=== PATIENT | female | born 1945 | race Caucasian/White ===

== ENCOUNTER 2017-02-08 13:39 | Inpatient (IN) | payer OTHER, MEDICARE ==
[~2017-02-08] VITALS: Ht 154.9 cm; Wt 110.5 kg
[~2017-02-08 13:39] MED LIST: ACC10 PO; ALL60 PO; DICL-201 PO; HYDC25 PO; LRT5 PO; ZNTT/150 PO
[2017-02-08 14:40] VITALS: BP 105/82; PULSE 82; TEMP 36.9; O2SAT 92; Ht 154.9 cm; Wt 110.5 kg
[2017-02-08] MEDS ORDERED: ASPI81TA28 PO (16:26)
[2017-02-08] MEDS ORDERED: PRLSR20 PO (16:32)
[2017-02-08] MEDS ORDERED: COLE1TAB PO (16:42)
[2017-02-08] MEDS ORDERED: CLR10 PO (16:43)
[2017-02-08] MEDS ORDERED: POLYETHYLENE (MIRALAX) 17 GM PACK PO PRN (16:45)
[2017-02-08] MEDS ORDERED: HydrALAZINE HCL 20 MG/ML VIAL IV. PRN (16:45)
[2017-02-08] MEDS ORDERED: MAGNESIUM HYDROXIDE SUSP 30 ML UDC PO PRN (16:45)
[2017-02-08] MEDS ORDERED: ONDANSETRON INJ 2 MG/ML 2 ML VIAL IV PRN (16:45)
[2017-02-08] MEDS ORDERED: ALUMINUM/MAGNESIUM/SIMETH (MAALOX MAX) 30 ML UDC PO PRN (16:45)
[2017-02-08] MEDS ORDERED: TRAM-10 PO ×2 (16:46→17:48)
[2017-02-08] MEDS ORDERED: LISI40TA PO (16:47)
[2017-02-08] MEDS ORDERED: MAGN400T6 PO (16:48)
[2017-02-08] MEDS ORDERED: GABA-113 PO ×2 (16:50→17:48)
[2017-02-08] MEDS ORDERED: ALLO300T2 PO (16:51)
[2017-02-08] MEDS ORDERED: GEMF600T3 PO (16:53)
[2017-02-08] MEDS ORDERED: LEVO75TA5 PO (16:56)
[2017-02-08] MEDS ORDERED: CHOL1CHW4 PO (17:01)
[2017-02-08] MEDS ORDERED: ALEN5SOL PO (17:01)
[2017-02-08] MEDS ORDERED: RIBO100T9 PO (17:03)
[2017-02-08] MEDS ORDERED: SUMA100T16 PO (17:04)
[2017-02-08] MEDS ORDERED: CYAN100048 PO (17:06)
[2017-02-08] MEDS ORDERED: SUMATRIPTAN SUCC TAB 100 MG TAB PO PRN (18:00)
[2017-02-08] MEDS ORDERED: TRAMADOL HCL 50 MG TAB PO PRN (18:00)
[2017-02-08 18:43] LABS: BASO % 0.2 %; BASO ABS # 0.02 K/uL (0-0.2); COMPLETE YES; EOS % 1.8 %; HEMATOCRIT 43.7 % (37-47); IG% 0.5 %; LYMPH % 18.9 %; LYMPH ABS # 2.03 K/uL (1.2-3.4); MEAN CELL VOLUME 89.5 fL (80-100); MEAN CORPUSCULAR HEMOGLOBIN 28.3 pg (25-34); MEAN CORPUSCULAR HGB CONC 31.6 g/dl (32-36); MEAN PLATELET VOLUME 10.6 fL (7.4-10.4); MONO % 6.4 %; NEUT % 72.2 %; PLATELET COUNT 563 K/uL (130-400); RED BLOOD COUNT 4.88 M/uL (4.2-5.4); WHITE BLOOD COUNT 10.72 K/uL (4.8-10.8)
[2017-02-08 19:01] LABS: BUN/CREATININE RATIO 14.9 (10-20); CALCIUM 10.6 mg/dl (8.5-10.1); CREATININE 2.1 mg/dl (0.60-1.20); POTASSIUM 4.9 mmol/L (3.5-5.1)
[2017-02-08 19:04] LABS: ALB/GLOB RATIO 0.6 (0.9-2); PHOSPHORUS 4.1 mg/dl (2.5-4.9)
[2017-02-08 19:10] LABS: INR 1.1 (0.9-1.1); PROTHROMBIN TIME (PATIENT) 11.5 SECONDS (9.0-12.0)
[2017-02-08] MEDS: SODIUM CHLORIDE 0.9% 1000ML 1,000 ML IV SCH (19:48)
[2017-02-08] MEDS: PANTOprazole SOD 40 MG TAB PO SCH (19:48)
--- NOTE | 2017-02-08 19:59 | HISTORY & PHYSICAL EXAMINATION ---
DATE OF ADMISSION: 02/08/2017 CHIEF COMPLAINT: Feeling weak and tired. HISTORY OF PRESENT ILLNESS: This is a 71-year-old female with past medical history significant for hypertension, iron deficiency anemia, generalized osteoarthritis, history of gout, history of GERD, history of migraines, history of hypothyroidism, hyperlipidemia, ALLERGIC RHINITIS, history of hiatal hernia, morbid obesity, questionable chronic kidney disease stage III, was sent in by nephrology because of her worsening renal function. The patient says she was on Mobic for several months and she stopped about 6 weeks ago, because it was thought to be affecting her kidney function. Her renal function as per nephrology notes, was gradually worsening up. Creatinine was 1 in August of this year and in October it went to 1.3 and November it went to 1.5 and yesterday's labs showed a creatinine of 2. Though her Mobic was stopped 6 weeks ago, still her kidney function was worsening Her labs showed mild hypercalcemia,hyperkalemia. CK was normal. Magnesium was normal.Her PRISCILLA and ANCA screen done in 2009 was also normal.We are admitting for further workup. The patient states lately she was feeling very tired, but otherwise she was doing okay. Has chronic headaches from migraines. Denies any dizziness, no blurred vision, and no sore throat. She has been somewhat nauseous lately, but no vomiting, no abdominal pain. Normal bowel and bladder movements. No blood in the stools. No blood in the urine. Appetite is okay. No chest pain, no shortness of breath, no cough, no fever, no chills, no lower extremity edema. Ambulation, walks with the help of cane and is limited because of chronic back pain.Lately, since 1 or 2 years, she developed some rash in her arms region, happens once in a while. Otherwise, she is currently doing fine and resting comfortably. ALLERGIES: TO PENICILLINS. PAST MEDICAL HISTORY: As mentioned above. PAST SURGICAL HISTORY: Appendectomy, bilateral total knee arthroplasties, lumbar spine injections, laparoscopic colectomy with anastomosis, ligation of oviduct, cholecystectomy, tonsillectomy, adenoidectomy. MEDICATIONS AT HOME: Currently, the patient is on Imitrex 1 tablet p.o. p.r.n. with the onset of headaches, Excedrin Migraine 1 tablet every 6 hours p.r.n., tramadol 50 mg p.o. q. 6 hours p.r.n., allopurinol 300 mg p.o. daily, lisinopril 40 mg p.o. daily, Fosamax once a week, Lopid 600 mg p.o. b.i.d., levothyroxine 75 mcg p.o. daily, magnesium oxide 400 mg p.o. daily, gabapentin 300 mg one tablet in the afternoon and 2 tablets at bedtime, colestipol 1 tablet p.o. b.i.d., aspirin enteric coated 81 mg p.o. 3 times a week, Riboflavin 100 mg twice daily, cholecalciferol 200 mg p.o. daily, loratadine 10 mg p.o. daily, omeprazole 20 mg p.o. b.i.d. FAMILY HISTORY: Significant for mother had arthritis and ovarian cancer,. Father had prostate cancer. SOCIAL HISTORY: , no smoking history. Alcohol occasional. No drug abuse. REVIEW OF SYMPTOMS: As per HPI. Rest of the review of systems negative. PHYSICAL EXAMINATION: GENERAL: The patient is morbidly obese, not in distress. VITAL SIGNS: Temperature 36.9, pulse 82, respiratory rate 16, blood pressure 105/82, oxygen 92% room air. HEENT: No pallor, no icterus. NECK: No JVD, no neck masses, no carotid bruits. CARDIOVASCULAR: S1, S2 heard, regular rate and rhythm, no murmur, no gallop. RESPIRATORY: Clear to auscultation bilaterally. No wheezing, no crackles. ABDOMEN: Soft, bowel sounds present. Nontender. No distention. CENTRAL NERVOUS: Cranial nerves II-XII are grossly intact. Nonfocal. EXTREMITIES: No edema, no erythema. Skin Papular rash on the arms LABORATORY DATA: Pending from today. ASSESSMENT AND PLAN: This is a 71-year-old female who was directly admitted for worsening kidney function. 1. Acute renal failure and possibly chronic kidney disease stage III. The patient's creatinine was 1 in August, which has progressively worsened and in October, it was 1.3, in November it was 1.7. yesterday labs showed 2. Though Mobic was stopped approximately 6 weeks ago, her kidney function was worsening and also mild hyperkalemia and hypercalcemia. So she was directly admitted for further lab work. We will place her on gentle fluids. We will repeat the labs here and get an EKG and chest x-ray. We will also get PRISCILLA and ANCA screen, urinalysis and urine for eosinophils. The patient had a renal ultrasound done on August 2016 and was unremarkable except for mild bilateral cortical renal thinning. Repeat ultrasound as per nephrology. Consult nephrology and further recommendation as per nephrology. 2. Hypertension. We will hold the lisinopril. We will place on IV hydralazine p.r.n. 3. Hx of gout, continue allopurinol. 4. Hypothyroidism. Continue Synthroid. Follow TSH levels. 5. Gastroesophageal reflux disease. Continue PPI. 6. History of migraines, on tramadol and magnesium, which we will continue for now and Imitrex p.r.n. 7. Osteoarthritis. Continue tramadol p.r.n. 8. ALLERGIC RHINITIS. Continue Claritin. 9. DVT prophylaxis, SCDs, heparin subQ. 10. Hyperlipidemia. Continue Lopid. DISPOSITION: Admit to medical floor. I expect to discharge her home and follow up with family doctor and nephrology. Level 1, full code. MTDD
[2017-02-08] MEDS: MAGNESIUM OXIDE 400 MG TAB PO SCH (20:56)
[2017-02-08] MEDS: ALLOPURINOL 300 MG TAB PO SCH (20:57)
[2017-02-08] MEDS: GABAPENTIN 300 MG CAP PO SCH (20:57)
[2017-02-08] MEDS ORDERED: NON-FORMULARY MEDICATION (Riboflavin (Vitamin B-2) 100 MG) PO SCH (21:00)
[2017-02-08] MEDS: HEPARIN SOD 5000 UNIT/0.5 ML CARP SQ SCH (21:47)
--- NOTE | 2017-02-08 22:15 | DIAGNOSTIC IMAGING REPORT ---
CHEST ONE VIEW PORTABLE CLINICAL HISTORY: congestion dyspnea COMPARISON STUDY: 09/04/2005 FINDINGS: Mild cardiomegaly. Diaphragms are smooth. Lungs are clear. IMPRESSION: Mild cardiomegaly. Otherwise negative study The above report was generated using voice recognition software. It may contain grammatical, syntax or spelling errors. Electronically signed by: Pawan Avalos M.D. 02/08/2017 10:13 PM Dictated Date/Time: 02/08/2017 10:13 PM
[2017-02-08 23:24] VITALS: BP_SYST 74; BP_SYST 91; BP_DIAS 49; BP_DIAS 60; PULSE 82; TEMP 37; O2SAT 91
[2017-02-09] VITALS: BP 91/60
[2017-02-09] MEDS ORDERED: SODIUM CHLORIDE 0.9% 500ML 500 ML IV ONE
[2017-02-09 00:09] LABS: BASO % 0.2 %; BASO ABS # 0.02 K/uL (0-0.2); COMPLETE YES; EOS % 2.4 %; HEMATOCRIT 38.1 % (37-47); IG% 0.3 %; LYMPH % 19.9 %; LYMPH ABS # 1.74 K/uL (1.2-3.4); MEAN CORPUSCULAR HGB CONC 31.5 g/dl (32-36); MEAN PLATELET VOLUME 10.1 fL (7.4-10.4); MONO % 6.4 %; NEUT % 70.8 %; PLATELET COUNT 452 K/uL (130-400); RED BLOOD COUNT 4.28 M/uL (4.2-5.4); WHITE BLOOD COUNT 8.74 K/uL (4.8-10.8)
[2017-02-09 00:28] LABS: BUN/CREATININE RATIO 16.3 (10-20); CALCIUM 9.5 mg/dl (8.5-10.1); POTASSIUM 5.2 mmol/L (3.5-5.1)
[2017-02-09 01:26] VITALS: BP 98/63
[2017-02-09 02:06] LABS: URINE APPEARANCE CLEAR (CLEAR); URINE BILIRUBIN NEG (NEG); URINE COLOR YELLOW; URINE EPITHELIAL CELL AUTO >30 /lpf (0-5); URINE NITRITE NEG (NEG); URINE SPECIFIC GRAVITY 1.015 (1.000-1.030); UROBILINOGEN NEG (NEG)
[2017-02-09 02:08] LABS: MANUAL MICROSCOPIC REQUIRED? NO; REVIEW REQ? NO
[2017-02-09] MEDS: SODIUM CHLORIDE 0.9% 1000ML 1,000 ML IV SCH ×2 (05:34→14:15)
[2017-02-09] MEDS: LEVOTHYROXINE 75 MCG TAB PO SCH (05:35)
[2017-02-09 06:50] VITALS: BP 91/57; PULSE 69; TEMP 36.5; O2SAT 92
[2017-02-09] MEDS: GEMFIBROZIL 600 MG TAB PO SCH ×2 (07:18→17:39)
[2017-02-09] MEDS: COLESTIPOL HCL 1 GM TAB PO SCH ×2 (07:18→17:38)
[2017-02-09] MEDS: PANTOprazole SOD 40 MG TAB PO SCH ×2 (07:18→17:39)
[2017-02-09] MEDS: ACETAMINOPHEN 325 MG TAB PO PRN ×2 (07:20→11:19)
[2017-02-09] MEDS: HEPARIN SOD 5000 UNIT/0.5 ML CARP SQ SCH ×2 (07:26→20:50)
[2017-02-09 08:19] LABS: BASO % 0.6 %; BASO ABS # 0.04 K/uL (0-0.2); COMPLETE YES; EOS % 4.2 %; HEMATOCRIT 36.7 % (37-47); IG% 0.3 %; LYMPH % 28.3 %; LYMPH ABS # 1.87 K/uL (1.2-3.4); MEAN CELL VOLUME 89.7 fL (80-100); MEAN CORPUSCULAR HEMOGLOBIN 28.6 pg (25-34); MEAN CORPUSCULAR HGB CONC 31.9 g/dl (32-36); MEAN PLATELET VOLUME 10.2 fL (7.4-10.4); MONO % 7.1 %; NEUT % 59.5 %; PLATELET COUNT 426 K/uL (130-400); RED BLOOD COUNT 4.09 M/uL (4.2-5.4); WHITE BLOOD COUNT 6.61 K/uL (4.8-10.8)
[2017-02-09 08:53] LABS: BUN/CREATININE RATIO 15.2 (10-20); CALCIUM 9.5 mg/dl (8.5-10.1); CREATININE 1.9 mg/dl (0.60-1.20); POTASSIUM 4.8 mmol/L (3.5-5.1)
[2017-02-09] MEDS ORDERED: ASPIRIN 81 MG ECTAB PO SCH (09:00)
[2017-02-09] MEDS ORDERED: PERFLUTREN LIPID MICROSPHERE (DEFINITY) IV ONE (09:50)
[2017-02-09] MEDS: LORATADINE 10 MG TAB PO SCH (11:06)
[2017-02-09] MEDS: GABAPENTIN 300 MG CAP PO SCH ×2 (11:06→20:46)
[2017-02-09] MEDS: CHOLECALCIFEROL 1000 INTER.UNIT TAB PO SCH (11:07)
--- NOTE | 2017-02-09 12:30 | ECHOCARDIOGRAM REPORT ---
*NOTICE TO RECEIVING REPUBLICAN AGENCY This information is strictly Confidential and protected under [place] law. [place] law prohibits you from making any further disclosure of this information unless further disclosure is expressly permitted by the written consent of the person to whom it pertains or is authorized by law. A general authorization for the release of medical or other information is not sufficient for this purpose. Hospital accepts no responsibility if the information is made available to any other person, INCLUDING THE PATIENT. 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 * Performed By: Maria Victoria Rivera RCS * * Reason For Study: ABNORMAL EKG * BSA: 2.1 m2 * -- Conclusions -- * The left ventricle is normal in size. * Left ventricular systolic function is normal. * Ejection Fraction = 55-60%. * The right ventricular systolic function is normal. * The left atrial size is normal. * Right atrial size is normal. * No significant valvular pathology. Procedure Details * A complete two-dimensional transthoracic echocardiogram was performed (2D, M-mode, Doppler and color flow Doppler). * The study was technically difficult. * A contrast injection of Definity was performed to improve assessment of LV function. * Contrast was injected into an intravenous site in the left arm. * One vial of Definity ultrasound contrast was diluted in normal saline to a total volume of 10 ml. A total of '2' ml of solution was administered during imaging. * Lot # [id number] of Definity utilized for procedure. * Expiration date MAR 15. * The attending nurse who injected the contrast agent was ABBY PINA CPL, RN. Left Ventricle * The left ventricle is normal in size. * There is normal left ventricular wall thickness. * Left ventricular systolic function is normal. * Ejection Fraction = 55-60%. * The left ventricular wall motion is normal. Right Ventricle * The right ventricle is normal size. * The right ventricular systolic function is normal. Atria * The left atrial size is normal. * Right atrial size is normal. * The interatrial septum is intact with no evidence for an atrial septal defect. Mitral Valve * The mitral valve anatomy is normal. * Significant mitral regurgitation is absent. Tricuspid Valve * The tricuspid valve anatomy is normal. * There is trace tricuspid regurgitation. Aortic Valve * The aortic valve is tricuspid. The leaflet thickness if normal. There is no aortic stenosis, and no significant insufficiency. * No hemodynamically significant valvular aortic stenosis. * There is no significant aortic regurgitation. Pulmonic Valve * The pulmonic valve is not well visualized. Great Vessels * The aortic root and proximal ascending aorta are normal sized. Pericardium/Pleural * There is no pericardial effusion. MMode 2D Measurements and Calculations IVSd 1.4 cm IVSs 1.5 cm LVIDd 4.4 cm LVIDs 3.5 cm LVPWd 1.2 cm LVPWs 1.3 cm IVS/LVPW 1.2 FS 20.1 % EDV(Teich) 89.0 ml ESV(Teich) 52.3 ml EF(Teich) 41.3 % EDV(cubed) 86.8 ml ESV(cubed) 44.3 ml EF(cubed) 48.9 % % IVS thick 10.7 % % LVPW thick 12.9 % LV mass(C)d 209.8 grams LV mass(C)dI 102.2 grams/m\S\2 LV mass(C)s 179.5 grams LV mass(C)sI 87.5 grams/m\S\2 SV(Teich) 36.7 ml SI(Teich) 17.9 ml/m\S\2 SV(cubed) 42.4 ml SI(cubed) 20.7 ml/m\S\2 Ao root diam 2.9 cm Ao root area 6.5 cm\S\2 ACS 2.1 cm LA dimension 3.2 cm LA/Ao 1.1 LVOT diam 2.0 cm LVOT area 3.2 cm\S\2 LVAd ap4 31.9 cm\S\2 LVLd ap4 8.0 cm EDV(MOD-sp4) 108.3 ml EDV(sp4-el) 108.2 ml LVAs ap4 18.2 cm\S\2 LVLs ap4 5.6 cm ESV(MOD-sp4) 51.5 ml ESV(sp4-el) 50.1 ml EF(MOD-sp4) 52.5 % EF(sp4-el) 53.7 % LVAd ap2 28.2 cm\S\2 LVLd ap2 8.3 cm EDV(MOD-sp2) 81.0 ml EDV(sp2-el) 81.5 ml LVAs ap2 20.2 cm\S\2 LVLs ap2 7.3 cm ESV(MOD-sp2) 45.8 ml ESV(sp2-el) 47.4 ml EF(MOD-sp2) 43.5 % EF(sp2-el) 41.9 % LVLd %diff 4.1 % EDV(MOD-bp) 95.6 ml LVLs %diff 23.0 % ESV(MOD-bp) 54.9 ml EF(MOD-bp) 42.5 % SV(MOD-sp4) 56.8 ml SI(MOD-sp4) 27.7 ml/m\S\2 SV(MOD-sp2) 35.3 ml SI(MOD-sp2) 17.2 ml/m\S\2 SV(MOD-bp) 40.7 ml SI(MOD-bp) 19.8 ml/m\S\2 SV(sp4-el) 58.2 ml SI(sp4-el) 28.3 ml/m\S\2 SV(sp2-el) 34.2 ml SI(sp2-el) 16.6 ml/m\S\2 Doppler Measurements and Calculations MV E max orion 103.5 cm/sec MV A max orion 82.5 cm/sec MV E/A 1.3 MV P1/2t max orion 96.6 cm/sec MV P1/2t 63.7 msec MVA(P1/2t) 3.5 cm\S\2 MV dec slope 444.1 cm/sec\S\2 MV dec time 0.24 sec Ao V2 max 152.8 cm/sec Ao max PG 9.3 mmHg Ao max PG (full) 5.2 mmHg SUNSHINE(V,A) 2.1 cm\S\2 SUNSHINE(V,D) 2.1 cm\S\2 LV V1 max PG 4.1 mmHg LV V1 max 101.2 cm/sec PA V2 max 88.9 cm/sec PA max PG 3.2 mmHg TR max orion 174.3 cm/sec
[2017-02-09 15:00] VITALS: BP 110/73; PULSE 69; TEMP 36.6; O2SAT 94
--- NOTE | 2017-02-09 15:59 | Progress Note ---
Internal Med Progress Note Date of Service: Feb 09, 2017. Provider Documentation: SUBJECTIVE: resting comfortably eating fine 'no sob no chest pain afebrile asking when she can go home OBJECTIVE: Vital Signs-as noted below Exam: General-alert and oriented. Not in distress. Obese ENT-normal hearing Neck-no neck masses Lungs-cta b/l no wheezing no crackles present Heart-s1 and s2 heard regular rhythm, no murmurs Abdomen-soft bowel sounds present non tender no distension Extremities no edema present no erythema Neuro-alert and oriented moves extremities Lab data as noted below. ASSESSMENT & PLAN: This is a 71-year-old female who was directly admitted for worsening kidney function. 1. Acute renal failure and possibly chronic kidney disease stage III. The patient's creatinine was 1 in August, which has progressively worsened and in October, it was 1.3, in November it was 1.7. yesterday labs showed 2. Though Mobic was stopped approximately 6 weeks ago, her kidney function was worsening and also mild hyperkalemia and hypercalcemia. So she was directly admitted for further lab work. cr 1.9 today awit nephro recommendations continue gentle fluids for now. 2. Hypertension. We will hold the lisinopril. We will place on IV hydralazine p.r.n. 3. Hx of gout, continue allopurinol. 4. Hypothyroidism. Continue Synthroid. 5. Gastroesophageal reflux disease. Continue PPI. 6. History of migraines, on tramadol and magnesium, which we will continue for now and Imitrex p.r.n. 7. Osteoarthritis. Continue tramadol p.r.n. 8. ALLERGIC RHINITIS. Continue Claritin. 9. DVT prophylaxis, SCDs, heparin subQ. 10. Hyperlipidemia. Continue Lopid. DISPOSITION to be determined expect to d/c home and f/u with pcp and nephrology Vital Signs: Date Time Temp Pulse Resp B/P (MAP) Pulse Ox O2 Delivery O2 Flow Rate FiO2 02/09/17 15:00 36.6 69 18 110/73 (85) 94 Room Air 02/09/17 07:10 Room Air 02/09/17 06:50 36.5 69 16 91/57 (68) 92 Room Air 02/09/17 01:26 98/63 (75) 02/09/17 00:00 91/60 (70) 02/08/17 23:24 37.0 82 16 91/60 (70) 91 Room Air 74/49 (57) 02/08/17 23:15 Room Air Lab Results: Results Past 24 Hours Test 02/08/17 18:29 02/08/17 23:56 02/09/17 00:00 02/09/17 01:45 Range/Units White Blood Count 10.72 8.74 4.8-10.8 K/uL Red Blood Count 4.88 4.28 4.2-5.4 M/uL Hemoglobin 13.8 12.0 12.0-16.0 g/dL Hematocrit 43.7 38.1 37-47 % Mean Corpuscular Volume 89.5 89.0 80-100 fL Mean Corpuscular Hemoglobin 28.3 28.0 25-34 pg Mean Corpuscular Hemoglobin Concent 31.6 31.5 32-36 g/dl Platelet Count 563 452 130-400 K/uL Mean Platelet Volume 10.6 10.1 7.4-10.4 fL Neutrophils (%) (Auto) 72.2 70.8 % Lymphocytes (%) (Auto) 18.9 19.9 % Monocytes (%) (Auto) 6.4 6.4 % Eosinophils (%) (Auto) 1.8 2.4 % Basophils (%) (Auto) 0.2 0.2 % Neutrophils # (Auto) 7.74 6.18 1.4-6.5 K/uL Lymphocytes # (Auto) 2.03 1.74 1.2-3.4 K/uL Monocytes # (Auto) 0.69 0.56 0.11-0.59 K/uL Eosinophils # (Auto) 0.19 0.21 0-0.5 K/uL Basophils # (Auto) 0.02 0.02 0-0.2 K/uL RDW Standard Deviation 49.5 49.1 36.4-46.3 fL RDW Coefficient of Variation 15.2 15.2 11.5-14.5 % Immature Granulocyte % (Auto) 0.5 0.3 % Immature Granulocyte # (Auto) 0.05 0.03 0.00-0.02 K/uL Prothrombin Time 11.5 9.0-12.0 SECONDS Prothromb Time International Ratio 1.1 0.9-1.1 Sodium Level 133 136 136-145 mmol/L Potassium Level 4.9 5.2 3.5-5.1 mmol/L Chloride Level 103 106 98-107 mmol/L Carbon Dioxide Level 21 24 21-32 mmol/L Anion Gap 9.0 6.0 3-11 mmol/L Blood Urea Nitrogen 31 33 7-18 mg/dl Creatinine 2.10 2.00 0.60-1.20 mg/dl Est Creatinine Clear Calc Drug Dose 29.1 30.5 ml/min Estimated GFR () 27.1 28.8 Estimated GFR (Non- 23.4 24.8 BUN/Creatinine Ratio 14.9 16.3 10-20 Random Glucose 88 99 70-99 mg/dl Calcium Level 10.6 9.5 8.5-10.1 mg/dl Phosphorus Level 4.1 2.5-4.9 mg/dl Magnesium Level 2.0 2.0 1.8-2.4 mg/dl Total Bilirubin 0.3 0.2-1 mg/dl Aspartate Amino Transf (AST/SGOT) 15 15-37 U/L Alanine Aminotransferase (ALT/SGPT) 8 12-78 U/L Alkaline Phosphatase 292 45-117 U/L Total Protein 8.8 6.4-8.2 gm/dl Albumin 3.3 3.4-5.0 gm/dl Globulin 5.5 2.5-4.0 gm/dl Albumin/Globulin Ratio 0.6 0.9-2 Lactic Acid Level 1.2 0.4-2.0 mmol/L Urine Color YELLOW Urine Appearance CLEAR CLEAR Urine pH 5.0 4.5-7.5 Urine Specific [place] 1.015 1.000-1.030 Urine Protein NEG NEG Urine Glucose (UA) NEG NEG Urine Ketones NEG NEG Urine Occult Blood NEG NEG Urine Nitrite NEG NEG Urine Bilirubin NEG NEG Urine Urobilinogen NEG NEG Urine Leukocyte Esterase MODERATE NEG Urine WBC (Auto) 10-30 0-5 /hpf Urine RBC (Auto) 0-4 0-4 /hpf Urine Hyaline Casts (Auto) 1-5 0-5 /lpf Urine Epithelial Cells (Auto) >30 0-5 /lpf Urine Bacteria (Auto) NEG NEG Test 02/09/17 08:00 Range/Units White Blood Count 6.61 4.8-10.8 K/uL Red Blood Count 4.09 4.2-5.4 M/uL Hemoglobin 11.7 12.0-16.0 g/dL Hematocrit 36.7 37-47 % Mean Corpuscular Volume 89.7 80-100 fL Mean Corpuscular Hemoglobin 28.6 25-34 pg Mean Corpuscular Hemoglobin Concent 31.9 32-36 g/dl Platelet Count 426 130-400 K/uL Mean Platelet Volume 10.2 7.4-10.4 fL Neutrophils (%) (Auto) 59.5 % Lymphocytes (%) (Auto) 28.3 % Monocytes (%) (Auto) 7.1 % Eosinophils (%) (Auto) 4.2 % Basophils (%) (Auto) 0.6 % Neutrophils # (Auto) 3.93 1.4-6.5 K/uL Lymphocytes # (Auto) 1.87 1.2-3.4 K/uL Monocytes # (Auto) 0.47 0.11-0.59 K/uL Eosinophils # (Auto) 0.28 0-0.5 K/uL Basophils # (Auto) 0.04 0-0.2 K/uL RDW Standard Deviation 50.1 36.4-46.3 fL RDW Coefficient of Variation 15.2 11.5-14.5 % Immature Granulocyte % (Auto) 0.3 % Immature Granulocyte # (Auto) 0.02 0.00-0.02 K/uL Sodium Level 136 136-145 mmol/L Potassium Level 4.8 3.5-5.1 mmol/L Chloride Level 108 98-107 mmol/L Carbon Dioxide Level 22 21-32 mmol/L Anion Gap 6.0 3-11 mmol/L Blood Urea Nitrogen 29 7-18 mg/dl Creatinine 1.90 0.60-1.20 mg/dl Est Creatinine Clear Calc Drug Dose 32.1 ml/min Estimated GFR () 30.6 Estimated GFR (Non- 26.4 BUN/Creatinine Ratio 15.2 10-20 Random Glucose 86 70-99 mg/dl Calcium Level 9.5 8.5-10.1 mg/dl Troponin I < 0.015 0-0.045 ng/ml
--- NOTE | 2017-02-09 17:29 | Nephrology Consultation ---
Nephrology Consultation Date of Consultation: Feb 09, 2017. Attending Physician: Dr Briceno Requesting Physician: Dr Briceno Reason for Consultation: LUZ MARIA on CKD History of Present Illness 71 year old female who established care w/ Dr Rivas in CKD clinic this week admitted directly yesterday at his recommendation for evaluation of worsening renal function. PMH includes CKD 3 which has emerged and worsened over the past 3 mos. The pt has a hx of mobic/occasional ibuprofen use for OA under supervision of rheumatology>> these were stopped though in late November. She also takes excedrine migraine which containes 250 mg ASA per pill a few times weekly and often HS one pill each time, including recently. Also on lisinopril and ASA 81 mg daily. She started lisinopril in August. She started meloxicam in August and stopped it at the end of November. Her creatinine went from 1.0 in August 2016 to 1.3 in mid October to 1.5 late November and now on recheck 02/07 was 2.0 with K 5.2, Ca 10.7. Her weight has been stable in this timeframe. Her blood pressures in clinic run 110-120 systolic. Since presentation through this am, her systolics were in 90s. UA obtained same day showed no eonsinophils but ongoing large esterase, bacteria, WBC and trace protein. prot/creat ratio in this sediment was 205 mg. Renal u/s spring 2016 shows symmetric 10 cm kidneys w /o hydronephrosis, stone, or mass. Past Medical/Surgical History -osteoarthritis -HTN -CKD 3 -frequent headaches including migraines -GERD -hiatal hernia -HL -hypothyroid -obesity BMI >45 -s/p appendectomy, tonsil/adenoid, lap colectomy -s/p BL TKA Family History no ckd/esrd; M w/ ovarian CA; F w/ prostate CA Social History Smoking Status: Never Smoker Alcohol Use: none Drug Use: none Marital Status: Housing Status: lives with family Allergies Coded Allergies: Penicillins (Verified Adverse Reaction, Mild, YEAST INFECTION, 07/03/09) No Known Allergies (Verified , 01/03/07) Medications Current Inpatient Medications Medications (Trade) Dose Ordered Sig/Moises Route Start Time Stop Time Status Last Admin Dose Admin Acetaminophen (Tylenol Tab) 650 mg Q4H PRN PO 02/08/17 16:45 03/10/17 16:44 02/09/17 07:20 650 MG Al Hydrox/Mg Hydrox/Simethicone (Maalox Max Susp) 15 ml Q4H PRN PO 02/08/17 16:45 03/10/17 16:44 Magnesium Hydroxide (Milk Of Magnesia Susp) 30 ml Q6H PRN PO 02/08/17 16:45 03/10/17 16:44 Polyethylene (Miralax Powder Packet) 17 gm DAILY PRN PO 02/08/17 16:45 03/10/17 16:44 Ondansetron HCl (Zofran Inj) 4 mg Q6H PRN IV 02/08/17 16:45 03/10/17 16:44 02/08/17 19:48 4 MG Heparin Sodium (Porcine) (Heparin Sq 5000 Unit/0.5ml) 5,000 unit Q12H SQ 02/08/17 21:00 03/10/17 20:59 02/09/17 07:26 5,000 UNIT Sodium Chloride 1,000 ml @ 75 mls/hr [id number] IV 02/08/17 16:45 03/10/17 16:44 02/09/17 05:34 75 MLS/HR Allopurinol (Zyloprim Tab) 300 mg QPM PO 02/08/17 21:00 03/10/17 20:59 02/08/17 20:57 300 MG Aspirin (Ecotrin Tab) 81 mg Q2D PO 02/09/17 09:00 03/11/17 08:59 Colestipol HCl (Colestid Tab) 1 gm BIDM PO 02/09/17 08:30 03/11/17 08:29 02/09/17 07:18 1 GM Gabapentin (Neurontin Cap) 300 mg QAM PO 02/09/17 09:00 03/11/17 08:59 Gemfibrozil (Lopid Tab) 600 mg BIDM PO 02/09/17 08:30 03/11/17 08:29 02/09/17 07:18 600 MG Levothyroxine Sodium (Synthroid Tab) 75 mcg DAILYBB PO 02/09/17 06:00 03/11/17 05:59 02/09/17 05:35 75 MCG Loratadine (Claritin Tab) 10 mg DAILY PO 02/09/17 09:00 03/11/17 08:59 Magnesium Oxide (Mag-Ox Tab) 400 mg QPM PO 02/08/17 21:00 03/10/17 20:59 02/08/17 20:56 400 MG Sumatriptan Succinate (Imitrex Tab) 100 mg UD PRN PO 02/08/17 18:00 03/10/17 17:59 Tramadol HCl (Ultram Tab) 50 mg Q6 PRN PO 02/08/17 18:00 03/10/17 17:59 02/08/17 21:00 50 MG Cholecalciferol (Vitamin D Tab) 2,000 inter.unit QAM PO 02/09/17 09:00 03/11/17 08:59 Pantoprazole Sodium (Protonix Tab) 40 mg BIDM PO 02/08/17 19:00 03/10/17 18:59 02/09/17 07:18 40 MG Gabapentin (Neurontin Cap) 600 mg HS PO 02/08/17 21:00 03/10/17 20:59 02/08/17 20:57 600 MG Home Meds and Scripts Medications Dose Route/Sig Max Daily Dose Days Date Category Dose Instructions Neurontin (Gabapentin) 300 Mg Cap 300 Mg PO UD 02/08/17 Rx GABAPENTIN 300MG IN AM AND GABAPENTIN 600MG PO IN PM Ultram (Tramadol HCl) 50 Mg Tab 1 Tab PO Q6 PRN 30 02/08/17 Rx Imitrex (Sumatriptan Succinate) 100 Mg Tab 100 Mg PO PRN 02/08/17 Reported Vitamin B-2 (Riboflavin) 100 Mg Tab 100 Mg PO BID 02/08/17 Reported Vitamin D3 (Cholecalciferol) 2,000 Unit Chw 2,000 Units PO QAM 02/08/17 Reported Levothyroxine Sodium 75 Mcg Tab 1 Tab PO DAILYBB 30 02/08/17 Reported Lopid (Gemfibrozil) 600 Mg Tab 600 Mg PO BIDM 02/08/17 Reported Zyloprim (Allopurinol) 300 Mg Tab 300 Mg PO QPM 02/08/17 Reported Mag-Ox (Magnesium Oxide) 400 Mg Tab 400 Mg PO QPM 02/08/17 Reported Zestril (Lisinopril) 40 Mg Tab 40 Mg PO QPM 02/08/17 Reported Claritin (Loratadine) 10 Mg Tab 10 Mg PO DAILY 02/08/17 Reported Colestid (Colestipol Hcl) 1 Gm Tab 1 Gm PO BIDM 02/08/17 Reported Prilosec (Omeprazole) 20 Mg Capcr 20 Mg PO BIDM 02/08/17 Reported Aspirin Ec (Aspirin) 81 Mg Tab 81 Mg PO Q2D 02/08/17 Reported Review of Systems Constitutional: + weakness Eyes: No worsening of vision ENT: No hearing loss Respiratory: No cough, No shortness of breath Cardiac: No edema, No palpitations Abdomen: No pain, No nausea, No vomiting, No diarrhea, No constipation Musculoskeletal: + see HPI, + joint pain, + muscle pain Female : No dysuria, No urinary frequency, No hematuria Neuro: + problem reported (MURRAY near daily), No memory loss Psych: + insomnia, No depression symptoms, No anxiety Heme: No abnormal bleeding/bruising Endo: No fatigue Skin: No rash Physical Exam Date Time Temp Pulse Resp B/P (MAP) Pulse Ox O2 Delivery O2 Flow Rate FiO2 02/09/17 06:50 36.5 69 16 91/57 (68) 92 Room Air 02/09/17 01:26 98/63 (75) 02/09/17 00:00 91/60 (70) 02/08/17 23:24 37.0 82 16 91/60 (70) 91 Room Air 74/49 (57) 02/08/17 23:15 Room Air 02/08/17 14:40 36.9 82 16 105/82 92 Room Air 02/08/17 14:40 Room Air 02/08/17 14:40 36.9 82 16 105/82 (90) 92 Room Air General Appearance: WD/WN, no apparent distress, + obese, + pertinent finding ( on RA) Eyes: EOMI ENT: hearing grossly normal Neck: supple Respiratory/Chest: lungs clear, + decreased breath sounds Cardiovascular: regular rate, rhythm, no edema Abdomen: normal bowel sounds, non tender, soft Extremities: normal range of motion, non-tender, no pedal edema Neurologic/Psych: no motor/sensory deficits, alert, normal mood/affect, oriented x 3 Skin: no jaundice, warm/dry, + pallor Diagnostics Last 24 Hours Test 02/08/17 18:29 02/08/17 23:56 02/09/17 00:00 9/14/17 01:45 White Blood Count 10.72 K/uL 8.74 K/uL Red Blood Count 4.88 M/uL 4.28 M/uL Hemoglobin 13.8 g/dL 12.0 g/dL Hematocrit 43.7 % 38.1 % Mean Corpuscular Volume 89.5 fL 89.0 fL Mean Corpuscular Hemoglobin 28.3 pg 28.0 pg Mean Corpuscular Hemoglobin Concent 31.6 g/dl 31.5 g/dl Platelet Count 563 K/uL 452 K/uL Mean Platelet Volume 10.6 fL 10.1 fL Neutrophils (%) (Auto) 72.2 % 70.8 % Lymphocytes (%) (Auto) 18.9 % 19.9 % Monocytes (%) (Auto) 6.4 % 6.4 % Eosinophils (%) (Auto) 1.8 % 2.4 % Basophils (%) (Auto) 0.2 % 0.2 % Neutrophils # (Auto) 7.74 K/uL 6.18 K/uL Lymphocytes # (Auto) 2.03 K/uL 1.74 K/uL Monocytes # (Auto) 0.69 K/uL 0.56 K/uL Eosinophils # (Auto) 0.19 K/uL 0.21 K/uL Basophils # (Auto) 0.02 K/uL 0.02 K/uL RDW Standard Deviation 49.5 fL 49.1 fL RDW Coefficient of Variation 15.2 % 15.2 % Immature Granulocyte % (Auto) 0.5 % 0.3 % Immature Granulocyte # (Auto) 0.05 K/uL 0.03 K/uL Prothrombin Time 11.5 SECONDS Prothromb Time International Ratio 1.1 Sodium Level 133 mmol/L 136 mmol/L Potassium Level 4.9 mmol/L 5.2 mmol/L Chloride Level 103 mmol/L 106 mmol/L Carbon Dioxide Level 21 mmol/L 24 mmol/L Anion Gap 9.0 mmol/L 6.0 mmol/L Blood Urea Nitrogen 31 mg/dl 33 mg/dl Creatinine 2.10 mg/dl 2.00 mg/dl Est Creatinine Clear Calc Drug Dose 29.1 ml/min 30.5 ml/min Estimated GFR () 27.1 28.8 Estimated GFR (Non- 23.4 24.8 BUN/Creatinine Ratio 14.9 16.3 Random Glucose 88 mg/dl 99 mg/dl Calcium Level 10.6 mg/dl 9.5 mg/dl Phosphorus Level 4.1 mg/dl Magnesium Level 2.0 mg/dl 2.0 mg/dl Total Bilirubin 0.3 mg/dl Aspartate Amino Transf (AST/SGOT) 15 U/L Alanine Aminotransferase (ALT/SGPT) 8 U/L Alkaline Phosphatase 292 U/L Total Protein 8.8 gm/dl Albumin 3.3 gm/dl Globulin 5.5 gm/dl Albumin/Globulin Ratio 0.6 Lactic Acid Level 1.2 mmol/L Urine Color YELLOW Urine Appearance CLEAR Urine pH 5.0 Urine Specific [place] 1.015 Urine Protein NEG Urine Glucose (UA) NEG Urine Ketones NEG Urine Occult Blood NEG Urine Nitrite NEG Urine Bilirubin NEG Urine Urobilinogen NEG Urine Leukocyte Esterase MODERATE Urine WBC (Auto) 10-30 /hpf Urine RBC (Auto) 0-4 /hpf Urine Hyaline Casts (Auto) 1-5 /lpf Urine Epithelial Cells (Auto) >30 /lpf Urine Bacteria (Auto) NEG Test 02/09/17 08:00 White Blood Count 6.61 K/uL Red Blood Count 4.09 M/uL Hemoglobin 11.7 g/dL Hematocrit 36.7 % Mean Corpuscular Volume 89.7 fL Mean Corpuscular Hemoglobin 28.6 pg Mean Corpuscular Hemoglobin Concent 31.9 g/dl Platelet Count 426 K/uL Mean Platelet Volume 10.2 fL Neutrophils (%) (Auto) 59.5 % Lymphocytes (%) (Auto) 28.3 % Monocytes (%) (Auto) 7.1 % Eosinophils (%) (Auto) 4.2 % Basophils (%) (Auto) 0.6 % Neutrophils # (Auto) 3.93 K/uL Lymphocytes # (Auto) 1.87 K/uL Monocytes # (Auto) 0.47 K/uL Eosinophils # (Auto) 0.28 K/uL Basophils # (Auto) 0.04 K/uL RDW Standard Deviation 50.1 fL RDW Coefficient of Variation 15.2 % Immature Granulocyte % (Auto) 0.3 % Immature Granulocyte # (Auto) 0.02 K/uL Sodium Level 136 mmol/L Potassium Level 4.8 mmol/L Chloride Level 108 mmol/L Carbon Dioxide Level 22 mmol/L Anion Gap 6.0 mmol/L Blood Urea Nitrogen 29 mg/dl Creatinine 1.90 mg/dl Est Creatinine Clear Calc Drug Dose 32.1 ml/min Estimated GFR () 30.6 Estimated GFR (Non- 26.4 BUN/Creatinine Ratio 15.2 Random Glucose 86 mg/dl Calcium Level 9.5 mg/dl Troponin I < 0.015 ng/ml Diagnostic Radiology: CXR cardiomegaly else no acute CP process TTE today > EF 55%; no valvular path or WMA Assessment & Plan 71 y/o F w/ rapidly progressive renal insufficiency admitted for mgt of same. Creatinine had been 0.9-1.0 x years; then in August 2016, the pt started both meloxicam and lisinopril concomitantly. Also occasional ibuprofen; also excedrin MURRAY med of unclear use frequency. Pt stopped NSAIDS late November. First abnormal serum creatinine is in October when her creatinine progressed to 1.3 in mid/late October to 2.0 on labs this week outpatient. Pt w/ concern for UTI at CKD clinic yesterday based on urine sediment; however here her urine has no bacteria, contaminated specimen; doubt infection. Her creatinine is slightly improved this am with ongoing lower blood pressures, sbp in 90s. Pt has chronic headache, insomnia, chronic pain >> has been taking 250 + 81 mg ASA near daily between excedrin migraine and baby aspirin and a few times weekly takes another excedrine migraine dose (250 mg asa) as well Progressive renal insufficiency in setting of chronic ACEI use and chronic nsaid exposure which was reduced but still continued this summer -admission ua contaminated and not consistent with infection -lisinopril appropriately held -cont NS at 75 mL hourly as tolerated -BP here are notably lower than as outpt >> TTE reassuring; ? if bp are lower on markedly lower dose ASA, ie w/ lower nsaid exposure -no more than 81 mg daily nsaids -work w/ pt on alternate strategies to manage MURRAY, insomnia; for MURRAY for example, could take tylenol + caffeine <<>> though this is not a great routine/frequent med -daily bmp -f/u pending serologies -recommend requantifying proteinuria> will repeat prot/creat ratio Appreciate consult; will follow with you.
[2017-02-09] MEDS: MAGNESIUM OXIDE 400 MG TAB PO SCH (20:45)
[2017-02-09] MEDS: ALLOPURINOL 300 MG TAB PO SCH (20:46)
[2017-02-09 23:05] VITALS: BP 103/69; PULSE 75; TEMP 37.2; O2SAT 94
[2017-02-10] MEDS: LEVOTHYROXINE 75 MCG TAB PO SCH (05:28)
[2017-02-10 07:40] VITALS: BP 111/73; PULSE 62; TEMP 36.9; O2SAT 94
[2017-02-10 08:06] LABS: BASO % 0.3 %; BASO ABS # 0.02 K/uL (0-0.2); COMPLETE YES; EOS % 5.1 %; HEMATOCRIT 37.6 % (37-47); IG% 0.5 %; LYMPH % 25.9 %; LYMPH ABS # 1.68 K/uL (1.2-3.4); MEAN CELL VOLUME 90.6 fL (80-100); MEAN CORPUSCULAR HEMOGLOBIN 27.7 pg (25-34); MEAN CORPUSCULAR HGB CONC 30.6 g/dl (32-36); MEAN PLATELET VOLUME 10.5 fL (7.4-10.4); MONO % 6.6 %; NEUT % 61.6 %; PLATELET COUNT 495 K/uL (130-400); RED BLOOD COUNT 4.15 M/uL (4.2-5.4); WHITE BLOOD COUNT 6.48 K/uL (4.8-10.8)
[2017-02-10] MEDS: GEMFIBROZIL 600 MG TAB PO SCH (08:12)
[2017-02-10] MEDS: COLESTIPOL HCL 1 GM TAB PO SCH (08:12)
[2017-02-10] MEDS: PANTOprazole SOD 40 MG TAB PO SCH (08:12)
[2017-02-10] MEDS: LORATADINE 10 MG TAB PO SCH (08:12)
[2017-02-10] MEDS: CHOLECALCIFEROL 1000 INTER.UNIT TAB PO SCH (08:13)
[2017-02-10] MEDS: GABAPENTIN 300 MG CAP PO SCH (08:13)
[2017-02-10] MEDS: HEPARIN SOD 5000 UNIT/0.5 ML CARP SQ SCH (08:18)
[2017-02-10] MEDS: SODIUM CHLORIDE 0.9% 1000ML 1,000 ML IV SCH (08:21)
[2017-02-10 08:38] LABS: BUN/CREATININE RATIO 13.8 (10-20); CREATININE 1.7 mg/dl (0.60-1.20); MAGNESIUM 2.1 mg/dl (1.8-2.4); POTASSIUM 4.9 mmol/L (3.5-5.1)
[2017-02-10 08:51] LABS: PHOSPHORUS 2.9 mg/dl (2.5-4.9); THYROID STIMULATING HORMONE 0.44 uIu/ml (0.300-4.500)
[2017-02-10 09:13] VITALS: BP 111/73; PULSE 62; TEMP 36.9; O2SAT 94
--- NOTE | 2017-02-10 10:41 | Nephrology Progress Note ---
Nephrology Progress Note Date of Service: Feb 10, 2017. Subjective very anxious for d/c; voiding well, 2 murray since admission treated appropriately w /o nsaid; ambulating Objective Date Time Temp Pulse Resp B/P (MAP) Pulse Ox O2 Delivery O2 Flow Rate FiO2 02/10/17 09:13 36.9 62 18 94 Room Air 02/10/17 07:40 36.9 62 18 111/73 (86) 94 Room Air 02/10/17 07:00 Room Air 02/09/17 23:57 Room Air 02/09/17 23:05 37.2 75 18 103/69 (80) 94 Room Air 02/09/17 21:00 Room Air 02/09/17 15:00 36.6 69 18 110/73 (85) 94 Room Air Physical Exam: General Appearance: WD/WN, no apparent distress, + obese, + pertinent finding ( on RA) up in chair Eyes: EOMI ENT: hearing grossly normal Neck: supple Respiratory/Chest: lungs clear, + decreased breath sounds Cardiovascular: regular rate, rhythm, no edema Abdomen: normal bowel sounds, non tender, soft Extremities: normal range of motion, non-tender, no pedal edema Neurologic/Psych: no motor/sensory deficits, alert, normal mood/affect, oriented x 3 Skin: no jaundice, warm/dry, + pallor Current Inpatient Medications Medications (Trade) Dose Ordered Sig/Moises Route Start Time Stop Time Status Last Admin Dose Admin Acetaminophen (Tylenol Tab) 650 mg Q4H PRN PO 02/08/17 16:45 03/10/17 16:44 02/09/17 11:19 650 MG Al Hydrox/Mg Hydrox/Simethicone (Maalox Max Susp) 15 ml Q4H PRN PO 02/08/17 16:45 03/10/17 16:44 Magnesium Hydroxide (Milk Of Magnesia Susp) 30 ml Q6H PRN PO 02/08/17 16:45 03/10/17 16:44 Polyethylene (Miralax Powder Packet) 17 gm DAILY PRN PO 02/08/17 16:45 03/10/17 16:44 Ondansetron HCl (Zofran Inj) 4 mg Q6H PRN IV 02/08/17 16:45 03/10/17 16:44 02/08/17 19:48 4 MG Heparin Sodium (Porcine) (Heparin Sq 5000 Unit/0.5ml) 5,000 unit Q12H SQ 02/08/17 21:00 03/10/17 20:59 02/10/17 08:18 5,000 UNIT Sodium Chloride 1,000 ml @ 75 mls/hr [id number] IV 02/08/17 16:45 03/10/17 16:44 02/10/17 08:21 75 MLS/HR Allopurinol (Zyloprim Tab) 300 mg QPM PO 02/08/17 21:00 03/10/17 20:59 02/09/17 20:46 300 MG Aspirin (Ecotrin Tab) 81 mg Q2D PO 02/09/17 09:00 03/11/17 08:59 02/09/17 11:06 81 MG Colestipol HCl (Colestid Tab) 1 gm BIDM PO 02/09/17 08:30 03/11/17 08:29 02/10/17 08:12 1 GM Gabapentin (Neurontin Cap) 300 mg QAM PO 02/09/17 09:00 03/11/17 08:59 02/10/17 08:13 300 MG Gemfibrozil (Lopid Tab) 600 mg BIDM PO 02/09/17 08:30 03/11/17 08:29 02/10/17 08:12 600 MG Levothyroxine Sodium (Synthroid Tab) 75 mcg DAILYBB PO 02/09/17 06:00 03/11/17 05:59 02/10/17 05:28 75 MCG Loratadine (Claritin Tab) 10 mg DAILY PO 02/09/17 09:00 03/11/17 08:59 02/10/17 08:12 10 MG Magnesium Oxide (Mag-Ox Tab) 400 mg QPM PO 02/08/17 21:00 03/10/17 20:59 02/09/17 20:45 400 MG Sumatriptan Succinate (Imitrex Tab) 100 mg UD PRN PO 02/08/17 18:00 03/10/17 17:59 Tramadol HCl (Ultram Tab) 50 mg Q6 PRN PO 02/08/17 18:00 03/10/17 17:59 02/08/17 21:00 50 MG Cholecalciferol (Vitamin D Tab) 2,000 inter.unit QAM PO 02/09/17 09:00 03/11/17 08:59 02/10/17 08:13 2,000 INTER.UNIT Pantoprazole Sodium (Protonix Tab) 40 mg BIDM PO 02/08/17 19:00 03/10/17 18:59 02/10/17 08:12 40 MG Gabapentin (Neurontin Cap) 600 mg HS PO 02/08/17 21:00 03/10/17 20:59 02/09/17 20:46 600 MG Last 24 Hours Test 02/10/17 07:39 White Blood Count 6.48 K/uL Red Blood Count 4.15 M/uL Hemoglobin 11.5 g/dL Hematocrit 37.6 % Mean Corpuscular Volume 90.6 fL Mean Corpuscular Hemoglobin 27.7 pg Mean Corpuscular Hemoglobin Concent 30.6 g/dl Platelet Count 495 K/uL Mean Platelet Volume 10.5 fL Neutrophils (%) (Auto) 61.6 % Lymphocytes (%) (Auto) 25.9 % Monocytes (%) (Auto) 6.6 % Eosinophils (%) (Auto) 5.1 % Basophils (%) (Auto) 0.3 % Neutrophils # (Auto) 3.99 K/uL Lymphocytes # (Auto) 1.68 K/uL Monocytes # (Auto) 0.43 K/uL Eosinophils # (Auto) 0.33 K/uL Basophils # (Auto) 0.02 K/uL RDW Standard Deviation 50.4 fL RDW Coefficient of Variation 15.2 % Immature Granulocyte % (Auto) 0.5 % Immature Granulocyte # (Auto) 0.03 K/uL Sodium Level 143 mmol/L Potassium Level 4.9 mmol/L Chloride Level 111 mmol/L Carbon Dioxide Level 23 mmol/L Anion Gap 9.0 mmol/L Blood Urea Nitrogen 24 mg/dl Creatinine 1.70 mg/dl Est Creatinine Clear Calc Drug Dose 35.9 ml/min Estimated GFR () 35.0 Estimated GFR (Non- 30.2 BUN/Creatinine Ratio 13.8 Random Glucose 92 mg/dl Calcium Level 10.0 mg/dl Phosphorus Level 2.9 mg/dl Magnesium Level 2.1 mg/dl Thyroid Stimulating Hormone (TSH) 0.440 uIu/ml Date/Time Source Procedure Growth Status 02/09/17 19:58 Urine , Clean Catch Urine Culture Pending Received Assessment & Plan 71 y/o F w/ rapidly progressive renal insufficiency admitted for mgt of same. Creatinine had been 0.9-1.0 x years; then in August 2016, the pt started both meloxicam and lisinopril concomitantly. Also occasional ibuprofen; also excedrin MURRAY med of unclear use frequency. Pt stopped meloxicam late November but cont other nsaids periodically and remained on lisinopril. First abnormal serum creatinine is in October when her creatinine progressed to 1.3 in mid/late October to 2.0 on labs this week outpatient. Pt w/ concern for UTI at CKD clinic yesterday based on urine sediment; however here her urine has no bacteria, contaminated specimen; doubt infection. Her creatinine is again slightly with ongoing lower blood pressures, sbp in 100s. Pt has chronic headache, insomnia, chronic pain >> has been taking 250 + 81 mg ASA near daily between excedrin migraine and baby aspirin and a few times weekly takes another excedrine migraine dose (250 mg asa) and occasional ibuprofen as well Progressive renal insufficiency in setting of chronic ACEI use and chronic nsaid exposure which was reduced but still continued this summer>improving kidney function with holding ACEI and nsaids -stopped IVF -reinforced w/ her no nsaids except baby aspirin >> will need plan for non nsaid pain , headache, insomnia mgt at d/c; I suggested tylenol < 2gm/day; may need other strategies as well; for MURRAY could use tylenol w/ caffeine; for insomnia recommend sleep hygeine -BP here are notably lower than as outpt >> improved off of nsaids >> d/c with NO bp meds and reassess need for these if any after d/c off of nsaids -bmp and bp check at pcp f/u; recommend bmp weekly thereafter x 3 checks adn f/ u w/ [facility] in 4-6 wks Appreciate consult; will follow with you. Care coordinated w/ Dr. Briceno
[2017-02-10] MEDS ORDERED: ASPI-390 PO (14:50)
--- NOTE | 2017-02-10 14:53 | Discharge Instructions ---
Discharge Instructions Date of Service Feb 10, 2017. Admission Reason for Admission: LUZ MARIA Discharge Discharge Diagnosis / Problem: LUZ MARIA Discharge Goals Goal(s): Decrease discomfort, Improve function Activity Recommendations Activity Limitations: resume your previous activity . Instructions / Follow-Up Instructions / Follow-Up FOLLOWUP WITH FAMILY DOCTOR ON Jan AT 10:45AM FOLLOWUP WITH NEPHROLOGY IN 4-6 WEEKS LAB: BMP WEEKLY X 3 WEEKS AND FOLLOW RESULTS WITH FAMILY DOCTOR AND NEPHROLOGY. NOT TO TAKE EXCEDRIN, IBUPROFEN, MOTRIN, ALEVE, NAPROSYN, MELOXICAM OR ANY OTHER NSAIDS. CAN TAKE TYLENOL WITH PRESCRIBED DOSES ( NOT MORE THAN 2GMS A DAY) FURTHER PAIN MANAGEMENT PER FAMILY DOCTOR AND OR RHEUMATOLOGY. Current Hospital Diet Patient's current hospital diet: Renal Diet, AHA Diet (Heart Healthy) Discharge Diet Recommended Diet: AHA Diet (Heart Healthy) Pending Studies Studies pending at discharge: no Medical Emergencies . Who to Call and When: Medical Emergencies: If at any time you feel your situation is an emergency, please call 911 immediately. . Non-Emergent Contact Non-Emergency issues call your: Primary Care Provider . . "Provider Documentation" section prepared by Sadiq Briceno. . VTE Core Measure Inpt VTE Proph given/why not?: Unfractionated heparin SQ, SCD's
--- NOTE | 2017-02-10 17:55 | Progress Note ---
Internal Med Progress Note Date of Service: Feb 10, 2017. Provider Documentation: SUBJECTIVE: resting comfortably no sob no fevers ambulated ok want to go home OBJECTIVE: Vital Signs-as noted below Exam: General-alert and oriented. Not in distress. Obese ENT-normal hearing Neck-no neck masses Lungs-cta b/l no wheezing no crackles present Heart-s1 and s2 heard regular rhythm, no murmurs Abdomen-soft bowel sounds present non tender no distension Extremities no edema present no erythema Neuro-alert and oriented moves extremities Lab data as noted below. ASSESSMENT & PLAN: This is a 71-year-old female who was directly admitted for worsening kidney function. 1. Acute renal failure and possibly chronic kidney disease stage III. The patient's creatinine was 1 in August, which has progressively worsened and in October, it was 1.3, in November it was 1.7. yesterday labs showed 2. Though Mobic was stopped approximately 6 weeks ago, her kidney function was worsening and also mild hyperkalemia and hypercalcemia. So she was directly admitted for further lab work. awit nephro recommendations on gentle fluids and cr 1.7 today advised to stop excedrin. and not to take any nsaids except baby aspirin. f/u bmp weekly with pcp and nephrology 2. Hypertension. We will hold the lisinopril. was hypotensive in the hospital and improved later. stopped lisinopril on discharge f/u BP with pcp. 3. Hx of gout, continue allopurinol. 4. Hypothyroidism. Continue Synthroid. 5. Gastroesophageal reflux disease. Continue PPI. 6. History of migraines, on tramadol and magnesium, which we will continue for now and Imitrex p.r.n. 7. Osteoarthritis. Continue tramadol p.r.n. 8. ALLERGIC RHINITIS. Continue Claritin. Discharged home Vital Signs: Date Time Temp Pulse Resp B/P (MAP) Pulse Ox O2 Delivery O2 Flow Rate FiO2 02/10/17 09:13 36.9 62 18 94 Room Air 02/10/17 07:40 36.9 62 18 111/73 (86) 94 Room Air 02/10/17 07:00 Room Air 02/09/17 23:57 Room Air 02/09/17 23:05 37.2 75 18 103/69 (80) 94 Room Air 02/09/17 21:00 Room Air Lab Results: Results Past 24 Hours Test 02/10/17 07:39 Range/Units White Blood Count 6.48 4.8-10.8 K/uL Red Blood Count 4.15 4.2-5.4 M/uL Hemoglobin 11.5 12.0-16.0 g/dL Hematocrit 37.6 37-47 % Mean Corpuscular Volume 90.6 80-100 fL Mean Corpuscular Hemoglobin 27.7 25-34 pg Mean Corpuscular Hemoglobin Concent 30.6 32-36 g/dl Platelet Count 495 130-400 K/uL Mean Platelet Volume 10.5 7.4-10.4 fL Neutrophils (%) (Auto) 61.6 % Lymphocytes (%) (Auto) 25.9 % Monocytes (%) (Auto) 6.6 % Eosinophils (%) (Auto) 5.1 % Basophils (%) (Auto) 0.3 % Neutrophils # (Auto) 3.99 1.4-6.5 K/uL Lymphocytes # (Auto) 1.68 1.2-3.4 K/uL Monocytes # (Auto) 0.43 0.11-0.59 K/uL Eosinophils # (Auto) 0.33 0-0.5 K/uL Basophils # (Auto) 0.02 0-0.2 K/uL RDW Standard Deviation 50.4 36.4-46.3 fL RDW Coefficient of Variation 15.2 11.5-14.5 % Immature Granulocyte % (Auto) 0.5 % Immature Granulocyte # (Auto) 0.03 0.00-0.02 K/uL Sodium Level 143 136-145 mmol/L Potassium Level 4.9 3.5-5.1 mmol/L Chloride Level 111 98-107 mmol/L Carbon Dioxide Level 23 21-32 mmol/L Anion Gap 9.0 3-11 mmol/L Blood Urea Nitrogen 24 7-18 mg/dl Creatinine 1.70 0.60-1.20 mg/dl Est Creatinine Clear Calc Drug Dose 35.9 ml/min Estimated GFR () 35.0 Estimated GFR (Non- 30.2 BUN/Creatinine Ratio 13.8 10-20 Random Glucose 92 70-99 mg/dl Calcium Level 10.0 8.5-10.1 mg/dl Phosphorus Level 2.9 2.5-4.9 mg/dl Magnesium Level 2.1 1.8-2.4 mg/dl Thyroid Stimulating Hormone (TSH) 0.440 0.300-4.500 uIu/ml Microbiology Results 02/09/17 Urine Culture - Preliminary, Resulted NO GROWTH - LESS THAN 1,000 COLONIES/...
--- NOTE | 2017-02-10 18:38 | Discharge Summary ---
Discharge Summary Date of Service Feb 10, 2017. Discharge Summary Admission Date: Feb 08, 2017 at 16:45 Discharge Date: Feb 10, 2017 Discharge Disposition: Home Principal Diagnosis: LUZ MARIA Secondary Diagnoses/Problems: hypertension, iron deficiency anemia, generalized osteoarthritis, history of gout, history of GERD, history of migraines, history of hypothyroidism, hyperlipidemia, ALLERGIC RHINITIS, history of hiatal hernia, morbid obesity, Procedures: CXR: Mild cardiomegaly. Otherwise negative study ECHO: The left ventricle is normal in size. * Left ventricular systolic function is normal. * Ejection Fraction = 55-60%. * The right ventricular systolic function is normal. * The left atrial size is normal. * Right atrial size is normal. * No significant valvular pathology. Consultations: NEPHROLOGY Medication Reconciliation Continued Medications: Allopurinol (Zyloprim) 300 Mg Tab 300 MG PO QPM, #1 TAB Aspirin (Aspirin Ec) 81 Mg Tab 81 MG PO Q2D, #1 TAB Cholecalciferol (Vitamin D3) 2,000 Unit Chw 2000 UNITS PO QAM for Patient Admitted, #1 UNITS Colestipol Hcl (Colestid) 1 Gm Tab 1 GM PO BIDM, #1 TAB Gabapentin (Neurontin) 300 Mg Cap 300 MG PO UD for Patient Admitted, #1 CAP GABAPENTIN 300MG IN AM AND GABAPENTIN 600MG PO IN PM Gemfibrozil (Lopid) 600 Mg Tab 600 MG PO BIDM, #1 TAB Levothyroxine Sodium (Levothyroxine Sodium) 75 Mcg Tab 1 TAB PO DAILYBB for 30 Days, TAB 5 Refills Loratadine (Claritin) 10 Mg Tab 10 MG PO DAILY, #1 TAB Magnesium Oxide (Mag-Ox) 400 Mg Tab 400 MG PO QPM for Patient Admitted, #1 TAB Omeprazole (Prilosec) 20 Mg Capcr 20 MG PO BIDM, #1 TAB Riboflavin (Vitamin B-2) 100 Mg Tab 100 MG PO BID for Patient Admitted, #1 Sumatriptan Succinate (Imitrex) 100 Mg Tab 100 MG PO PRN for Migraine, TAB Tramadol (Ultram) 50 Mg Tab 1 TAB PO Q6 PRN for Pain for 30 Days, TAB Discontinued Medications: Whkwlvt-Npfzjlrggvezb-Rlemaixm (Excedrin Migraine) 1 Tab Tab 1 TAB PO Q6 PRN for Headache, #10 Lisinopril (Zestril) 40 Mg Tab 40 MG PO QPM for Patient Admitted, #1 TAB Admission Information HPI (per Admitting provider): This is a 71-year-old female with past medical history significant for hypertension, iron deficiency anemia, generalized osteoarthritis, history of gout, history of GERD, history of migraines, history of hypothyroidism, hyperlipidemia, ALLERGIC RHINITIS, history of hiatal hernia, morbid obesity, questionable chronic kidney disease stage III, was sent in by nephrology because of her worsening renal function. The patient says she was on Mobic for several months and she stopped about 6 weeks ago, because it was thought to be affecting her kidney function. Her renal function as per nephrology notes, was gradually worsening up. Creatinine was 1 in August of this year and in October it went to 1.3 and November it went to 1.5 and yesterday's labs showed a creatinine of 2. Though her Mobic was stopped 6 weeks ago, still her kidney function was worsening Her labs showed mild hypercalcemia,hyperkalemia. CK was normal. Magnesium was normal.Her PRISCILLA and ANCA screen done in 2009 was also normal.We are admitting for further workup. The patient states lately she was feeling very tired, but otherwise she was doing okay. Has chronic headaches from migraines. Denies any dizziness, no blurred vision, and no sore throat. She has been somewhat nauseous lately, but no vomiting, no abdominal pain. Normal bowel and bladder movements. No blood in the stools. No blood in the urine. Appetite is okay. No chest pain, no shortness of breath, no cough, no fever, no chills, no lower extremity edema. Ambulation, walks with the help of cane and is limited because of chronic back pain.Lately, since 1 or 2 years, she developed some rash in her arms region, happens once in a while. Otherwise, she is currently doing fine and resting comfortably. Physical Exam (per Admitting): GENERAL: The patient is morbidly obese, not in distress. VITAL SIGNS: Temperature 36.9, pulse 82, respiratory rate 16, blood pressure 105/82, oxygen 92% room air. HEENT: No pallor, no icterus. NECK: No JVD, no neck masses, no carotid bruits. CARDIOVASCULAR: S1, S2 heard, regular rate and rhythm, no murmur, no gallop. RESPIRATORY: Clear to auscultation bilaterally. No wheezing, no crackles. ABDOMEN: Soft, bowel sounds present. Nontender. No distention. CENTRAL NERVOUS: Cranial nerves II-XII are grossly intact. Nonfocal. EXTREMITIES: No edema, no erythema. Skin Papular rash on the arms Hospital Course This is a 71-year-old female who was directly admitted for worsening kidney function. 1. Acute renal failure and possibly chronic kidney disease stage III. The patient's creatinine was 1 in August, which has progressively worsened and in October, it was 1.3, in November it was 1.7. yesterday labs showed 2. Though Mobic was stopped approximately 6 weeks ago, her kidney function was worsening and also mild hyperkalemia and hypercalcemia. So she was directly admitted for further lab work. [facility] nephro recommendations on gentle fluids and cr 1.7 today advised to stop excedrin. and not to take any nsaids except baby aspirin. f/u bmp weekly with pcp and nephrology 2. Hypertension. We will hold the lisinopril. was hypotensive in the hospital and improved later. stopped lisinopril on discharge f/u BP with pcp. 3. Hx of gout, continue allopurinol. 4. Hypothyroidism. Continue Synthroid. 5. Gastroesophageal reflux disease. Continue PPI. 6. History of migraines, on tramadol and magnesium, which we will continue for now and Imitrex p.r.n. 7. Osteoarthritis. Continue tramadol p.r.n. 8. ALLERGIC RHINITIS. Continue Claritin. Discharged home Total time spent on discharge = 35MINUTES This includes examination of the patient, discharge planning, medication reconciliation, and communication with other providers. Discharge Instructions Discharge Instructions Date of Service Feb 10, 2017. Admission Reason for Admission: LUZ MARIA Discharge Discharge Diagnosis / Problem: LUZ MARIA Discharge Goals Goal(s): Decrease discomfort, Improve function Activity Recommendations Activity Limitations: resume your previous activity . Instructions / Follow-Up Instructions / Follow-Up FOLLOWUP WITH FAMILY DOCTOR ON Jan AT 10:45AM FOLLOWUP WITH NEPHROLOGY IN 4-6 WEEKS LAB: BMP WEEKLY X 3 WEEKS AND FOLLOW RESULTS WITH FAMILY DOCTOR AND NEPHROLOGY. NOT TO TAKE EXCEDRIN, IBUPROFEN, MOTRIN, ALEVE, NAPROSYN, MELOXICAM OR ANY OTHER NSAIDS. CAN TAKE TYLENOL WITH PRESCRIBED DOSES ( NOT MORE THAN 2GMS A DAY) FURTHER PAIN MANAGEMENT PER FAMILY DOCTOR AND OR RHEUMATOLOGY. Current Hospital Diet Patient's current hospital diet: Renal Diet, AHA Diet (Heart Healthy) Discharge Diet Recommended Diet: AHA Diet (Heart Healthy) Pending Studies Studies pending at discharge: no Medical Emergencies . Who to Call and When: Medical Emergencies: If at any time you feel your situation is an emergency, please call 911 immediately. . Non-Emergent Contact Non-Emergency issues call your: Primary Care Provider . . "Provider Documentation" section prepared by Sadiq Briceno. . VTE Core Measure Inpt VTE Proph given/why not?: Unfractionated heparin SQ, SCD's
== END 2017-02-10 16:02 | disposition home or self-care (01) | DRG 683 ==
LOC: C.MSW 14:23 → OBSVTOIN 16:45
PROVIDERS: ADMIT Internal Medicine; ATTEND Internal Medicine
DX: N17.9 Acute kidney failure, unspecified (principal); Z68.42 Body mass index [BMI] 45.0-49.9, adult; T46.4X5A Adverse effect of angiotensin-converting-enzyme inhibitors, initial encounter; T39.395A Adverse effect of other nonsteroidal anti-inflammatory drugs [NSAID], initial encounter; I12.9 Hypertensive chronic kidney disease with stage 1 through stage 4 chronic kidney disease, or unspecified chronic kidney disease; N18.3 Chronic kidney disease, stage 3 (moderate); M10.9 Gout, unspecified; E03.9 Hypothyroidism, unspecified; K21.9 Gastro-esophageal reflux disease without esophagitis; G43.909 Migraine, unspecified, not intractable, without status migrainosus; G89.29 Other chronic pain; M19.90 Unspecified osteoarthritis, unspecified site; J30.9 Allergic rhinitis, unspecified; E78.5 Hyperlipidemia, unspecified; R26.2 Difficulty in walking, not elsewhere classified; E66.01 Morbid (severe) obesity due to excess calories; Z87.19 Personal history of other diseases of the digestive system; Z90.49 Acquired absence of other specified parts of digestive tract; Z98.0 Intestinal bypass and anastomosis status; Z96.653 Presence of artificial knee joint, bilateral; Z79.1 Long term (current) use of non-steroidal anti-inflammatories (NSAID); Z79.82 Long term (current) use of aspirin; Z79.83 Long term (current) use of bisphosphonates; Z79.899 Other long term (current) drug therapy; Z88.0 Allergy status to penicillin; Z82.61 Family history of arthritis; Z80.41 Family history of malignant neoplasm of ovary; Z80.42 Family history of malignant neoplasm of prostate

== ENCOUNTER 2019-08-11 20:41 | Inpatient (IN) ==
--- OUTSIDE RECORDS SUMMARY | 2019-08-11 20:44 | External Medical Summary | Continuity of Care Document ---
:1945 Author Name Kavon Jimenez Address Unavailable Unavailable , Care Team Providers Name Role Phone Kavon Jimenez Unavailable [email or web address] PCP, UNKNOWN Unavailable Unavailable Problems Active medical history not documented Allergies and Adverse Reactions Allergy history not documented Medications Medications not documented Procedures Procedures not documented Immunizations Immunizations not documented Plan of Treatment Planned Observations Planned Goals not documented Results No Known Results Results not documented
[2019-08-11 21:28] LABS: Basophils # (auto) 0.02 K/uL (0-0.2); Basophils % (auto) 0.2 %; Hemoglobin 15.1 g/dL (12.0-16.0); Immature Granulocytes # (auto) 0.13 K/uL (0.00-0.02); Immature Granulocytes % (auto) 1.3 %; Lymphocytes # (auto) 0.92 K/uL (1.2-3.4); Lymphocytes % (auto) 9.2 %; Mean Corpuscular Hemoglobin 31.2 pg (25-34); Mean Corpuscular Hgb Conc 33.6 g/dL (32-36); Mean Platelet Volume 11.3 fL (7.4-10.4); Monocytes # (auto) 0.42 K/uL (0.11-0.59); Monocytes % (auto) 4.2 %; Neutrophils # (auto) 8.47 K/uL (1.4-6.5); Neutrophils % (auto) 85.1 %; Platelet Count 316 K/uL (130-400); RDW Coefficient of Variation 14.9 % (11.5-14.5); RDW Standard Deviation 50.4 fL (36.4-46.3); Red Blood Count 4.84 M/uL (4.2-5.4); White Blood Count 9.96 K/uL (4.8-10.8)
[2019-08-11] MEDS ORDERED: SODIUM CHLORIDE 0.9% 1000ML 2,000 ML IV ONE (21:28)
[2019-08-11] MEDS ORDERED: DEXAMETHASONE SOD PHOSPHATE 10 MG in SYRINGE 0 ML IV STA (21:28)
[2019-08-11] MEDS ORDERED: ALBUT/IPRATROP 3MG/0.5MG NEB 3 ML VIAL NEB STA (21:28)
[2019-08-11] MEDS ORDERED: FAMOTIDINE 20MG IV PUSH 20 MG/5 ML SYR IV STA (21:28)
[2019-08-11] MEDS ORDERED: ACETAMINOPHEN 1,000 MG/100 ML VIAL IV STA (21:28)
[2019-08-11] MEDS ORDERED: PROCHLORPERAZINE 2 ML IV ONE (21:29)
[2019-08-11] MEDS ORDERED: PIPERACILLIN/TAZOBACTAM 4.5 GM/120 ML BAG IV ONE (21:29)
[2019-08-11] MEDS ORDERED: PIPERACILL/TAZOBAC CONSULT ACTIVE PRN (21:29)
[2019-08-11 21:39] LABS: INR 1.4 (0.9-1.1); Partial Thromboplastin Ratio 1.3; Partial Thromboplastin Time 36.2 Seconds (21.0-31.0); Prothrombin Time 14.7 Seconds (9.0-12.0)
[2019-08-11 21:44] LABS: Alanine Aminotransferase 23 U/L (12-78); Albumin Level 2.5 gm/dl (3.4-5.0); Aspartate Aminotransferase 30 U/L (15-37); BUN Creatinine Ratio 20.9 (10-20); Blood Urea Nitrogen 21 mg/dl (7-18); Calcium 8.6 mg/dl (8.5-10.1); Carbon Dioxide 28 mmol/L (21-32); Chloride 97 mmol/L (98-107); Creatinine Clr Calc Pharmacy 59.9 ml/min; Est GFR (African American) 65.2; Est GFR (Non-African American) 56.2; Glucose 108 mg/dl (70-99); Magnesium 1.5 mg/dl (1.8-2.4); Potassium 3.7 mmol/L (3.5-5.1); Sodium 133 mmol/L (136-145)
[2019-08-11 21:48] LABS: Albumin Globulin Ratio 0.5 (0.9-2); Alkaline Phosphatase 81 U/L (45-117); Bilirubin,Total 0.4 mg/dl (0.2-1); Globulin 4.9 gm/dl (2.5-4.0); Phosphorus 1.6 mg/dl (2.5-4.9); Total Protein 7.4 gm/dl (6.4-8.2); Troponin I < 0.015 ng/ml (0-0.045)
[2019-08-11 21:56] LABS: Influenza B virus by PCR Neg for Influ B (Neg)
[2019-08-11 22:09] LABS: iSTAT Creatinine 0.9 mg/dl (0.6-1.3); iSTAT Ionized Calcium 1.06 mmol/l (1.12-1.32); iSTAT Potassium 3.7 mmol/L (3.3-5.0)
[2019-08-11] MEDS ORDERED: OSELTAMIVIR PHOSPHATE 75 MG CAP PO STA (22:14)
[2019-08-11] MEDS ORDERED: POTASSIUM PHOS 3 MMOL/1 ML INFUSION IV STA (22:14)
[2019-08-11] MEDS ORDERED: DEXAMETHASONE **PF** INJ 10 MG/ML VIAL ONE (22:20)
[2019-08-11 22:24] LABS: Base Excess VBG 3.9 mEq/L; Oxygen Saturation VBG 69.4 %; pH VBG 7.47 (7.36-7.41)
[2019-08-11] MEDS: MAGNESIUM SULFATE / D5W 1 GM/100 ML BAG IV SCH (22:47)
[2019-08-11] MEDS ORDERED: POTASSIUM PHOSPHATE 9 MMOL in SODIUM CHLORIDE 0.9% 250 ML IV ONE (23:00)
--- NOTE | 2019-08-11 23:26 | Emergency Department Note ---
ED Provider Note NAME: RIGOBERTO PEÑA AGE: 74 SEX: F ARRIVES VIA: Ambulance INFORMANT: [Patient] ED PROVIDER(S): [Boogie Keller MD] CHIEF COMPLAINT: Cough, fevers, nausea/vomiting. IMPRESSION: Acute respiratory failure with hypoxia, Influenza A, Pneumonia, Gastroenteritis, Hypomagnesemia, Hypophosphatemia MEDICAL DECISION MAKING: The patient is a pleasant 74-year-old woman with a past medical history of hypertension, hyperlipidemia, anemia, osteoarthritis, GERD, migraines, hypothyroidism, CKD, morbid obesity who presents emergency department with persistent cough congestion shortness of breath with development of generalized abdominal pain with nausea vomiting diarrhea in setting of being treated outpatient with azithromycin and prednisone. On arrival patient is ill- appearing but no acute distress, afebrile with heart rate in 100s and hypoxic to 83% on room air. Exam the patient has intermittent wheeze this and is otherwise clear. Chest x-ray per my preliminary review with patchy opacities of the right lung field with a less prominent opacities of the left lung field suspicious for pneumonia. WBC, H/H and platelets within normal limits. VBG without acidosis or hypercapnia. Chemistry without metabolic acidosis albeit with lactate of 2.1. BUN/creatinine> 20 consistent with the patient's clinically dry appearance. Magnesium 1.5 and phosphorus 1.6 with repletion provided. Electrolytes and LFTs otherwise unremarkable. Troponin negative/undetectable. Patient was influenza A positive. Given the patient's ill appearance on arrival she was treated empirically with Zosyn for possible sepsis. Will add Tamiflu. CT abdomen pelvis ordered and pending. Case was discussed with Dr. Cassidy, [facility] hospitalist, who evaluate the patient for admission. CT subsequently with question of appendicitis however patient does not have point tenderness in this area. Moreover she reports she though she had her appendix removed many years ago when her gallbladder was removed. Upon re-evaluation patient was improved appearing however then did began to have increased SOB and WOB and so she was placed on bipap with repeat Duonebs ordered. Admitting team updated. Triage Nursing notes reviewed and agree them. [Prior medical records reviewed] [] Differential diagnosis: Viral syndrome, otitis, pharyngitis, pneumonia, influenza, meningitis, urinary tract infection, sepsis, bacteremia, as well as other pathologies. ER treatment provided: See Below. Diagnostics interpreted by me: ECG: NSR, 100 bpm, ST and TW abnormality laterally. No ST elevation. Cardiac Monitoring: NSR 100bpm, no ectopy. Laboratory studies: [See below] [] Imaging studies: [See below] [] Consultation(s): Dr. Root, [facility] hospitalist. HPI: The patient is a pleasant 74-year-old woman with a past medical history of hypertension, hyperlipidemia, anemia, osteoarthritis, GERD, migraines, hypothyroidism, CKD, morbid obesity who presents emergency department with pers istent cough congestion shortness of breath with development of generalized abdominal pain with nausea vomiting diarrhea in setting of being treated outpatient with azithromycin and prednisone. The patient reports onset as gradual. Reports no provoking factors. Describes symptoms as aches/fatigue. Reports no radiation. Reports severity as moderate. Timing of symptoms are constant. Has tried Azithromycin and prednisone. ROS: See above HPI for pertinent positives & negatives. A total of [10] systems reviewed and were otherwise negative. PAST MEDICAL HISTORY:[See Below] PAST SURGICAL HISTORY:[See Below] FAMILY HISTORY:[See Below] SOCIAL HISTORY:[See Below] HOME MEDICATIONS:[See Below] ALLERGIES:[See Below] VITALS:[See Below] PHYSICAL EXAMINATION: GENERAL: Awake, alert, Ill-appearing, in no distress. BMI 49.2. HENT: Normocephalic, atraumatic. Oropharynx with dry mucous membranes and otherwise unremarkable. . EYES: Normal conjunctiva. Sclera non-icteric. NECK: Supple. No nuchal rigidity. FROM. No JVD. RESPIRATORY: Scattered wheezes. CARDIAC: Tachycardic. rate, normal rhythm. Extremities warm and well perfused. Pulses equal. ABDOMEN: Soft, non-distended. No tenderness to palpation. No rebound or guarding. No masses. RECTAL: Deferred. MUSCULOSKELETAL: Chest examination reveals no tenderness. The back is symmetrical on inspection without obvious abnormality. There is no CVA tenderness to palpation. No joint edema. LOWER EXTREMITIES: Calves are equal size bilaterally and non-tender. 1+ BLE edema. No discoloration. NEURO: Normal sensorium. No sensory or motor deficits noted. SKIN: No rash or jaundice noted. 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 Beliefs That Will Affect Care: None Current Living Situation: Spouse Feels Safe at Home: Yes Safety Concerns: Feels Safe At This Time Smoking Status: Never smoker Hx Alcohol Use: No Hx Substance Use: No Results & Data Vital Signs Vital Signs - 24 hr 08/11/19 20:57 08/11/19 20:59 08/11/19 21:00 Temperature Temperature Source Pulse Rate 98 H 97 H 98 H Pulse Rate [Right Radial] Pulse Rate from SpO2 Sensor 98 H 97 H 98 H Pulse Rhythm Pulse Rhythm [Right Radial] Pulse Strength Pulse Strength [Right Radial] Respiratory Rate 23 23 29 H Respiratory Effort / Characteristics Respiratory Depth Respiratory Pattern Blood Pressure 126/64 123/60 Blood Pressure [Right Arm] Blood Pressure Mean 83 76 Blood Pressure Mean [Right Arm] Blood Pressure Position Pulse Oximetry 92 93 92 Oxygen Delivery Method Oxygen Flow Rate Fraction of Inspired Oxygen Sepsis Recent Fever Within 48 Hours Sepsis Action Taken by Nursing 08/11/19 21:09 08/11/19 21:15 08/11/19 21:20 Temperature 37 C Temperature Source Oral Pulse Rate 101 H 107 H Pulse Rate [Right Radial] Pulse Rate from SpO2 Sensor 107 H Pulse Rhythm Regular Regular Pulse Rhythm [Right Radial] Pulse Strength Normal Pulse Strength [Right Radial] Respiratory Rate 25 H 21 25 H Respiratory Effort / Characteristics Non-Labored Spontaneous Labored Short of Breath SOB on Exertion Respiratory Depth Normal Respiratory Pattern Regular Tachypnea Blood Pressure 123/60 113/67 Blood Pressure [Right Arm] Blood Pressure Mean 81 71 Blood Pressure Mean [Right Arm] Blood Pressure Position Lying Pulse Oximetry 83 L 90 83 L Oxygen Delivery Method Room Air Room Air Oxygen Flow Rate Fraction of Inspired Oxygen Sepsis Recent Fever Within 48 Hours Yes Sepsis Action Taken by Nursing Physician Notified 08/11/19 21:30 08/11/19 22:12 08/11/19 23:13 Temperature Temperature Source Pulse Rate 103 H Pulse Rate [Right Radial] 101 H 96 H Pulse Rate from SpO2 Sensor 102 H Pulse Rhythm Pulse Rhythm [Right Radial] Regular Pulse Strength Pulse Strength [Right Radial] Normal Respiratory Rate 27 H 24 22 Respiratory Effort / Characteristics Non-Labored Spontaneous Non-Labored Spontaneous Respiratory Depth Normal Respiratory Pattern Blood Pressure Blood Pressure [Right Arm] 123/68 Blood Pressure Mean Blood Pressure Mean [Right Arm] 86 Blood Pressure Position Pulse Oximetry 91 91 95 Oxygen Delivery Method Oxymask Room Air Oxygen Flow Rate 6 Fraction of Inspired Oxygen Sepsis Recent Fever Within 48 Hours Sepsis Action Taken by Nursing 08/11/19 23:53 08/12/19 00:28 08/12/19 00:44 Temperature 36.8 C Temperature Source Oral Pulse Rate 86 Pulse Rate [Right Radial] 88 Pulse Rate from SpO2 Sensor Pulse Rhythm Pulse Rhythm [Right Radial] Regular Pulse Strength Pulse Strength [Right Radial] Normal Respiratory Rate 28 H 36 H Respiratory Effort / Characteristics Spontaneous Labored Short of Breath Respiratory Depth Deep Normal Respiratory Pattern Rapid/Deep Tachypnea Blood Pressure Blood Pressure [Right Arm] 111/61 Blood Pressure Mean Blood Pressure Mean [Right Arm] 77 Blood Pressure Position Pulse Oximetry 86 L 94 Oxygen Delivery Method Oxymask Oxygen Flow Rate 6 Fraction of Inspired Oxygen 60 Sepsis Recent Fever Within 48 Hours Sepsis Action Taken by [facility] Medications Current Medication List: was personally reviewed by me Laboratory Data Attestation: I reviewed the patient's lab results. Result diagrams: 08/11/19 21:00 08/11/19 21:00 Lab Results 08/11/19 08/11/19 08/11/19 Range/Units 21:00 21:00 21:00 WBC 9.96 (4.8-10.8) K/uL RBC 4.84 (4.2-5.4) M/uL Hgb 15.1 (12.0-16.0) g/dL POC Hgb (12.0-16.0) g/dl Hct 45.0 (37-47) % POC Hct (37-47) % MCV 93.0 (80-100) fL MCH 31.2 (25-34) pg MCHC 33.6 (32-36) g/dL RDW Std Deviation 50.4 H (36.4-46.3) fL RDW Coeff of David 14.9 H (11.5-14.5) % Plt Count 316 (130-400) K/uL MPV 11.3 H (7.4-10.4) fL Immature Gran % (Auto) 1.3 % Neut % (Auto) 85.1 % Lymph % (Auto) 9.2 % Frio % (Auto) 4.2 % Eos % (Auto) 0.0 % Baso % (Auto) 0.2 % Immature Gran # (Auto) 0.13 H (0.00-0.02) K/uL Neut # (Auto) 8.47 H (1.4-6.5) K/uL Lymph # (Auto) 0.92 L (1.2-3.4) K/uL Frio # (Auto) 0.42 (0.11-0.59) K/uL Eos # (Auto) 0.00 (0-0.5) K/uL Baso # (Auto) 0.02 (0-0.2) K/uL PT 14.7 H (9.0-12.0) Seconds INR 1.4 H (0.9-1.1) APTT 36.2 H (21.0-31.0) Seconds PTT Ratio 1.3 VBG pH (7.36-7.41) VBG pCO2 (38-50) mmHg VBG pO2 mmHg VBG HCO3 mmol/L VBG O2 Saturation % VBG Base Excess mEq/L Barometric Pressure mm/Hg POC Sodium (135-144) mmol/L Sodium 133 L (136-145) mmol/L POC Potassium (3.3-5.0) mmol/L Potassium 3.7 (3.5-5.1) mmol/L POC Chloride (101-112) mmol/L Chloride 97 L (98-107) mmol/L Carbon Dioxide 28 (21-32) mmol/L POC Total CO2 (24-31) mEq/l Anion Gap 8.0 (3-11) POC Anion Gap (16-25) mmol/L POC BUN (7-18) mg/dl BUN 21 H (7-18) mg/dl Creatinine 1.00 (0.6-1.2) mg/dl POC Creatinine (0.6-1.3) mg/dl Est Cr Clr Drug Dosing 59.9 ml/min Est GFR ( Amer) 65.2 Est GFR (Non-Af Amer) 56.2 BUN/Creatinine Ratio 20.9 H (10-20) Glucose 108 H (70-99) mg/dl POC Glucose (other) (70-99) mg/dl Lactate (0.4-2.0) mmol/L Calcium 8.6 (8.5-10.1) mg/dl POC Ioniz Calcium Trae (1.12-1.32) mmol/l Phosphorus 1.6 L (2.5-4.9) mg/dl Magnesium 1.5 L (1.8-2.4) mg/dl Total Bilirubin 0.4 (0.2-1) mg/dl AST 30 (15-37) U/L ALT 23 (12-78) U/L Alkaline Phosphatase 81 (45-117) U/L Troponin I < 0.015 (0-0.045) ng/ml NT-Pro-B Natriuret Pep 213 (0-900) pg/ml Total Protein 7.4 (6.4-8.2) gm/dl Albumin 2.5 L (3.4-5.0) gm/dl Globulin 4.9 H (2.5-4.0) gm/dl Albumin/Globulin Ratio 0.5 L (0.9-2) Lipase 83 (73-393) U/L TSH 0.288 L (0.300-4.500) uIu/ml Free T4 1.40 (0.8-1.6) ng/dl Urine Color Urine Appearance (Clear) Urine pH (4.5-7.5) Ur Specific Elizabeth (1.000-1.030) Urine Protein (Negative) Urine Glucose (UA) (Negative) Urine Ketones (Negative) Urine Blood (Negative) Urine Nitrite (Negative) Urine Bilirubin (Negative) Urine Urobilinogen (Negative) Ur Leukocyte Esterase (Negative) Urine RBC (0-4) /hpf Urine WBC (0-5) /hpf Ur Epithelial Cells (0-5) /lpf Urine Bacteria (Negative) Granular Casts (0) /lpf Influenza Type A (PCR) (Neg) Influenza Type B (PCR) (Neg) 08/11/19 08/11/19 08/11/19 Range/Units 21:00 21:42 21:56 WBC (4.8-10.8) K/uL RBC (4.2-5.4) M/uL Hgb (12.0-16.0) g/dL POC Hgb 16.0 (12.0-16.0) g/dl Hct (37-47) % POC Hct 47 (37-47) % MCV (80-100) fL MCH (25-34) pg MCHC (32-36) g/dL RDW Std Deviation (36.4-46.3) fL RDW Coeff of David (11.5-14.5) % Plt Count (130-400) K/uL MPV (7.4-10.4) fL Immature Gran % (Auto) % Neut % (Auto) % Lymph % (Auto) % Frio % (Auto) % Eos % (Auto) % Baso % (Auto) % Immature Gran # (Auto) (0.00-0.02) K/uL Neut # (Auto) (1.4-6.5) K/uL Lymph # (Auto) (1.2-3.4) K/uL Frio # (Auto) (0.11-0.59) K/uL Eos # (Auto) (0-0.5) K/uL Baso # (Auto) (0-0.2) K/uL PT (9.0-12.0) Seconds INR (0.9-1.1) APTT (21.0-31.0) Seconds PTT Ratio VBG pH (7.36-7.41) VBG pCO2 (38-50) mmHg VBG pO2 mmHg VBG HCO3 mmol/L VBG O2 Saturation % VBG Base Excess mEq/L Barometric Pressure mm/Hg POC Sodium 133 L (135-144) mmol/L Sodium (136-145) mmol/L POC Potassium 3.7 (3.3-5.0) mmol/L Potassium (3.5-5.1) mmol/L POC Chloride 94 L (101-112) mmol/L Chloride (98-107) mmol/L Carbon Dioxide (21-32) mmol/L POC Total CO2 26 (24-31) mEq/l Anion Gap (3-11) POC Anion Gap 18.0 (16-25) mmol/L POC BUN 20 H (7-18) mg/dl BUN (7-18) mg/dl Creatinine (0.6-1.2) mg/dl POC Creatinine 0.9 (0.6-1.3) mg/dl Est Cr Clr Drug Dosing ml/min Est GFR ( Amer) Est GFR (Non-Af Amer) BUN/Creatinine Ratio (10-20) Glucose (70-99) mg/dl POC Glucose (other) 105 H (70-99) mg/dl Lactate 2.1 H* (0.4-2.0) mmol/L Calcium (8.5-10.1) mg/dl POC Ioniz Calcium Trae 1.06 L (1.12-1.32) mmol/l Phosphorus (2.5-4.9) mg/dl Magnesium (1.8-2.4) mg/dl Total Bilirubin (0.2-1) mg/dl AST (15-37) U/L ALT (12-78) U/L Alkaline Phosphatase (45-117) U/L Troponin I (0-0.045) ng/ml NT-Pro-B Natriuret Pep (0-900) pg/ml Total Protein (6.4-8.2) gm/dl Albumin (3.4-5.0) gm/dl Globulin (2.5-4.0) gm/dl Albumin/Globulin Ratio (0.9-2) Lipase (73-393) U/L TSH (0.300-4.500) uIu/ml Free T4 (0.8-1.6) ng/dl Urine Color Urine Appearance (Clear) Urine pH (4.5-7.5) Ur Specific Elizabeth (1.000-1.030) Urine Protein (Negative) Urine Glucose (UA) (Negative) Urine Ketones (Negative) Urine Blood (Negative) Urine Nitrite (Negative) Urine Bilirubin (Negative) Urine Urobilinogen (Negative) Ur Leukocyte Esterase (Negative) Urine RBC (0-4) /hpf Urine WBC (0-5) /hpf Ur Epithelial Cells (0-5) /lpf Urine Bacteria (Negative) Granular Casts (0) /lpf Influenza Type A (PCR) Pos for Influ A A* (Neg) Influenza Type B (PCR) Neg for Influ B (Neg) 08/11/19 08/11/19 08/12/19 Range/Units 22:14 23:04 00:11 WBC (4.8-10.8) K/uL RBC (4.2-5.4) M/uL Hgb (12.0-16.0) g/dL POC Hgb (12.0-16.0) g/dl Hct (37-47) % POC Hct (37-47) % MCV (80-100) fL MCH (25-34) pg MCHC (32-36) g/dL RDW Std Deviation (36.4-46.3) fL RDW Coeff of David (11.5-14.5) % Plt Count (130-400) K/uL MPV (7.4-10.4) fL Immature Gran % (Auto) % Neut % (Auto) % Lymph % (Auto) % Frio % (Auto) % Eos % (Auto) % Baso % (Auto) % Immature Gran # (Auto) (0.00-0.02) K/uL Neut # (Auto) (1.4-6.5) K/uL Lymph # (Auto) (1.2-3.4) K/uL Frio # (Auto) (0.11-0.59) K/uL Eos # (Auto) (0-0.5) K/uL Baso # (Auto) (0-0.2) K/uL PT (9.0-12.0) Seconds INR (0.9-1.1) APTT (21.0-31.0) Seconds PTT Ratio VBG pH 7.47 H (7.36-7.41) VBG pCO2 39 (38-50) mmHg VBG pO2 36 mmHg VBG HCO3 28 mmol/L VBG O2 Saturation 69.4 % VBG Base Excess 3.9 mEq/L Barometric Pressure 744.3 mm/Hg POC Sodium (135-144) mmol/L Sodium (136-145) mmol/L POC Potassium (3.3-5.0) mmol/L Potassium (3.5-5.1) mmol/L POC Chloride (101-112) mmol/L Chloride (98-107) mmol/L Carbon Dioxide (21-32) mmol/L POC Total CO2 (24-31) mEq/l Anion Gap (3-11) POC Anion Gap (16-25) mmol/L POC BUN (7-18) mg/dl BUN (7-18) mg/dl Creatinine (0.6-1.2) mg/dl POC Creatinine (0.6-1.3) mg/dl Est Cr Clr Drug Dosing ml/min Est GFR ( Amer) Est GFR (Non-Af Amer) BUN/Creatinine Ratio (10-20) Glucose (70-99) mg/dl POC Glucose (other) (70-99) mg/dl Lactate 1.2 (0.4-2.0) mmol/L Calcium (8.5-10.1) mg/dl POC Ioniz Calcium Trae (1.12-1.32) mmol/l Phosphorus (2.5-4.9) mg/dl Magnesium (1.8-2.4) mg/dl Total Bilirubin (0.2-1) mg/dl AST (15-37) U/L ALT (12-78) U/L Alkaline Phosphatase (45-117) U/L Troponin I (0-0.045) ng/ml NT-Pro-B Natriuret Pep (0-900) pg/ml Total Protein (6.4-8.2) gm/dl Albumin (3.4-5.0) gm/dl Globulin (2.5-4.0) gm/dl Albumin/Globulin Ratio (0.9-2) Lipase (73-393) U/L TSH (0.300-4.500) uIu/ml Free T4 (0.8-1.6) ng/dl Urine Color Yellow Urine Appearance Clear (Clear) Urine pH 5.5 (4.5-7.5) Ur Specific Elizabeth >= 1.030 (1.000-1.030) Urine Protein 2+ H (Negative) Urine Glucose (UA) Negative (Negative) Urine Ketones Trace H (Negative) Urine Blood Trace H (Negative) Urine Nitrite Negative (Negative) Urine Bilirubin Negative (Negative) Urine Urobilinogen Negative (Negative) Ur Leukocyte Esterase Negative (Negative) Urine RBC 0-4 (0-4) /hpf Urine WBC 0-5 (0-5) /hpf Ur Epithelial Cells 0-5 (0-5) /lpf Urine Bacteria Negative (Negative) Granular Casts 10-20 H (0) /lpf Influenza Type A (PCR) (Neg) Influenza Type B (PCR) (Neg) Administered Medications Parenteral Electrolytes (Normosol-R) 1,000 mls @ 60 mls/hr IV .[id number] MAGGY Stop: 09/11/19 03:59 Last Admin: 08/12/19 03:54 Dose: 60 mls/hr Documented by: [id number] Potassium Phosphate 30 mmol/ (Sodium Chloride) 510 mls @ 88 mls/hr IV ONE ONE Stop: 08/12/19 09:02 Last Admin: 08/12/19 03:41 Dose: 88 mls/hr Documented by: [id number] Insulin Aspart (Novolog Flexpen) 0 units SC Q6 MAGGY Stop: 09/11/19 02:59 Last Admin: 08/12/19 03:44 Dose: 3 units Documented by: [id number] Cosigned by: [id number] Discontinued Medications Albuterol (Duoneb) 3 ml NEB NOW STA Stop: 08/11/19 21:29 Last Admin: 08/11/19 22:12 Dose: 3 ml Documented by: [id number] Albuterol (Duoneb) 12 ml NEB ONE ONE Stop: 08/12/19 00:27 Last Admin: 08/12/19 01:46 Dose: 12 ml Documented by: [id number] Dexamethasone Sodium Phosphate (Decadron Pf) Confirm Administered Dose 10 mg .ROUTE .STK-MED ONE Stop: 08/11/19 22:21 Last Admin: 08/11/19 22:27 Dose: 10 mg Documented by: [id number] Gabapentin (Neurontin) 200 mg PO NOW STA Stop: 08/12/19 00:48 Last Admin: 08/12/19 01:03 Dose: 200 mg Documented by: [id number] Sodium Chloride (Nss 1000ml) 2,000 mls @ 999 mls/hr IV .Q2H1M ONE Stop: 08/11/19 23:28 Last Infusion: 08/12/19 00:08 Dose: 0 mls/hr Documented by: [id number] Admin: 08/11/19 22:07 Dose: 999 mls/hr Documented by: [id number] Acetaminophen (Ofirmev) 1,000 mg in 100 mls @ 400 mls/hr IV NOW STA Stop: 08/11/19 21:42 Last Infusion: 08/11/19 22:49 Dose: 0 mls/hr Documented by: [id number] Admin: 08/11/19 22:09 Dose: 400 mls/hr Documented by: [id number] Famotidine (Pepcid 20mg Iv Push) 20 mg in 5 mls @ 2.5 mls/min IV NOW STA Stop: 08/11/19 21:29 Last Admin: 08/11/19 22:10 Dose: 2.5 mls/min Documented by: [id number] Dexamethasone Sodium Phosphate (10 mg/ Syringe) 2.5 mls @ 1 mls/min IV NOW STA Stop: 08/11/19 21:30 Last Admin: 08/11/19 22:27 Dose: Not Given Documented by: [id number] Prochlorperazine (Compazine) 2 mls @ 1 mls/min IV ONE ONE Stop: 08/11/19 21:30 Last Admin: 08/11/19 22:10 Dose: 1 mls/min Documented by: [id number] Piperacillin Sod/Tazobactam Sod (Zosyn) 4.5 gm in 120 mls @ 240 mls/hr IV NOW ONE Stop: 08/11/19 21:58 Last Infusion: 08/11/19 23:47 Dose: 0 mls/hr Documented by: [id number] Admin: 08/11/19 22:46 Dose: 240 mls/hr Documented by: [id number] Magnesium Sulfate/Dextrose (Magnesium Sulfate / D5w) 1 gm in 100 mls @ 100 mls/hr IV Q1H MAGGY Stop: 08/12/19 00:14 Last Infusion: 08/12/19 02:05 Dose: 0 mls/hr Documented by: [id number] Admin: 08/12/19 01:03 Dose: 100 mls/hr Documented by: [id number] Infusion: 08/11/19 23:49 Dose: 0 mls/hr Documented by: [id number] Admin: 08/11/19 22:47 Dose: 100 mls/hr Documented by: [id number] Potassium Phosphate 9 mmol/ (Sodium Chloride) 253 mls @ 88 mls/hr IV ONE ONE Stop: 08/12/19 01:52 Last Infusion: 08/12/19 03:58 Dose: 0 mls/hr Documented by: [id number] Admin: 08/11/19 22:48 Dose: 88 mls/hr Documented by: [id number] Doxycycline Hyclate 100 mg/ (Dextrose) 110 mls @ 50 mls/hr IV NOW STA Stop: 08/12/19 02:58 Last Infusion: 08/12/19 03:57 Dose: 0 mls/hr Documented by: [id number] Admin: 08/12/19 01:04 Dose: 50 mls/hr Documented by: [id number] Insulin Glargine (Lantus Solostar Pen) 5 units SC NOW STA Stop: 08/12/19 02:54 Last Admin: 08/12/19 03:43 Dose: 5 units Documented by: [id number] Cosigned by: [id number] Ioversol (Optiray 320 125ml) 125 ml IV ONCE PRN PRN Reason: Interaction Checking Stop: 08/15/19 23:38 Last Admin: 08/11/19 23:39 Dose: 118 ml Documented by: [id number] Oseltamivir Phosphate (Tamiflu) 75 mg PO NOW STA; Protocol Stop: 08/11/19 22:15 Last Admin: 08/11/19 23:11 Dose: 75 mg Documented by: [id number] Potassium Phosphate (Potassium Phosphate Replace) 9 mmol IV NOW STA Stop: 08/11/19 22:15 Last Admin: 08/11/19 22:48 Dose: Not Given Documented by: [id number] Imaging Data Attestation: I personally reviewed and interpreted this imaging study as follows: My Impression: Patchy opacities of the right lung field with a less prominent opacities of the left lung field suspicious for pneumonia. Radiologist's Impression: STATRAD PreliminaryFindingsOnly See Final Report For Complete Findings CT ABDOMEN & PELVIS With Contrast: Consolidations at the lung baseswith more patchyperipheral groundglass opacities in the nondependent right lung, concerning for pneumonia, possiblyviral. Cholecystectomy. Hepatomegaly. Spleen, pancreas, adrenal glands, and kidneys are unremarkable. Postoperative changes in the right lower quadrant with apparent ileocecal anastomosis; correlate with operative history. There are multiple calcific densities located within a tubular structure projecting fromthe proximal colon (axial image 63). These mayrepresent appendicolithswithin the appendix. However, there are no regional inflammatorychanges to suggest acute appendicitis. No bowel obstruction or inflammation. Normal uterus. Urinarybladder decompressed fromFoleycatheter. Osteopenia. There is small subchondral lucencywith surrounding sclerosis in the right femoral head concerning for a subchondral insufficiencyfracture. Blood Pressure Blood Pressure Findings: Normal blood pressure Discharge Plan Visit Data *Final* Discharge Date/Time: 08/12/19 02:19 Chief Complaint: Flu Like Symptoms Stated Complaint: ILLNESS ED Provider: Boogie Keller Discharge Problem: Acute respiratory failure with hypoxia, Influenza A, Pneumonia, Gastroenteritis, Hypomagnesemia, Hypophosphatemia Patient Disposition: Admitted As Inpatient Discharge Instructions Interventions: ED Discharge Assessment Last Done: 08/12/19 02:19 Meds Home Medications and Allergies Home Medications Medication Instructions Recorded Confirmed Type allopurinol [Zyloprim] 300 mg PO DAILY 08/11/19 08/11/19 History azithromycin [Zithromax Z-Miki] 250 mg PO DAILY 08/11/19 08/11/19 History calcium carbonate-vitamin D3 1 tab PO BID 08/11/19 08/11/19 History [Calcium 600 with Vitamin D3] colestipol 1 g PO BID 08/11/19 08/11/19 History fluconazole 150 mg PO .Q3DAYS 08/11/19 08/11/19 History fluticasone propionate 2 spray INTRANASAL DAILY 08/11/19 08/11/19 History gabapentin [Neurontin] 600 mg PO TID 08/11/19 08/11/19 History gemfibrozil 600 mg PO BID 08/11/19 08/11/19 History levothyroxine [Synthroid] 75 mcg PO DAILY 08/11/19 08/11/19 History loratadine [Claritin] 10 mg PO DAILY 08/11/19 08/11/19 History losartan 50 mg PO DAILY 08/11/19 08/11/19 History magnesium oxide 400 mg PO DAILY 08/11/19 08/11/19 History meloxicam [Mobic] 15 mg PO DAILY 08/11/19 08/11/19 History omeprazole 20 mg PO BID 08/11/19 08/11/19 History prednisone 5 mg PO DAILY 08/11/19 08/11/19 History prednisone 10 mg PO .TAPER UD 08/11/19 08/11/19 History riboflavin (vitamin B2) 200 mg PO BID 08/11/19 08/11/19 History sumatriptan succinate 100 mg PO UD PRN 08/11/19 08/11/19 History tramadol 50 mg PO Q8 PRN 08/11/19 08/11/19 History Allergies Allergy/AdvReac Type Severity Reaction Status Date / Time Penicillins AdvReac Mild YEAST Verified 08/11/19 21:43 INFECTION tetanus and diphtheria AdvReac Gastrointestinal Verified 08/11/19 22:15 toxoids Upset
[2019-08-11 23:31] LABS: Appearance Urine Clear (Clear); Bilirubin Urine Negative (Negative); Blood Urine Trace (Negative); Color Urine Yellow; Glucose Urine UA Negative (Negative); Ketones Urine Trace (Negative); Leukocyte Esterase Urine Negative (Negative); Nitrite Urine Negative (Negative); Protein Urine 2+ (Negative); Specific Gravity Urine >= 1.030 (1.000-1.030); Urobilinogen Urine Negative (Negative); pH Urine 5.5 (4.5-7.5)
[2019-08-11] MEDS ORDERED: OPTIRAY 320 125ml IV PRN (23:39)
[2019-08-11 23:54] LABS: NT Pro B Type Natriuretic Pept 213 pg/ml (0-900); Thyroid Stimulating Hormone 0.288 uIu/ml (0.300-4.500)
[2019-08-12 00:05] LABS: Bacteria Urine Negative (Negative); Epithelial Cell Urine 0-5 /lpf (0-5); RBC Urine 0-4 /hpf (0-4); WBC Urine 0-5 /hpf (0-5)
[2019-08-12] MEDS ORDERED: ALBUT/IPRATROP 3MG/0.5MG NEB 3 ML VIAL NEB ONE (00:26)
[2019-08-12 00:40] LABS: Lipase 83 U/L (73-393)
--- NOTE | 2019-08-12 00:41 | History & Physical Report ---
Date of Service August 12, 2019 Assessment & Plan (1) Acute hypoxemic respiratory failure: Secondary to community-acquired bronchopneumonia/possible aspiration Influenza positive Failed outpatient treatment hypertension, stable mood disorder, at baseline prediabetes, hemoglobin A1c of 5.03 January 2019 chronic migraine, at baseline Medical telemetry Supplemental O2 BiPAP for now Baseline ABG Doxycycline, Zosyn for bronchopneumonia Swallow eval, aspiration precautions for now Steroids, nebs RTC for now given significant hypoxemia from bronchopneumonia Complete Tamiflu course Pulmonary consult if without improvement in a.m. for respiratory failure Basal insulin, ISS BG goal [id number] anticipated hyperglycemia following steroid Rx, update hemoglobin A1c DVT prophylaxis. Lovenox subcu Full code Text document was generated using Spreaker voice recognition software. It may contain grammatical or spelling errors. Kindly contact undersigned for clarification of any documentation item in question. History of Present Illness Chief Complaint: Worsening cough, S OB Primary Care Provider: Paulina Perez, History obtained from patient and records. Medical history significant for hypertension, hyperlipidemia, mood disorder, prediabetes, chronic migraine as per records. Recent confinement January 2017 for acute renal failure. 9 days history of sinusitis symptoms followed by sore throat, junky productive cough symptoms. Coughing noted with water/food intake from time to time. Patient denies fluid retention. Patient seen at PCPs office 5 days ago. Z-Miki and prednisone course initiated for bronchitis/sinusitis, gout symptoms. IM ceftriaxone 1 dose given at the clinic. Patient brought to the ER for evaluation because of worsening symptoms. At the ER, patient received Decadron, neb treatment, Zosyn, and Tamiflu for pneumonia and influenza. BiPAP initiated at the ER for worsening respiratory distress. 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 Allergies Allergy/AdvReac Type Severity Reaction Status Date / Time Penicillins AdvReac Mild YEAST Verified 08/11/19 21:43 INFECTION tetanus and diphtheria AdvReac Gastrointestinal Verified 08/11/19 22:15 toxoids Upset Home Medications Home Medications Medication Instructions Recorded Confirmed Type allopurinol [Zyloprim] 300 mg PO DAILY 08/11/19 08/11/19 History azithromycin [Zithromax Z-Miki] 250 mg PO DAILY 08/11/19 08/11/19 History calcium carbonate-vitamin D3 1 tab PO BID 08/11/19 08/11/19 History [Calcium 600 with Vitamin D3] colestipol 1 g PO BID 08/11/19 08/11/19 History fluconazole 150 mg PO .Q3DAYS 08/11/19 08/11/19 History fluticasone propionate 2 spray INTRANASAL DAILY 08/11/19 08/11/19 History gabapentin [Neurontin] 600 mg PO TID 08/11/19 08/11/19 History gemfibrozil 600 mg PO BID 08/11/19 08/11/19 History levothyroxine [Synthroid] 75 mcg PO DAILY 08/11/19 08/11/19 History loratadine [Claritin] 10 mg PO DAILY 08/11/19 08/11/19 History losartan 50 mg PO DAILY 08/11/19 08/11/19 History magnesium oxide 400 mg PO DAILY 08/11/19 08/11/19 History meloxicam [Mobic] 15 mg PO DAILY 08/11/19 08/11/19 History omeprazole 20 mg PO BID 08/11/19 08/11/19 History prednisone 5 mg PO DAILY 08/11/19 08/11/19 History prednisone 10 mg PO .TAPER UD 08/11/19 08/11/19 History riboflavin (vitamin B2) 200 mg PO BID 08/11/19 08/11/19 History sumatriptan succinate 100 mg PO UD PRN 08/11/19 08/11/19 History tramadol 50 mg PO Q8 PRN 08/11/19 08/11/19 History Past Med/Surg History Medical History CKD (chronic kidney disease), stage III (Chronic) GERD (gastroesophageal reflux disease) (Chronic) HTN (hypertension) (Chronic) Hyperlipidemia (Chronic) Hypothyroidism (Chronic) Morbid obesity with BMI of 40.0-44.9, adult (Chronic) Social History Preferred Language: Serbian Communication Ability: Effective [place] Required: No Beliefs That Will Affect Care: None Current Living Situation: Spouse Feels Safe at Home: Yes Safety Concerns: Feels Safe At This Time Smoking Status: Never smoker Hx Alcohol Use: No Hx Substance Use: No Review of Systems Review of Systems: As per HPI, all 10 systems reviewed, all other ROS negative Physical Exam Physical Exam: GENERAL: uncomfortable, anxious, minimal respiratory distress, morbidly obese SKIN: Normal color, warm HEENT: [place] palpebral conjunctivae, no ptosis, dry buccal mucosa, BiPAP in place NECK : Supple, short neck, no tenderness CHEST : Decreased breath sounds, occasional expiratory wheezes, no tenderness HEART : RRR, no obvious murmurs ABDOMEN: Some distention, nontender EXTREMITIES : Bilateral LE swelling, no LE tenderness, no other conspicuous deformities noted NEUROLOGIC : Coherent, no facial asymmetry, no other gross focality Results & Data Vital Signs (Past 12 Hours) Vital Signs Temp Pulse Pulse Resp BP BP Pulse Ox 08/12/19 00:28 88 28 H 111/61 86 L 08/11/19 23:53 36.8 C 08/11/19 23:13 96 H 22 123/68 95 08/11/19 22:12 101 H 24 91 08/11/19 21:30 103 H 27 H 91 08/11/19 21:20 25 H 83 L 08/11/19 21:15 107 H 21 113/67 90 08/11/19 21:09 37 C 101 H 25 H 123/60 83 L 08/11/19 21:00 98 H 29 H 123/60 92 08/11/19 20:59 97 H 23 93 08/11/19 20:57 98 H 23 126/64 92 Laboratory Results Laboratory Results WBC 9.96 K/uL (4.8-10.8) 08/11/19 21:00 RBC 4.84 M/uL (4.2-5.4) 08/11/19 21:00 Hgb 15.1 g/dL (12.0-16.0) 08/11/19 21:00 POC Hgb 16.0 g/dl (12.0-16.0) 08/11/19 21:56 Hct 45.0 % (37-47) 08/11/19 21:00 POC Hct 47 % (37-47) 08/11/19 21:56 MCV 93.0 fL (80-100) 08/11/19 21:00 MCH 31.2 pg (25-34) 08/11/19 21:00 MCHC 33.6 g/dL (32-36) 08/11/19 21:00 RDW Std Deviation 50.4 fL (36.4-46.3) H 08/11/19 21:00 RDW Coeff of David 14.9 % (11.5-14.5) H 08/11/19 21:00 Plt Count 316 K/uL (130-400) 08/11/19 21:00 MPV 11.3 fL (7.4-10.4) H 08/11/19 21:00 Immature Gran % (Auto) 1.3 % 08/11/19 21:00 Neut % (Auto) 85.1 % 08/11/19 21:00 Lymph % (Auto) 9.2 % 08/11/19 21:00 Wharton % (Auto) 4.2 % 08/11/19 21:00 Eos % (Auto) 0.0 % 08/11/19 21:00 Baso % (Auto) 0.2 % 08/11/19 21:00 Immature Gran # (Auto) 0.13 K/uL (0.00-0.02) H 08/11/19 21:00 Neut # (Auto) 8.47 K/uL (1.4-6.5) H 08/11/19 21:00 Lymph # (Auto) 0.92 K/uL (1.2-3.4) L 08/11/19 21:00 Wharton # (Auto) 0.42 K/uL (0.11-0.59) 08/11/19 21:00 Eos # (Auto) 0.00 K/uL (0-0.5) 08/11/19 21:00 Baso # (Auto) 0.02 K/uL (0-0.2) 08/11/19 21:00 PT 14.7 Seconds (9.0-12.0) H 08/11/19 21:00 INR 1.4 (0.9-1.1) H 08/11/19 21:00 APTT 36.2 Seconds (21.0-31.0) H 08/11/19 21:00 PTT Ratio 1.3 08/11/19 21:00 VBG pH 7.47 (7.36-7.41) H 08/11/19 22:14 VBG pCO2 39 mmHg (38-50) 08/11/19 22:14 VBG pO2 36 mmHg 08/11/19 22:14 VBG HCO3 28 mmol/L 08/11/19 22:14 VBG O2 Saturation 69.4 % 08/11/19 22:14 VBG Base Excess 3.9 mEq/L 08/11/19 22:14 Barometric Pressure 744.3 mm/Hg 08/11/19 22:14 POC Sodium 133 mmol/L (135-144) L 08/11/19 21:56 Sodium 133 mmol/L (136-145) L 08/11/19 21:00 POC Potassium 3.7 mmol/L (3.3-5.0) 08/11/19 21:56 Potassium 3.7 mmol/L (3.5-5.1) 08/11/19 21:00 POC Chloride 94 mmol/L (101-112) L 08/11/19 21:56 Chloride 97 mmol/L (98-107) L 08/11/19 21:00 Carbon Dioxide 28 mmol/L (21-32) 08/11/19 21:00 POC Total CO2 26 mEq/l (24-31) 08/11/19 21:56 Anion Gap 8.0 (3-11) 08/11/19 21:00 POC Anion Gap 18.0 mmol/L (16-25) 08/11/19 21:56 POC BUN 20 mg/dl (7-18) H 08/11/19 21:56 BUN 21 mg/dl (7-18) H 08/11/19 21:00 Creatinine 1.00 mg/dl (0.6-1.2) 08/11/19 21:00 POC Creatinine 0.9 mg/dl (0.6-1.3) 08/11/19 21:56 Est Cr Clr Drug Dosing 59.9 ml/min 08/11/19 21:00 Est GFR ( Amer) 65.2 08/11/19 21:00 Est GFR (Non-Af Amer) 56.2 08/11/19 21:00 BUN/Creatinine Ratio 20.9 (10-20) H 08/11/19 21:00 Glucose 108 mg/dl (70-99) H 08/11/19 21:00 POC Glucose (other) 105 mg/dl (70-99) H 08/11/19 21:56 Lactate 1.2 mmol/L (0.4-2.0) 08/12/19 00:11 Calcium 8.6 mg/dl (8.5-10.1) 08/11/19 21:00 POC Ioniz Calcium Trae 1.06 mmol/l (1.12-1.32) L 08/11/19 21:56 Phosphorus 1.6 mg/dl (2.5-4.9) L 08/11/19 21:00 Magnesium 1.5 mg/dl (1.8-2.4) L 08/11/19 21:00 Total Bilirubin 0.4 mg/dl (0.2-1) 08/11/19 21:00 AST 30 U/L (15-37) 08/11/19 21:00 ALT 23 U/L (12-78) 08/11/19 21:00 Alkaline Phosphatase 81 U/L (45-117) 08/11/19 21:00 Troponin I < 0.015 ng/ml (0-0.045) 08/11/19 21:00 NT-Pro-B Natriuret Pep 213 pg/ml (0-900) 08/11/19 21:00 Total Protein 7.4 gm/dl (6.4-8.2) 08/11/19 21:00 Albumin 2.5 gm/dl (3.4-5.0) L 08/11/19 21:00 Globulin 4.9 gm/dl (2.5-4.0) H 08/11/19 21:00 Albumin/Globulin Ratio 0.5 (0.9-2) L 08/11/19 21:00 Lipase 83 U/L (73-393) 08/11/19 21:00 TSH 0.288 uIu/ml (0.300-4.500) L 08/11/19 21:00 Free T4 1.40 ng/dl (0.8-1.6) 08/11/19 21:00 Urine Color Yellow 08/11/19 23:04 Urine Appearance Clear (Clear) 08/11/19 23:04 Urine pH 5.5 (4.5-7.5) 08/11/19 23:04 Ur Specific Kohler >= 1.030 (1.000-1.030) 08/11/19 23:04 Urine Protein 2+ (Negative) H 08/11/19 23:04 Urine Glucose (UA) Negative (Negative) 08/11/19 23:04 Urine Ketones Trace (Negative) H 08/11/19 23:04 Urine Blood Trace (Negative) H 08/11/19 23:04 Urine Nitrite Negative (Negative) 08/11/19 23:04 Urine Bilirubin Negative (Negative) 08/11/19 23:04 Urine Urobilinogen Negative (Negative) 08/11/19 23:04 Ur Leukocyte Esterase Negative (Negative) 08/11/19 23:04 Urine RBC 0-4 /hpf (0-4) 08/11/19 23:04 Urine WBC 0-5 /hpf (0-5) 08/11/19 23:04 Ur Epithelial Cells 0-5 /lpf (0-5) 08/11/19 23:04 Urine Bacteria Negative (Negative) 08/11/19 23:04 Granular Casts 10-20 /lpf (0) H 08/11/19 23:04 Influenza Type A (PCR) Pos for Influ A (Neg) A* 08/11/19 21:00 Influenza Type B (PCR) Neg for Influ B (Neg) 08/11/19 21:00 Diagnostic Findings Chest x-ray as per my interpretation bilateral infiltrates versus congestion CT abdomen pelvis initial read: Patchy consolidation nondependent right lung concerning for pneumonia possibly viral. Postop changes right lower quadrant with ileocecal anastomosis. Multiple calcific densities located within tubular structure projecting from proximal colon. EKG as per my interpretation : Rate 100, NSR, LAD, LAFB, T wave flattening inferior leads, diffuse T wave inversion anterolateral leads
[2019-08-12] MEDS ORDERED: GABAPENTIN 100 MG CAP PO STA (00:47)
[2019-08-12] MEDS ORDERED: DOXYCYCLINE HYCLATE 100 MG in DEXTROSE 5% 100 ML IV STA (00:47)
[2019-08-12] MEDS: MAGNESIUM SULFATE / D5W 1 GM/100 ML BAG IV SCH (01:03)
[2019-08-12 01:14] LABS: Allen Test POS (Pos); Base Excess ABG -3.7 mEq/L (-9-1.8); HCO3 ABG 20 mmol/L (19-24); Oxygen Saturation ABG 96.5 % (90-95); PCO2 ABG 33 mmHg (35-46); PO2 ABG 82 mmHg (80-95); pH ABG 7.41 (7.35-7.45)
[2019-08-12] MEDS ORDERED: GLUCAGON FOR INJ 1 MG VIAL SQ PRN (02:53)
[2019-08-12] MEDS ORDERED: CARBOHYDRATES FOR HYPOGLYCEMIA PO PRN (02:53)
[2019-08-12] MEDS ORDERED: XOPENEX/ATROVENT 1.25mg/0.5MG NEB COMBO NEB SCH (02:53)
[2019-08-12] MEDS ORDERED: INSULIN GLARGINE SOLOSTAR 100 UNITS/ML 3 ML PEN SC STA (02:53)
[2019-08-12] MEDS ORDERED: GLUCOSE 40% GEL 15 GM TUBE PO PRN (02:53)
[2019-08-12] MEDS ORDERED: PROMETHAZINE HCL 12.5 MG in SODIUM CHLORIDE 0.9% 50 ML IV PRN (02:53)
[2019-08-12] MEDS ORDERED: GLUCOSE 10 TABS/TUBE PO PRN (02:53)
[2019-08-12] MEDS ORDERED: POTASSIUM PHOS 3 MMOL/1 ML INFUSION IV STA (02:53)
[2019-08-12] MEDS ORDERED: ACETAMINOPHEN 325 MG TAB PO PRN (02:53)
[2019-08-12] MEDS ORDERED: TRAMADOL HCL 50 MG TABLET PO PRN (02:53)
[2019-08-12] MEDS ORDERED: DEXTROSE 50% 50 ML SYRINGE IV PRN (02:53)
[2019-08-12] MEDS ORDERED: POTASSIUM PHOSPHATE 30 MMOL in SODIUM CHLORIDE 0.9% 500 ML IV ONE (03:15)
[2019-08-12] MEDS: INSULIN ASPART 100 UNITS/ML 3 ML PEN SC SCH ×5 (03:44→23:57)
[2019-08-12] MEDS ORDERED: NORMOSOL-R 1,000 ML IV SCH (04:00)
[2019-08-12] MEDS: LEVOTHYROXINE SODIUM 75 MCG TABLET PO SCH (05:37)
[2019-08-12] MEDS ORDERED: methylPREDNISolone 40 MG in SYRINGE 0 ML IV STA (06:00)
[2019-08-12] MEDS ORDERED: XOPENEX/ATROVENT 1.25mg/0.5MG NEB COMBO NEB STA (06:00)
[2019-08-12] MEDS ORDERED: LEVALBUTEROL 1.25MG/0.5ML NEB INH STA (06:06)
[2019-08-12] MEDS ORDERED: IPRATROPIUM BROMIDE NEB SOLN 0.02% 2.5 ML VIAL INH STA (06:06)
[2019-08-12 06:23] LABS: Estimated Average Glucose 128 mg/dl; Hemoglobin A1C 6.1 % (4.5-5.6)
[2019-08-12 06:40] LABS: Basophils # (auto) 0.01 K/uL (0-0.2); Basophils % (auto) 0.1 %; Hematocrit (blood only) 41.1 % (37-47); Hemoglobin 13.2 g/dL (12.0-16.0); Immature Granulocytes # (auto) 0.09 K/uL (0.00-0.02); Immature Granulocytes % (auto) 1.1 %; Lymphocytes # (auto) 0.46 K/uL (1.2-3.4); Lymphocytes % (auto) 5.6 %; Mean Corpuscular Hemoglobin 29.8 pg (25-34); Mean Corpuscular Hgb Conc 32.1 g/dL (32-36); Mean Corpuscular Volume 92.8 fL (80-100); Mean Platelet Volume 11.1 fL (7.4-10.4); Monocytes # (auto) 0.24 K/uL (0.11-0.59); Monocytes % (auto) 2.9 %; Neutrophils # (auto) 7.46 K/uL (1.4-6.5); Neutrophils % (auto) 90.3 %; Platelet Count 302 K/uL (130-400); RDW Standard Deviation 50.8 fL (36.4-46.3); Red Blood Count 4.43 M/uL (4.2-5.4); White Blood Count 8.26 K/uL (4.8-10.8)
[2019-08-12 07:06] LABS: BUN Creatinine Ratio 17.2 (10-20); Calcium 7.7 mg/dl (8.5-10.1); Creatinine Clr Calc Pharmacy 59.2 ml/min; Est GFR (African American) 62.9; Est GFR (Non-African American) 54.3; Magnesium 2.2 mg/dl (1.8-2.4); Potassium 3.7 mmol/L (3.5-5.1)
[2019-08-12] MEDS: LEVALBUTEROL 1.25MG/0.5ML NEB INH SCH ×3 (07:10→20:20)
[2019-08-12] MEDS: IPRATROPIUM BROMIDE NEB SOLN 0.02% 2.5 ML VIAL INH SCH ×3 (07:11→20:19)
[2019-08-12 07:12] LABS: Phosphorus 3.9 mg/dl (2.5-4.9)
[2019-08-12] MEDS ORDERED: ALBUMIN 25% 50 ML with FUROSEMIDE 20 MG IV ONE (07:15)
--- NOTE | 2019-08-12 07:31 | XRay Report ---
XR chest 1V portable CLINICAL HISTORY: sob dyspnea COMPARISON STUDY: 08/11/2019 FINDINGS: Mild stable cardiomegaly. Slight improvement of the bilateral parenchymal infiltrative duarte ges. Diaphragms remain smooth. IMPRESSION: Stable diffuse bilateral parenchymal infiltrative change. ACT 112: Negative or not required by law. The above report was generated using voice recognition software. It may contain grammatical, syntax or spelling errors. Electronically signed by: Pawan Avalos M.D. 08/12/2019 7:30 AM
[2019-08-12] MEDS: INSULIN GLARGINE SOLOSTAR 100 UNITS/ML 3 ML PEN SC SCH ×2 (07:36→20:08)
--- NOTE | 2019-08-12 07:40 | XRay Report ---
XR chest 1V portable CLINICAL HISTORY: SEPSIS dyspnea COMPARISON STUDY: 02/08/2017 FINDINGS: Interval development of diffuse parenchymal infiltrates right upper lobe and left base. No regions of 2 consolidative change. Mild stable cardiomegaly. IMPRESSION: Interval development of diffuse parenchymal infiltrative changes right upper lobe and le ft base. ACT 112: Negative or not required by law. The above report was generated using voice recognition software. It may contain grammatical, syntax or spelling errors. Electronically signed by: Pawan Avalos M.D. 08/12/2019 7:39 AM
--- NOTE | 2019-08-12 08:10 | CT Scan Report ---
ABDOMEN AND PELVIS CT WITH IV CONTRAST CT DOSE: 1892.03 mGy.cm HISTORY: Generalized abdominal pain. Nausea. Vomiting. TECHNIQUE: Multiaxial CT images of the abdomen and pelvis were performed following the use of intrave nous contrast. A dose lowering technique was utilized adhering to the principles of ALARA. COMPARISON STUDY: None. FINDINGS: Bilateral lower lobe consolidation with additional patchy groundglass opacities seen within the right lung base. This likely represents a pneumonia, possibly viral. No pneumoperitoneum. No pne umatosis. No suspicious lytic are blastic osseous lesions. The gallbladder surgically absent. The jayson er, spleen, pancreas, and adrenal glands are unremarkable. Subcentimeter hypodense lesion within the upper pole the left kidney. This too small to characterize. No hydronephrosis. The right kidney enhan dorian normally. No retroperitoneal lymphadenopathy. The bladder is decompressed by a Ni catheter. Th e uterus and bilateral adnexa are unremarkable. No bowel wall thickening or obstruction. Postoperativ e changes within the right lower quadrant with apparent ileocecal anastomosis. Multiple calcific dens ities located within a tubular structure projecting from the proximal colon best in image 308. This f avors enteroliths at the blind-ending loop of the anastomosis. This could also represent multiple triston endicoliths within the appendix. However, this is considered less likely. There are no inflammatory c hange at this location to suggest an acute process. 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 IMPRESSION: 1. Bilateral lower lobe consolidation with additional patchy groundglass opacities within the right l keegan base. 2. No bowel wall thickening or obstruction. 3. Postoperative changes within the right lower quadrant with apparent ileocecal anastomosis. Multipl e calcific densities located within a tubular structure projecting from the proximal colon best in im age 308. This favors enteroliths at the blind-ending loop of the anastomosis. This could also represe nt multiple appendicoliths within the appendix. However, this is considered less likely. There are no inflammatory change at this location to suggest an acute process. 4. Additional findings as described above. ACT 112: Negative or not required by law. Electronically signed by: Bola Aguillon M.D. 08/12/2019 8:08 AM
[2019-08-12] MEDS: ENOXAPARIN INJ 30 MG/0.3 ML SYR SQ SCH (08:30)
[2019-08-12] MEDS: LORATADINE 10 MG TAB PO SCH (08:45)
[2019-08-12] MEDS: DOXYCYCLINE HYCLATE 100 MG CAP PO SCH ×2 (08:46→20:06)
[2019-08-12] MEDS: PANTOprazole 40 MG TAB PO SCH ×2 (08:46→20:07)
[2019-08-12] MEDS: GABAPENTIN 600 MG TAB PO SCH ×3 (08:46→20:06)
[2019-08-12] MEDS: OSELTAMIVIR PHOSPHATE 75 MG CAP PO SCH ×2 (08:46→20:06)
[2019-08-12] MEDS: gemfibroziL 600 MG TAB PO SCH ×2 (08:46→20:07)
[2019-08-12] MEDS: allopurinoL 300 MG TAB PO SCH (08:47)
[2019-08-12] MEDS ORDERED: methylPREDNISolone 40 MG in SYRINGE 0 ML IV SCH (09:00)
[2019-08-12] MEDS ORDERED: LOSARTAN POTASSIUM 50 MG TAB PO SCH (09:00)
[2019-08-12] MEDS ORDERED: RIBOFLAVIN 200 MG PO SCH (09:00)
[2019-08-12] MEDS ORDERED: PIPERACILLIN/TAZOBACTAM 4.5 GM in DEXTROSE 5% 100 ML IV ONE (09:00)
[2019-08-12] MEDS: COLESTIPOL HCL 1 GM TAB PO SCH ×2 (10:43→22:08)
[2019-08-12] MEDS: PIPERACILLIN/TAZOBACTAM 4.5 GM in DEXTROSE 5% 100 ML IV SCH ×2 (13:46→22:08)
[2019-08-13] MEDS: LEVALBUTEROL 1.25MG/0.5ML NEB INH SCH ×4 (00:47→19:16)
[2019-08-13] MEDS: IPRATROPIUM BROMIDE NEB SOLN 0.02% 2.5 ML VIAL INH SCH ×4 (00:47→19:16)
[2019-08-13] MEDS ORDERED: methylPREDNISolone 40 MG in SYRINGE 0 ML IV STA (01:50)
[2019-08-13] MEDS ORDERED: FAMOTIDINE 20MG IV PUSH 20 MG/5 ML SYR IV STA (01:50)
[2019-08-13 02:44] LABS: Basophils # (auto) 0.01 K/uL (0-0.2); Basophils % (auto) 0.1 %; Hematocrit (blood only) 38.1 % (37-47); Hemoglobin 12.3 g/dL (12.0-16.0); Immature Granulocytes % (auto) 0.8 %; Lymphocytes % (auto) 7.1 %; Mean Corpuscular Hemoglobin 30.2 pg (25-34); Mean Corpuscular Hgb Conc 32.3 g/dL (32-36); Mean Corpuscular Volume 93.6 fL (80-100); Mean Platelet Volume 10.8 fL (7.4-10.4); Monocytes % (auto) 5.5 %; Neutrophils # (auto) 10.99 K/uL (1.4-6.5); Neutrophils % (auto) 86.5 %; Platelet Count 401 K/uL (130-400); RDW Coefficient of Variation 15.4 % (11.5-14.5); RDW Standard Deviation 52.7 fL (36.4-46.3); Red Blood Count 4.07 M/uL (4.2-5.4)
[2019-08-13 02:45] LABS: Allen Test Pos (Pos); Base Excess ABG -2.1 mEq/L (-9-1.8); HCO3 ABG 22 mmol/L (19-24); Oxygen Saturation ABG 94.1 % (90-95); PCO2 ABG 37 mmHg (35-46); PO2 ABG 69 mmHg (80-95)
[2019-08-13 03:01] LABS: Calcium 7.4 mg/dl (8.5-10.1); Creatinine Clr Calc Pharmacy 45.2 ml/min; Est GFR (African American) 45.3; Est GFR (Non-African American) 39.1; Magnesium 2.1 mg/dl (1.8-2.4); Potassium 4.1 mmol/L (3.5-5.1)
[2019-08-13 03:02] LABS: Partial Thromboplastin Ratio 1.6; Partial Thromboplastin Time 44.8 Seconds (21.0-31.0)
[2019-08-13 03:03] LABS: Phosphorus 3.3 mg/dl (2.5-4.9)
[2019-08-13] MEDS ORDERED: ALBUMIN 25% 50 ML IV ONE (03:07)
--- NOTE | 2019-08-13 03:09 | Communication Note ---
Date of Service: August 13, 2019 Made aware by RN of worsening respiratory status upon removal of BiPAP. CXR worsening infiltrate right AP Worsening hypoxemic respiratory failure Progressive infiltrate on CXR Continue BiPAP Continue Zosyn Change Doxycycline to Vancomycin for enhance MRSA coverage Check MRSA swab to guide treatment Pulmonary consult RE worsening respiratory failure We relay to AM provider.
--- NOTE | 2019-08-13 05:42 | Electrocardiogram Report ---
Test Reason : Blood Pressure : / mmHG Vent. Rate : 100 BPM Atrial Rate : 100 BPM P-R Int : 132 ms QRS Dur : 078 ms QT Int : 346 ms P-R-T Axes : 035 -07 026 degrees QTc Int : 446 ms Poor data quality, interpretation may be adversely affected Normal sinus rhythm Anterior infarct , age undetermined Abnormal ECG When compared with ECG of 09-FEB-2017 09:37, Anterior infarct is now Present ST now depressed in Anterolateral leads T wave inversion now evident in Anterolateral leads Confirmed by Ramesh Cano ([id number]) on 08/13/2019 5:41:41 AM Referred By: REFERRED SELF Confirmed By:Ramesh Cano
[2019-08-13] MEDS: PIPERACILLIN/TAZOBACTAM 4.5 GM in DEXTROSE 5% 100 ML IV SCH (05:44)
[2019-08-13] MEDS: guaiFENesin 600 MG TABCR PO SCH ×2 (05:44→20:52)
[2019-08-13] MEDS: LEVOTHYROXINE SODIUM 75 MCG TABLET PO SCH (05:45)
[2019-08-13] MEDS: INSULIN ASPART 100 UNITS/ML 3 ML PEN SC SCH ×4 (05:58→20:46)
--- NOTE | 2019-08-13 07:08 | XRay Report ---
XR chest 1V portable CLINICAL HISTORY: sob dyspnea COMPARISON STUDY: 08/12/2019 FINDINGS: Progressive right upper infiltrative change. Slight improvement in aeration left base. Lung s otherwise are grossly clear. Moderate stable cardiomegaly. IMPRESSION: 1. Progressive right upper lobe infiltrate. 2. Slight improvement in parenchymal infiltrative changes left base. ACT 112: Negative or not required by law. The above report was generated using voice recognition software. It may contain grammatical, syntax or spelling errors. Electronically signed by: Pawan Avalos M.D. 08/13/2019 7:06 AM
[2019-08-13] MEDS ORDERED: VANCOMYCIN CONSULT ACTIVE PRN (07:18)
[2019-08-13] MEDS ORDERED: CEFTAROLINE FOSAMIL ACETATE 600 MG in SODIUM CHLORIDE 0.9% 250 ML IV SCH (08:00)
[2019-08-13] MEDS: allopurinoL 300 MG TAB PO SCH (08:37)
--- NOTE | 2019-08-13 08:37 | Pulmonary Consultation ---
Date of Consultation August 13, 2019 Assessment & Plan (1) Acute hypoxemic respiratory failure: Impression: 74-year-old female admitted with influenza A, pneumonia, and progressive hypoxemic respiratory failure. Recommendation: 1. Influenza A: Continue Tamiflu. Will need to complete 5 days. 2. Hypoxemic respiratory failure: Secondary to influenza and and viral pneumonia. There is no indication for steroids and methylprednisolone will be discontinued. She is on extremely broad-spectrum antibiotics which will be tapered. Discontinue Zosyn and ceftaroline. We will transition to Rocephin and azithromycin. Will follow cultures and white blood cell count but broad- spectrum antibiotics may be able to be discontinued within 72 hours based on clinical response. She is never demonstrated hypercarbia and I think trial on high flow oxygen as opposed to positive airway pressure may be appropriate. This was communicated to the respiratory therapist. We will see how she does. She may require CPAP at night for potential sleep disordered breathing. 3. Morbid obesity: High probability for sleep disordered breathing. The patient may require CPAP at night. Outpatient sleep study may be considered if is not been performed previously. Patient does not appear to require transfer to the ICU at this time although her condition certainly could deteriorate. She will be followed closely. (2) Influenza A: (3) Pneumonia: History of Present Illness Attending Physician: Joshua Martel MD History of Present Illness Asked by hospitalist service to evaluate this patient with hypoxemic respiratory failure and influenza A. History is obtained from review of the chart and discussion with the patient. The patient is a morbidly obese 74-year-old female with about a 10-day history of some sinus symptoms, sore throat, and intermittently productive cough. She was seen by her primary care provider last week and provided azithromycin and prednisone. She had progressive shortness of breath and was seen in the emergency room where she received Decadron nebulizers Zosyn Tamiflu. She had increased work of breathing and was eventually placed on noninvasive positive pressure ventilation. Pulmonary was consulted for additional management. Patient states that her breathing is somewhat better this morning. She continues to cough and tries to expectorate phlegm but this is somewhat hampered by the noninvasive positive pressure ventilation. She is never had hemoptysis. She denies chest pain palpitations or lower extremity edema. She is not aware of any ill contacts. Allergies Allergy/AdvReac Type Severity Reaction Status Date / Time Penicillins AdvReac Mild YEAST Verified 08/11/19 21:43 INFECTION tetanus and diphtheria AdvReac Gastrointestinal Verified 08/11/19 22:15 toxoids Upset Home Medications Home Medications Medication Instructions Recorded Confirmed Type allopurinol [Zyloprim] 300 mg PO DAILY 08/11/19 08/11/19 History azithromycin [Zithromax Z-Miki] 250 mg PO DAILY 08/11/19 08/11/19 History calcium carbonate-vitamin D3 1 tab PO BID 08/11/19 08/11/19 History [Calcium 600 with Vitamin D3] colestipol 1 g PO BID 08/11/19 08/11/19 History fluconazole 150 mg PO .Q3DAYS 08/11/19 08/11/19 History fluticasone propionate 2 spray INTRANASAL DAILY 08/11/19 08/11/19 History gabapentin [Neurontin] 600 mg PO TID 08/11/19 08/11/19 History gemfibrozil 600 mg PO BID 08/11/19 08/11/19 History levothyroxine [Synthroid] 75 mcg PO DAILY 08/11/19 08/11/19 History loratadine [Claritin] 10 mg PO DAILY 08/11/19 08/11/19 History losartan 50 mg PO DAILY 08/11/19 08/11/19 History magnesium oxide 400 mg PO DAILY 08/11/19 08/11/19 History meloxicam [Mobic] 15 mg PO DAILY 08/11/19 08/11/19 History omeprazole 20 mg PO BID 08/11/19 08/11/19 History prednisone 5 mg PO DAILY 08/11/19 08/11/19 History prednisone 10 mg PO .TAPER UD 08/11/19 08/11/19 History riboflavin (vitamin B2) 200 mg PO BID 08/11/19 08/11/19 History sumatriptan succinate 100 mg PO UD PRN 08/11/19 08/11/19 History tramadol 50 mg PO Q8 PRN 08/11/19 08/11/19 History Patient History Medical History CKD (chronic kidney disease), stage III (Chronic) GERD (gastroesophageal reflux disease) (Chronic) HTN (hypertension) (Chronic) Hyperlipidemia (Chronic) Hypothyroidism (Chronic) Morbid obesity with BMI of 40.0-44.9, adult (Chronic) Social History Preferred Language: Persian Communication Ability: Effective 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 I have no additions or deletions. Results & Data ([facility]) Vital Signs (Past 12 Hours) Vital Signs Temp Pulse Pulse Resp BP Pulse Ox 08/13/19 07:28 77 08/13/19 07:09 66 28 H 93 08/13/19 07:04 37.2 C 81 20 106/66 90 08/13/19 05:00 74 31 H 92 08/13/19 03:59 37.0 C 76 22 106/72 91 08/13/19 03:50 74 31 H 91 08/13/19 00:48 73 73 23 93 08/12/19 23:14 78 08/12/19 23:12 37.0 C 75 20 98/64 L 90 08/12/19 22:14 78 30 H 90 Laboratory Results 08/13/19 02:31 08/13/19 02:31 Flu swab is positive for influenza A BNP normal at 213 Initial lactate elevated now normal. Diagnostic Findings Chest x-ray from today was reviewed. Lung volumes are slightly low. There is a progressive infiltrate in the right upper lobe. No significant pleural effusion. Echocardiogram from 08/12/2019 showed concentric LVH with an EF of 60 to 65%. Right ventricular size and systolic function were normal. No significant valvular disease. Grade 1 diastolic dysfunction. PG Care Time/CCT Total # of Minutes Spent Total Time Spent with Patient: Total time spent is greater than 50% in coordination of care (as documented) at patient's floor/unit and/or counseling patient: Coding Level of Care Code 58410 Initial Inpt Care Lvl 3 Diagnoses Acute hypoxemic respiratory failure J96.01 Influenza A J10.1 Pneumonia J18.9
[2019-08-13] MEDS: OSELTAMIVIR PHOSPHATE 75 MG CAP PO SCH (08:38)
[2019-08-13] MEDS: gemfibroziL 600 MG TAB PO SCH ×2 (08:39→20:51)
[2019-08-13] MEDS: GABAPENTIN 600 MG TAB PO SCH ×3 (08:39→20:51)
[2019-08-13] MEDS: PANTOprazole 40 MG TAB PO SCH ×2 (08:39→20:52)
[2019-08-13] MEDS: INSULIN GLARGINE SOLOSTAR 100 UNITS/ML 3 ML PEN SC SCH (08:40)
[2019-08-13] MEDS: LORATADINE 10 MG TAB PO SCH (08:40)
[2019-08-13] MEDS: ENOXAPARIN INJ 30 MG/0.3 ML SYR SQ SCH (08:41)
[2019-08-13] MEDS ORDERED: AZITHROMYCIN 250 MG TAB PO SCH (09:00)
[2019-08-13] MEDS ORDERED: methylPREDNISolone 40 MG in SYRINGE 0 ML IV SCH (09:00)
[2019-08-13] MEDS ORDERED: PANTOprazole 40 MG TAB PO SCH (10:30)
[2019-08-13] MEDS: ALUMINUM/MAGNESIUM SUSP 30 ML UDC PO PRN ×2 (10:40→17:22)
[2019-08-13] MEDS: COLESTIPOL HCL 1 GM TAB PO SCH ×2 (11:57→22:47)
[2019-08-13] MEDS ORDERED: cefTRIAXone SODIUM 2,000 MG in DEXTROSE 5% 50 ML IV SCH (13:00)
--- NOTE | 2019-08-13 13:27 | Hospitalist Progress Note ---
Date of Service August 13, 2019 Assessment & Plan (1) Acute hypoxemic respiratory failure: Admitted with acute hypoxic respiratory failure secondary to influenza A and pneumonia likely viral Has been getting intravenous antibiotics with them ceftriaxone and azithromycin for now Received Zosyn and ceftaroline before Appreciate pulmonary input and recommendation Steroids have been discontinued Clinically better Present on Admission?: Yes (2) Influenza A: Has been on Tamiflu (3) Pneumonia: Likely viral pneumonia Has been on antibiotic to cover the possibilities of bacterial pneumonia Blood cultures have been negative Sputum culture is pending Present on Admission?: Yes (4) GERD (gastroesophageal reflux disease): Has been on PPI twice daily We will add Maalox as needed for dyspepsia (5) CKD (chronic kidney disease), stage III: History of chronic kidney disease presented with LUZ MARIA Kidney function has been improving (6) Hypothyroidism: Continue replacement DVT prophylaxis Subcu Lovenox CODE STATUS Full Admission and Anticipated Discharge Date Admission Date: August 12, 2019 Anticipated date of discharge: 08/15/19 Subjective The patient was seen and examined in medical telemetry unit She was admitted with influenza and and pneumonia with acute respiratory failure Required BiPAP and likely to require BiPAP at times Feels a lot better today and has been communicating normally without any shortness of breath Saturating well with nasal cannula oxygen Review of Systems Review of Systems: All systems reviewed and are unremarkable except as noted below Respiratory: + cough and + dyspnea Cardiovascular: no chest pain Physical Exam Physical Exam: Lying in bed comfortably Constitutional: well developed, well nourished, + acute distress (Moderate shortness of breath at rest) and + obese; not ill appearing Eyes: PERRL, conjunctivae normal, anicteric sclerae ENMT: external ear and nose normal, oropharynx normal Neck: trachea midline, no thyromegaly Respiratory: + respiratory distress (Moderate) Auscultation: + diminished lung sounds, + crackles (At the bases) and + wheezes (Minimal wheezing bilater ally) Cardiovascular: Rate/Rhythm: regular rate and regular rhythm Heart Sounds: no murmur Extremities: + edema (1+ edema bilaterally) Gastrointestinal (Abdomen): Inspection/Auscultation: abdomen normal to inspection, + abdomen distended and normal bowel sounds Percussion/Palpation: abdomen soft; abdomen nontender Musculoskeletal: No acute arthritis in any joints Lymphatic: no cervical or axillary lymphadenopathy Results & Data ([facility]) Vital Signs (Past 12 Hours) Vital Signs Temp Pulse Pulse Resp BP Pulse Ox 08/13/19 11:21 36.9 C 84 20 103/68 100 08/13/19 08:55 91 H 20 88 L 08/13/19 07:28 77 08/13/19 07:09 66 28 H 93 08/13/19 07:04 37.2 C 81 20 106/66 90 08/13/19 05:00 74 31 H 92 08/13/19 03:59 37.0 C 76 22 106/72 91 08/13/19 03:50 74 31 H 91 Laboratory Results Short CBC 08/13/19 Range/Units 02:31 WBC 12.70 H (4.8-10.8) K/uL Hgb 12.3 (12.0-16.0) g/dL Hct 38.1 (37-47) % Plt Count 401 H (130-400) K/uL BMP 08/13/19 02:31 Sodium 136 Potassium 4.1 Chloride 104 Carbon Dioxide 25 BUN 28 H D Creatinine 1.35 H D Glucose 103 H Calcium 7.4 L Medications Administered Current Inpatient Medications Acetaminophen (Tylenol) 650 mg PO Q4H PRN PRN Reason: Pain or Fever Stop: 09/11/19 02:52 Al Hydrox/Mg Hydrox/Simethicone (Maalox) 15 ml PO Q6H PRN PRN Reason: Dyspepsia Stop: 09/12/19 10:25 Last Admin: 08/13/19 10:40 Dose: 15 ml Documented by: Allopurinol (Zyloprim) 300 mg PO DAILY [facility] Stop: 09/11/19 08:59 Last Admin: 08/13/19 08:37 Dose: 300 mg Documented by: Azithromycin (Zithromax) 250 mg PO QAM [facility] Stop: 08/20/19 08:59 Last Admin: 08/13/19 10:28 Dose: 250 mg Documented by: Colestipol HCl (Colestid) 1 gm PO BID@1000,2200 [facility] Stop: 09/11/19 09:59 Last Admin: 08/13/19 11:57 Dose: 1 gm Documented by: Dextrose (Dextrose 50%) 25 - 50 ml IV UD PRN; Protocol PRN Reason: Hypoglycemia Protocol Stop: 09/11/19 02:52 Enoxaparin Sodium (Lovenox) 40 mg SQ QAM [facility] Stop: 09/13/19 08:59 Gabapentin (Neurontin) 600 mg PO TID [facility] Stop: 09/11/19 08:59 Last Admin: 08/13/19 08:39 Dose: 600 mg Documented by: Gemfibrozil (Lopid) 600 mg PO BID [facility] Stop: 09/11/19 08:59 Last Admin: 08/13/19 08:39 Dose: 600 mg Documented by: Glucagon (Glucagen) 1 mg SQ UD PRN; Protocol PRN Reason: Hypoglycemia Protocol Stop: 09/11/19 02:52 Glucose (Dex4 Glucose) 4 - 8 tabs PO UD PRN; Protocol PRN Reason: Hypoglycemia Protocol Stop: 09/11/19 02:52 Glucose (Glucose 40%) 15 - 30 gm PO UD PRN; Protocol PRN Reason: Hypoglycemia Protocol Stop: 09/11/19 02:52 Guaifenesin (Mucinex) 600 mg PO Q12 [facility] Stop: 09/12/19 04:14 Last Admin: 08/13/19 05:44 Dose: 600 mg Documented by: Promethazine HCl 12.5 mg/ (Sodium Chloride) 50.5 mls @ 202 mls/hr IV Q6H PRN PRN Reason: Nausea And Vomiting Stop: 09/11/19 02:52 Ceftriaxone Sodium 2,000 mg/ (Dextrose) 70 mls @ 100 mls/hr IV Q24H [facility]; Protocol Stop: 08/20/19 12:59 Last Admin: 08/13/19 12:56 Dose: 100 mls/hr Documented by: Insulin Aspart (Novolog Flexpen) 0 units SC Q6 [facility] Stop: 09/11/19 02:59 Last Admin: 08/13/19 11:50 Dose: Not Given Documented by: Insulin Glargine (Lantus Solostar Pen) 5 units SC BID [facility] Stop: 09/11/19 08:59 Last Admin: 08/13/19 08:40 Dose: 5 units Documented by: Ipratropium [place] (Atrovent 0.02% 0.5mg/2.5ml) 0.5 mg INH Q6R [facility] Stop: 09/11/19 06:59 Last Admin: 08/13/19 07:06 Dose: 0.5 mg Documented by: Levalbuterol HCl (Xopenex 1.25mg/0.5ml Neb) 1.25 mg INH Q6R [facility] Stop: 09/11/19 06:59 Last Admin: 08/13/19 07:06 Dose: 1.25 mg Documented by: Levothyroxine Sodium (Synthroid) 75 mcg PO DAILYBB [facility] Stop: 09/11/19 06:29 Last Admin: 08/13/19 05:45 Dose: 75 mcg Documented by: Loratadine (Claritin) 10 mg PO DAILY [facility] Stop: 09/11/19 08:59 Last Admin: 08/13/19 08:40 Dose: 10 mg Documented by: Losartan Potassium (Cozaar) 50 mg PO DAILY [facility] Stop: 09/11/19 08:59 Last Admin: 08/12/19 08:46 Dose: 50 mg Documented by: Miconazole Nitrate (Desenex) 1 appln EXT PRN PRN PRN Reason: Affected Skin Folds Stop: 09/12/19 01:09 Miscellaneous (Carbohydrates For Hypoglycemia) 15 - 30 gm PO UD PRN PRN Reason: Hypoglycemia Protocol Stop: 09/11/19 02:52 Oseltamivir Phosphate (Tamiflu) 30 mg PO BID [facility]; Protocol Stop: 08/17/19 20:59 Pantoprazole Sodium (Protonix) 40 mg PO BID [facility] Stop: 09/11/19 08:59 Last Admin: 08/13/19 08:39 Dose: 40 mg Documented by: Tramadol HCl (Ultram) 25 - 50 mg PO Q6H PRN PRN Reason: Pain Stop: 09/11/19 02:52
[2019-08-13] MEDS ORDERED: Nursing to Pharmacy Communication ONE (19:20)
[2019-08-13] MEDS: OSELTAMIVIR PHOSPHATE SUSP 30 MG/5 ML UDP PO SCH (20:51)
[2019-08-13] MEDS ORDERED: INSULIN ASPART 100 UNITS/ML 3 ML PEN SC SCH (21:00)
[2019-08-13] MEDS ORDERED: ALBUT/IPRATROP 3MG/0.5MG NEB 3 ML VIAL NEB STA (22:12)
[2019-08-13] MEDS ORDERED: methylPREDNISolone 20 MG in SYRINGE 0 ML IV STA (22:26)
--- NOTE | 2019-08-13 22:26 | Communication Note ---
Date of Service: August 13, 2019 Made aware by RN all of worsening hypoxemia. Patient only satting 76% on high flow as per RN. Expiratory wheezing all over as per RT. CXR : Worsening bilateral pulmonary airspace opacities. The findings are suspicious for a multifocal pneumonia. AP Hypoxemic respiratory failure Worsening bilateral pneumonia (concern for aspiration as per patient history, nausea/vomiting symptoms prior to confinement) hx flu ongoing Tamiflu Rx Supplemental O2 Nebs every 4 hours for now Solu-Medrol 1 dose now for bronchopneumonia causing significant hypoxemia Zosyn for aspiration pneumonia (hold ceftriaxone) Doxycycline in place of azithromycin (outpatient Zpak Rx prior to confinement) Will relay to AM provider.
[2019-08-13] MEDS ORDERED: PIPERACILLIN/TAZOBACTAM 4.5 GM in DEXTROSE 5% 100 ML IV ONE (22:27)
[2019-08-13] MEDS ORDERED: PIPERACILL/TAZOBAC CONSULT ACTIVE PRN (22:27)
--- NOTE | 2019-08-13 22:29 | XRay Report ---
XR chest 1V portable CLINICAL HISTORY: Hypoxia COMPARISON STUDY: 08/13/2019 FINDINGS: The heart remains enlarged. There are worsening right lung airspace opacities. There are wo rsening airspace opacities at the left lung base. There are no large pleural effusions. IMPRESSION: Worsening bilateral pulmonary airspace opacities. The findings are suspicious for a multi focal pneumonia. ACT 112: Negative or not required by law. Electronically signed by: Emil Chaney M.D. 08/13/2019 10:28 PM
[2019-08-13 22:45] LABS: Base Excess ABG -0.4 mEq/L (-9-1.8); HCO3 ABG 25 mmol/L (19-24); Oxygen Saturation ABG 96.2 % (90-95); PCO2 ABG 41 mmHg (35-46); PO2 ABG 81 mmHg (80-95); pH ABG 7.39 (7.35-7.45)
[2019-08-13 22:47] LABS: Allen Test Pos (Pos)
[2019-08-13] MEDS ORDERED: DOXYCYCLINE HYCLATE 100 MG in DEXTROSE 5% 100 ML IV STA (22:54)
[2019-08-13 22:58] LABS: BUN Creatinine Ratio 22.9 (10-20); Creatinine Clr Calc Pharmacy 56.9 ml/min; Est GFR (African American) 60.1; Est GFR (Non-African American) 51.8; Potassium 3.8 mmol/L (3.5-5.1)
[2019-08-14] MEDS: LEVALBUTEROL 1.25MG/0.5ML NEB INH SCH ×6 (03:33→22:22)
[2019-08-14] MEDS: IPRATROPIUM BROMIDE NEB SOLN 0.02% 2.5 ML VIAL INH SCH ×6 (03:33→22:22)
[2019-08-14] MEDS: PIPERACILLIN/TAZOBACTAM 4.5 GM in DEXTROSE 5% 100 ML IV SCH ×2 (04:30→11:31)
[2019-08-14] MEDS: MICONAZOLE NITRATE POWDER 43 GM EXT PRN (08:31)
[2019-08-14] MEDS: ENOXAPARIN INJ 40 MG/0.4 ML SYR SQ SCH (08:31)
[2019-08-14] MEDS: INSULIN ASPART 100 UNITS/ML 3 ML PEN SC SCH ×4 (08:33→18:37)
[2019-08-14] MEDS ORDERED: DOXYCYCLINE HYCLATE 100 MG CAP PO SCH (09:00)
[2019-08-14] MEDS ORDERED: methylPREDNISolone 40 MG in SYRINGE 0 ML IV SCH (09:00)
[2019-08-14] MEDS: LEVOTHYROXINE SODIUM 75 MCG TABLET PO SCH (10:59)
[2019-08-14] MEDS: LORATADINE 10 MG TAB PO SCH (10:59)
[2019-08-14] MEDS: allopurinoL 300 MG TAB PO SCH (11:00)
[2019-08-14] MEDS: guaiFENesin 600 MG TABCR PO SCH (11:00)
[2019-08-14] MEDS: PANTOprazole 40 MG TAB PO SCH ×2 (11:00→20:20)
[2019-08-14] MEDS: gemfibroziL 600 MG TAB PO SCH (11:00)
[2019-08-14] MEDS: GABAPENTIN 600 MG TAB PO SCH ×2 (11:00→16:00)
[2019-08-14] MEDS: OSELTAMIVIR PHOSPHATE SUSP 30 MG/5 ML UDP PO SCH (11:01)
[2019-08-14] MEDS: COLESTIPOL HCL 1 GM TAB PO SCH (11:01)
[2019-08-14] MEDS ORDERED: Nursing to Pharmacy Communication ONE (11:15)
[2019-08-14] MEDS ORDERED: DEXTROSE 50% 50 ML SYRINGE IV PRN (11:30)
[2019-08-14] MEDS ORDERED: GLUCAGON FOR INJ 1 MG VIAL IM PRN (11:30)
[2019-08-14] MEDS ORDERED: CARBOHYDRATES FOR HYPOGLYCEMIA PO PRN (11:30)
[2019-08-14] MEDS ORDERED: GLUCOSE 10 TABS/TUBE PO PRN (11:30)
[2019-08-14] MEDS ORDERED: GLUCOSE 40% GEL 15 GM TUBE PO PRN (11:30)
[2019-08-14 11:31] LABS: Base Excess ABG 1.2 mEq/L (-9-1.8); HCO3 ABG 26 mmol/L (19-24); Oxygen Saturation ABG 92.6 % (90-95); PCO2 ABG 44 mmHg (35-46); PO2 ABG 62 mmHg (80-95)
[2019-08-14 11:32] LABS: Allen Test Pos (Pos)
[2019-08-14 11:44] LABS: Basophils # (auto) 0.02 K/uL (0-0.2); Basophils % (auto) 0.2 %; Hematocrit (blood only) 40.8 % (37-47); Hemoglobin 13.1 g/dL (12.0-16.0); Immature Granulocytes # (auto) 0.29 K/uL (0.00-0.02); Immature Granulocytes % (auto) 2.2 %; Lymphocytes # (auto) 1.09 K/uL (1.2-3.4); Lymphocytes % (auto) 8.3 %; Mean Corpuscular Hemoglobin 30.4 pg (25-34); Mean Corpuscular Volume 94.7 fL (80-100); Mean Platelet Volume 10.4 fL (7.4-10.4); Monocytes % (auto) 6.1 %; Neutrophils # (auto) 10.92 K/uL (1.4-6.5); Neutrophils % (auto) 83.2 %; Platelet Count 469 K/uL (130-400); RDW Coefficient of Variation 15.5 % (11.5-14.5); RDW Standard Deviation 53.5 fL (36.4-46.3); Red Blood Count 4.31 M/uL (4.2-5.4); White Blood Count 13.12 K/uL (4.8-10.8)
[2019-08-14 11:52] LABS: Mean Corpuscular Hgb Conc 32.1 g/dL (32-36)
[2019-08-14 12:02] LABS: BUN Creatinine Ratio 22.7 (10-20); Calcium 7.7 mg/dl (8.5-10.1); Creatinine Clr Calc Pharmacy 60.9 ml/min; Est GFR (African American) 64.4; Est GFR (Non-African American) 55.6; Potassium 4.4 mmol/L (3.5-5.1)
--- NOTE | 2019-08-14 12:15 | XRay Report ---
XR chest 1V portable CLINICAL HISTORY: Worsening hypoxia in the setting of influenza A COMPARISON STUDY: 08/13/2019 FINDINGS: Diffuse parenchymal infiltrate right hemithorax. This is considered stable compared to the prior study. Developing parenchymal infiltrates peripheral aspect left lung and left base. FINDINGS: IMPRESSION: Stable diffuse parenchymal infiltrate right lung. Developing parenchymal infiltrates left mid and lower lung. ACT 112: Negative or not required by law. The above report was generated using voice recognition software. It may contain grammatical, syntax or spelling errors. Electronically signed by: Pawan Avalos M.D. 08/14/2019 12:13 PM
--- NOTE | 2019-08-14 12:26 | Pulmonology Progress Note ---
Date of Service August 14, 2019 Assessment & Plan (1) Acute respiratory failure with hypoxia: Patient positive for influenza A Started on Tamiflu on day of admission Respiratory status has been worsening with increased oxygen requirements Currently on BiPAP with FiO2 of 100% ABG shows no hypercapnia or elevated pH Discussed CODE STATUS with patient and she confirmed that she is a level 1 Transfer to intensive care unit for probable endotracheal intubation with mechanical ventilation Discussed with patient that without mechanical ventilation she would have increased mortality (2) Influenza A: Presented with influenza A on admission and started with Tamiflu Chest x-ray shows persistently increasing infiltrates primarily on the right but now involving the left lingula and left lower lobe Procalcitonin is negative at 0.15 We will continue to treat empirically for viral pneumonia Continue with isolation precautions per protocol (3) Pneumonia: Patient positive for influenza A Procalcitonin is negative MRSA screening is negative Patient with elevated WBCs but had been on steroids. These have been discontinued. We will treat this as a viral pneumonia as sequela from the influenza Continue supportive care including endotracheal intubation with mechanical ventilation Thank you very much for including us in the care of this patient. We will continue to follow along with you Plan discussed with Dr. Ibrahim at length Supervising Physician Co-Signing Physician Notes Seen and examined with HIWOT johnson. Discussed with leno sewer. Patient with influenza A now failing with increasing oxygen requirement and application of noninvasive positive pressure ventilation. Agree that transfer to the ICU and consideration for intubation mechanical ventilation is appropriate. The patient had been advised previously of potential risk of worsening of hypoxemic respiratory failure and need for adjunct respiratory interventions and she was agreeable to proceed. Will defer additional care to the critical care services at this point time. Pulmonary will sign off. Subjective Attending: Dr. Ibrahim This is a 74-year-old female that was admitted 08/12/2019 and found to have influenza A. She has been treated empirically with antibiotics which were downgraded yesterday to ceftriaxone and azithromycin by Dr. Ibrahim. Overnight the patient worsened regarding her oxygenation status and was restarted on Zosyn. Current regimen includes doxycycline and Zosyn IV. Patient was on high flow oxygen yesterday. Overnight she was placed on BiPAP and has had to be increased to an FiO2 of 100%. A trial of high flow oxygen was again obtained this morning and patient sats dropped almost immediately into the 80s. Repeat ABG revealed no acidosis or hypercarbia but do show decreasing O2 levels. PaO2 was 62%. Patient currently is tachypneic with a rate of approximately 30 breaths/min. She is showing no use of accessory muscles at this time but feels tired. I did discuss mechanical ventilation and she is agreeable if needed. The patient denies any fever, sweats, chills, rigors. She has no nausea or vomiting. Chief complaint is shortness of breath and malaise. She does have induced cough with deep inspiration. ABG today: pH 7.4, PCO2 44, PaO2 62, HCO3 26, O2 saturation 92.6% on FiO2 of 100%. Review of Systems Review of Systems: All systems reviewed & are unremarkable except as noted in HPI & below Physical Exam Physical Exam: GENERAL : Minimal distress. Appears ill EYES: No icterus, gaze conjugate NOSE: No evidence of epistaxis MOUTH: No lesions or candidiasis. BiPAP mask in place NECK: Supple. No JVD LUNGS: Decreased breath sounds on the right with associated basilar rales. No rhonchi. Scattered bronchospasm in all lung ferguson. HEART: Regular, tachycardic in the 90s ABDOMEN: Soft, NT, ND, BS Present EXTREMITIES: No LE edema, pedal pulses intact NEURO: A&OX3 Results & Data ([facility]) Vital Signs (Past 12 Hours) Vital Signs Temp Pulse Pulse Resp BP Pulse Ox Pulse Ox 08/14/19 11:37 36.8 C 80 18 106/70 08/14/19 11:15 85 90 22 90 08/14/19 07:11 36.6 C 78 18 121/71 90 08/14/19 07:04 80 30 H 93 08/14/19 07:00 78 08/14/19 04:50 88 L 08/14/19 04:30 87 L 08/14/19 03:39 37.1 C 89 16 134/84 92 08/14/19 03:33 85 85 35 H 91 08/14/19 02:00 91 Laboratory Results 08/14/19 11:33 08/14/19 11:33 Procalcitonin negative is 0.15 Diagnostic Findings XR chest 1V portable CLINICAL HISTORY: Worsening hypoxia in the setting of influenza A COMPARISON STUDY: 08/13/2019 FINDINGS: Diffuse parenchymal infiltrate right hemithorax. This is considered stable compared to the prior study. Developing parenchymal infiltrates peripheral aspect left lung and left base. FINDINGS: IMPRESSION: Stable diffuse parenchymal infiltrate right lung. Developing parenchymal infiltrates left mid and lower lung. Electronically signed by: Pawan Avalos M.D. 08/14/2019 12:13 PM PG Care Time/CCT Total # of Minutes Spent Total Time Spent with Patient: Total time spent is greater than 50% in coordination of care (as documented) at patient's floor/unit and/or counseling patient: Coding Level of Care Code 59959 Subseq Hosp Care Lvl 3 Diagnoses Acute respiratory failure with hypoxia J96.01 Influenza A J10.1 Pneumonia J18.9 Time Spent (min) 30 Comment 30 minutes of critical care time
[2019-08-14] MEDS ORDERED: RAPID SEQUENCE INDUCTION BAG ONE (13:36)
--- NOTE | 2019-08-14 14:25 | Hospitalist Progress Note ---
Date of Service August 14, 2019 Assessment & Plan (1) Acute hypoxemic respiratory failure: Admitted with acute hypoxic respiratory failure secondary to influenza A and pneumonia likely viral Has been getting intravenous antibiotics with them ceftriaxone and azithromycin for now Received Zosyn and ceftaroline before Appreciate pulmonary input and recommendation Steroids have been discontinued Clinically worse with increasing desaturation, increasing shortness of breath and worsening chest x-ray findings ABG did show low oxygen at 62 Ceftriaxone has been changed to intravenous Zosyn She will be moved to ICU for continued care and may need intubation to maintain saturation (2) Influenza A: Has been on Tamiflu (3) Pneumonia: Likely viral pneumonia Has been on antibiotic to cover the possibilities of bacterial pneumonia Blood cultures have been negative Sputum culture is pending-light normal trisha but final report is pending (4) GERD (gastroesophageal reflux disease): Has been on PPI twice daily We will add Maalox as needed for dyspepsia (5) CKD (chronic kidney disease), stage III: History of chronic kidney disease presented with LUZ MARIA Kidney function has been improving (6) Hypothyroidism: Continue replacement DVT prophylaxis Subcu Lovenox CODE STATUS Full Admission and Anticipated Discharge Date Admission Date: August 12, 2019 Subjective The patient was seen and examined in medical telemetry unit She was admitted with influenza and and pneumonia with acute respiratory failure Required BiPAP and likely to require BiPAP at times Feels a lot better today and has been communicating normally without any shortness of breath Saturating well with nasal cannula oxygen 08/14/2019 Patient was seen and examined in medical telemetry unit Her condition got worse last night with increasing desaturation and worsening x- ray findings This morning she was evaluated by director of recruiting and was transferred to ICU for continued care Review of Systems Review of Systems: All systems reviewed and are unremarkable except as noted below Respiratory: + cough and + dyspnea (Moderate to severe dyspnea at rest) Physical Exam Physical Exam: Moderate to severe shortness of breath at rest Constitutional: well developed, well nourished, + acute distress (Moderate shortness of breath at rest) and + obese; not ill appearing Eyes: PERRL, conjunctivae normal, anicteric sclerae ENMT: external ear and nose normal, oropharynx normal Neck: trachea midline, no thyromegaly Respiratory: + respiratory distress (Moderate) Auscultation: + diminished lung sounds, + crackles (At the bases) and + wheezes (Minimal wheezing bilaterally) Cardiovascular: Rate/Rhythm: regular rate and regular rhythm Heart Sounds: no murmur Extremities: + edema (1+ edema bilaterally) Gastrointestinal (Abdomen): Inspection/Auscultation: abdomen normal to inspection, + abdomen distended and normal bowel sounds Percussion/Palpation: abdomen soft; abdomen nontender Musculoskeletal: No acute arthritis in any joints Neurologic: Alert, awake and oriented x3 Lymphatic: no cervical or axillary lymphadenopathy Results & Data ([facility]) Vital Signs (Past 12 Hours) Vital Signs Temp Pulse Pulse Resp BP Pulse Ox 08/14/19 11:37 36.8 C 80 18 106/70 08/14/19 11:15 85 90 22 90 08/14/19 07:11 36.6 C 78 18 121/71 90 08/14/19 07:04 80 30 H 93 08/14/19 07:00 78 08/14/19 04:50 88 L 08/14/19 04:30 87 L 08/14/19 03:39 37.1 C 89 16 134/84 92 08/14/19 03:33 85 85 35 H 91 Laboratory Results Short CBC 08/14/19 Range/Units 11:33 WBC 13.12 H (4.8-10.8) K/uL Hgb 13.1 (12.0-16.0) g/dL Hct 40.8 (37-47) % Plt Count 469 H (130-400) K/uL BMP 08/13/19 08/14/19 22:23 11:33 Sodium 135 L 137 Potassium 3.8 4.4 D Chloride 104 105 Carbon Dioxide 24 25 BUN 25 H 23 H Creatinine 1.07 1.01 Glucose 86 114 H Calcium 8.0 L 7.7 L Medications Administered Current Inpatient Medications Acetaminophen (Tylenol) 650 mg PO Q4H PRN PRN Reason: Pain or Fever Stop: 09/11/19 02:52 Last Admin: 08/13/19 17:22 Dose: 650 mg Documented by: Al Hydrox/Mg Hydrox/Simethicone (Maalox) 15 ml PO Q6H PRN PRN Reason: Dyspepsia Stop: 09/12/19 10:25 Last Admin: 08/13/19 17:22 Dose: 15 ml Documented by: Allopurinol (Zyloprim) 300 mg PO DAILY [facility] Stop: 09/11/19 08:59 Last Admin: 08/14/19 11:00 Dose: Not Given Documented by: Colestipol HCl (Colestid) 1 gm PO BID@1000,2200 [facility] Stop: 09/11/19 09:59 Last Admin: 08/14/19 11:01 Dose: Not Given Documented by: Dextrose (Dextrose 50%) 25 - 50 ml IV UD PRN; Protocol PRN Reason: Hypoglycemia Protocol Stop: 09/13/19 11:29 Doxycycline Hyclate (Vibramycin) 100 mg PO BID [facility] Stop: 08/21/19 08:59 Last Admin: 08/14/19 11:01 Dose: Not Given Documented by: Enoxaparin Sodium (Lovenox) 40 mg SQ QAM [facility] Stop: 09/13/19 08:59 Last Admin: 08/14/19 08:31 Dose: 40 mg Documented by: Gabapentin (Neurontin) 600 mg PO TID [facility] Stop: 09/11/19 08:59 Last Admin: 08/14/19 11:00 Dose: Not Given Documented by: Gemfibrozil (Lopid) 600 mg PO BID [facility] Stop: 09/11/19 08:59 Last Admin: 08/14/19 11:00 Dose: Not Given Documented by: Glucagon (Glucagen) 1 mg IM UD PRN; Protocol PRN Reason: Hypoglycemia Protocol Stop: 09/13/19 11:29 Glucose (Glucose 40%) 15 - 30 gm PO UD PRN; Protocol PRN Reason: Hypoglycemia Protocol Stop: 09/13/19 11:29 Glucose (Dex4 Glucose) 4 - 8 tabs PO UD PRN; Protocol PRN Reason: Hypoglycemia Protocol Stop: 09/13/19 11:29 Guaifenesin (Mucinex) 600 mg PO Q12 [facility] Stop: 09/12/19 04:14 Last Admin: 08/14/19 11:00 Dose: Not Given Documented by: Promethazine HCl 12.5 mg/ (Sodium Chloride) 50.5 mls @ 202 mls/hr IV Q6H PRN PRN Reason: Nausea And Vomiting Stop: 09/11/19 02:52 Piperacillin Sod/Tazobactam (Sod 4.5 gm/ Dextrose) 120 mls @ 30 mls/hr IV Q8H [facility]; Protocol Stop: 08/21/19 03:59 Last Admin: 03/18/20 11:31 Dose: 30 mls/hr Documented by: Insulin Aspart (Novolog Flexpen) 0 units SC Q6 [facility] Stop: 09/13/19 11:59 Last Admin: 08/14/19 11:45 Dose: Not Given Documented by: Ipratropium [place] (Atrovent 0.02% 0.5mg/2.5ml) 0.5 mg INH Q4R [facility] Stop: 09/13/19 02:59 Last Admin: 08/14/19 11:12 Dose: 0.5 mg Documented by: Levalbuterol HCl (Xopenex 1.25mg/0.5ml Neb) 1.25 mg INH Q4R [facility] Stop: 09/13/19 02:59 Last Admin: 08/14/19 11:12 Dose: 1.25 mg Documented by: Levothyroxine Sodium (Synthroid) 75 mcg PO DAILYBB [facility] Stop: 09/11/19 06:29 Last Admin: 08/14/19 10:59 Dose: Not Given Documented by: Loratadine (Claritin) 10 mg PO DAILY [facility] Stop: 09/11/19 08:59 Last Admin: 08/14/19 10:59 Dose: Not Given Documented by: Losartan Potassium (Cozaar) 50 mg PO DAILY [facility] Stop: 09/11/19 08:59 Last Admin: 08/12/19 08:46 Dose: 50 mg Documented by: Miconazole Nitrate (Desenex) 1 appln EXT PRN PRN PRN Reason: Affected Skin Folds Stop: 09/12/19 01:09 Last Admin: 08/14/19 08:31 Dose: 1 appln Documented by: Miscellaneous (Carbohydrates For Hypoglycemia) 15 - 30 gm PO UD PRN PRN Reason: Hypoglycemia Treatment Stop: 09/13/19 11:29 Miscellaneous Information (Consult) 1 ea N/A UD PRN PRN Reason: Consult Stop: 09/12/19 22:26 Oseltamivir Phosphate (Tamiflu) 30 mg PO BID [facility]; Protocol Stop: 08/17/19 20:59 Last Admin: 08/14/19 11:01 Dose: Not Given Documented by: Pantoprazole Sodium (Protonix) 40 mg PO BID [facility] Stop: 09/11/19 08:59 Last Admin: 08/14/19 11:00 Dose: Not Given Documented by: Tramadol HCl (Ultram) 25 - 50 mg PO Q6H PRN PRN Reason: Pain Stop: 09/11/19 02:52 Last Admin: 08/13/19 19:56 Dose: 50 mg Documented by:
[2019-08-14] MEDS ORDERED: PROPOFOL IV EMULSION 10 MG/ML 100 ML VIAL IV ONE (14:51)
[2019-08-14] MEDS ORDERED: fentaNYL citrate 100 MCG/2 ML VIAL IV PRN ×2 (14:51)
[2019-08-14] MEDS ORDERED: STAT IV Infusion **Titration per Protocol STA ×3 (14:51→16:16)
[2019-08-14] MEDS ORDERED: PROPOFOL BOLUS FROM BAG IV PRN (14:51)
[2019-08-14] MEDS ORDERED: propofoL 1,000 MG/100 ML VIAL IV SCH (15:00)
[2019-08-14] MEDS ORDERED: FENTANYL BOLUS FROM BAG IV PRN (15:30)
[2019-08-14 15:42] LABS: iSTAT Art Bld Gas pCO2 Correct 45 mmHg (35-46); iSTAT Art Bld Gas pH Corrected 7.381 (7.35-7.45); iSTAT Arterial Blood Gas HCO3 27 meg/L (19-24); iSTAT Arterial Blood Gas pCO2 45 mmHg (35-46); iSTAT Arterial Blood Gas pH 7.38 (7.35-7.45); iSTAT Arterial Blood Gas pO2 40 mmHg (80-95); iSTAT Arterial Blood Gas pO2 C 40; iSTAT Carbon Dioxide 28 mmol/L (24-31); iSTAT Hematocrit 39 % (37-47); iSTAT Hemoglobin 13.3 g/dl (12.0-16.0); iSTAT Potassium 4.1 mmol/L (3.3-5.0); iSTAT Site R Radial; iSTAT Sodium 137 mmol/L (135-144)
[2019-08-14] MEDS: fentaNYL DRIP 1,250 MCG/250 ML BAG IV SCH (15:51)
--- NOTE | 2019-08-14 15:57 | XRay Report ---
XR chest 1V portable CLINICAL HISTORY: post intubation/ line verification RESPIRATORY FAILURE COMPARISON STUDY: 08/14/2019 FINDINGS: The cardiac and mediastinal contours remain stable. There are extensive right lung airspace opacities similar to the prior study. There are persistent left severe left lung airspace opacities. There is been interval placement of a left subclavian central venous catheter. The tip projects over the superior vena cava. No pneumothorax is visualized on the supine study. There is been placement o f a nasogastric tube which passes into the stomach. There is been placement of endotracheal tube posi tioned 17 mm above the jacey.[ IMPRESSION: 1. Persistent bilateral pulmonary airspace opacities right more severe than left 2. Interval placement of an endotracheal tube 17 mm above the jacey 3. Interval placement of a left subclavian central venous catheter and nasogastric tube. ACT 112: Negative or not required by law. Electronically signed by: Emil Chaney M.D. 08/14/2019 3:56 PM
[2019-08-14] MEDS: CISATRACURIUM BESYLATE 40 MG in 0.9 % SODIUM CHLORIDE 80 ML IV SCH ×2 (15:58→20:15)
[2019-08-14] MEDS ORDERED: SUCCINYLCHOLINE CHLORIDE 20 MG/ML 10 ML VIAL IV ONE (16:03)
[2019-08-14] MEDS ORDERED: fentaNYL citrate 100 MCG/2 ML VIAL IV ONE (16:03)
[2019-08-14] MEDS ORDERED: VECURONIUM BROMIDE 10 MG VIAL IV ONE (16:03)
[2019-08-14] MEDS ORDERED: SODIUM CHLORIDE 0.9% INJ 10 ML VIAL IV ONE (16:03)
[2019-08-14] MEDS ORDERED: ETOMIDATE 2 MG/ML 20 ML VIAL IV ONE (16:03)
[2019-08-14] MEDS ORDERED: MIDAZOLAM HCL 125MG/250ML D5W ONE (16:08)
[2019-08-14] MEDS: MIDAZOLAM HCL 125 MG/250 ML BAG IV SCH (16:33)
[2019-08-14 17:52] LABS: iSTAT Art Bld Gas pCO2 Correct 51 mmHg (35-46); iSTAT Art Bld Gas pH Corrected 7.319 (7.35-7.45); iSTAT Arterial Blood Gas HCO3 26 meg/L (19-24); iSTAT Arterial Blood Gas pCO2 51 mmHg (35-46); iSTAT Arterial Blood Gas pH 7.32 (7.35-7.45); iSTAT Arterial Blood Gas pO2 113 mmHg (80-95); iSTAT Arterial Blood Gas pO2 C 114; iSTAT Carbon Dioxide 28 mmol/L (24-31); iSTAT Hematocrit 38 % (37-47); iSTAT Hemoglobin 12.9 g/dl (12.0-16.0); iSTAT Site Art Line; iSTAT Sodium 137 mmol/L (135-144)
--- NOTE | 2019-08-14 18:37 | Procedure Note ---
Procedure Note Date of Service August 14, 2019 Procedure Date: Noted above Procedure: Endotracheal intubation Pre-procedure Diagnosis: Hypoxic respiratory failure Post-procedure Diagnosis: same as above Prior to Procedure: Informed Consent: risks and benefits were discussed and informed consent was obtained Attending Staff: Zoie Preciado DO The identity of the patient was confirmed and a bedside time out was performed. Description of Procedure: Patient was evaluated and required intubation for impending respiratory failure. The patient was prepared in the usual fashion. A glide scope was used. A 8 mm inner diameter endotrachial tube was placed endotracheally to 21 cm at the gum ridge. A grade 1 view was obtained. The endotracheal tube was noted to pass through the vocal cords. Chest rise was bilateral. Bilateral breath sounds were heard without air sounds in the abdomen. Mist was noted in the endotracheal tube. End-tidal CO2 measurement was positive. Chest x-ray shows proper endotracheal tube placement. Complications: Patient desaturated to mid 80s Findings: Not applicable Specimens: Not applicable Estimated blood loss: Zero Coding CPT Codes Resuscitation - Resuscitation: [id number] Endotracheal Intubation, emergency ([id number]) [facility] [place] Procedure Codes (Charges) Resuscitation Resuscitation: [id number] Endotracheal Intubation, emergency
--- NOTE | 2019-08-14 18:39 | Procedure Note ---
Procedure Note Date of Service August 14, 2019 Procedure date: Noted above Procedure: Central venous access Pre-procedure indication: Need for vasoactive medication administration, need for secure access given prolonging Post-procedure Diagnosis: same as above Prior to Procedure: Informed Consent: The risks, benefits, indications, potential complications, and alternatives were explained to the patient and informed consent obtained. Attending Staff: Zoie Preciado DO Resident/APC: Not applicable Skin Prep: Chlorhexidine Anesthesia: 4 mL 1% lidocaine without epinephrine The identity of the patient was confirmed and a bedside time out was performed. Description of Procedure: After sterile prep and sterile drape utilizing stand elzbieta sterile technique the superficial skin of the left subclavian area was anesthetized. The target vessel was identified and entered with an 18-gauge needle. Dark venous blood return was noted. A guidewire was inserted through the needle and into the vessel. The needle was withdrawn and a skin vega was made. A tissue dilator was advanced via Seldinger technique and removed. A triple lumen catheter was inserted via Seldinger technique and the guidewire removed. All ports mayuri and flushed easily. A Biopatch was placed, and the catheter was secured via silk suture. A sterile dressing was then applied. Complications: None Estimated blood loss: Trace Patient tolerated the procedure well. Postprocedural x-ray did not demonstrate pneumothorax and catheter was in appropriate position Coding CPT Codes Tubes, Drains, and Vasc Access - Tubes, Drains, and Vasc Access: [id number] Insertion Of Non-tunneled Catheter Age 7 Yrs> ([id number]) [facility] [place] Procedure Codes (Charges) Tubes, Drains, and Vasc Access Procedure 1: Tubes, Drains, and Vasc Access: [id number] Insertion Of Non-tunneled Catheter Age 7 Yrs>
--- NOTE | 2019-08-14 18:40 | Procedure Note ---
Procedure Note Date of Service August 14, 2019 Procedure date: Noted above Procedure: Radial artery cannulation Pre-procedure Diagnosis: Need for invasive monitoring frequent blood draws Post-procedure Diagnosis: same as above Prior to Procedure: Informed Consent: The risks, benefits, indications, potential complications, and alternatives were explained to the patient and informed consent obtained. Attending Staff: Zoie Preciado DO Skin Prep: Chlorhexidine Anesthesia: 3 mL 1% lidocaine without epinephrine The identity of the patient was confirmed and a bedside time out was performed. Description of Procedure: After sterile prep and sterile drape utilizing standard sterile technique the superficial skin of the right radial artery was anesthetized. The target artery was identified via dynamic ultrasound guidance and entered with a 20-gauge arrow Angiocath. Pulsatile bright red blood return was noted. Via modified Seldinger technique the self-contained guidewire was advanced and the Angiocath advanced over the guidewire. The guidewire was removed and brisk arterial blood return was noted. The pressure monitor was connected, and the arterial line was secured via commercial securement device. A sterile dressing was then applied. Complications: None Estimated blood loss: Trace Patient tolerated the procedure well. Coding CPT Codes Tubes, Drains, and Vasc Access - Tubes, Drains, and Vasc Access: [id number] Insertion Catheter, Artery ([id number]) [facility] [place] Procedure Codes (Charges) Tubes, Drains, and Vasc Access Procedure 1: Tubes, Drains, and Vasc Access: [id number] Insertion Catheter, Artery
--- NOTE | 2019-08-14 18:42 | Procedure Note ---
Procedure Note: Bronchoscopy Procedure Procedure date: August 14, 2019 Procedure: fiberoptic bronchoscopy Pre-procedure indication: Pulmonary infiltrate, worsening hypoxia Post-procedure Diagnosis: same as above Prior to Procedure: Informed Consent: The risks, benefits, indications, potential complications, and alternatives were explained to the patient and informed consent obtained. Attending Staff: Zoie Preciado DO Resident/APC: Not applicable Skin Prep: Not applicable Anesthesia: Continuous infusion The identity of the patient was confirmed and a bedside time out was performed. Description of Procedure: Fiberoptic bronchoscopy was performed via endotracheal tube. Bronchioalveolar lavage right middle lobe was performed. Findings included: Hyperemic airways, thin secretions no evidence of purulence. Airways appeared inflamed in right and left lung ferguson Complications: None Specimens: Bronchial washings sent for culture and Gram stain, cytology, fungal elements, and AFB stain and culture. Estimated blood loss: Zero
--- NOTE | 2019-08-14 18:57 | Critical Care Consultation ---
Date of Consultation August 14, 2019 Assessment & Plan (1) ARDS (adult respiratory distress syndrome): Reason Critically Ill: Acute respiratory distress syndrome secondary to influenza A PLAN: Neuro: Neuromuscular blockade -Cis atracurium anticipate 24 hours Resp: Acute hypoxic respiratory failure: Severe ARDS PF ratio less than 100 -Pronating protocol for 16 hours -Patient had very positive response when initially prolonged -Strict ARDSnet protocol: High PEEP low FiO2 table -Goal oxygen saturation 92 to 98% -Trend plateaus and peak pressures -Permissive hypercapnia acceptable: 7.2 or greater CV: Tachycardia -Suspect physiologic response History hypertension -Reviewed echo: Grade 1 diastolic dysfunction -Low-dose beta-feliberto for hypertension and tachycardia -2.5 mg metoprolol every 6 hours IV gradual Fluids/Renal: Acute kidney injury: Resolved prior to transfer to ICU -Optimize euvolemia given PEEP requirements Holding allopurinol given recent LUZ MARIA -Holding gabapentin while prone ID: Influenza A -Initially started on Tamiflu 30 mg twice daily for renal impairment increasing to 75 given progression of disease and improvement in renal function Given doxycycline x3 doses: Discontinued Given 2 g ceftriaxone x1: Discontinued Given 250 mg Zithromax x1 discontinued Zosyn started yesterday evening: No purulence in x-ray, procalcitonin not indicative of sepsis -Discontinuing antibiotics GI/Nutrition: N.p.o. Hyperlipidemia -Holding colestipol while prone -Converting from propofol to Versed -Holding Lopid while prone -Lipase and triglycerides every 3 days: Checking triglycerides now GI prophylaxis: Protonix twice daily as home medication Heme: Leukocytosis -Recent steroid use Thrombocytosis -Acute phase reactant DVT prophylaxis: 40 mg daily -Monitor if renally insufficient Type and screen ordered: Patient consented for blood product Endocrine: ICU hyperglycemia protocol Hypothyroid -Converting from 75 mcg orally to 50 mcg IV daily given prolonging Discontinue steroids given viral pathology and neuromuscular blockade Vascular access: Right radial art line placed August 13; left subclavian central venous line placed August 13 Code Status: DNR in event of cardiac arrest Disposition: ICU (2) Acute hypoxemic respiratory failure: (3) Morbid obesity with BMI of 40.0-44.9, adult: (4) GERD (gastroesophageal reflux disease): (5) CKD (chronic kidney disease), stage III: (6) Hypothyroidism: (7) HTN (hypertension): (8) Influenza A: (9) Pneumonia: (10) S/P total knee replacement: (11) S/P cholecystectomy: (12) H/O right hemicolectomy: (13) S/P appendectomy: (14) S/P tubal ligation: (15) S/P tonsillectomy and adenoidectomy: Supervising Physician Co-Signing Physician Notes As a point of clarification, the CODE STATUS is changed from this mornings discussion with the pulmonary team. This was also discussed during a administrative huddle regarding completion of a DURABLE POWER OF GEOPHYSICAL SUPPORT SPECIALIST and living will. The patient does not want heroic measures: CPR resuscitation in event of cardiac arrest. History of Present Illness Attending Physician: Joshua Martel MD Patient is a 74-year-old female who has been admitted for acute hypoxemic respiratory failure secondary to influenza a and failed outpatient treatment. Additional past medical history includes hypertension, mood disorder, prediabetes, chronic migraines. She was started on noninvasive mechanical ventilation last night and has had progressive worsening of her chest x-ray infiltrates and hypoxia as well as increase in her work of breathing. In my discussion with the patient she has not had significant discussions with her family regarding her wishes should she be in an end-stage terminal condition. We discussed the risks and benefits of intubation and mechanical ventilation which I recommend at this point for severe hypoxemia despite being on 100% FiO2, PF ratio less than 100. We also discussed what she would want in event of cardiac arrest, patient reports that she had previously discussed this with her a long time ago and would not want heroic measures undertaken in event of cardiac arrest. In discussing who she wants to make medical decisions for as a surrogate medical decision maker if she does not have a healthcare proxy she reported she would prefer to have her and daughter jointly make decisions however the final say she prefers to have her daughter Lamar be the primary decision maker. Secondary decision-maker will be her Quan. If the patient found her self in an end-stage or terminal condition without meaningful chance of recovery she would want all life-sustaining treatments with held this includes artificial nutrition and hydration. Patient desired to complete a healthcare proxy and living will which was completed by a service excellence. With regards to the current treatment paradigm we will intubate the patient, place an arterial line, the patient has given consent for blood product transfusion (she has received blood products in the past), bronchoscopy, central venous access, as well as central venous access. Allergies Allergy/AdvReac Type Severity Reaction Status Date / Time Penicillins AdvReac Mild YEAST Verified 08/11/19 21:43 INFECTION tetanus and diphtheria AdvReac Gastrointestinal Verified 08/11/19 22:15 toxoids Upset Home Medications Home Medications Medication Instructions Recorded Confirmed Type allopurinol [Zyloprim] 300 mg PO DAILY 08/11/19 08/11/19 History azithromycin [Zithromax Z-Miki] 250 mg PO DAILY 08/11/19 08/11/19 History calcium carbonate-vitamin D3 1 tab PO BID 08/11/19 08/11/19 History [Calcium 600 with Vitamin D3] colestipol 1 g PO BID 08/11/19 08/11/19 History fluconazole 150 mg PO .Q3DAYS 08/11/19 08/11/19 History fluticasone propionate 2 spray INTRANASAL DAILY 08/11/19 08/11/19 History gabapentin [Neurontin] 600 mg PO TID 08/11/19 08/11/19 History gemfibrozil 600 mg PO BID 08/11/19 08/11/19 History levothyroxine [Synthroid] 75 mcg PO DAILY 08/11/19 08/11/19 History loratadine [Claritin] 10 mg PO DAILY 08/11/19 08/11/19 History losartan 50 mg PO DAILY 08/11/19 08/11/19 History magnesium oxide 400 mg PO DAILY 08/11/19 08/11/19 History meloxicam [Mobic] 15 mg PO DAILY 08/11/19 08/11/19 History omeprazole 20 mg PO BID 08/11/19 08/11/19 History prednisone 5 mg PO DAILY 08/11/19 08/11/19 History prednisone 10 mg PO .TAPER UD 08/11/19 08/11/19 History riboflavin (vitamin B2) 200 mg PO BID 08/11/19 08/11/19 History sumatriptan succinate 100 mg PO UD PRN 08/11/19 08/11/19 History tramadol 50 mg PO Q8 PRN 08/11/19 08/11/19 History Patient History Medical History CKD (chronic kidney disease), stage III (Chronic) GERD (gastroesophageal reflux disease) (Chronic) HTN (hypertension) (Chronic) Hyperlipidemia (Chronic) Hypothyroidism (Chronic) Morbid obesity with BMI of 40.0-44.9, adult (Chronic) Social History Preferred Language: Japanese Communication Ability: Effective Pill Coater Required: No Beliefs That Will Affect Care: None Current Living Situation: Spouse Feels Safe at Home: Yes Safety Concerns: Feels Safe At This Time Smoking Status: Never smoker Hx Alcohol Use: No Hx Substance Use: No Review of Systems Review of Systems: All systems reviewed & are unremarkable except as noted in HPI & below Physical Exam Physical Exam: General: Obese female appears her stated age I have reviewed the recorded vital signs Neurological: RASS score: 0, Moves all 4 extremities, Psychological: GCS 15 following complex commands Eyes: Pupils are equal, round and reactive to light, anicteric sclera. Symmetrical lids. HENT: Oropharynx is clear, partial was removed during intubation, moist mucous membranes. Neck: Supple. Symmetric. trachea midline. No thyromegaly. Large neck Cardiovascular: Normal peripheral perfusion. Distal pulses and capillary refill intact. No JVD. Respiratory: Respirations are labored, mild accessory muscle use. Breath sounds are equal, and coarse Gastrointestinal: Soft. Non-distended, protuberant Lymphatic: No cervical lymphadenopathy. Musculoskeletal: No deformity. No clubbing nor cyanosis. Results & Data ([facility]) Vital Signs (Past 12 Hours) Vital Signs Temp Pulse Pulse Resp BP BP Pulse Ox 08/14/19 17:13 107 H 18 100 08/14/19 16:00 97 H 94 08/14/19 15:30 94 H 18 90 08/14/19 15:15 98 H 18 92 08/14/19 15:07 97 H 0 L 178/112 H 76 L 08/14/19 15:03 91 H 13 212/115 H 77 L 08/14/19 14:57 90 26 H 119/97 95 08/14/19 14:32 80 32 H 130/87 91 08/14/19 11:37 36.8 C 80 18 106/70 08/14/19 11:15 85 90 22 90 08/14/19 07:11 36.6 C 78 18 121/71 90 08/14/19 07:04 80 30 H 93 08/14/19 07:00 78 Laboratory Results 08/14/19 08/14/19 08/14/19 Range/Units 18:37 17:39 15:55 WBC (4.8-10.8) K/uL RBC (4.2-5.4) M/uL Hgb (12.0-16.0) g/dL POC Hgb 12.9 (12.0-16.0) g/dl Hct (37-47) % POC Hct 38 (37-47) % MCV (80-100) fL MCH (25-34) pg MCHC (32-36) g/dL RDW Std Deviation (36.4-46.3) fL RDW Coeff of David (11.5-14.5) % Plt Count (130-400) K/uL MPV (7.4-10.4) fL Immature Gran % (Auto) % Neut % (Auto) % Lymph % (Auto) % [place] % (Auto) % Eos % (Auto) % Baso % (Auto) % Immature Gran # (Auto) (0.00-0.02) K/uL Neut # (Auto) (1.4-6.5) K/uL Lymph # (Auto) (1.2-3.4) K/uL [place] # (Auto) (0.11-0.59) K/uL Eos # (Auto) (0-0.5) K/uL Baso # (Auto) (0-0.2) K/uL Sample Site Art Line POC pH 7.32 L (7.35-7.45) POC pCO2 51 H (35-46) mmHg POC pO2 113 H (80-95) mmHg POC HCO3 26 H (19-24) cristy/L POC Total CO2 28 (24-31) mmol/L POC Base Excess 0.0 (-9-1.8) cristy/L ABG pH (7.35-7.45) ABG pH (Temp Correct) 7.319 L (7.35-7.45) ABG pCO2 (35-46) mmHg ABG pCO2 (Temp Corrct 51 H (35-46) mmHg ABG pO2 (80-95) mmHg POC ABG pO2 at Pt Temp 114 ABG HCO3 (19-24) mmol/L ABG O2 Saturation (90-95) % ABG Base Excess (-9-1.8) mEq/L Brad Test NA (Pos) Barometric Pressure mm/Hg Oxygen Given O2 Delivery Device POC O2 Rate Tidal Volume PEEP POC Sodium 137 (135-144) mmol/L Sodium (136-145) mmol/L POC Potassium 4.0 (3.3-5.0) mmol/L Potassium (3.5-5.1) mmol/L Chloride (98-107) mmol/L Carbon Dioxide (21-32) mmol/L Anion Gap (3-11) BUN (7-18) mg/dl Creatinine (0.6-1.2) mg/dl Est Cr Clr Drug Dosing ml/min Est GFR ( Amer) Est GFR (Non-Af Amer) BUN/Creatinine Ratio (10-20) Glucose (70-99) mg/dl POC Glucose 109 H (70-99) mg/dl Calcium (8.5-10.1) mg/dl Magnesium (1.8-2.4) mg/dl Procalcitonin (0-0.5) ng/ml Fluid Neutrophils % Pending Fluid Lymphocytes % Pending Fluid Eosinophils % Pending Fl Monocyt/Macrophag % Pending 08/14/19 08/14/19 08/14/19 Range/Units 15:23 11:33 11:33 WBC (4.8-10.8) K/uL RBC (4.2-5.4) M/uL Hgb (12.0-16.0) g/dL POC Hgb 13.3 (12.0-16.0) g/dl Hct (37-47) % POC Hct 39 (37-47) % MCV (80-100) fL MCH (25-34) pg MCHC (32-36) g/dL RDW Std Deviation (36.4-46.3) fL RDW Coeff of David (11.5-14.5) % Plt Count (130-400) K/uL MPV (7.4-10.4) fL Immature Gran % (Auto) % Neut % (Auto) % Lymph % (Auto) % [place] % (Auto) % Eos % (Auto) % Baso % (Auto) % Immature Gran # (Auto) (0.00-0.02) K/uL Neut # (Auto) (1.4-6.5) K/uL Lymph # (Auto) (1.2-3.4) K/uL [place] # (Auto) (0.11-0.59) K/uL Eos # (Auto) (0-0.5) K/uL Baso # (Auto) (0-0.2) K/uL Sample Site R Radial POC pH 7.38 (7.35-7.45) POC pCO2 45 (35-46) mmHg POC pO2 40 L (80-95) mmHg POC HCO3 27 H (19-24) cristy/L POC Total CO2 28 (24-31) mmol/L POC Base Excess 1.0 (-9-1.8) cristy/L ABG pH (7.35-7.45) ABG pH (Temp Correct) 7.381 (7.35-7.45) ABG pCO2 (35-46) mmHg ABG pCO2 (Temp Corrct 45 (35-46) mmHg ABG pO2 (80-95) mmHg POC ABG pO2 at Pt Temp 40 ABG HCO3 (19-24) mmol/L ABG O2 Saturation (90-95) % ABG Base Excess (-9-1.8) mEq/L Brad Test NA (Pos) Barometric Pressure mm/Hg Oxygen Given O2 Delivery Device Ventilator POC O2 Rate 18 Tidal Volume 450 PEEP 15 POC Sodium 137 (135-144) mmol/L Sodium 137 (136-145) mmol/L POC Potassium 4.1 (3.3-5.0) mmol/L Potassium 4.4 D (3.5-5.1) mmol/L Chloride 105 (98-107) mmol/L Carbon Dioxide 25 (21-32) mmol/L Anion Gap 7.0 (3-11) BUN 23 H (7-18) mg/dl Creatinine 1.01 (0.6-1.2) mg/dl Est Cr Clr Drug Dosing 60.9 ml/min Est GFR ( Amer) 64.4 Est GFR (Non-Af Amer) 55.6 BUN/Creatinine Ratio 22.7 H (10-20) Glucose 114 H (70-99) mg/dl POC Glucose (70-99) mg/dl Calcium 7.7 L (8.5-10.1) mg/dl Magnesium (1.8-2.4) mg/dl Procalcitonin 0.15 (0-0.5) ng/ml Fluid Neutrophils % Fluid Lymphocytes % Fluid Eosinophils % Fl Monocyt/Macrophag % 08/14/19 08/14/19 08/14/19 Range/Units 11:33 11:20 11:16 WBC 13.12 H (4.8-10.8) K/uL RBC 4.31 (4.2-5.4) M/uL Hgb 13.1 (12.0-16.0) g/dL POC Hgb (12.0-16.0) g/dl Hct 40.8 (37-47) % POC Hct (37-47) % MCV 94.7 (80-100) fL MCH 30.4 (25-34) pg MCHC 32.1 (32-36) g/dL RDW Std Deviation 53.5 H (36.4-46.3) fL RDW Coeff of David 15.5 H (11.5-14.5) % Plt Count 469 H (130-400) K/uL MPV 10.4 (7.4-10.4) fL Immature Gran % (Auto) 2.2 % Neut % (Auto) 83.2 % Lymph % (Auto) 8.3 % [place] % (Auto) 6.1 % Eos % (Auto) 0.0 % Baso % (Auto) 0.2 % Immature Gran # (Auto) 0.29 H (0.00-0.02) K/uL Neut # (Auto) 10.92 H (1.4-6.5) K/uL Lymph # (Auto) 1.09 L (1.2-3.4) K/uL [place] # (Auto) 0.80 H (0.11-0.59) K/uL Eos # (Auto) 0.00 (0-0.5) K/uL Baso # (Auto) 0.02 (0-0.2) K/uL Sample Site POC pH (7.35-7.45) POC pCO2 (35-46) mmHg POC pO2 (80-95) mmHg POC HCO3 (19-24) cristy/L POC Total CO2 (24-31) mmol/L POC Base Excess (-9-1.8) cristy/L ABG pH 7.40 (7.35-7.45) ABG pH (Temp Correct) (7.35-7.45) ABG pCO2 44 (35-46) mmHg ABG pCO2 (Temp Corrct (35-46) mmHg ABG pO2 62 L (80-95) mmHg POC ABG pO2 at Pt Temp ABG HCO3 26 H (19-24) mmol/L ABG O2 Saturation 92.6 (90-95) % ABG Base Excess 1.2 (-9-1.8) mEq/L Brad Test Pos (Pos) Barometric Pressure 742.6 mm/Hg Oxygen Given 100% O2 Delivery Device POC O2 Rate Tidal Volume PEEP POC Sodium (135-144) mmol/L Sodium (136-145) mmol/L POC Potassium (3.3-5.0) mmol/L Potassium (3.5-5.1) mmol/L Chloride (98-107) mmol/L Carbon Dioxide (21-32) mmol/L Anion Gap (3-11) BUN (7-18) mg/dl Creatinine (0.6-1.2) mg/dl Est Cr Clr Drug Dosing ml/min Est GFR ( Amer) Est GFR (Non-Af Amer) BUN/Creatinine Ratio (10-20) Glucose (70-99) mg/dl POC Glucose 115 H (70-99) mg/dl Calcium (8.5-10.1) mg/dl Magnesium (1.8-2.4) mg/dl Procalcitonin (0-0.5) ng/ml Fluid Neutrophils % Fluid Lymphocytes % Fluid Eosinophils % Fl Monocyt/Macrophag % 08/13/19 08/13/19 08/13/19 Range/Units 22:23 22:23 20:26 WBC (4.8-10.8) K/uL RBC (4.2-5.4) M/uL Hgb (12.0-16.0) g/dL POC Hgb (12.0-16.0) g/dl Hct (37-47) % POC Hct (37-47) % MCV (80-100) fL MCH (25-34) pg MCHC (32-36) g/dL RDW Std Deviation (36.4-46.3) fL RDW Coeff of David (11.5-14.5) % Plt Count (130-400) K/uL MPV (7.4-10.4) fL Immature Gran % (Auto) % Neut % (Auto) % Lymph % (Auto) % [place] % (Auto) % Eos % (Auto) % Baso % (Auto) % Immature Gran # (Auto) (0.00-0.02) K/uL Neut # (Auto) (1.4-6.5) K/uL Lymph # (Auto) (1.2-3.4) K/uL [place] # (Auto) (0.11-0.59) K/uL Eos # (Auto) (0-0.5) K/uL Baso # (Auto) (0-0.2) K/uL Sample Site POC pH (7.35-7.45) POC pCO2 (35-46) mmHg POC pO2 (80-95) mmHg POC HCO3 (19-24) cristy/L POC Total CO2 (24-31) mmol/L POC Base Excess (-9-1.8) cristy/L ABG pH 7.39 (7.35-7.45) ABG pH (Temp Correct) (7.35-7.45) ABG pCO2 41 (35-46) mmHg ABG pCO2 (Temp Corrct (35-46) mmHg ABG pO2 81 (80-95) mmHg POC ABG pO2 at Pt Temp ABG HCO3 25 H (19-24) mmol/L ABG O2 Saturation 96.2 H (90-95) % ABG Base Excess -0.4 (-9-1.8) mEq/L Brad Test Pos (Pos) Barometric Pressure 739.2 mm/Hg Oxygen Given 40% O2 Delivery Device POC O2 Rate Tidal Volume PEEP POC Sodium (135-144) mmol/L Sodium 135 L (136-145) mmol/L POC Potassium (3.3-5.0) mmol/L Potassium 3.8 (3.5-5.1) mmol/L Chloride 104 (98-107) mmol/L Carbon Dioxide 24 (21-32) mmol/L Anion Gap 7.0 (3-11) BUN 25 H (7-18) mg/dl Creatinine 1.07 (0.6-1.2) mg/dl Est Cr Clr Drug Dosing 56.9 ml/min Est GFR ( Amer) 60.1 Est GFR (Non-Af Amer) 51.8 BUN/Creatinine Ratio 22.9 H (10-20) Glucose 86 (70-99) mg/dl POC Glucose 90 (70-99) mg/dl Calcium 8.0 L (8.5-10.1) mg/dl Magnesium 2.0 (1.8-2.4) mg/dl Procalcitonin (0-0.5) ng/ml Fluid Neutrophils % Fluid Lymphocytes % Fluid Eosinophils % Fl Monocyt/Macrophag % Diagnostic Findings I have reviewed her echo from August 11: Diastolic dysfunction, no significant valvular disease, EF 60 to 65%. EKG from August 11, 2019 reviewed QTC was 446: Abnormal EKG I reviewed the chest x-ray obtained at 1540: Worsening progression of the right lung infiltrates worsening progression in the left lung as well, no pneumothorax central venous catheter is in adequate position, NG tube is positioned below the diaphragm Coding Level of Care Code Critical Care ea addt'l 30 min Diagnoses ARDS (adult respiratory distress syndrome) J80 Acute hypoxemic respiratory failure J96.01 Morbid obesity with BMI of 40.0-44.9, adult E66.01; Z68.41 GERD (gastroesophageal reflux disease) K21.9 Esophagitis presence: esophagitis presence not specified CKD (chronic kidney disease), stage III N18.3 Hypothyroidism E03.9 Hypothyroidism type: unspecified HTN (hypertension) I10 Hypertension type: essential hypertension Influenza A J10.1 Pneumonia J11.00 Laterality: bilateral Lung location: lower lobe of lung Pneumonia type: due to influenza A virus S/P total knee replacement Z96.653 Laterality: bilateral S/P cholecystectomy Z90.49 H/O right hemicolectomy Z90.49 S/P appendectomy Z90.49 S/P tubal ligation Z98.51 S/P tonsillectomy and adenoidectomy Z90.89 Time Spent (min) 165 Comment I have personally spent 165 minutes of critical care time in the direct managem ent of this patient. This is a life/limb threatening event. This includes time spent evaluating patient, direct bedside care, chart review, placing orders, interpretation of diagnostic studies, discussion with consultants, patient, and/or family members regarding treatment decisions, as well as other required patient management activities. This time is exclusive of all separately billable procedures, and teaching time and separate from and in addition to any other critical care service time. (1) Hypothyroidism Hypothyroidism type: unspecified Qualified Code(s): E03.9 - Hypothyroidism, unspecified (2) S/P total knee replacement Laterality: bilateral Qualified Code(s): Z96.653 - Presence of artificial knee joint, bilateral (3) GERD (gastroesophageal reflux disease) Esophagitis presence: esophagitis presence not specified Qualified Code(s): K21.9 - Gastro-esophageal reflux disease without esophagitis (4) HTN (hypertension) Hypertension type: essential hypertension Qualified Code(s): I10 - Essential (primary) hypertension (5) Pneumonia Laterality: bilateral Lung location: lower lobe of lung Pneumonia type: due to influenza A virus Qualified Code(s): J11.00 - Influenza due to unidentified influenza virus with unspecified type of pneumonia
[2019-08-14 19:10] LABS: Fluid Mono/Macrophage 18 %; Lymphocyte Body Fluid Man 9 %
[2019-08-14 19:11] LABS: Eosinophil Body Fluid Man 0 %; Neutrophil Body Fluid Man 73 %
[2019-08-14 20:11] LABS: Base Excess ABG -2.6 mEq/L (-9-1.8); HCO3 ABG 25 mmol/L (19-24); Oxygen Saturation ABG 93.9 % (90-95); PCO2 ABG 58 mmHg (35-46); PO2 ABG 73 mmHg (80-95); pH ABG 7.26 (7.35-7.45)
[2019-08-14 20:12] LABS: Allen Test POS (Pos)
[2019-08-14] MEDS: ARTIFICIAL TEARS OP OINT 3.5 GM TUBE OP PRN (20:15)
[2019-08-14] MEDS: METOPROLOL TARTRATE 1 MG/ML VIAL IV SCH (20:26)
[2019-08-14] MEDS: OSELTAMIVIR PHOSPHATE 75 MG CAP PO SCH (20:27)
[2019-08-15] MEDS: INSULIN ASPART 100 UNITS/ML 3 ML PEN SC SCH ×5 (00:02→23:48)
[2019-08-15] MEDS: METOPROLOL TARTRATE 1 MG/ML VIAL IV SCH ×5 (00:03→23:47)
[2019-08-15] MEDS: fentaNYL DRIP 1,250 MCG/250 ML BAG IV SCH ×3 (01:40→23:43)
[2019-08-15 01:59] LABS: Basophils # (auto) 0.04 K/uL (0-0.2); Basophils % (auto) 0.3 %; Eosinophils # (auto) 0.05 K/uL (0-0.5); Eosinophils % (auto) 0.4 %; Hematocrit (blood only) 38.8 % (37-47); Immature Granulocytes # (auto) 0.56 K/uL (0.00-0.02); Immature Granulocytes % (auto) 4.2 %; Lymphocytes # (auto) 0.76 K/uL (1.2-3.4); Lymphocytes % (auto) 5.6 %; Mean Corpuscular Hemoglobin 29.1 pg (25-34); Mean Corpuscular Hgb Conc 30.9 g/dL (32-36); Mean Corpuscular Volume 94.2 fL (80-100); Mean Platelet Volume 10.2 fL (7.4-10.4); Monocytes % (auto) 4.5 %; Neutrophils # (auto) 11.47 K/uL (1.4-6.5); Platelet Count 468 K/uL (130-400); RDW Coefficient of Variation 15.4 % (11.5-14.5); RDW Standard Deviation 53.4 fL (36.4-46.3); Red Blood Count 4.12 M/uL (4.2-5.4); White Blood Count 13.48 K/uL (4.8-10.8)
[2019-08-15 02:06] LABS: Base Excess ABG -0.5 mEq/L (-9-1.8); HCO3 ABG 25 mmol/L (19-24); Oxygen Saturation ABG 94.9 % (90-95); PCO2 ABG 46 mmHg (35-46); PO2 ABG 73 mmHg (80-95); pH ABG 7.36 (7.35-7.45)
[2019-08-15 02:13] LABS: Allen Test Pos (Pos)
[2019-08-15 02:17] LABS: iSTAT Art Bld Gas pCO2 Correct 64 mmHg (35-46); iSTAT Art Bld Gas pH Corrected 7.244 (7.35-7.45); iSTAT Arterial Blood Gas HCO3 27 meg/L (19-24); iSTAT Arterial Blood Gas pCO2 61 mmHg (35-46); iSTAT Arterial Blood Gas pH 7.26 (7.35-7.45); iSTAT Arterial Blood Gas pO2 81 mmHg (80-95); iSTAT Arterial Blood Gas pO2 C 86; iSTAT Carbon Dioxide 29 mmol/L (24-31); iSTAT Hematocrit 40 % (37-47); iSTAT Hemoglobin 13.6 g/dl (12.0-16.0); iSTAT Potassium 4.3 mmol/L (3.3-5.0); iSTAT Site Art Line; iSTAT Sodium 138 mmol/L (135-144)
[2019-08-15 02:20] LABS: Albumin Level 1.9 gm/dl (3.4-5.0); BUN Creatinine Ratio 26.5 (10-20); Calcium 7.2 mg/dl (8.5-10.1); Creatinine Clr Calc Pharmacy 68.4 ml/min; Est GFR (Non-African American) 63.9; Magnesium 2.1 mg/dl (1.8-2.4); Potassium 4.3 mmol/L (3.5-5.1)
[2019-08-15] MEDS: IPRATROPIUM BROMIDE NEB SOLN 0.02% 2.5 ML VIAL INH SCH ×5 (02:21→19:34)
[2019-08-15] MEDS: LEVALBUTEROL 1.25MG/0.5ML NEB INH SCH ×5 (02:21→19:34)
[2019-08-15 02:24] LABS: Bilirubin Direct 0.2 mg/dl (0-0.2); Bilirubin,Total 0.3 mg/dl (0.2-1); Phosphorus 1.8 mg/dl (2.5-4.9); Total Protein 6.2 gm/dl (6.4-8.2)
[2019-08-15 02:43] LABS: Fibrinogen 723 mg/dl (184-400); INR 1.9 (0.9-1.1); Partial Thromboplastin Ratio 1.6; Partial Thromboplastin Time 44.5 Seconds (21.0-31.0); Prothrombin Time 18.9 Seconds (9.0-12.0)
[2019-08-15] MEDS: CISATRACURIUM BESYLATE 40 MG in 0.9 % SODIUM CHLORIDE 80 ML IV SCH ×4 (02:45→19:24)
[2019-08-15] MEDS ORDERED: SODIUM PHOSPHATE 3 MMOL/1 ML 5 ML VIAL IV ONE (04:02)
[2019-08-15] MEDS ORDERED: SODIUM PHOSPHATE 15 MMOL in SODIUM CHLORIDE 0.9% 250 ML IV ONE (04:30)
--- NOTE | 2019-08-15 07:08 | XRay Report ---
XR chest 1V portable CLINICAL HISTORY: intubation tube position COMPARISON STUDY: 08/14/2019 endotracheal tube 4 cm above the jacey. Diffuse parenchymal infiltrate right hemithorax considered progressive. There are progressive consolidative changes right lung base. Left hemithorax remains grossly clear. Slight interstitial prominence left base. FINDINGS: 1. Endotracheal tube 4 cm above the jacey. 2. Nasogastric tube within the stomach. 3. Progressive consolidative infiltrative changes right hemithorax IMPRESSION: Negative chest. ACT 112: Negative or not required by law. The above report was generated using voice recognition software. It may contain grammatical, syntax or spelling errors. Electronically signed by: Pawan Avalos M.D. 08/15/2019 7:07 AM
--- NOTE | 2019-08-15 07:35 | Critical Care Progress Note ---
Date of Service August 15, 2019 Assessment & Plan (1) ARDS (adult respiratory distress syndrome): Elisa Mercer is a 74y/o F admitted for acute hypoxemic respiratory failure secondary to influenza a and failed outpatient treatment. Neuro: - [facility] ICU: unable to assess due to intubation and sedation - Cisatracurium started this AM Respiratory: - Acute hypoxic respiratory failure: Severe ARDS PF ratio less than 100 - Pronating protocol for 16 hours - Patient had very positive response when initially prolonged - Strict ARDSnet protocol: High PEEP low FiO2 - Vent setting PRVC PEEP 18, FiO2 50 - Goal oxygen saturation 92 to 98% - Trend plateaus and peak pressures - Permissive hypercapnia acceptable: 7.2 or greater Cardiac/Vascular: - Tachycardia: suspect physiologic response - History hypertension: - Reviewed echo: Grade 1 diastolic dysfunction - 2.5 mg metoprolol every 6 hours IV gradual Renal/Lytes: - LUZ MARIA: Resolved prior to transfer to ICU - Optimize euvolemia given PEEP requirements - Holding allopurinol given recent LUZ MARIA - Holding gabapentin while prone - continue to monitor daily GI/Nutrition: - N.p.o. - Hyperlipidemia: holding colestipol while prone - Converting from propofol to Versed - Holding Lopid while prone - Lipase and triglycerides every 3 days: 08/14 151 - GI prophylaxis: Protonix twice daily as home medication Heme: - Leukocytosis: in the setting of recent steroid use - Thrombocytosis: likely acute phase reactant Endo: - ICU hyperglycemia protocol - Hypothyroid: continue 50 mcg IV daily ID: - Influenza A: Initially started on Tamiflu 30 mg twice daily for renal impairment increasing to 75 given progression of disease and improvement in renal function - discontinued doxycycline x3 doses - discontinued 2 g ceftriaxone x1 - discontinued 250 mg Zithromax x1 - pro-calcitonin 0.15 Lines/ IV Access: - right radial arterial line - left subclavian central venous line DVT prophylaxis: - Lovenox SQ: renally adjusted Code Status: DNR in event of cardiac arrest Admission and Anticipated Discharge Date Admission Date: August 12, 2019 Anticipated date of discharge: 08/15/19 Supervising Physician Co-Signing Physician Notes Dr. Stafford was resident physician during care of patient. I separately evaluated patient for hager portions of the history and the exam. I was present during the critical portion of medical decision making, and I discussed the case with the resident. I generally agree with the findings and plan. Patient returned to supine position, required a recruitment maneuver and had not had significant improvement which was observed with first prolonging episode. Continue neuromuscular blockade at this time. Patient was discussed in multidisciplinary rounds, numerous reassessments evaluation of blood gases as well as helping manually turn patient. Subjective Patient was proned this morning after being intubated, and subsequently sedated and paralyzed with Versed and Cisatracurium; after 16hrs patient rolled to supine, with subsequent worsening. Temporarily Review of Systems Review of Systems: Unobtainable due to endotracheal tube Physical Exam Constitutional: WD/WN, vitals as above Eyes: PERRL; no scleral abnormality and no corneal abnormality ENMT: external ear and nose normal, oropharynx normal Neck: normal visual inspection Respiratory: no labored breathing (intubated and proned) Auscultation: + diminished lung sounds (R>L) and + crackles (R>L); no rales, no rhonchi and no wheezes Cardiovascular: Rate/Rhythm: regular rate and regular rhythm Heart Sounds: normal S1 and normal S2; no gallop, no murmur and no cardiac rub Vessels: no JVD Extremities: no pedal edema Gastrointestinal (Abdomen): Inspection/Auscultation: abdomen not distended Percussion/Palpation: abdomen soft and normal to percussion Musculoskeletal: Extremities: no cyanosis and no clubbing no deformity Skin: no rashes, warm and dry Neurologic: deep tendon reflexes 2+ bilaterally and plantar reflexes intact bilaterally Lymphatic: no cervical or axillary lymphadenopathy Results & Data ([facility]) Vital Signs (Past 12 Hours) Vital Signs Pulse Pulse Resp BP Pulse Ox 08/15/19 07:16 93 H 22 96 08/15/19 06:00 88 94 08/15/19 05:30 97 H 93 08/15/19 05:11 92 H 22 99 08/15/19 05:00 99 H 92 08/15/19 04:30 103 H 94 08/15/19 04:00 118 H 95 08/15/19 03:30 105 H 95 08/15/19 03:00 106 H 95 08/15/19 02:35 103 H 22 94 08/15/19 02:30 104 H 94 08/15/19 02:00 104 H 94 08/15/19 01:30 104 H 93 08/15/19 01:00 104 H 93 08/15/19 00:30 101 H 91 08/15/19 00:03 117 H 146/66 H 08/15/19 00:00 120 H 91 08/14/19 23:30 114 H 91 08/14/19 23:00 117 H 93 08/14/19 22:30 116 H 92 08/14/19 22:24 116 H 18 92 08/14/19 22:23 115 H 18 92 08/14/19 22:00 113 H 93 08/14/19 21:30 109 H 91 08/14/19 21:00 105 H 92 08/14/19 20:57 104 H 08/14/19 20:38 98 H 125/79 92 08/14/19 20:30 115 H 92 08/14/19 20:26 115 H 143/65 H 08/14/19 20:00 118 H 92 08/14/19 19:36 108 H 19 93 08/14/19 19:32 108 H 19 93 Laboratory Results 08/15/19 08/15/19 08/15/19 Range/Units 08:03 06:12 01:48 WBC (4.8-10.8) K/uL RBC (4.2-5.4) M/uL Hgb (12.0-16.0) g/dL POC Hgb 10.9 L (12.0-16.0) g/dl Hct (37-47) % POC Hct 32 L (37-47) % MCV (80-100) fL MCH (25-34) pg MCHC (32-36) g/dL RDW Std Deviation (36.4-46.3) fL RDW Coeff of David (11.5-14.5) % Plt Count (130-400) K/uL MPV (7.4-10.4) fL Immature Gran % (Auto) % Neut % (Auto) % Lymph % (Auto) % Archer % (Auto) % Eos % (Auto) % Baso % (Auto) % Immature Gran # (Auto) (0.00-0.02) K/uL Neut # (Auto) (1.4-6.5) K/uL Lymph # (Auto) (1.2-3.4) K/uL Archer # (Auto) (0.11-0.59) K/uL Eos # (Auto) (0-0.5) K/uL Baso # (Auto) (0-0.2) K/uL PT (9.0-12.0) Seconds INR (0.9-1.1) APTT (21.0-31.0) Seconds PTT Ratio Fibrinogen (184-400) mg/dl Sample Site Art Line POC pH 7.40 (7.35-7.45) POC pCO2 43 (35-46) mmHg POC pO2 88 (80-95) mmHg POC HCO3 27 H (19-24) cristy/L POC Total CO2 28 (24-31) mmol/L POC Base Excess 2.0 H (-9-1.8) cristy/L ABG pH (7.35-7.45) ABG pH (Temp Correct) 7.403 (7.35-7.45) ABG pCO2 (35-46) mmHg ABG pCO2 (Temp Corrct 43 (35-46) mmHg ABG pO2 (80-95) mmHg POC ABG pO2 at Pt Temp 88 ABG HCO3 (19-24) mmol/L ABG O2 Saturation (90-95) % ABG Base Excess (-9-1.8) mEq/L Brad Test NA (Pos) Barometric Pressure mm/Hg Oxygen Given O2 Delivery Device Ventilator POC O2 Rate 22 Minute Ventilation 8.2 Tidal Volume 400 PEEP 12 POC Sodium 136 (135-144) mmol/L Sodium (136-145) mmol/L POC Potassium 5.0 (3.3-5.0) mmol/L Potassium (3.5-5.1) mmol/L Chloride (98-107) mmol/L Carbon Dioxide (21-32) mmol/L Anion Gap (3-11) BUN (7-18) mg/dl Creatinine (0.6-1.2) mg/dl Est Cr Clr Drug Dosing ml/min Est GFR ( Amer) Est GFR (Non-Af Amer) BUN/Creatinine Ratio (10-20) Glucose (70-99) mg/dl POC Glucose 104 H (70-99) mg/dl Calcium (8.5-10.1) mg/dl Ionized Calcium 0.92 L (1.12-1.32) mmol/L Phosphorus (2.5-4.9) mg/dl Magnesium (1.8-2.4) mg/dl Total Bilirubin (0.2-1) mg/dl Direct Bilirubin (0-0.2) mg/dl AST (15-37) U/L ALT (12-78) U/L Alkaline Phosphatase (45-117) U/L Total Protein (6.4-8.2) gm/dl Albumin (3.4-5.0) gm/dl Triglycerides (0-150) mg/dl Lipase (73-393) U/L Procalcitonin (0-0.5) ng/ml Fluid Neutrophils % % Fluid Lymphocytes % % Fluid Eosinophils % % Fl Monocyt/Macrophag % % Blood Type Antibody Screen 08/15/19 08/15/19 08/15/19 Range/Units 01:48 01:48 01:48 WBC 13.48 H (4.8-10.8) K/uL RBC 4.12 L (4.2-5.4) M/uL Hgb 12.0 (12.0-16.0) g/dL POC Hgb (12.0-16.0) g/dl Hct 38.8 (37-47) % POC Hct (37-47) % MCV 94.2 (80-100) fL MCH 29.1 (25-34) pg MCHC 30.9 L (32-36) g/dL RDW Std Deviation 53.4 H (36.4-46.3) fL RDW Coeff of David 15.4 H (11.5-14.5) % Plt Count 468 H (130-400) K/uL MPV 10.2 (7.4-10.4) fL Immature Gran % (Auto) 4.2 % Neut % (Auto) 85.0 % Lymph % (Auto) 5.6 % Archer % (Auto) 4.5 % Eos % (Auto) 0.4 % Baso % (Auto) 0.3 % Immature Gran # (Auto) 0.56 H (0.00-0.02) K/uL Neut # (Auto) 11.47 H (1.4-6.5) K/uL Lymph # (Auto) 0.76 L (1.2-3.4) K/uL Archer # (Auto) 0.60 H (0.11-0.59) K/uL Eos # (Auto) 0.05 (0-0.5) K/uL Baso # (Auto) 0.04 (0-0.2) K/uL PT 18.9 H (9.0-12.0) Seconds INR 1.9 H (0.9-1.1) APTT 44.5 H (21.0-31.0) Seconds PTT Ratio 1.6 Fibrinogen 723 H (184-400) mg/dl Sample Site POC pH (7.35-7.45) POC pCO2 (35-46) mmHg POC pO2 (80-95) mmHg POC HCO3 (19-24) cristy/L POC Total CO2 (24-31) mmol/L POC Base Excess (-9-1.8) cristy/L ABG pH (7.35-7.45) ABG pH (Temp Correct) (7.35-7.45) ABG pCO2 (35-46) mmHg ABG pCO2 (Temp Corrct (35-46) mmHg ABG pO2 (80-95) mmHg POC ABG pO2 at Pt Temp ABG HCO3 (19-24) mmol/L ABG O2 Saturation (90-95) % ABG Base Excess (-9-1.8) mEq/L Brad Test (Pos) Barometric Pressure mm/Hg Oxygen Given O2 Delivery Device POC O2 Rate Minute Ventilation Tidal Volume PEEP POC Sodium (135-144) mmol/L Sodium 138 (136-145) mmol/L POC Potassium (3.3-5.0) mmol/L Potassium 4.3 (3.5-5.1) mmol/L Chloride 107 (98-107) mmol/L Carbon Dioxide 24 (21-32) mmol/L Anion Gap 7.0 (3-11) BUN 24 H (7-18) mg/dl Creatinine 0.90 (0.6-1.2) mg/dl Est Cr Clr Drug Dosing 68.4 ml/min Est GFR ( Amer) 74.0 Est GFR (Non-Af Amer) 63.9 BUN/Creatinine Ratio 26.5 H (10-20) Glucose 115 H (70-99) mg/dl POC Glucose (70-99) mg/dl Calcium 7.2 L (8.5-10.1) mg/dl Ionized Calcium (1.12-1.32) mmol/L Phosphorus 1.8 L D (2.5-4.9) mg/dl Magnesium 2.1 (1.8-2.4) mg/dl Total Bilirubin 0.3 (0.2-1) mg/dl Direct Bilirubin 0.2 (0-0.2) mg/dl AST 26 (15-37) U/L ALT 20 (12-78) U/L Alkaline Phosphatase 84 (45-117) U/L Total Protein 6.2 L (6.4-8.2) gm/dl Albumin 1.9 L (3.4-5.0) gm/dl Triglycerides 142 (0-150) mg/dl Lipase 141 (73-393) U/L Procalcitonin (0-0.5) ng/ml Fluid Neutrophils % % Fluid Lymphocytes % % Fluid Eosinophils % % Fl Monocyt/Macrophag % % Blood Type Antibody Screen 08/15/19 08/15/19 08/14/19 Range/Units 01:48 00:01 22:46 WBC (4.8-10.8) K/uL RBC (4.2-5.4) M/uL Hgb (12.0-16.0) g/dL POC Hgb 13.6 (12.0-16.0) g/dl Hct (37-47) % POC Hct 40 (37-47) % MCV (80-100) fL MCH (25-34) pg MCHC (32-36) g/dL RDW Std Deviation (36.4-46.3) fL RDW Coeff of David (11.5-14.5) % Plt Count (130-400) K/uL MPV (7.4-10.4) fL Immature Gran % (Auto) % Neut % (Auto) % Lymph % (Auto) % Archer % (Auto) % Eos % (Auto) % Baso % (Auto) % Immature Gran # (Auto) (0.00-0.02) K/uL Neut # (Auto) (1.4-6.5) K/uL Lymph # (Auto) (1.2-3.4) K/uL Archer # (Auto) (0.11-0.59) K/uL Eos # (Auto) (0-0.5) K/uL Baso # (Auto) (0-0.2) K/uL PT (9.0-12.0) Seconds INR (0.9-1.1) APTT (21.0-31.0) Seconds PTT Ratio Fibrinogen (184-400) mg/dl Sample Site Art Line POC pH 7.26 L (7.35-7.45) POC pCO2 61 H (35-46) mmHg POC pO2 81 (80-95) mmHg POC HCO3 27 H (19-24) cristy/L POC Total CO2 29 (24-31) mmol/L POC Base Excess 0.0 (-9-1.8) cristy/L ABG pH 7.36 (7.35-7.45) ABG pH (Temp Correct) 7.244 L (7.35-7.45) ABG pCO2 46 (35-46) mmHg ABG pCO2 (Temp Corrct 64 H (35-46) mmHg ABG pO2 73 L (80-95) mmHg POC ABG pO2 at Pt Temp 86 ABG HCO3 25 H (19-24) mmol/L ABG O2 Saturation 94.9 (90-95) % ABG Base Excess -0.5 (-9-1.8) mEq/L Brad Test Pos NA (Pos) Barometric Pressure mm/Hg Oxygen Given 50% O2 Delivery Device Ventilator POC O2 Rate 18 Minute Ventilation 6.3 Tidal Volume 400 PEEP 20 POC Sodium 138 (135-144) mmol/L Sodium (136-145) mmol/L POC Potassium 4.3 (3.3-5.0) mmol/L Potassium (3.5-5.1) mmol/L Chloride (98-107) mmol/L Carbon Dioxide (21-32) mmol/L Anion Gap (3-11) BUN (7-18) mg/dl Creatinine (0.6-1.2) mg/dl Est Cr Clr Drug Dosing ml/min Est GFR ( Amer) Est GFR (Non-Af Amer) BUN/Creatinine Ratio (10-20) Glucose (70-99) mg/dl POC Glucose 117 H (70-99) mg/dl Calcium (8.5-10.1) mg/dl Ionized Calcium (1.12-1.32) mmol/L Phosphorus (2.5-4.9) mg/dl Magnesium (1.8-2.4) mg/dl Total Bilirubin (0.2-1) mg/dl Direct Bilirubin (0-0.2) mg/dl AST (15-37) U/L ALT (12-78) U/L Alkaline Phosphatase (45-117) U/L Total Protein (6.4-8.2) gm/dl Albumin (3.4-5.0) gm/dl Triglycerides (0-150) mg/dl Lipase (73-393) U/L Procalcitonin (0-0.5) ng/ml Fluid Neutrophils % % Fluid Lymphocytes % % Fluid Eosinophils % % Fl Monocyt/Macrophag % % Blood Type Antibody Screen 08/14/19 08/14/19 08/14/19 Range/Units 19:54 19:54 19:54 WBC (4.8-10.8) K/uL RBC (4.2-5.4) M/uL Hgb (12.0-16.0) g/dL POC Hgb (12.0-16.0) g/dl Hct (37-47) % POC Hct (37-47) % MCV (80-100) fL MCH (25-34) pg MCHC (32-36) g/dL RDW Std Deviation (36.4-46.3) fL RDW Coeff of David (11.5-14.5) % Plt Count (130-400) K/uL MPV (7.4-10.4) fL Immature Gran % (Auto) % Neut % (Auto) % Lymph % (Auto) % Archer % (Auto) % Eos % (Auto) % Baso % (Auto) % Immature Gran # (Auto) (0.00-0.02) K/uL Neut # (Auto) (1.4-6.5) K/uL Lymph # (Auto) (1.2-3.4) K/uL Archer # (Auto) (0.11-0.59) K/uL Eos # (Auto) (0-0.5) K/uL Baso # (Auto) (0-0.2) K/uL PT (9.0-12.0) Seconds INR (0.9-1.1) APTT (21.0-31.0) Seconds PTT Ratio Fibrinogen (184-400) mg/dl Sample Site POC pH (7.35-7.45) POC pCO2 (35-46) mmHg POC pO2 (80-95) mmHg POC HCO3 (19-24) cristy/L POC Total CO2 (24-31) mmol/L POC Base Excess (-9-1.8) cristy/L ABG pH 7.26 L (7.35-7.45) ABG pH (Temp Correct) (7.35-7.45) ABG pCO2 58 H (35-46) mmHg ABG pCO2 (Temp Corrct (35-46) mmHg ABG pO2 73 L (80-95) mmHg POC ABG pO2 at Pt Temp ABG HCO3 25 H (19-24) mmol/L ABG O2 Saturation 93.9 (90-95) % ABG Base Excess -2.6 (-9-1.8) mEq/L Brad Test POS (Pos) Barometric Pressure 738.2 mm/Hg Oxygen Given 50% O2 O2 Delivery Device POC O2 Rate Minute Ventilation Tidal Volume PEEP POC Sodium (135-144) mmol/L Sodium (136-145) mmol/L POC Potassium (3.3-5.0) mmol/L Potassium (3.5-5.1) mmol/L Chloride (98-107) mmol/L Carbon Dioxide (21-32) mmol/L Anion Gap (3-11) BUN (7-18) mg/dl Creatinine (0.6-1.2) mg/dl Est Cr Clr Drug Dosing ml/min Est GFR ( Amer) Est GFR (Non-Af Amer) BUN/Creatinine Ratio (10-20) Glucose (70-99) mg/dl POC Glucose (70-99) mg/dl Calcium (8.5-10.1) mg/dl Ionized Calcium (1.12-1.32) mmol/L Phosphorus (2.5-4.9) mg/dl Magnesium (1.8-2.4) mg/dl Total Bilirubin (0.2-1) mg/dl Direct Bilirubin (0-0.2) mg/dl AST (15-37) U/L ALT (12-78) U/L Alkaline Phosphatase (45-117) U/L Total Protein (6.4-8.2) gm/dl Albumin (3.4-5.0) gm/dl Triglycerides 151 H (0-150) mg/dl Lipase (73-393) U/L Procalcitonin (0-0.5) ng/ml Fluid Neutrophils % % Fluid Lymphocytes % % Fluid Eosinophils % % Fl Monocyt/Macrophag % % Blood Type O Positive Antibody Screen NEGATIVE 08/14/19 08/14/19 08/14/19 Range/Units 18:37 17:39 15:55 WBC (4.8-10.8) K/uL RBC (4.2-5.4) M/uL Hgb (12.0-16.0) g/dL POC Hgb 12.9 (12.0-16.0) g/dl Hct (37-47) % POC Hct 38 (37-47) % MCV (80-100) fL MCH (25-34) pg MCHC (32-36) g/dL RDW Std Deviation (36.4-46.3) fL RDW Coeff of David (11.5-14.5) % Plt Count (130-400) K/uL MPV (7.4-10.4) fL Immature Gran % (Auto) % Neut % (Auto) % Lymph % (Auto) % Archer % (Auto) % Eos % (Auto) % Baso % (Auto) % Immature Gran # (Auto) (0.00-0.02) K/uL Neut # (Auto) (1.4-6.5) K/uL Lymph # (Auto) (1.2-3.4) K/uL Archer # (Auto) (0.11-0.59) K/uL Eos # (Auto) (0-0.5) K/uL Baso # (Auto) (0-0.2) K/uL PT (9.0-12.0) Seconds INR (0.9-1.1) APTT (21.0-31.0) Seconds PTT Ratio Fibrinogen (184-400) mg/dl Sample Site Art Line POC pH 7.32 L (7.35-7.45) POC pCO2 51 H (35-46) mmHg POC pO2 113 H (80-95) mmHg POC HCO3 26 H (19-24) cristy/L POC Total CO2 28 (24-31) mmol/L POC Base Excess 0.0 (-9-1.8) cristy/L ABG pH (7.35-7.45) ABG pH (Temp Correct) 7.319 L (7.35-7.45) ABG pCO2 (35-46) mmHg ABG pCO2 (Temp Corrct 51 H (35-46) mmHg ABG pO2 (80-95) mmHg POC ABG pO2 at Pt Temp 114 ABG HCO3 (19-24) mmol/L ABG O2 Saturation (90-95) % ABG Base Excess (-9-1.8) mEq/L Brad Test NA (Pos) Barometric Pressure mm/Hg Oxygen Given O2 Delivery Device POC O2 Rate Minute Ventilation Tidal Volume PEEP POC Sodium 137 (135-144) mmol/L Sodium (136-145) mmol/L POC Potassium 4.0 (3.3-5.0) mmol/L Potassium (3.5-5.1) mmol/L Chloride (98-107) mmol/L Carbon Dioxide (21-32) mmol/L Anion Gap (3-11) BUN (7-18) mg/dl Creatinine (0.6-1.2) mg/dl Est Cr Clr Drug Dosing ml/min Est GFR ( Amer) Est GFR (Non-Af Amer) BUN/Creatinine Ratio (10-20) Glucose (70-99) mg/dl POC Glucose 109 H (70-99) mg/dl Calcium (8.5-10.1) mg/dl Ionized Calcium (1.12-1.32) mmol/L Phosphorus (2.5-4.9) mg/dl Magnesium (1.8-2.4) mg/dl Total Bilirubin (0.2-1) mg/dl Direct Bilirubin (0-0.2) mg/dl AST (15-37) U/L ALT (12-78) U/L Alkaline Phosphatase (45-117) U/L Total Protein (6.4-8.2) gm/dl Albumin (3.4-5.0) gm/dl Triglycerides (0-150) mg/dl Lipase (73-393) U/L Procalcitonin (0-0.5) ng/ml Fluid Neutrophils % 73 % Fluid Lymphocytes % 9 % Fluid Eosinophils % 0 % Fl Monocyt/Macrophag % 18 % Blood Type Antibody Screen 08/14/19 08/14/19 08/14/19 Range/Units 15:23 11:33 11:33 WBC (4.8-10.8) K/uL RBC (4.2-5.4) M/uL Hgb (12.0-16.0) g/dL POC Hgb 13.3 (12.0-16.0) g/dl Hct (37-47) % POC Hct 39 (37-47) % MCV (80-100) fL MCH (25-34) pg MCHC (32-36) g/dL RDW Std Deviation (36.4-46.3) fL RDW Coeff of David (11.5-14.5) % Plt Count (130-400) K/uL MPV (7.4-10.4) fL Immature Gran % (Auto) % Neut % (Auto) % Lymph % (Auto) % Archer % (Auto) % Eos % (Auto) % Baso % (Auto) % Immature Gran # (Auto) (0.00-0.02) K/uL Neut # (Auto) (1.4-6.5) K/uL Lymph # (Auto) (1.2-3.4) K/uL Archer # (Auto) (0.11-0.59) K/uL Eos # (Auto) (0-0.5) K/uL Baso # (Auto) (0-0.2) K/uL PT (9.0-12.0) Seconds INR (0.9-1.1) APTT (21.0-31.0) Seconds PTT Ratio Fibrinogen (184-400) mg/dl Sample Site R Radial POC pH 7.38 (7.35-7.45) POC pCO2 45 (35-46) mmHg POC pO2 40 L (80-95) mmHg POC HCO3 27 H (19-24) cristy/L POC Total CO2 28 (24-31) mmol/L POC Base Excess 1.0 (-9-1.8) cristy/L ABG pH (7.35-7.45) ABG pH (Temp Correct) 7.381 (7.35-7.45) ABG pCO2 (35-46) mmHg ABG pCO2 (Temp Corrct 45 (35-46) mmHg ABG pO2 (80-95) mmHg POC ABG pO2 at Pt Temp 40 ABG HCO3 (19-24) mmol/L ABG O2 Saturation (90-95) % ABG Base Excess (-9-1.8) mEq/L Brad Test NA (Pos) Barometric Pressure mm/Hg Oxygen Given O2 Delivery Device Ventilator POC O2 Rate 18 Minute Ventilation Tidal Volume 450 PEEP 15 POC Sodium 137 (135-144) mmol/L Sodium 137 (136-145) mmol/L POC Potassium 4.1 (3.3-5.0) mmol/L Potassium 4.4 D (3.5-5.1) mmol/L Chloride 105 (98-107) mmol/L Carbon Dioxide 25 (21-32) mmol/L Anion Gap 7.0 (3-11) BUN 23 H (7-18) mg/dl Creatinine 1.01 (0.6-1.2) mg/dl Est Cr Clr Drug Dosing 60.9 ml/min Est GFR ( Amer) 64.4 Est GFR (Non-Af Amer) 55.6 BUN/Creatinine Ratio 22.7 H (10-20) Glucose 114 H (70-99) mg/dl POC Glucose (70-99) mg/dl Calcium 7.7 L (8.5-10.1) mg/dl Ionized Calcium (1.12-1.32) mmol/L Phosphorus (2.5-4.9) mg/dl Magnesium (1.8-2.4) mg/dl Total Bilirubin (0.2-1) mg/dl Direct Bilirubin (0-0.2) mg/dl AST (15-37) U/L ALT (12-78) U/L Alkaline Phosphatase (45-117) U/L Total Protein (6.4-8.2) gm/dl Albumin (3.4-5.0) gm/dl Triglycerides (0-150) mg/dl Lipase (73-393) U/L Procalcitonin 0.15 (0-0.5) ng/ml Fluid Neutrophils % % Fluid Lymphocytes % % Fluid Eosinophils % % Fl Monocyt/Macrophag % % Blood Type Antibody Screen 08/14/19 08/14/19 08/14/19 Range/Units 11:33 11:20 11:16 WBC 13.12 H (4.8-10.8) K/uL RBC 4.31 (4.2-5.4) M/uL Hgb 13.1 (12.0-16.0) g/dL POC Hgb (12.0-16.0) g/dl Hct 40.8 (37-47) % POC Hct (37-47) % MCV 94.7 (80-100) fL MCH 30.4 (25-34) pg MCHC 32.1 (32-36) g/dL RDW Std Deviation 53.5 H (36.4-46.3) fL RDW Coeff of David 15.5 H (11.5-14.5) % Plt Count 469 H (130-400) K/uL MPV 10.4 (7.4-10.4) fL Immature Gran % (Auto) 2.2 % Neut % (Auto) 83.2 % Lymph % (Auto) 8.3 % Archer % (Auto) 6.1 % Eos % (Auto) 0.0 % Baso % (Auto) 0.2 % Immature Gran # (Auto) 0.29 H (0.00-0.02) K/uL Neut # (Auto) 10.92 H (1.4-6.5) K/uL Lymph # (Auto) 1.09 L (1.2-3.4) K/uL Archer # (Auto) 0.80 H (0.11-0.59) K/uL Eos # (Auto) 0.00 (0-0.5) K/uL Baso # (Auto) 0.02 (0-0.2) K/uL PT (9.0-12.0) Seconds INR (0.9-1.1) APTT (21.0-31.0) Seconds PTT Ratio Fibrinogen (184-400) mg/dl Sample Site POC pH (7.35-7.45) POC pCO2 (35-46) mmHg POC pO2 (80-95) mmHg POC HCO3 (19-24) cristy/L POC Total CO2 (24-31) mmol/L POC Base Excess (-9-1.8) cristy/L ABG pH 7.40 (7.35-7.45) ABG pH (Temp Correct) (7.35-7.45) ABG pCO2 44 (35-46) mmHg ABG pCO2 (Temp Corrct (35-46) mmHg ABG pO2 62 L (80-95) mmHg POC ABG pO2 at Pt Temp ABG HCO3 26 H (19-24) mmol/L ABG O2 Saturation 92.6 (90-95) % ABG Base Excess 1.2 (-9-1.8) mEq/L Brad Test Pos (Pos) Barometric Pressure 742.6 mm/Hg Oxygen Given 100% O2 Delivery Device POC O2 Rate Minute Ventilation Tidal Volume PEEP POC Sodium (135-144) mmol/L Sodium (136-145) mmol/L POC Potassium (3.3-5.0) mmol/L Potassium (3.5-5.1) mmol/L Chloride (98-107) mmol/L Carbon Dioxide (21-32) mmol/L Anion Gap (3-11) BUN (7-18) mg/dl Creatinine (0.6-1.2) mg/dl Est Cr Clr Drug Dosing ml/min Est GFR ( Amer) Est GFR (Non-Af Amer) BUN/Creatinine Ratio (10-20) Glucose (70-99) mg/dl POC Glucose 115 H (70-99) mg/dl Calcium (8.5-10.1) mg/dl Ionized Calcium (1.12-1.32) mmol/L Phosphorus (2.5-4.9) mg/dl Magnesium (1.8-2.4) mg/dl Total Bilirubin (0.2-1) mg/dl Direct Bilirubin (0-0.2) mg/dl AST (15-37) U/L ALT (12-78) U/L Alkaline Phosphatase (45-117) U/L Total Protein (6.4-8.2) gm/dl Albumin (3.4-5.0) gm/dl Triglycerides (0-150) mg/dl Lipase (73-393) U/L Procalcitonin (0-0.5) ng/ml Fluid Neutrophils % % Fluid Lymphocytes % % Fluid Eosinophils % % Fl Monocyt/Macrophag % % Blood Type Antibody Screen Medications Administered Current Inpatient Medications Acetaminophen (Tylenol) 650 mg PO Q4H PRN PRN Reason: Pain or Fever Stop: 09/11/19 02:52 Last Admin: 08/13/19 17:22 Dose: 650 mg Documented by: Al Hydrox/Mg Hydrox/Simethicone (Maalox) 15 ml PO Q6H PRN PRN Reason: Dyspepsia Stop: 09/12/19 10:25 Last Admin: 08/13/19 17:22 Dose: 15 ml Documented by: Allopurinol (Zyloprim) 300 mg PO DAILY MAGGY Stop: 09/11/19 08:59 Last Admin: 08/14/19 11:00 Dose: Not Given Documented by: Colestipol HCl (Colestid) 1 gm PO BID@1000,2200 [facility] Stop: 09/11/19 09:59 Last Admin: 08/14/19 11:01 Dose: Not Given Documented by: Dextrose (Dextrose 50%) 25 - 50 ml IV UD PRN; Protocol PRN Reason: Hypoglycemia Protocol Stop: 09/13/19 11:29 Enoxaparin Sodium (Lovenox) 40 mg SQ QAM [facility] Stop: 09/13/19 08:59 Last Admin: 08/14/19 08:31 Dose: 40 mg Documented by: Fentanyl Citrate (Fentanyl Bolus From Bag) 50 mcg IV Q60M PRN PRN Reason: Pain or Agitation Stop: 08/28/19 15:29 Last Admin: 08/15/19 04:05 Dose: 50 mcg Documented by: Gabapentin (Neurontin) 600 mg PO TID [facility] Stop: 09/11/19 08:59 Last Admin: 08/14/19 16:00 Dose: Not Given Documented by: Gemfibrozil (Lopid) 600 mg PO BID [facility] Stop: 09/11/19 08:59 Last Admin: 08/14/19 11:00 Dose: Not Given Documented by: Glucagon (Glucagen) 1 mg IM UD PRN; Protocol PRN Reason: Hypoglycemia Protocol Stop: 09/13/19 11:29 Glucose (Glucose 40%) 15 - 30 gm PO UD PRN; Protocol PRN Reason: Hypoglycemia Protocol Stop: 09/13/19 11:29 Glucose (Dex4 Glucose) 4 - 8 tabs PO UD PRN; Protocol PRN Reason: Hypoglycemia Protocol Stop: 09/13/19 11:29 Heparin Sodium (Beef Lung) (Heparin Sod 10 Unit/Ml Flush) 5 ml FLUSH PRN PRN PRN Reason: Flush Stop: 09/13/19 23:34 Promethazine HCl 12.5 mg/ (Sodium Chloride) 50.5 mls @ 202 mls/hr IV Q6H PRN PRN Reason: Nausea And Vomiting Stop: 09/11/19 02:52 Fentanyl Citrate (Fentanyl Drip) 1,250 mcg in 250 mls @ 25 mls/hr IV .Q10H MAGGY; Protocol Stop: 08/28/19 15:29 Last Titration: 08/15/19 07:07 Dose: 125 mcg/hr, 25 mls/hr Documented by: Cisatracurium Besylate 40 mg/ (Sodium Chloride) 100 mls @ 18 mls/hr IV .Q5H34M [facility]; Protocol Stop: 08/17/19 15:29 Last Admin: 08/15/19 08:27 Dose: 1 mcg/kg/min, 18 mls/hr Documented by: Midazolam HCl (Versed) 125 mg in 250 mls @ 14 mls/hr IV .[id number] [facility]; Protocol Stop: 09/13/19 16:29 Last Titration: 08/15/19 07:07 Dose: 7 mg/hr, 14 mls/hr Documented by: Levothyroxine Sodium 50 mcg/ (Syringe) 2.5 mls @ 2 mls/min IV DAILY@0900 [facility] Stop: 09/14/19 08:59 Last Admin: 08/15/19 08:27 Dose: 2 mls/min Documented by: Insulin Aspart (Novolog Flexpen) 0 units SC Q6 [facility] Stop: 09/13/19 11:59 Last Admin: 08/15/19 06:25 Dose: Not Given Documented by: Ipratropium [place] (Atrovent 0.02% 0.5mg/2.5ml) 0.5 mg INH Q4R [facility] Stop: 09/13/19 02:59 Last Admin: 08/15/19 07:16 Dose: 0.5 mg Documented by: Levalbuterol HCl (Xopenex 1.25mg/0.5ml Neb) 1.25 mg INH Q4R [facility] Stop: 09/13/19 02:59 Last Admin: 08/15/19 07:16 Dose: 1.25 mg Documented by: Levothyroxine Sodium (Synthroid) 75 mcg PO DAILYBB [facility] Stop: 09/11/19 06:29 Last Admin: 08/14/19 10:59 Dose: Not Given Documented by: Loratadine (Claritin) 10 mg PO DAILY [facility] Stop: 09/11/19 08:59 Last Admin: 08/14/19 10:59 Dose: Not Given Documented by: Losartan Potassium (Cozaar) 50 mg PO DAILY [facility] Stop: 09/11/19 08:59 Last Admin: 08/12/19 08:46 Dose: 50 mg Documented by: Metoprolol Tartrate (Lopressor) 2.5 mg IV Q6 [facility] Stop: 09/14/19 00:00 Last Admin: 08/15/19 06:25 Dose: Not Given Documented by: Miconazole Nitrate (Desenex) 1 appln EXT PRN PRN PRN Reason: Affected Skin Folds Stop: 09/12/19 01:09 Last Admin: 08/14/19 08:31 Dose: 1 appln Documented by: Miscellaneous (Carbohydrates For Hypoglycemia) 15 - 30 gm PO UD PRN PRN Reason: Hypoglycemia Treatment Stop: 09/13/19 11:29 Multi-Ingredient Cream (Lacri-Lube) 1 appln OP Q2H PRN PRN Reason: Undecided Stop: 09/13/19 17:04 Last Admin: 08/14/19 20:15 Dose: 1 appln Documented by: Oseltamivir Phosphate (Tamiflu) 75 mg PO BID [facility]; Protocol Stop: 08/16/19 23:59 Last Admin: 08/14/19 20:27 Dose: 75 mg Documented by: Pantoprazole Sodium (Protonix) 40 mg PO BID [facility] Stop: 09/11/19 08:59 Last Admin: 08/14/19 20:20 Dose: 40 mg Documented by: Tramadol HCl (Ultram) 25 - 50 mg PO Q6H PRN PRN Reason: Pain Stop: 09/11/19 02:52 Last Admin: 08/13/19 19:56 Dose: 50 mg Documented by: Resident Activity Tracking Resident Involvement: Resident Care Provided Care Provided: Adult Hospital Medicine
[2019-08-15 08:18] LABS: iSTAT Art Bld Gas pCO2 Correct 43 mmHg (35-46); iSTAT Art Bld Gas pH Corrected 7.403 (7.35-7.45); iSTAT Arterial Blood Gas HCO3 27 meg/L (19-24); iSTAT Arterial Blood Gas pCO2 43 mmHg (35-46); iSTAT Arterial Blood Gas pO2 88 mmHg (80-95); iSTAT Arterial Blood Gas pO2 C 88; iSTAT Carbon Dioxide 28 mmol/L (24-31); iSTAT Hematocrit 32 % (37-47); iSTAT Hemoglobin 10.9 g/dl (12.0-16.0); iSTAT Site Art Line; iSTAT Sodium 136 mmol/L (135-144)
[2019-08-15] MEDS: LEVOTHYROXINE SODIUM 50 MCG in SYRINGE 0 ML IV SCH (08:27)
[2019-08-15] MEDS: MIDAZOLAM HCL 125 MG/250 ML BAG IV SCH (10:08)
[2019-08-15] MEDS ORDERED: CALCIUM GLUCONATE 10% 1,000 MG in SODIUM CHLORIDE 0.9% 50 ML IV ONE (10:30)
[2019-08-15] MEDS: ENOXAPARIN INJ 40 MG/0.4 ML SYR SQ SCH (10:48)
--- NOTE | 2019-08-15 11:07 | Hospitalist Progress Note ---
Date of Service August 15, 2019 Assessment & Plan (1) ARDS (adult respiratory distress syndrome): The patient was transferred to ICU and is now intubated and sedated ARDS is secondary to influenza No definite signs of bacterial pneumonia and has not been getting any antibiotic Appreciate dietetic technician registered input and recommendation Clinically stable (2) Acute hypoxemic respiratory failure: Admitted with acute hypoxic respiratory failure secondary to influenza A and pneumonia likely viral Has been getting intravenous antibiotics with them ceftriaxone and azithromycin for now Received Zosyn and ceftaroline before Appreciate pulmonary input and recommendation Steroids have been discontinued Clinically worse with increasing desaturation, increasing shortness of breath and worsening chest x-ray findings ABG did show low oxygen at 62 Ceftriaxone has been changed to intravenous Zosyn She will be moved to ICU for continued care and may need intubation to maintain saturation Antibiotics have been stopped Ventilation management as per dietetic technician registered (3) Influenza A: Has been on Tamiflu (4) Pneumonia: Likely viral pneumonia Has been on antibiotic to cover the possibilities of bacterial pneumonia Blood cultures have been negative Sputum culture is pending-light normal trisha but final report is pending No need to have any antibiotic (5) GERD (gastroesophageal reflux disease): Has been on PPI twice daily We will add Maalox as needed for dyspepsia And GI prophylaxis (6) CKD (chronic kidney disease), stage III: History of chronic kidney disease presented with [facility] Kidney function has been improving (7) Hypothyroidism: Continue replacement DVT prophylaxis Subcu Lovenox CODE STATUS Full Admission and Anticipated Discharge Date Admission Date: August 12, 2019 Anticipated date of discharge: 08/15/19 Subjective The patient was seen and examined in medical telemetry unit She was admitted with influenza and and pneumonia with acute respiratory failure Required BiPAP and likely to require BiPAP at times Feels a lot better today and has been communicating normally without any shortn ess of breath Saturating well with nasal cannula oxygen 08/14/2019 Patient was seen and examined in medical telemetry unit Her condition got worse last night with increasing desaturation and worsening x- ray findings This morning she was evaluated by stamp redemption clerk and was transferred to ICU for continued care 08/15/2019 Patient was seen and examined in ICU She is intubated and now remains in prone position Sedated on mechanical ventilator Review of Systems Review of Systems: Unobtainable due to endotracheal tube Physical Exam Physical Exam: Sedated on mechanical ventilator Constitutional: well developed, well nourished and + obese; not ill appearing Eyes: Close ENMT: external ear and nose normal, oropharynx normal Neck: trachea midline, no thyromegaly Respiratory: Auscultation: + diminished lung sounds Cardiovascular: Rate/Rhythm: regular rate and regular rhythm Heart Sounds: no murmur Extremities: + edema (1+ edema bilaterally) Gastrointestinal (Abdomen): Inspection/Auscultation: abdomen normal to inspection, + abdomen distended and normal bowel sounds Percussion/Palpation: abdomen soft; abdomen nontender Lymphatic: no cervical or axillary lymphadenopathy Results & Data ([facility]) Vital Signs (Past 12 Hours) Vital Signs Pulse Resp BP Pulse Ox 08/15/19 10:30 90 22 94 08/15/19 08:10 22 08/15/19 08:00 97 H 119/52 L 08/15/19 07:45 22 08/15/19 07:16 93 H 22 96 08/15/19 06:00 88 94 08/15/19 05:30 97 H 93 08/15/19 05:11 92 H 22 99 08/15/19 05:00 99 H 92 08/15/19 04:30 103 H 94 08/15/19 04:00 118 H 95 08/15/19 03:30 105 H 95 08/15/19 03:00 106 H 95 08/15/19 02:35 103 H 22 94 08/15/19 02:30 104 H 94 08/15/19 02:00 104 H 94 08/15/19 01:30 104 H 93 08/15/19 01:00 104 H 93 08/15/19 00:30 101 H 91 08/15/19 00:03 117 H 146/66 H 08/15/19 00:00 120 H 91 08/14/19 23:30 114 H 91 08/14/19 23:00 117 H 93 Laboratory Results Short CBC 08/14/19 08/15/19 Range/Units 11:33 01:48 WBC 13.12 H 13.48 H (4.8-10.8) K/uL Hgb 13.1 12.0 (12.0-16.0) g/dL Hct 40.8 38.8 (37-47) % Plt Count 469 H 468 H (130-400) K/uL BMP 08/14/19 08/15/19 11:33 01:48 Sodium 137 138 Potassium 4.4 D 4.3 Chloride 105 107 Carbon Dioxide 25 24 BUN 23 H 24 H Creatinine 1.01 0.90 Glucose 114 H 115 H Calcium 7.7 L 7.2 L Liver Function 08/15/19 Range/Units 01:48 Total Bilirubin 0.3 (0.2-1) mg/dl Direct Bilirubin 0.2 (0-0.2) mg/dl AST 26 (15-37) U/L ALT 20 (12-78) U/L Alkaline Phosphatase 84 (45-117) U/L Albumin 1.9 L (3.4-5.0) gm/dl Medications Administered Current Inpatient Medications Acetaminophen (Tylenol) 650 mg PO Q4H PRN PRN Reason: Pain or Fever Stop: 09/11/19 02:52 Last Admin: 08/13/19 17:22 Dose: 650 mg Documented by: Al Hydrox/Mg Hydrox/Simethicone (Maalox) 15 ml PO Q6H PRN PRN Reason: Dyspepsia Stop: 09/12/19 10:25 Last Admin: 08/13/19 17:22 Dose: 15 ml Documented by: Allopurinol (Zyloprim) 300 mg PO DAILY [facility] Stop: 09/11/19 08:59 Last Admin: 08/14/19 11:00 Dose: Not Given Documented by: Colestipol HCl (Colestid) 1 gm PO BID@1000,2200 [facility] Stop: 09/11/19 09:59 Last Admin: 08/14/19 11:01 Dose: Not Given Documented by: Dextrose (Dextrose 50%) 25 - 50 ml IV UD PRN; Protocol PRN Reason: Hypoglycemia Protocol Stop: 09/13/19 11:29 Enoxaparin Sodium (Lovenox) 50 mg SQ QAM [facility]; Protocol Stop: 09/14/19 10:59 Fentanyl Citrate (Fentanyl Bolus From Bag) 50 mcg IV Q60M PRN PRN Reason: Pain or Agitation Stop: 08/28/19 15:29 Last Admin: 08/15/19 04:05 Dose: 50 mcg Documented by: Gabapentin (Neurontin) 600 mg PO TID [facility] Stop: 09/11/19 08:59 Last Admin: 08/14/19 16:00 Dose: Not Given Documented by: Gemfibrozil (Lopid) 600 mg PO BID [facility] Stop: 09/11/19 08:59 Last Admin: 08/14/19 11:00 Dose: Not Given Documented by: Glucagon (Glucagen) 1 mg IM UD PRN; Protocol PRN Reason: Hypoglycemia Protocol Stop: 09/13/19 11:29 Glucose (Glucose 40%) 15 - 30 gm PO UD PRN; Protocol PRN Reason: Hypoglycemia Protocol Stop: 09/13/19 11:29 Glucose (Dex4 Glucose) 4 - 8 tabs PO UD PRN; Protocol PRN Reason: Hypoglycemia Protocol Stop: 09/13/19 11:29 Heparin Sodium (Beef Lung) (Heparin Sod 10 Unit/Ml Flush) 5 ml FLUSH PRN PRN PRN Reason: Flush Stop: 09/13/19 23:34 Promethazine HCl 12.5 mg/ (Sodium Chloride) 50.5 mls @ 202 mls/hr IV Q6H PRN PRN Reason: Nausea And Vomiting Stop: 09/11/19 02:52 Fentanyl Citrate (Fentanyl Drip) 1,250 mcg in 250 mls @ 15 mls/hr IV .[id number] [facility]; Protocol Stop: 08/28/19 15:29 Last Titration: 08/15/19 10:35 Dose: 75 mcg/hr, 15 mls/hr Documented by: Cisatracurium Besylate 40 mg/ (Sodium Chloride) 100 mls @ 18 mls/hr IV .[id number] [facility]; Protocol Stop: 08/17/19 15:29 Last Admin: 08/15/19 08:27 Dose: 1 mcg/kg/min, 18 mls/hr Documented by: Midazolam HCl (Versed) 125 mg in 250 mls @ 12 mls/hr IV .[id number] [facility]; Protocol Stop: 09/13/19 16:29 Last Titration: 08/15/19 10:35 Dose: 6 mg/hr, 12 mls/hr Documented by: Levothyroxine Sodium 50 mcg/ (Syringe) 2.5 mls @ 2 mls/min IV DAILY@0900 [facility] Stop: 09/14/19 08:59 Last Admin: 08/15/19 08:27 Dose: 2 mls/min Documented by: Insulin Aspart (Novolog Flexpen) 0 units SC Q6 [facility] Stop: 09/13/19 11:59 Last Admin: 08/15/19 06:25 Dose: Not Given Documented by: Ipratropium [place] (Atrovent 0.02% 0.5mg/2.5ml) 0.5 mg INH Q4R [facility] Stop: 09/13/19 02:59 Last Admin: 08/15/19 11:01 Dose: 0.5 mg Documented by: Levalbuterol HCl (Xopenex 1.25mg/0.5ml Neb) 1.25 mg INH Q4R [facility] Stop: 09/13/19 02:59 Last Admin: 08/15/19 11:01 Dose: 1.25 mg Documented by: Levothyroxine Sodium (Synthroid) 75 mcg PO DAILYBB [facility] Stop: 09/11/19 06:29 Last Admin: 08/14/19 10:59 Dose: Not Given Documented by: Loratadine (Claritin) 10 mg PO DAILY [facility] Stop: 09/11/19 08:59 Last Admin: 08/14/19 10:59 Dose: Not Given Documented by: Losartan Potassium (Cozaar) 50 mg PO DAILY [facility] Stop: 09/11/19 08:59 Last Admin: 08/12/19 08:46 Dose: 50 mg Documented by: Metoprolol Tartrate (Lopressor) 2.5 mg IV Q6 [facility] Stop: 09/14/19 00:00 Last Admin: 08/15/19 06:25 Dose: Not Given Documented by: Miconazole Nitrate (Desenex) 1 appln EXT PRN PRN PRN Reason: Affected Skin Folds Stop: 09/12/19 01:09 Last Admin: 08/14/19 08:31 Dose: 1 appln Documented by: Miscellaneous (Carbohydrates For Hypoglycemia) 15 - 30 gm PO UD PRN PRN Reason: Hypoglycemia Treatment Stop: 09/13/19 11:29 Multi-Ingredient Cream (Lacri-Lube) 1 appln OP Q2H PRN PRN Reason: Undecided Stop: 09/13/19 17:04 Last Admin: 08/14/19 20:15 Dose: 1 appln Documented by: Oseltamivir Phosphate (Tamiflu) 75 mg PO BID [facility]; Protocol Stop: 08/16/19 23:59 Last Admin: 08/14/19 20:27 Dose: 75 mg Documented by: Pantoprazole Sodium (Protonix) 40 mg PO BID [facility] Stop: 09/11/19 08:59 Last Admin: 08/14/19 20:20 Dose: 40 mg Documented by: Tramadol HCl (Ultram) 25 - 50 mg PO Q6H PRN PRN Reason: Pain Stop: 09/11/19 02:52 Last Admin: 08/13/19 19:56 Dose: 50 mg Documented by: (1) Pneumonia Laterality: bilateral Lung location: lower lobe of lung Pneumonia type: due to influenza A virus Qualified Code(s): J11.00 - Influenza due to unidentified influenza virus with unspecified type of pneumonia (2) GERD (gastroesophageal reflux disease) Esophagitis presence: esophagitis presence not specified Qualified Code(s): K21.9 - Gastro-esophageal reflux disease without esophagitis (3) Hypothyroidism Hypothyroidism type: unspecified Qualified Code(s): E03.9 - Hypothyroidism, unspecified
[2019-08-15 11:25] LABS: iSTAT Art Bld Gas pCO2 Correct 54 mmHg (35-46); iSTAT Arterial Blood Gas HCO3 26 meg/L (19-24); iSTAT Arterial Blood Gas pCO2 54 mmHg (35-46); iSTAT Arterial Blood Gas pH 7.29 (7.35-7.45); iSTAT Arterial Blood Gas pO2 108 mmHg (80-95); iSTAT Arterial Blood Gas pO2 C 108; iSTAT Carbon Dioxide 28 mmol/L (24-31); iSTAT Hematocrit 36 % (37-47); iSTAT Hemoglobin 12.2 g/dl (12.0-16.0); iSTAT Potassium 4.2 mmol/L (3.3-5.0); iSTAT Site Art Line; iSTAT Sodium 138 mmol/L (135-144)
[2019-08-15] MEDS: PANTOprazole 40 MG in SYRINGE 0 ML IV SCH ×2 (11:27→20:36)
[2019-08-15] MEDS: ENOXAPARIN INJ 60 MG/0.6 ML SYR SQ SCH (11:28)
[2019-08-15] MEDS: OSELTAMIVIR PHOSPHATE 75 MG CAP PO SCH ×2 (11:28→20:35)
[2019-08-15] MEDS ORDERED: NORMOSOL-R 500 ML IV ONE (12:35)
[2019-08-15] MEDS: PANTOprazole 40 MG TAB PO SCH (13:04)
[2019-08-15] MEDS: NORMOSOL-R 1,000 ML IV SCH (13:36)
[2019-08-15 15:57] LABS: iSTAT Art Bld Gas pCO2 Correct 58 mmHg (35-46); iSTAT Art Bld Gas pH Corrected 7.186 (7.35-7.45); iSTAT Arterial Blood Gas HCO3 22 meg/L (19-24); iSTAT Arterial Blood Gas pCO2 58 mmHg (35-46); iSTAT Arterial Blood Gas pH 7.19 (7.35-7.45); iSTAT Arterial Blood Gas pO2 82 mmHg (80-95); iSTAT Arterial Blood Gas pO2 C 83; iSTAT Carbon Dioxide 24 mmol/L (24-31); iSTAT Hematocrit 36 % (37-47); iSTAT Hemoglobin 12.2 g/dl (12.0-16.0); iSTAT Potassium 4.2 mmol/L (3.3-5.0); iSTAT Site Art Line; iSTAT Sodium 138 mmol/L (135-144)
[2019-08-15 19:43] LABS: iSTAT Art Bld Gas pCO2 Correct 48 mmHg (35-46); iSTAT Art Bld Gas pH Corrected 7.326 (7.35-7.45); iSTAT Arterial Blood Gas HCO3 25 meg/L (19-24); iSTAT Arterial Blood Gas pCO2 47 mmHg (35-46); iSTAT Arterial Blood Gas pH 7.33 (7.35-7.45); iSTAT Arterial Blood Gas pO2 75 mmHg (80-95); iSTAT Arterial Blood Gas pO2 C 76; iSTAT Carbon Dioxide 26 mmol/L (24-31); iSTAT Hematocrit 35 % (37-47); iSTAT Hemoglobin 11.9 g/dl (12.0-16.0); iSTAT Potassium 4.4 mmol/L (3.3-5.0); iSTAT Site Art Line; iSTAT Sodium 138 mmol/L (135-144)
[2019-08-15 23:56] LABS: iSTAT Art Bld Gas pCO2 Correct 47 mmHg (35-46); iSTAT Art Bld Gas pH Corrected 7.326 (7.35-7.45); iSTAT Arterial Blood Gas HCO3 25 meg/L (19-24); iSTAT Arterial Blood Gas pCO2 47 mmHg (35-46); iSTAT Arterial Blood Gas pH 7.33 (7.35-7.45); iSTAT Arterial Blood Gas pO2 58 mmHg (80-95); iSTAT Arterial Blood Gas pO2 C 58; iSTAT Carbon Dioxide 26 mmol/L (24-31); iSTAT Hematocrit 34 % (37-47); iSTAT Hemoglobin 11.6 g/dl (12.0-16.0); iSTAT Potassium 4.2 mmol/L (3.3-5.0); iSTAT Site Art Line; iSTAT Sodium 138 mmol/L (135-144)
[2019-08-16] MEDS: LEVALBUTEROL 1.25MG/0.5ML NEB INH SCH ×7 (00:11→23:51)
[2019-08-16] MEDS: IPRATROPIUM BROMIDE NEB SOLN 0.02% 2.5 ML VIAL INH SCH ×7 (00:11→23:51)
[2019-08-16] MEDS: NORMOSOL-R 1,000 ML IV SCH ×2 (00:52→15:52)
[2019-08-16] MEDS: CISATRACURIUM BESYLATE 40 MG in 0.9 % SODIUM CHLORIDE 80 ML IV SCH ×7 (00:52→20:32)
[2019-08-16] MEDS: ARTIFICIAL TEARS OP OINT 3.5 GM TUBE OP PRN ×2 (04:00→08:18)
[2019-08-16 04:35] LABS: Hematocrit (blood only) 36.7 % (37-47); Hemoglobin 11.4 g/dL (12.0-16.0); Mean Corpuscular Hgb Conc 31.1 g/dL (32-36); Mean Corpuscular Volume 96.6 fL (80-100); Mean Platelet Volume 10.4 fL (7.4-10.4); Platelet Count 507 K/uL (130-400); RDW Coefficient of Variation 15.8 % (11.5-14.5); RDW Standard Deviation 55.8 fL (36.4-46.3); White Blood Count 11.71 K/uL (4.8-10.8)
[2019-08-16] MEDS: MIDAZOLAM HCL 125 MG/250 ML BAG IV SCH ×4 (04:40→20:04)
[2019-08-16 04:50] LABS: INR 2.4 (0.9-1.1); Prothrombin Time 23.9 Seconds (9.0-12.0)
[2019-08-16 04:58] LABS: Alanine Aminotransferase 17 U/L (12-78); Albumin Level 1.8 gm/dl (3.4-5.0); Aspartate Aminotransferase 23 U/L (15-37); BUN Creatinine Ratio 31.3 (10-20); Blood Urea Nitrogen 27 mg/dl (7-18); Carbon Dioxide 24 mmol/L (21-32); Chloride 108 mmol/L (98-107); Est GFR (African American) 77.1; Est GFR (Non-African American) 66.6; Glucose 101 mg/dl (70-99); Magnesium 2.4 mg/dl (1.8-2.4); Sodium 138 mmol/L (136-145)
[2019-08-16 05:00] LABS: Alkaline Phosphatase 88 U/L (45-117); Bilirubin,Total 0.3 mg/dl (0.2-1); Total Protein 6.1 gm/dl (6.4-8.2)
[2019-08-16 05:18] LABS: Bilirubin Direct < 0.1 mg/dl (0-0.2)
[2019-08-16 05:22] LABS: Basophils # (auto) 0.04 K/uL (0-0.2); Basophils % (auto) 0.3 %; Eosinophils # (auto) 0.23 K/uL (0-0.5); Immature Granulocytes # (auto) 0.93 K/uL (0.00-0.02); Immature Granulocytes % (auto) 7.9 %; Lymphocytes # (auto) 1.06 K/uL (1.2-3.4); Lymphocytes % (auto) 9.1 %; Monocytes # (auto) 0.49 K/uL (0.11-0.59); Monocytes % (auto) 4.2 %; Neutrophils # (auto) 8.96 K/uL (1.4-6.5); Neutrophils % (auto) 76.5 %; RBC Morphology Unremarkable
[2019-08-16] MEDS: INSULIN ASPART 100 UNITS/ML 3 ML PEN SC SCH ×3 (05:54→16:07)
[2019-08-16] MEDS: METOPROLOL TARTRATE 1 MG/ML VIAL IV SCH ×3 (05:56→16:09)
[2019-08-16] MEDS ORDERED: POTASSIUM PHOS 3 MMOL/1 ML INFUSION IV STA (06:31)
--- NOTE | 2019-08-16 06:49 | Critical Care Progress Note ---
Date of Service August 16, 2019 Assessment & Plan (1) ARDS (adult respiratory distress syndrome): Elisa Mercer is a 74y/o F admitted for acute hypoxemic respiratory failure secondary to influenza a and failed outpatient treatment. Neuro: - [facility] ICU: unable to assess due to intubation and sedation - continue Nimbex - patient proned at 1200 on 08/15, will revert to supine 08/16 at 0700 Respiratory: - Acute hypoxic respiratory failure: Severe ARDS PF ratio less than 100 - Pronating protocol for 16 hours - Patient had very positive response when initially proned - Vent setting PRVC PEEP 18, FiO2 40 - temp corrected ABG 08/15 at 1323 (pH 7.309, pCO2 51.6, pO2 91), at 1611 (pH 7.299, pCO2 52.3, pO2 80) - continue Q4h ABGs - palliative consultation Cardiac/Vascular: - Tachycardia: suspect physiologic response - History hypertension: - Reviewed echo: Grade 1 diastolic dysfunction - 2.5 mg metoprolol every 6 hours IV gradual Renal/Lytes: - LZU MARIA: Resolved prior to transfer to ICU - Optimize euvolemia given PEEP requirements - Holding allopurinol given recent LUZ MRAIA - Holding gabapentin while prone - continue to monitor daily GI/Nutrition: - N.p.o. - Hyperlipidemia: holding colestipol while prone - Converting from propofol to Versed - Holding Lopid while prone - Lipase and triglycerides every 3 days: 08/14 151 - GI prophylaxis: Protonix twice daily as home medication Heme: - Leukocytosis: in the setting of recent steroid use - Thrombocytosis: likely acute phase reactant Endo: - ICU hyperglycemia protocol - Hypothyroid: continue 50 mcg IV daily ID: - Influenza A: Initially started on Tamiflu 30 mg twice daily for renal impairment increasing to 75 given progression of disease and improvement in renal function - discontinued doxycycline x3 doses - discontinued 2 g ceftriaxone x1 - discontinued 250 mg Zithromax x1 - pro-calcitonin 0.15 Lines/ IV Access: - right radial arterial line - left subclavian central venous line DVT prophylaxis: - Lovenox SQ: renally adjusted Code Status: DNR in event of cardiac arrest Admission and Anticipated Discharge Date Admission Date: August 12, 2019 Anticipated date of discharge: 08/15/19 Supervising Physician Co-Signing Physician Notes Dr. Stafford was resident physician during care of patient. I separately evaluated patient for hager portions of the history and the exam. I was present during the critical portion of medical decision making, and I discussed the case with the resident. I generally agree with the findings and plan. Patient was discussed in multidisciplinary rounds. There has not been significant improvement in the last 24 hours. We are approaching 72 hours and neuromuscular blockade, I feel it is appropriate to prone the patient for an additional 16 hours minimum. I discussed the patient's condition with her daughter. She is the daughter states she was clear that she would not want heroic measures undertaken in event of cardiac arrest, she would not want tracheostomy nor mechanical prolonged mechanical ventilation. She stated within the last 2 to 3 months her quality of life has significantly declined and that she exhibited signs of class IV heart failure with 3-4 steps was enough to make the patient short of breath. At this point we will proceed cautiously hoping for recovery however patient has continued to show minimal improvement from a respiratory standpoint and I am concerned for a poor/grim outcome. I assisted with manually prolonging the patient. Subjective Patient required increase in vent settings overnight, as she continued to be supine. This morning was repositioned into prone at noon, for final trial period of proning. Patient has been on paralytic for >48hours, with no maintained benefit from prone positioning. Review of Systems Review of Systems: Unobtainable due to endotracheal tube Physical Exam Constitutional: WD/WN, vitals as above Eyes: PERRL; no scleral abnormality and no corneal abnormality ENMT: external ear and nose normal, oropharynx normal Neck: normal visual inspection Respiratory: no labored breathing (intubated and proned) Auscultation: + diminished lung sounds (R>L) and + crackles (R>L); no rales, no rhonchi and no wheezes Cardiovascular: Rate/Rhythm: regular rate and regular rhythm Heart Sounds: normal S1 and normal S2; no gallop, no murmur and no cardiac rub Vessels: no JVD Extremities: no pedal edema Gastrointestinal (Abdomen): Inspection/Auscultation: abdomen not distended Percussion/Palpation: abdomen soft and normal to percussion Musculoskeletal: Extremities: no cyanosis and no clubbing Skin: no rashes, warm and dry Neurologic: sedated with Versed, and maintained on Nimbex Lymphatic: no cervical or axillary lymphadenopathy Results & Data ([facility]) Vital Signs (Past 12 Hours) Vital Signs Pulse Resp BP Pulse Ox Pulse Ox 08/16/19 06:18 90 22 94 08/16/19 06:00 88 94 08/16/19 05:56 89 120/53 L 08/16/19 05:30 90 94 08/16/19 05:00 93 H 93 08/16/19 04:30 99 H 94 08/16/19 04:00 91 H 91 08/16/19 03:30 92 H 91 08/16/19 03:00 94 H 90 08/16/19 02:34 90 22 96 08/16/19 02:30 96 H 90 08/16/19 02:00 93 H 90 90 08/16/19 01:30 94 H 90 08/16/19 01:00 93 H 91 08/16/19 00:30 90 91 08/16/19 00:00 80 90 08/15/19 23:47 92 H 104/48 L 08/15/19 23:30 93 H 22 89 L 08/15/19 23:00 94 H 90 08/15/19 22:30 98 H 89 L 08/15/19 22:00 102 H 91 08/15/19 21:30 103 H 94 08/15/19 21:00 111 H 90 08/15/19 20:30 116 H 91 08/15/19 20:00 115 H 91 08/15/19 19:33 101 H 22 93 08/15/19 19:30 96 H 93 08/15/19 19:00 91 H 94 Laboratory Results 08/16/19 08/16/19 08/16/19 Range/Units 05:52 03:58 03:58 WBC (4.8-10.8) K/uL RBC (4.2-5.4) M/uL Hgb (12.0-16.0) g/dL POC Hgb (12.0-16.0) g/dl Hct (37-47) % POC Hct (37-47) % MCV (80-100) fL MCH (25-34) pg MCHC (32-36) g/dL RDW Std Deviation (36.4-46.3) fL RDW Coeff of David (11.5-14.5) % Plt Count (130-400) K/uL MPV (7.4-10.4) fL Immature Gran % (Auto) % Neut % (Auto) % Lymph % (Auto) % [place] % (Auto) % Eos % (Auto) % Baso % (Auto) % Immature Gran # (Auto) (0.00-0.02) K/uL Neut # (Auto) (1.4-6.5) K/uL Lymph # (Auto) (1.2-3.4) K/uL [place] # (Auto) (0.11-0.59) K/uL Eos # (Auto) (0-0.5) K/uL Baso # (Auto) (0-0.2) K/uL RBC Morphology PT 23.9 H (9.0-12.0) Seconds INR 2.4 H (0.9-1.1) Sample Site POC pH (7.35-7.45) POC pCO2 (35-46) mmHg POC pO2 (80-95) mmHg POC HCO3 (19-24) cristy/L POC Total CO2 (24-31) mmol/L POC Base Excess (-9-1.8) cristy/L ABG pH (Temp Correct) (7.35-7.45) ABG pCO2 (Temp Corrct (35-46) mmHg POC ABG pO2 at Pt Temp Brad Test O2 Delivery Device POC O2 Rate Minute Ventilation Tidal Volume PEEP POC Sodium (135-144) mmol/L Sodium 138 (136-145) mmol/L POC Potassium (3.3-5.0) mmol/L Potassium 4.0 (3.5-5.1) mmol/L Chloride 108 H (98-107) mmol/L Carbon Dioxide 24 (21-32) mmol/L Anion Gap 6.0 (3-11) BUN 27 H (7-18) mg/dl Creatinine 0.87 (0.6-1.2) mg/dl Est Cr Clr Drug Dosing 70.0 ml/min Est GFR ( Amer) 77.1 Est GFR (Non-Af Amer) 66.6 BUN/Creatinine Ratio 31.3 H (10-20) Glucose 101 H (70-99) mg/dl POC Glucose 93 (70-99) mg/dl Calcium 7.0 L (8.5-10.1) mg/dl Phosphorus 2.0 L (2.5-4.9) mg/dl Magnesium 2.4 (1.8-2.4) mg/dl Total Bilirubin 0.3 (0.2-1) mg/dl Direct Bilirubin < 0.1 D (0-0.2) mg/dl AST 23 (15-37) U/L ALT 17 (12-78) U/L Alkaline Phosphatase 88 (45-117) U/L Total Protein 6.1 L (6.4-8.2) gm/dl Albumin 1.8 L (3.4-5.0) gm/dl 08/16/19 08/15/19 08/15/19 Range/Units 03:58 23:41 23:38 WBC 11.71 H (4.8-10.8) K/uL RBC 3.80 L (4.2-5.4) M/uL Hgb 11.4 L (12.0-16.0) g/dL POC Hgb 11.6 L (12.0-16.0) g/dl Hct 36.7 L (37-47) % POC Hct 34 L (37-47) % MCV 96.6 (80-100) fL MCH 30.0 (25-34) pg MCHC 31.1 L (32-36) g/dL RDW Std Deviation 55.8 H (36.4-46.3) fL RDW Coeff of David 15.8 H (11.5-14.5) % Plt Count 507 H (130-400) K/uL MPV 10.4 (7.4-10.4) fL Immature Gran % (Auto) 7.9 % Neut % (Auto) 76.5 % Lymph % (Auto) 9.1 % [place] % (Auto) 4.2 % Eos % (Auto) 2.0 % Baso % (Auto) 0.3 % Immature Gran # (Auto) 0.93 H (0.00-0.02) K/uL Neut # (Auto) 8.96 H (1.4-6.5) K/uL Lymph # (Auto) 1.06 L (1.2-3.4) K/uL [place] # (Auto) 0.49 (0.11-0.59) K/uL Eos # (Auto) 0.23 (0-0.5) K/uL Baso # (Auto) 0.04 (0-0.2) K/uL RBC Morphology Unremarkable PT (9.0-12.0) Seconds INR (0.9-1.1) Sample Site Art Line POC pH 7.33 L (7.35-7.45) POC pCO2 47 H (35-46) mmHg POC pO2 58 L (80-95) mmHg POC HCO3 25 H (19-24) cristy/L POC Total CO2 26 (24-31) mmol/L POC Base Excess -1.0 (-9-1.8) cristy/L ABG pH (Temp Correct) 7.326 L (7.35-7.45) ABG pCO2 (Temp Corrct 47 H (35-46) mmHg POC ABG pO2 at Pt Temp 58 Brad Test NA O2 Delivery Device Ventilator POC O2 Rate 22 Minute Ventilation 7.6 Tidal Volume 370 PEEP 16 POC Sodium 138 (135-144) mmol/L Sodium (136-145) mmol/L POC Potassium 4.2 (3.3-5.0) mmol/L Potassium (3.5-5.1) mmol/L Chloride (98-107) mmol/L Carbon Dioxide (21-32) mmol/L Anion Gap (3-11) BUN (7-18) mg/dl Creatinine (0.6-1.2) mg/dl Est Cr Clr Drug Dosing ml/min Est GFR ( Amer) Est GFR (Non-Af Amer) BUN/Creatinine Ratio (10-20) Glucose (70-99) mg/dl POC Glucose 103 H (70-99) mg/dl Calcium (8.5-10.1) mg/dl Phosphorus (2.5-4.9) mg/dl Magnesium (1.8-2.4) mg/dl Total Bilirubin (0.2-1) mg/dl Direct Bilirubin (0-0.2) mg/dl AST (15-37) U/L ALT (12-78) U/L Alkaline Phosphatase (45-117) U/L Total Protein (6.4-8.2) gm/dl Albumin (3.4-5.0) gm/dl 08/15/19 08/15/19 08/15/19 Range/Units 19:30 18:09 15:42 WBC (4.8-10.8) K/uL RBC (4.2-5.4) M/uL Hgb (12.0-16.0) g/dL POC Hgb 11.9 L 12.2 (12.0-16.0) g/dl Hct (37-47) % POC Hct 35 L 36 L (37-47) % MCV (80-100) fL MCH (25-34) pg MCHC (32-36) g/dL RDW Std Deviation (36.4-46.3) fL RDW Coeff of David (11.5-14.5) % Plt Count (130-400) K/uL MPV (7.4-10.4) fL Immature Gran % (Auto) % Neut % (Auto) % Lymph % (Auto) % [place] % (Auto) % Eos % (Auto) % Baso % (Auto) % Immature Gran # (Auto) (0.00-0.02) K/uL Neut # (Auto) (1.4-6.5) K/uL Lymph # (Auto) (1.2-3.4) K/uL [place] # (Auto) (0.11-0.59) K/uL Eos # (Auto) (0-0.5) K/uL Baso # (Auto) (0-0.2) K/uL RBC Morphology PT (9.0-12.0) Seconds INR (0.9-1.1) Sample Site Art Line Art Line POC pH 7.33 L 7.19 L* (7.35-7.45) POC pCO2 47 H 58 H (35-46) mmHg POC pO2 75 L 82 (80-95) mmHg POC HCO3 25 H 22 (19-24) cristy/L POC Total CO2 26 24 (24-31) mmol/L POC Base Excess -1.0 -6.0 (-9-1.8) cristy/L ABG pH (Temp Correct) 7.326 L 7.186 L* (7.35-7.45) ABG pCO2 (Temp Corrct 48 H 58 H (35-46) mmHg POC ABG pO2 at Pt Temp 76 83 Brad Test NA NA O2 Delivery Device Ventilator Ventilator POC O2 Rate 22 22 Minute Ventilation Tidal Volume 400 350 PEEP 18 20 POC Sodium 138 138 (135-144) mmol/L Sodium (136-145) mmol/L POC Potassium 4.4 4.2 (3.3-5.0) mmol/L Potassium (3.5-5.1) mmol/L Chloride (98-107) mmol/L Carbon Dioxide (21-32) mmol/L Anion Gap (3-11) BUN (7-18) mg/dl Creatinine (0.6-1.2) mg/dl Est Cr Clr Drug Dosing ml/min Est GFR ( Amer) Est GFR (Non-Af Amer) BUN/Creatinine Ratio (10-20) Glucose (70-99) mg/dl POC Glucose 100 H (70-99) mg/dl Calcium (8.5-10.1) mg/dl Phosphorus (2.5-4.9) mg/dl Magnesium (1.8-2.4) mg/dl Total Bilirubin (0.2-1) mg/dl Direct Bilirubin (0-0.2) mg/dl AST (15-37) U/L ALT (12-78) U/L Alkaline Phosphatase (45-117) U/L Total Protein (6.4-8.2) gm/dl Albumin (3.4-5.0) gm/dl 08/15/19 08/15/19 08/15/19 Range/Units 12:28 11:07 08:03 WBC (4.8-10.8) K/uL RBC (4.2-5.4) M/uL Hgb (12.0-16.0) g/dL POC Hgb 12.2 10.9 L (12.0-16.0) g/dl Hct (37-47) % POC Hct 36 L 32 L (37-47) % MCV (80-100) fL MCH (25-34) pg MCHC (32-36) g/dL RDW Std Deviation (36.4-46.3) fL RDW Coeff of David (11.5-14.5) % Plt Count (130-400) K/uL MPV (7.4-10.4) fL Immature Gran % (Auto) % Neut % (Auto) % Lymph % (Auto) % [place] % (Auto) % Eos % (Auto) % Baso % (Auto) % Immature Gran # (Auto) (0.00-0.02) K/uL Neut # (Auto) (1.4-6.5) K/uL Lymph # (Auto) (1.2-3.4) K/uL [place] # (Auto) (0.11-0.59) K/uL Eos # (Auto) (0-0.5) K/uL Baso # (Auto) (0-0.2) K/uL RBC Morphology PT (9.0-12.0) Seconds INR (0.9-1.1) Sample Site Art Line Art Line POC pH 7.29 L 7.40 (7.35-7.45) POC pCO2 54 H 43 (35-46) mmHg POC pO2 108 H 88 (80-95) mmHg POC HCO3 26 H 27 H (19-24) cristy/L POC Total CO2 28 28 (24-31) mmol/L POC Base Excess 0.0 2.0 H (-9-1.8) cristy/L ABG pH (Temp Correct) 7.290 L 7.403 (7.35-7.45) ABG pCO2 (Temp Corrct 54 H 43 (35-46) mmHg POC ABG pO2 at Pt Temp 108 88 Brad Test NA NA O2 Delivery Device Ventilator Ventilator POC O2 Rate 22 22 Minute Ventilation 7.1 8.2 Tidal Volume 350 400 PEEP 20 12 POC Sodium 138 136 (135-144) mmol/L Sodium (136-145) mmol/L POC Potassium 4.2 5.0 (3.3-5.0) mmol/L Potassium (3.5-5.1) mmol/L Chloride (98-107) mmol/L Carbon Dioxide (21-32) mmol/L Anion Gap (3-11) BUN (7-18) mg/dl Creatinine (0.6-1.2) mg/dl Est Cr Clr Drug Dosing ml/min Est GFR ( Amer) Est GFR (Non-Af Amer) BUN/Creatinine Ratio (10-20) Glucose (70-99) mg/dl POC Glucose 115 H (70-99) mg/dl Calcium (8.5-10.1) mg/dl Phosphorus (2.5-4.9) mg/dl Magnesium (1.8-2.4) mg/dl Total Bilirubin (0.2-1) mg/dl Direct Bilirubin (0-0.2) mg/dl AST (15-37) U/L ALT (12-78) U/L Alkaline Phosphatase (45-117) U/L Total Protein (6.4-8.2) gm/dl Albumin (3.4-5.0) gm/dl Medications Administered Current Inpatient Medications Acetaminophen (Tylenol) 650 mg PO Q4H PRN PRN Reason: Pain or Fever Stop: 09/11/19 02:52 Last Admin: 08/13/19 17:22 Dose: 650 mg Documented by: Al Hydrox/Mg Hydrox/Simethicone (Maalox) 15 ml PO Q6H PRN PRN Reason: Dyspepsia Stop: 09/12/19 10:25 Last Admin: 08/13/19 17:22 Dose: 15 ml Documented by: Allopurinol (Zyloprim) 300 mg PO DAILY [facility] Stop: 09/11/19 08:59 Last Admin: 08/14/19 11:00 Dose: Not Given Documented by: Colestipol HCl (Colestid) 1 gm PO BID@1000,2200 [facility] Stop: 09/11/19 09:59 Last Admin: 08/14/19 11:01 Dose: Not Given Documented by: Dextrose (Dextrose 50%) 25 - 50 ml IV UD PRN; Protocol PRN Reason: Hypoglycemia Protocol Stop: 09/13/19 11:29 Enoxaparin Sodium (Lovenox) 50 mg SQ QAM [facility]; Protocol Stop: 09/14/19 10:59 Last Admin: 08/15/19 11:28 Dose: 50 mg Documented by: Fentanyl Citrate (Fentanyl Bolus From Bag) 50 mcg IV Q60M PRN PRN Reason: Pain or Agitation Stop: 08/28/19 15:29 Last Admin: 08/15/19 04:05 Dose: 50 mcg Documented by: Gabapentin (Neurontin) 600 mg PO TID [facility] Stop: 09/11/19 08:59 Last Admin: 08/14/19 16:00 Dose: Not Given Documented by: Gemfibrozil (Lopid) 600 mg PO BID [facility] Stop: 09/11/19 08:59 Last Admin: 08/14/19 11:00 Dose: Not Given Documented by: Glucagon (Glucagen) 1 mg IM UD PRN; Protocol PRN Reason: Hypoglycemia Protocol Stop: 09/13/19 11:29 Glucose (Glucose 40%) 15 - 30 gm PO UD PRN; Protocol PRN Reason: Hypoglycemia Protocol Stop: 09/13/19 11:29 Glucose (Dex4 Glucose) 4 - 8 tabs PO UD PRN; Protocol PRN Reason: Hypoglycemia Protocol Stop: 09/13/19 11:29 Heparin Sodium (Beef Lung) (Heparin Sod 10 Unit/Ml Flush) 5 ml FLUSH PRN PRN PRN Reason: Flush Stop: 09/13/19 23:34 Promethazine HCl 12.5 mg/ (Sodium Chloride) 50.5 mls @ 202 mls/hr IV Q6H PRN PRN Reason: Nausea And Vomiting Stop: 09/11/19 02:52 Fentanyl Citrate (Fentanyl Drip) 1,250 mcg in 250 mls @ 20 mls/hr IV .[id number] [facility]; Protocol Stop: 08/28/19 15:29 Last Admin: 08/15/19 23:43 Dose: 100 mcg/hr, 20 mls/hr Documented by: Cisatracurium Besylate 40 mg/ (Sodium Chloride) 100 mls @ 18 mls/hr IV .[id number] [facility]; Protocol Stop: 08/17/19 15:29 Last Admin: 08/16/19 06:37 Dose: 1 mcg/kg/min, 18 mls/hr Documented by: Midazolam HCl (Versed) 125 mg in 250 mls @ 16 mls/hr IV .[id number] [facility]; Protocol Stop: 09/13/19 16:29 Last Admin: 08/16/19 04:40 Dose: 8 mg/hr, 16 mls/hr Documented by: Levothyroxine Sodium 50 mcg/ (Syringe) 2.5 mls @ 2 mls/min IV DAILY@0900 [facility] Stop: 09/14/19 08:59 Last Admin: 08/15/19 08:27 Dose: 2 mls/min Documented by: Pantoprazole Sodium 40 mg/ (Syringe) 10 mls @ 5 mls/min IV BID [facility] Stop: 09/14/19 10:59 Last Admin: 08/15/19 20:36 Dose: 5 mls/min Documented by: Parenteral Electrolytes (Normosol-R) 1,000 mls @ 80 mls/hr IV .[id number] [facility] Stop: 09/14/19 13:44 Last Admin: 08/16/19 00:52 Dose: 80 mls/hr Documented by: Potassium Phosphate 15 mmol/ (Sodium Chloride) 255 mls @ 88 mls/hr IV ONE ONE Stop: 08/16/19 09:53 Insulin Aspart (Novolog Flexpen) 0 units SC Q6 [facility] Stop: 09/13/19 11:59 Last Admin: 08/16/19 05:54 Dose: Not Given Documented by: Ipratropium [place] (Atrovent 0.02% 0.5mg/2.5ml) 0.5 mg INH Q4R [facility] Stop: 09/13/19 02:59 Last Admin: 08/16/19 02:07 Dose: 0.5 mg Documented by: Levalbuterol HCl (Xopenex 1.25mg/0.5ml Neb) 1.25 mg INH Q4R [facility] Stop: 09/13/19 02:59 Last Admin: 08/16/19 02:07 Dose: 1.25 mg Documented by: Levothyroxine Sodium (Synthroid) 75 mcg PO DAILYBB [facility] Stop: 09/11/19 06:29 Last Admin: 08/14/19 10:59 Dose: Not Given Documented by: Loratadine (Claritin) 10 mg PO DAILY [facility] Stop: 09/11/19 08:59 Last Admin: 08/14/19 10:59 Dose: Not Given Documented by: Losartan Potassium (Cozaar) 50 mg PO DAILY [facility] Stop: 09/11/19 08:59 Last Admin: 08/12/19 08:46 Dose: 50 mg Documented by: Metoprolol Tartrate (Lopressor) 2.5 mg IV Q6 [facility] Stop: 09/14/19 00:00 Last Admin: 08/16/19 05:56 Dose: 2.5 mg Documented by: Miconazole Nitrate (Desenex) 1 appln EXT PRN PRN PRN Reason: Affected Skin Folds Stop: 09/12/19 01:09 Last Admin: 08/14/19 08:31 Dose: 1 appln Documented by: Miscellaneous (Carbohydrates For Hypoglycemia) 15 - 30 gm PO UD PRN PRN Reason: Hypoglycemia Treatment Stop: 09/13/19 11:29 Multi-Ingredient Cream (Lacri-Lube) 1 appln OP Q2H PRN PRN Reason: Undecided Stop: 09/13/19 17:04 Last Admin: 08/16/19 04:00 Dose: 1 appln Documented by: Oseltamivir Phosphate (Tamiflu) 75 mg PO BID [facility]; Protocol Stop: 08/16/19 23:59 Last Admin: 08/15/19 20:35 Dose: 75 mg Documented by: Tramadol HCl (Ultram) 25 - 50 mg PO Q6H PRN PRN Reason: Pain Stop: 09/11/19 02:52 Last Admin: 08/13/19 19:56 Dose: 50 mg Documented by: Critical Care Time Critical Care Time: Yes Total Critical Care Time: 90 I have personally spent 90 minutes of critical care time in the direct management of this patient. This is a life/limb threatening event. This includes time spent evaluating patient, direct bedside care, chart review, placing orders, interpretation of diagnostic studies, discussion with consultants, patient, and/or family members regarding treatment decisions, as well as other required patient management activities. This time is exclusive of all separately billable procedures, and teaching time and separate from and in addition to any other critical care service time. Resident Activity Tracking Resident Involvement: Resident Care Provided Care Provided: Adult Hospital Medicine
[2019-08-16] MEDS ORDERED: POTASSIUM PHOSPHATE 15 MMOL in SODIUM CHLORIDE 0.9% 250 ML IV ONE (07:00)
--- NOTE | 2019-08-16 07:01 | XRay Report ---
XR chest 1V portable CLINICAL HISTORY: intubation tube position COMPARISON STUDY: 08/15/2019 FINDINGS: Endotracheal tube 4 cm above the jacey. Slight improvement in aeration right pulmonary ape x. Mental study is similar. IMPRESSION: 1. Endotracheal tube 4 cm above the jacey. 2. Slight improvement in consolidative change right pulmonary apex as well as right base. ACT 112: Negative or not required by law. The above report was generated using voice recognition software. It may contain grammatical, syntax or spelling errors. Electronically signed by: Pawan Avalos M.D. 08/16/2019 6:59 AM
[2019-08-16] MEDS: ENOXAPARIN INJ 60 MG/0.6 ML SYR SQ SCH (08:17)
[2019-08-16] MEDS: PANTOprazole 40 MG in SYRINGE 0 ML IV SCH ×2 (08:17→20:03)
[2019-08-16] MEDS: OSELTAMIVIR PHOSPHATE 75 MG CAP PO SCH (08:17)
[2019-08-16] MEDS: MICONAZOLE NITRATE POWDER 43 GM EXT PRN (08:18)
[2019-08-16] MEDS: LEVOTHYROXINE SODIUM 50 MCG in SYRINGE 0 ML IV SCH (08:46)
[2019-08-16] MEDS ORDERED: ENOXAPARIN INJ 60 MG/0.6 ML SYR SQ SCH (09:00)
[2019-08-16] MEDS ORDERED: ACETAMINOPHEN 325 MG SUPP PR PRN (10:46)
--- NOTE | 2019-08-16 11:58 | Hospitalist Progress Note ---
Date of Service August 16, 2019 Assessment & Plan (1) ARDS (adult respiratory distress syndrome): The patient was transferred to ICU and is now intubated and sedated ARDS is secondary to influenza No definite signs of bacterial pneumonia and has not been getting any antibiotic Appreciate it analyst input and recommendation Condition deteriorated with worsening chest x-ray findings Remains stable but critical (2) Acute hypoxemic respiratory failure: Admitted with acute hypoxic respiratory failure secondary to influenza A and pneumonia likely viral Has been getting intravenous antibiotics with them ceftriaxone and azithromycin for now Received Zosyn and ceftaroline before Appreciate pulmonary input and recommendation Steroids have been discontinued Clinically worse with increasing desaturation, increasing shortness of breath and worsening chest x-ray findings ABG did show low oxygen at 62 Ceftriaxone has been changed to intravenous Zosyn She will be moved to ICU for continued care and may need intubation to maintain saturation Antibiotics have been stopped Ventilation management as per it analyst (3) Influenza A: Has been on Tamiflu (4) Pneumonia: Likely viral pneumonia Has been on antibiotic to cover the possibilities of bacterial pneumonia Blood cultures have been negative Sputum culture is pending-light normal trisha but final report is pending No need to have any antibiotic White count remains normal and no fever no chills (5) GERD (gastroesophageal reflux disease): Has been on PPI twice daily We will add Maalox as needed for dyspepsia And GI prophylaxis (6) CKD (chronic kidney disease), stage III: History of chronic kidney disease presented with LUZ MARIA Kidney function has been improving (7) Hypothyroidism: Continue replacement DVT prophylaxis Subcu Lovenox CODE STATUS Changed to DNR/DNI Admission and Anticipated Discharge Date Admission Date: August 12, 2019 Anticipated date of discharge: 08/15/19 Subjective The patient was seen and examined in medical telemetry unit She was admitted with influenza and and pneumonia with acute respiratory failure Required BiPAP and likely to require BiPAP at times Feels a lot better today and has been communicating normally without any shortness of breath Saturating well with nasal cannula oxygen 08/14/2019 Patient was seen and examined in medical telemetry unit Her condition got worse last night with increasing desaturation and worsening x- ray findings This morning she was evaluated by high speed warper tender and was transferred to ICU for continued care 08/15/2019 Patient was seen and examined in ICU She is intubated and now remains in prone position Sedated on mechanical ventilator 08/16/2019 The patient is seen and examined in ICU She remains intubated and the condition seems to be deteriorated She has been made DNR/DNI Review of Systems Review of Systems: Unobtainable due to endotracheal tube Physical Exam Physical Exam: Sedated on mechanical ventilator Constitutional: well developed, well nourished and + obese; not ill appearing Eyes: PERRL, conjunctivae normal, anicteric sclerae ENMT: external ear and nose normal, oropharynx normal Neck: trachea midline, no thyromegaly Respiratory: Auscultation: + diminished lung sounds (With crackles on right side) Cardiovascular: Rate/Rhythm: regular rate and regular rhythm Heart Sounds: no murmur Extremities: + edema (1+ edema bilaterally) Gastrointestinal (Abdomen): Inspection/Auscultation: abdomen normal to inspection, + abdomen distended and normal bowel sounds Percussion/Palpation: abdomen soft; abdomen nontender Neurologic: Sedated on mechanical ventilator Lymphatic: no cervical or axillary lymphadenopathy Results & Data ([facility]) Vital Signs (Past 12 Hours) Vital Signs Pulse Pulse Resp BP Pulse Ox Pulse Ox 08/16/19 11:36 106 H 180/84 H 20 11:00 94 H 95 2020 10:30 92 H 94 20/20 10:19 88 87 22 95 20/20 10:00 88 94 2020 09:30 87 94 20/20 09:00 90 94 20/20 08:30 90 94 20/20 08:00 94 H 93 20/20 07:16 95 H 22 95 20/20 07:00 92 H 95 20/20 06:18 90 22 94 20/20 06:00 88 94 20/20 05:56 89 120/53 L 20/20 05:30 90 94 20/20 05:00 93 H 93 20/20 04:30 99 H 94 2020 04:00 91 H 91 2020 03:30 92 H 91 20/20 03:00 94 H 90 20 02:34 90 22 96 20/20 02:30 96 H 90 20 02:00 93 H 90 90 2020 01:30 94 H 90 2020 01:00 93 H 91 08/16/19 00:30 90 91 08/16/19 00:00 80 90 08/15/19 23:47 92 H 104/48 L Laboratory Results Short CBC 08/16/19 Range/Units 03:58 WBC 11.71 H (4.8-10.8) K/uL Hgb 11.4 L (12.0-16.0) g/dL Hct 36.7 L (37-47) % Plt Count 507 H (130-400) K/uL BMP 08/16/19 03:58 Sodium 138 Potassium 4.0 Chloride 108 H Carbon Dioxide 24 BUN 27 H Creatinine 0.87 Glucose 101 H Calcium 7.0 L Liver Function 08/16/19 Range/Units 03:58 Total Bilirubin 0.3 (0.2-1) mg/dl Direct Bilirubin < 0.1 D (0-0.2) mg/dl AST 23 (15-37) U/L ALT 17 (12-78) U/L Alkaline Phosphatase 88 (45-117) U/L Albumin 1.8 L (3.4-5.0) gm/dl Medications Administered Current Inpatient Medications Acetaminophen (Tylenol) 325 mg MO Q4H PRN PRN Reason: PAIN OR FEVER Stop: 09/15/19 10:45 Al Hydrox/Mg Hydrox/Simethicone (Maalox) 15 ml PO Q6H PRN PRN Reason: Dyspepsia Stop: 09/12/19 10:25 Last Admin: 08/13/19 17:22 Dose: 15 ml Documented by: Allopurinol (Zyloprim) 300 mg PO DAILY [facility] Stop: 09/11/19 08:59 Last Admin: 08/14/19 11:00 Dose: Not Given Documented by: Colestipol HCl (Colestid) 1 gm PO BID@1000,2200 [facility] Stop: 09/11/19 09:59 Last Admin: 08/14/19 11:01 Dose: Not Given Documented by: Dextrose (Dextrose 50%) 25 - 50 ml IV UD PRN; Protocol PRN Reason: Hypoglycemia Protocol Stop: 09/13/19 11:29 Enoxaparin Sodium (Lovenox) 60 mg SQ QAM [facility] Stop: 09/16/19 08:59 Fentanyl Citrate (Fentanyl Bolus From Bag) 50 mcg IV Q60M PRN PRN Reason: Pain or Agitation Stop: 08/28/19 15:29 Last Admin: 08/15/19 04:05 Dose: 50 mcg Documented by: Gabapentin (Neurontin) 600 mg PO TID [facility] Stop: 09/11/19 08:59 Last Admin: 08/14/19 16:00 Dose: Not Given Documented by: Gemfibrozil (Lopid) 600 mg PO BID [facility] Stop: 09/11/19 08:59 Last Admin: 08/14/19 11:00 Dose: Not Given Documented by: Glucagon (Glucagen) 1 mg IM UD PRN; Protocol PRN Reason: Hypoglycemia Protocol Stop: 09/13/19 11:29 Glucose (Glucose 40%) 15 - 30 gm PO UD PRN; Protocol PRN Reason: Hypoglycemia Protocol Stop: 09/13/19 11:29 Glucose (Dex4 Glucose) 4 - 8 tabs PO UD PRN; Protocol PRN Reason: Hypoglycemia Protocol Stop: 09/13/19 11:29 Heparin Sodium (Beef Lung) (Heparin Sod 10 Unit/Ml Flush) 5 ml FLUSH PRN PRN PRN Reason: Flush Stop: 09/13/19 23:34 Promethazine HCl 12.5 mg/ (Sodium Chloride) 50.5 mls @ 202 mls/hr IV Q6H PRN PRN Reason: Nausea And Vomiting Stop: 09/11/19 02:52 Fentanyl Citrate (Fentanyl Drip) 1,250 mcg in 250 mls @ 20 mls/hr IV .[id number] [facility]; Protocol Stop: 08/28/19 15:29 Last Titration: 08/16/19 07:02 Dose: 100 mcg/hr, 20 mls/hr Documented by: Cisatracurium Besylate 40 mg/ (Sodium Chloride) 100 mls @ 18 mls/hr IV .[id number] [facility]; Protocol Stop: 08/17/19 16:00 Last Titration: 08/16/19 07:02 Dose: 1 mcg/kg/min, 18 mls/hr Documented by: Midazolam HCl (Versed) 125 mg in 250 mls @ 16 mls/hr IV .[id number] [facility]; Protocol Stop: 09/13/19 16:29 Last Admin: 08/16/19 07:30 Dose: Not Given Documented by: Levothyroxine Sodium 50 mcg/ (Syringe) 2.5 mls @ 2 mls/min IV DAILY@0900 [facility] Stop: 09/14/19 08:59 Last Admin: 08/16/19 08:46 Dose: 2 mls/min Documented by: Pantoprazole Sodium 40 mg/ (Syringe) 10 mls @ 5 mls/min IV BID [facility] Stop: 09/14/19 10:59 Last Admin: 08/16/19 08:17 Dose: 5 mls/min Documented by: Parenteral Electrolytes (Normosol-R) 1,000 mls @ 80 mls/hr IV .[id number] [facility] Stop: 09/14/19 13:44 Last Admin: 08/16/19 00:52 Dose: 80 mls/hr Documented by: Insulin Aspart (Novolog Flexpen) 0 units SC Q6 [facility] Stop: 09/13/19 11:59 Last Admin: 08/16/19 05:54 Dose: Not Given Documented by: Ipratropium [place] (Atrovent 0.02% 0.5mg/2.5ml) 0.5 mg INH Q4R [facility] Stop: 09/13/19 02:59 Last Admin: 08/16/19 10:17 Dose: 0.5 mg Documented by: Levalbuterol HCl (Xopenex 1.25mg/0.5ml Neb) 1.25 mg INH Q4R [facility] Stop: 09/13/19 02:59 Last Admin: 08/16/19 10:17 Dose: 1.25 mg Documented by: Levothyroxine Sodium (Synthroid) 75 mcg PO DAILYBB [facility] Stop: 09/11/19 06:29 Last Admin: 08/14/19 10:59 Dose: Not Given Documented by: Loratadine (Claritin) 10 mg PO DAILY [facility] Stop: 09/11/19 08:59 Last Admin: 08/14/19 10:59 Dose: Not Given Documented by: Losartan Potassium (Cozaar) 50 mg PO DAILY [facility] Stop: 09/11/19 08:59 Last Admin: 08/12/19 08:46 Dose: 50 mg Documented by: Metoprolol Tartrate (Lopressor) 2.5 mg IV Q6 [facility] Stop: 09/14/19 00:00 Last Admin: 08/16/19 11:36 Dose: 2.5 mg Documented by: Miconazole Nitrate (Desenex) 1 appln EXT PRN PRN PRN Reason: Affected Skin Folds Stop: 09/12/19 01:09 Last Admin: 08/16/19 08:18 Dose: 1 appln Documented by: Miscellaneous (Carbohydrates For Hypoglycemia) 15 - 30 gm PO UD PRN PRN Reason: Hypoglycemia Treatment Stop: 09/13/19 11:29 Multi-Ingredient Cream (Lacri-Lube) 1 appln OP Q2H PRN PRN Reason: Undecided Stop: 09/13/19 17:04 Last Admin: 08/16/19 08:18 Dose: 1 appln Documented by: Oseltamivir Phosphate (Tamiflu) 75 mg PO BID [facility]; Protocol Stop: 08/21/19 21:01 Tramadol HCl (Ultram) 25 - 50 mg PO Q6H PRN PRN Reason: Pain Stop: 09/11/19 02:52 Last Admin: 08/13/19 19:56 Dose: 50 mg Documented by: (1) Pneumonia Laterality: bilateral Lung location: lower lobe of lung Pneumonia type: due to influenza A virus Qualified Code(s): J11.00 - Influenza due to unidentified influenza virus with unspecified type of pneumonia (2) GERD (gastroesophageal reflux disease) Esophagitis presence: esophagitis presence not specified Qualified Code(s): K21.9 - Gastro-esophageal reflux disease without esophagitis (3) Hypothyroidism Hypothyroidism type: unspecified Qualified Code(s): E03.9 - Hypothyroidism, unspecified
[2019-08-16] MEDS: fentaNYL DRIP 1,250 MCG/250 ML BAG IV SCH ×3 (12:27→22:43)
--- NOTE | 2019-08-16 14:55 | Palliative Care Consultation ---
Date of Consultation August 16, 2019 Assessment & Plan (1) Palliative care encounter: Patient is a 74-year-old female with a past medical history significant for hypertension, HLD, osteoarthritis, hypothyroidism, chronic kidney disease, chronic joint and back pain and morbid obesity-BMI 49.2 who presented to the emergency room on 08/11 with increasing shortness of breath. Patient had been seen by her PCP 5 days prior and placed on Zithromax and prednisone for suspected bronchitis. Patient was admitted and treated for possible PNA - failed outpt treatment. Pt was started on IV antibiotics and Solumedrol. She was found to be positive for Flu A - IV antibiotics and steroids were weaned off. Pt required intubation for worsening resp failure - she has now been intubated for 48 hours. pt required prone positioning X 16 hours - when positioned supine, her oxygenation worsened and she was again placed prone. Met with daughter , Lamar as well as ICU attending, Dr Preciado in the ICU to discuss pt's current status, prognosis and to discuss goals of care. Daughter reported that pt's functional status was not very good prior to this illness. Pt would get short of breath and require rest with going up 4 steps. She had decreased her outside activities over the past 3 months. Daughter reports she could not sleep at night in bed, but would nap in a recliner during the afternoon. She always wanted to help her friends and family and did not want help herself. She is to her second , and he is not in good health. Pt did state she wanted her daughter , Lamar , to make medical decisions for her prior to intubation. After discussion with Dr Preciado, daughter would like to see how pt does over the next 48 hours and then make decision regarding further care at that time. She plans to speak with her brother and pt's . Daughter did mention pt using O2 at home, but no BiPAP or CPAP. Daughter reports pt cared for her and put her own health needs on hold. Daughter also stated that pt would not want to cont living with a poor quality of life and would never want trach or prolonged ventilation. Current Code Status is DNR. - Goals of care - cont current treatment - reassess at 24 and 48 hours - further decisions depending on progress - ARDS - requiring prone position - daughter aware of severity of her current condition - Resp failure - intubated - Flu A - on Tamiflu - Obesity - contributing to her baseline resp status Will cont to follow and provide support to family (2) ARDS (adult respiratory distress syndrome): (3) Acute hypoxemic respiratory failure: (4) Influenza A: (5) Morbid obesity with BMI of 40.0-44.9, adult: History of Present Illness Reason for Consultation: Address goals of care with patient's POA Requesting Physician: Dr. Stafford Attending Physician: Joshua Martel MD History of Present Illness Patient is a 74-year-old female with a past medical history significant for hypertension, HLD, osteoarthritis, hypothyroidism, chronic kidney disease, chronic joint and back pain and morbid obesity-BMI 49.2 who presented to the emergency room on 08/11 with increasing shortness of breath. Patient had been seen by her PCP 5 days prior and placed on Zithromax and prednisone for suspected bronchitis. Patient was admitted and treated for possible PNA - failed outpt treatment. Pt was started on IV antibiotics and Solumedrol. She was found to be positive for Flu A - IV antibiotics and steroids were weaned off. Pt required intubation for worsening resp failure - she has now been intubated for 48 hours. pt required prone positioning X 16 hours - when positioned supine, her oxygenation worsened and she was again placed prone. Met with daughter , Lamar as well as ICU attending, Dr Preciado in the ICU to discuss pt's current status, prognosis and to discuss goals of care. Daughter reported that pt's functional status was not very good prior to this illness. Pt would get short of breath and require rest with going up 4 steps. She had decreased her outside activities over the past 3 months. Daughter reports she could not sleep at night in bed, but would nap in a recliner during the afternoon. She always wanted to help her friends and family and did not want help herself. She is to her second , and he is not in good health. Pt did state she wanted her daughter , Lamar , to make medical decisions for her prior to intubation. After discussion with Dr Preciado, daughter would like to see how pt does over the next 48 hours and then make decision regarding further care at that time. She plans to speak with her brother and pt's . Daughter did mention pt using O2 at home, but no BiPAP or CPAP. Daughter reports pt cared for her and put her own health needs on hold. Daughter also stated that pt would not want to cont living with a poor quality of life and would never want trach or prolonged ventilation. Current Code Status is DNR. Allergies Allergy/AdvReac Type Severity Reaction Status Date / Time Penicillins AdvReac Mild YEAST Verified 08/11/19 21:43 INFECTION tetanus and diphtheria AdvReac Gastrointestinal Verified 08/11/19 22:15 toxoids Upset Home Medications Home Medications Medication Instructions Recorded Confirmed Type allopurinol [Zyloprim] 300 mg PO DAILY 08/11/19 08/11/19 History azithromycin [Zithromax Z-Miki] 250 mg PO DAILY 08/11/19 08/11/19 History calcium carbonate-vitamin D3 1 tab PO BID 08/11/19 08/11/19 History [Calcium 600 with Vitamin D3] colestipol 1 g PO BID 08/11/19 08/11/19 History fluconazole 150 mg PO .Q3DAYS 08/11/19 08/11/19 History fluticasone propionate 2 spray INTRANASAL DAILY 08/11/19 08/11/19 History gabapentin [Neurontin] 600 mg PO TID 08/11/19 08/11/19 History gemfibrozil 600 mg PO BID 08/11/19 08/11/19 History levothyroxine [Synthroid] 75 mcg PO DAILY 08/11/19 08/11/19 History loratadine [Claritin] 10 mg PO DAILY 08/11/19 08/11/19 History losartan 50 mg PO DAILY 08/11/19 08/11/19 History magnesium oxide 400 mg PO DAILY 08/11/19 08/11/19 History meloxicam [Mobic] 15 mg PO DAILY 08/11/19 08/11/19 History omeprazole 20 mg PO BID 08/11/19 08/11/19 History prednisone 5 mg PO DAILY 08/11/19 08/11/19 History prednisone 10 mg PO .TAPER UD 08/11/19 08/11/19 History riboflavin (vitamin B2) 200 mg PO BID 08/11/19 08/11/19 History sumatriptan succinate 100 mg PO UD PRN 08/11/19 08/11/19 History tramadol 50 mg PO Q8 PRN 08/11/19 08/11/19 History Patient History Medical History CKD (chronic kidney disease), stage III (Chronic) GERD (gastroesophageal reflux disease) (Chronic) HTN (hypertension) (Chronic) Hyperlipidemia (Chronic) Hypothyroidism (Chronic) Morbid obesity with BMI of 40.0-44.9, adult (Chronic) Social History Preferred Language: Iranian Communication Ability: Effective Business Services Analyst Required: No Beliefs That Will Affect Care: None Current Living Situation: Spouse Feels Safe at Home: Yes Safety Concerns: Feels Safe At This Time Smoking Status: Never smoker Hx Alcohol Use: No Hx Substance Use: No Review of Systems Review of Systems: Unobtainable due to endotracheal tube Physical Exam Physical Exam: PE: pt sedated, intubated and in prone position Resp: intubated, vent dependent , + rhonchi bilaterally CV: RR, no edema Skin: warm to touch Results & Data Vital Signs (Past 12 Hours) Vital Signs Pulse Pulse Resp BP Pulse Ox 08/16/19 14:31 88 22 98 08/16/19 14:25 22 08/16/19 14:00 88 96 08/16/19 13:30 89 95 08/16/19 13:28 89 22 95 08/16/19 13:00 91 H 95 08/16/19 12:30 101 H 94 08/16/19 12:00 98 H 22 92 08/16/19 11:36 106 H 180/84 H 08/16/19 11:30 101 H 95 08/16/19 11:00 94 H 95 08/16/19 10:30 92 H 94 08/16/19 10:19 88 87 22 95 08/16/19 10:00 88 94 08/16/19 09:30 87 94 08/16/19 09:00 90 94 08/16/19 08:30 90 94 08/16/19 08:00 94 H 22 93 08/16/19 07:16 95 H 22 95 08/16/19 07:00 92 H 95 08/16/19 06:18 90 22 94 08/16/19 06:00 88 94 08/16/19 05:56 89 120/53 L 08/16/19 05:30 90 94 08/16/19 05:00 93 H 93 08/16/19 04:30 99 H 94 08/16/19 04:00 91 H 91 08/16/19 03:30 92 H 91 08/16/19 03:00 94 H 90 PG Care Time/CCT Total # of Minutes Spent Total Time Spent with Patient: Total time spent 70 min with greater than 50% of time spent with pt and family in ICU unit Coding Level of Care Code 92108 Inpt Consult Level 3 Diagnoses Palliative care encounter Z51.5 ARDS (adult respiratory distress syndrome) J80 Acute hypoxemic respiratory failure J96.01 Influenza A J10.1 Morbid obesity with BMI of 40.0-44.9, adult E66.01; Z68.41 Time Spent (min) 70
--- NOTE | 2019-08-16 19:06 | Billing Data ---
Date of Service August 15, 2019 Coding Level of Care Code Critical Care ea addt'l 30 min Time Spent (min) 85
--- NOTE | 2019-08-16 19:06 | Billing Data ---
Date of Service August 16, 2019 Coding Level of Care Code Critical Care ea addt'l 30 min
[2019-08-16] MEDS: OSELTAMIVIR PHOSPHATE SUSP 75 MG/12.5 ML UDP PO SCH (20:03)
[2019-08-17] MEDS: METOPROLOL TARTRATE 1 MG/ML VIAL IV SCH ×5 (00:06→23:52)
[2019-08-17] MEDS: INSULIN ASPART 100 UNITS/ML 3 ML PEN SC SCH ×5 (00:35→23:52)
[2019-08-17] MEDS: CISATRACURIUM BESYLATE 40 MG in 0.9 % SODIUM CHLORIDE 80 ML IV SCH ×5 (01:12→10:56)
[2019-08-17 01:57] LABS: iSTAT Art Bld Gas pCO2 Correct 52 mmHg (35-46); iSTAT Art Bld Gas pH Corrected 7.299 (7.35-7.45); iSTAT Arterial Blood Gas HCO3 26 meg/L (19-24); iSTAT Arterial Blood Gas pCO2 52 mmHg (35-46); iSTAT Arterial Blood Gas pO2 79 mmHg (80-95); iSTAT Arterial Blood Gas pO2 C 80; iSTAT Carbon Dioxide 27 mmol/L (24-31); iSTAT Hematocrit 34 % (37-47); iSTAT Hemoglobin 11.6 g/dl (12.0-16.0); iSTAT Potassium 4.1 mmol/L (3.3-5.0); iSTAT Site Art Line; iSTAT Sodium 138 mmol/L (135-144)
[2019-08-17 01:57] LABS: iSTAT Art Bld Gas pCO2 Correct 49 mmHg (35-46); iSTAT Art Bld Gas pH Corrected 7.323 (7.35-7.45); iSTAT Arterial Blood Gas HCO3 25 meg/L (19-24); iSTAT Arterial Blood Gas pCO2 49 mmHg (35-46); iSTAT Arterial Blood Gas pH 7.32 (7.35-7.45); iSTAT Arterial Blood Gas pO2 83 mmHg (80-95); iSTAT Arterial Blood Gas pO2 C 83; iSTAT Carbon Dioxide 27 mmol/L (24-31); iSTAT Hematocrit 32 % (37-47); iSTAT Hemoglobin 10.9 g/dl (12.0-16.0); iSTAT Potassium 3.9 mmol/L (3.3-5.0); iSTAT Site Art Line; iSTAT Sodium 138 mmol/L (135-144)
[2019-08-17 01:57] LABS: iSTAT Art Bld Gas pCO2 Correct 47 mmHg (35-46); iSTAT Arterial Blood Gas HCO3 28 meg/L (19-24); iSTAT Arterial Blood Gas pCO2 48 mmHg (35-46); iSTAT Arterial Blood Gas pH 7.38 (7.35-7.45); iSTAT Arterial Blood Gas pO2 81 mmHg (80-95); iSTAT Arterial Blood Gas pO2 C 80; iSTAT Carbon Dioxide 29 mmol/L (24-31); iSTAT Hematocrit 30 % (37-47); iSTAT Hemoglobin 10.2 g/dl (12.0-16.0); iSTAT Potassium 5.2 mmol/L (3.3-5.0); iSTAT Site Art Line; iSTAT Sodium 137 mmol/L (135-144)
[2019-08-17 01:57] LABS: iSTAT Art Bld Gas pCO2 Correct 46 mmHg (35-46); iSTAT Art Bld Gas pH Corrected 7.336 (7.35-7.45); iSTAT Arterial Blood Gas HCO3 25 meg/L (19-24); iSTAT Arterial Blood Gas pCO2 46 mmHg (35-46); iSTAT Arterial Blood Gas pH 7.34 (7.35-7.45); iSTAT Arterial Blood Gas pO2 60 mmHg (80-95); iSTAT Arterial Blood Gas pO2 C 60; iSTAT Carbon Dioxide 26 mmol/L (24-31); iSTAT Hematocrit 33 % (37-47); iSTAT Hemoglobin 11.2 g/dl (12.0-16.0); iSTAT Potassium 4.1 mmol/L (3.3-5.0); iSTAT Site Art Line; iSTAT Sodium 138 mmol/L (135-144)
[2019-08-17 01:57] LABS: iSTAT Art Bld Gas pCO2 Correct 52 mmHg (35-46); iSTAT Art Bld Gas pH Corrected 7.309 (7.35-7.45); iSTAT Arterial Blood Gas HCO3 26 meg/L (19-24); iSTAT Arterial Blood Gas pCO2 51 mmHg (35-46); iSTAT Arterial Blood Gas pH 7.32 (7.35-7.45); iSTAT Arterial Blood Gas pO2 89 mmHg (80-95); iSTAT Arterial Blood Gas pO2 C 91; iSTAT Carbon Dioxide 27 mmol/L (24-31); iSTAT Hematocrit 32 % (37-47); iSTAT Hemoglobin 10.9 g/dl (12.0-16.0); iSTAT Potassium 4.2 mmol/L (3.3-5.0); iSTAT Site Art Line; iSTAT Sodium 138 mmol/L (135-144)
[2019-08-17 01:57] LABS: iSTAT Art Bld Gas pCO2 Correct 54 mmHg (35-46); iSTAT Art Bld Gas pH Corrected 7.293 (7.35-7.45); iSTAT Arterial Blood Gas HCO3 26 meg/L (19-24); iSTAT Arterial Blood Gas pCO2 54 mmHg (35-46); iSTAT Arterial Blood Gas pH 7.29 (7.35-7.45); iSTAT Arterial Blood Gas pO2 90 mmHg (80-95); iSTAT Arterial Blood Gas pO2 C 90; iSTAT Carbon Dioxide 28 mmol/L (24-31); iSTAT Hematocrit 36 % (37-47); iSTAT Hemoglobin 12.2 g/dl (12.0-16.0); iSTAT Potassium 4.1 mmol/L (3.3-5.0); iSTAT Site Art Line; iSTAT Sodium 138 mmol/L (135-144)
[2019-08-17] MEDS: LEVALBUTEROL 1.25MG/0.5ML NEB INH SCH ×6 (03:57→23:45)
[2019-08-17] MEDS: IPRATROPIUM BROMIDE NEB SOLN 0.02% 2.5 ML VIAL INH SCH ×6 (03:57→23:44)
[2019-08-17 04:23] LABS: Hematocrit (blood only) 34.9 % (37-47); Hemoglobin 10.9 g/dL (12.0-16.0); Mean Corpuscular Hemoglobin 29.6 pg (25-34); Mean Corpuscular Hgb Conc 31.2 g/dL (32-36); Mean Corpuscular Volume 94.8 fL (80-100); Platelet Count 546 K/uL (130-400); Red Blood Count 3.68 M/uL (4.2-5.4); White Blood Count 11.31 K/uL (4.8-10.8)
[2019-08-17 04:24] LABS: Prothrombin Time 29.5 Seconds (9.0-12.0)
[2019-08-17 04:25] LABS: iSTAT Art Bld Gas pCO2 Correct 51 mmHg (35-46); iSTAT Art Bld Gas pH Corrected 7.314 (7.35-7.45); iSTAT Arterial Blood Gas HCO3 26 meg/L (19-24); iSTAT Arterial Blood Gas pCO2 52 mmHg (35-46); iSTAT Arterial Blood Gas pH 7.31 (7.35-7.45); iSTAT Arterial Blood Gas pO2 84 mmHg (80-95); iSTAT Arterial Blood Gas pO2 C 82; iSTAT Carbon Dioxide 28 mmol/L (24-31); iSTAT Hematocrit 30 % (37-47); iSTAT Hemoglobin 10.2 g/dl (12.0-16.0); iSTAT Potassium 3.8 mmol/L (3.3-5.0); iSTAT Site Art Line; iSTAT Sodium 137 mmol/L (135-144)
[2019-08-17 04:36] LABS: Alanine Aminotransferase 18 U/L (12-78); Albumin Level 1.5 gm/dl (3.4-5.0); BUN Creatinine Ratio 28.9 (10-20); Bilirubin Direct < 0.1 mg/dl (0-0.2); Blood Urea Nitrogen 18 mg/dl (7-18); Calcium 6.5 mg/dl (8.5-10.1); Carbon Dioxide 27 mmol/L (21-32); Chloride 110 mmol/L (98-107); Creatinine Clr Calc Pharmacy 96.5 ml/min; Est GFR (African American) 103.9; Est GFR (Non-African American) 89.6; Glucose 91 mg/dl (70-99); Magnesium 2.3 mg/dl (1.8-2.4); Potassium 3.9 mmol/L (3.5-5.1); Sodium 141 mmol/L (136-145)
[2019-08-17 04:38] LABS: Alkaline Phosphatase 117 U/L (45-117); Aspartate Aminotransferase 24 U/L (15-37); Bilirubin,Total 0.3 mg/dl (0.2-1); Phosphorus 1.6 mg/dl (2.5-4.9); Total Protein 5.8 gm/dl (6.4-8.2)
[2019-08-17 04:55] LABS: Basophils # (auto) 0.05 K/uL (0-0.2); Basophils % (auto) 0.4 %; Eosinophils # (auto) 0.39 K/uL (0-0.5); Eosinophils % (auto) 3.4 %; Immature Granulocytes # (auto) 1.06 K/uL (0.00-0.02); Immature Granulocytes % (auto) 9.4 %; Lymphocytes # (auto) 0.76 K/uL (1.2-3.4); Lymphocytes % (auto) 6.7 %; Monocytes # (auto) 0.64 K/uL (0.11-0.59); Monocytes % (auto) 5.7 %; Neutrophils # (auto) 8.41 K/uL (1.4-6.5); Neutrophils % (auto) 74.4 %
[2019-08-17] MEDS: NORMOSOL-R 1,000 ML IV SCH ×2 (05:03→15:43)
[2019-08-17] MEDS ORDERED: POTASSIUM PHOS 3 MMOL/1 ML INFUSION IV STA (05:34)
[2019-08-17] MEDS ORDERED: POTASSIUM PHOSPHATE 15 MMOL in SODIUM CHLORIDE 0.9% 250 ML IV ONE (06:00)
[2019-08-17] MEDS: fentaNYL DRIP 1,250 MCG/250 ML BAG IV SCH ×4 (06:23→23:38)
--- NOTE | 2019-08-17 06:40 | Critical Care Progress Note ---
Date of Service August 17, 2019 Assessment & Plan (1) ARDS (adult respiratory distress syndrome): Elisa Mercer is a 74y/o F admitted for acute hypoxemic respiratory failure secondary to influenza a and failed outpatient treatment. Neuro: - [facility] ICU: unable to assess due to intubation and sedation - continue Nimbex until 1600 08/16 - reverted to supine 08/16 at 0700 Respiratory: - Acute hypoxic respiratory failure: Severe ARDS PF ratio less than 100 - Pronating protocol for 16 hours - Patient had very positive response when initially proned - Vent setting PRVC PEEP 18, FiO2 40 - temp corrected ABG 08/16 at 0407 (pH 7.314, pCO2 52, pO2 82), 0813 (pH 7.339, pCO2 45.9, pO2 61) - continue Q4h ABGs - palliative consultation Cardiac/Vascular: - Tachycardia: suspect physiologic response - Reviewed echo: Grade 1 diastolic dysfunction - 2.5 mg metoprolol every 6 hrs IV Renal/Lytes: - LUZ MARIA: Resolved prior to transfer to ICU - Holding allopurinol given recent LUZ MARIA - K 3.9, Phos 1.6: replaced with 15mmol KPhos - continue to monitor daily GI/Nutrition: - Peptamen VHP - US RUQ: demonstrated a dilated common bile duct measuring 1.3cm, remains unchanged and likely due to the prior cholecystectomy - AST 24, ALT 18 - Lipase and triglycerides every 3 days: 08/14 151 - GI prophylaxis: Protonix twice daily as home medication Heme: - Leukocytosis: in the setting of recent steroid use - Thrombocytosis: likely acute phase reactant - INR continues to elevate up to 3.0 this AM Endo: - ICU hyperglycemia protocol - Hypothyroid: continue 50 mcg IV daily ID: - Influenza A: Initially started on Tamiflu 30 mg twice daily for renal impairment increasing to 75 given progression of disease and improvement in renal function - discontinued doxycycline x3 doses - discontinued 2 g ceftriaxone x1 - discontinued 250 mg Zithromax x1 - pro-calcitonin 0.15 Lines/ IV Access: - right radial arterial line - left subclavian central venous line DVT prophylaxis: - Lovenox SQ: renally adjusted Code Status: DNR in event of cardiac arrest Admission and Anticipated Discharge Date Admission Date: August 12, 2019 Anticipated date of discharge: 08/15/19 Supervising Physician Co-Signing Physician Notes Dr. Stafford was resident physician during care of patient. I separately evaluated patient for hager portions of the history and the exam. I was present during the critical portion of medical decision making, and I discussed the case with the resident. I generally agree with the findings and plan. I assisted with manually rotating the patient to supine position. Patient with acute hypoxemic respiratory failure secondary to influenza A. Patient returned to supine position, still having significant oxygen and PEEP requirements. Following ARDSnet guidelines. Discussed possible poor prognosis with the patient's daughter yesterday, she has had significant decline in her ba seline function essentially class III-IV heart failure symptoms. I believe the patient does have undiagnosed cor pulmonale most likely secondary to obesity hypoventilation and obstructive sleep apnea syndrome. Neuromuscular blockade will be completed today and we will start trickling tube feeds Subjective Patient had no acute events overnight, was maintained on vent settings without change overnight; she was returned to supine position this AM at 0700 without complication during the rotation. Has planned wean off of Nimbex at 1600 this afternoon which will represent 72hrs on paralytic. Review of Systems Review of Systems: Unobtainable due to endotracheal tube Physical Exam Constitutional: WD/WN, vitals as above Eyes: PERRL; no scleral abnormality and no corneal abnormality ENMT: external ear and nose normal, oropharynx normal Neck: normal visual inspection Respiratory: no labored breathing (intubated and proned) Auscultation: + diminished lung sounds (R>L) and + crackles (R>L); no rales, no rhonchi and no wheezes Cardiovascular: Rate/Rhythm: regular rate and regular rhythm Heart Sounds: normal S1 and normal S2; no gallop, no murmur and no cardiac rub Vessels: no JVD Extremities: no pedal edema Gastrointestinal (Abdomen): Inspection/Auscultation: abdomen not distended Percussion/Palpation: abdomen soft and normal to percussion Musculoskeletal: Extremities: no cyanosis and no clubbing Skin: no rashes, warm and dry Neurologic: patient paralyzed with Nimbex Psychiatric: intubated and sedated Lymphatic: no cervical or axillary lymphadenopathy Results & Data ([facility]) Vital Signs (Past 12 Hours) Vital Signs Pulse Pulse Pulse Resp BP Pulse Ox 08/17/19 06:00 79 98 08/17/19 05:00 90 130/82 98 08/17/19 04:00 84 96 08/17/19 03:57 84 84 22 96 08/17/19 03:00 86 124/64 96 08/17/19 02:00 85 97 08/17/19 01:00 85 96 08/17/19 00:00 88 98 08/16/19 23:52 83 22 97 08/16/19 23:00 83 125/72 98 08/16/19 22:28 85 22 98 08/16/19 22:00 84 116/72 98 08/16/19 21:00 88 97 08/16/19 20:00 89 97 08/16/19 19:09 85 22 95 08/16/19 19:04 85 22 95 08/16/19 19:00 85 95 Laboratory Results 08/17/19 08/17/19 08/17/19 Range/Units 05:16 04:07 04:02 WBC (4.8-10.8) K/uL RBC (4.2-5.4) M/uL Hgb (12.0-16.0) g/dL POC Hgb 10.2 L (12.0-16.0) g/dl Hct (37-47) % POC Hct 30 L (37-47) % MCV (80-100) fL MCH (25-34) pg MCHC (32-36) g/dL Plt Count (130-400) K/uL Immature Gran % (Auto) % Neut % (Auto) % Lymph % (Auto) % [place] % (Auto) % Eos % (Auto) % Baso % (Auto) % Immature Gran # (Auto) (0.00-0.02) K/uL Neut # (Auto) (1.4-6.5) K/uL Lymph # (Auto) (1.2-3.4) K/uL [place] # (Auto) (0.11-0.59) K/uL Eos # (Auto) (0-0.5) K/uL Baso # (Auto) (0-0.2) K/uL PT (9.0-12.0) Seconds INR (0.9-1.1) Sample Site Art Line POC pH 7.31 L (7.35-7.45) POC pCO2 52 H (35-46) mmHg POC pO2 84 (80-95) mmHg POC HCO3 26 H (19-24) cristy/L POC Total CO2 28 (24-31) mmol/L POC Base Excess 0.0 (-9-1.8) cristy/L ABG pH (Temp Correct) 7.314 L (7.35-7.45) ABG pCO2 (Temp Corrct 51 H (35-46) mmHg POC ABG pO2 at Pt Temp 82 Brad Test NA O2 Delivery Device Ventilator POC O2 Rate 22 Minute Ventilation Tidal Volume 370 PEEP 18 POC Sodium 137 (135-144) mmol/L Sodium 141 (136-145) mmol/L POC Potassium 3.8 (3.3-5.0) mmol/L Potassium 3.9 (3.5-5.1) mmol/L Chloride 110 H (98-107) mmol/L Carbon Dioxide 27 (21-32) mmol/L Anion Gap 4.0 (3-11) BUN 18 (7-18) mg/dl Creatinine 0.63 (0.6-1.2) mg/dl Est Cr Clr Drug Dosing 96.5 ml/min Est GFR ( Amer) 103.9 Est GFR (Non-Af Amer) 89.6 BUN/Creatinine Ratio 28.9 H (10-20) Glucose 91 (70-99) mg/dl POC Glucose 88 (70-99) mg/dl Calcium 6.5 L (8.5-10.1) mg/dl Phosphorus 1.6 L (2.5-4.9) mg/dl Magnesium 2.3 (1.8-2.4) mg/dl Total Bilirubin 0.3 (0.2-1) mg/dl Direct Bilirubin < 0.1 (0-0.2) mg/dl AST 24 (15-37) U/L ALT 18 (12-78) U/L Alkaline Phosphatase 117 (45-117) U/L Total Protein 5.8 L (6.4-8.2) gm/dl Albumin 1.5 L (3.4-5.0) gm/dl 08/17/19 08/17/19 08/17/19 Range/Units 04:02 04:02 00:02 WBC 11.31 H (4.8-10.8) K/uL RBC 3.68 L (4.2-5.4) M/uL Hgb 10.9 L (12.0-16.0) g/dL POC Hgb (12.0-16.0) g/dl Hct 34.9 L (37-47) % POC Hct (37-47) % MCV 94.8 (80-100) fL MCH 29.6 (25-34) pg MCHC 31.2 L (32-36) g/dL Plt Count 546 H (130-400) K/uL Immature Gran % (Auto) 9.4 % Neut % (Auto) 74.4 % Lymph % (Auto) 6.7 % [place] % (Auto) 5.7 % Eos % (Auto) 3.4 % Baso % (Auto) 0.4 % Immature Gran # (Auto) 1.06 H (0.00-0.02) K/uL Neut # (Auto) 8.41 H (1.4-6.5) K/uL Lymph # (Auto) 0.76 L (1.2-3.4) K/uL [place] # (Auto) 0.64 H (0.11-0.59) K/uL Eos # (Auto) 0.39 (0-0.5) K/uL Baso # (Auto) 0.05 (0-0.2) K/uL PT 29.5 H (9.0-12.0) Seconds INR 3.0 H (0.9-1.1) Sample Site POC pH (7.35-7.45) POC pCO2 (35-46) mmHg POC pO2 (80-95) mmHg POC HCO3 (19-24) cristy/L POC Total CO2 (24-31) mmol/L POC Base Excess (-9-1.8) cristy/L ABG pH (Temp Correct) (7.35-7.45) ABG pCO2 (Temp Corrct (35-46) mmHg POC ABG pO2 at Pt Temp Brad Test O2 Delivery Device POC O2 Rate Minute Ventilation Tidal Volume PEEP POC Sodium (135-144) mmol/L Sodium (136-145) mmol/L POC Potassium (3.3-5.0) mmol/L Potassium (3.5-5.1) mmol/L Chloride (98-107) mmol/L Carbon Dioxide (21-32) mmol/L Anion Gap (3-11) BUN (7-18) mg/dl Creatinine (0.6-1.2) mg/dl Est Cr Clr Drug Dosing ml/min Est GFR ( Amer) Est GFR (Non-Af Amer) BUN/Creatinine Ratio (10-20) Glucose (70-99) mg/dl POC Glucose 90 (70-99) mg/dl Calcium (8.5-10.1) mg/dl Phosphorus (2.5-4.9) mg/dl Magnesium (1.8-2.4) mg/dl Total Bilirubin (0.2-1) mg/dl Direct Bilirubin (0-0.2) mg/dl AST (15-37) U/L ALT (12-78) U/L Alkaline Phosphatase (45-117) U/L Total Protein (6.4-8.2) gm/dl Albumin (3.4-5.0) gm/dl 08/17/19 08/16/19 08/16/19 Range/Units 00:01 20:26 16:11 WBC (4.8-10.8) K/uL RBC (4.2-5.4) M/uL Hgb (12.0-16.0) g/dL POC Hgb 10.2 L 10.9 L 11.6 L (12.0-16.0) g/dl Hct (37-47) % POC Hct 30 L 32 L 34 L (37-47) % MCV (80-100) fL MCH (25-34) pg MCHC (32-36) g/dL Plt Count (130-400) K/uL Immature Gran % (Auto) % Neut % (Auto) % Lymph % (Auto) % [place] % (Auto) % Eos % (Auto) % Baso % (Auto) % Immature Gran # (Auto) (0.00-0.02) K/uL Neut # (Auto) (1.4-6.5) K/uL Lymph # (Auto) (1.2-3.4) K/uL [place] # (Auto) (0.11-0.59) K/uL Eos # (Auto) (0-0.5) K/uL Baso # (Auto) (0-0.2) K/uL PT (9.0-12.0) Seconds INR (0.9-1.1) Sample Site Art Line Art Line Art Line POC pH 7.38 7.32 L 7.30 L (7.35-7.45) POC pCO2 48 H 49 H 52 H (35-46) mmHg POC pO2 81 83 79 L (80-95) mmHg POC HCO3 28 H 25 H 26 H (19-24) cristy/L POC Total CO2 29 27 27 (24-31) mmol/L POC Base Excess 3.0 H -1.0 -1.0 (-9-1.8) cristy/L ABG pH (Temp Correct) 7.380 7.323 L 7.299 L (7.35-7.45) ABG pCO2 (Temp Corrct 47 H 49 H 52 H (35-46) mmHg POC ABG pO2 at Pt Temp 80 83 80 Brad Test NA NA NA O2 Delivery Device Ventilator Ventilator Ventilator POC O2 Rate 22 22 22 Minute Ventilation 7.6 Tidal Volume 370 370 370 PEEP 18 18 18 POC Sodium 137 138 138 (135-144) mmol/L Sodium (136-145) mmol/L POC Potassium 5.2 H 3.9 4.1 (3.3-5.0) mmol/L Potassium (3.5-5.1) mmol/L Chloride (98-107) mmol/L Carbon Dioxide (21-32) mmol/L Anion Gap (3-11) BUN (7-18) mg/dl Creatinine (0.6-1.2) mg/dl Est Cr Clr Drug Dosing ml/min Est GFR ( Amer) Est GFR (Non-Af Amer) BUN/Creatinine Ratio (10-20) Glucose (70-99) mg/dl POC Glucose (70-99) mg/dl Calcium (8.5-10.1) mg/dl Phosphorus (2.5-4.9) mg/dl Magnesium (1.8-2.4) mg/dl Total Bilirubin (0.2-1) mg/dl Direct Bilirubin (0-0.2) mg/dl AST (15-37) U/L ALT (12-78) U/L Alkaline Phosphatase (45-117) U/L Total Protein (6.4-8.2) gm/dl Albumin (3.4-5.0) gm/dl 08/16/19 08/16/19 08/16/19 Range/Units 16:06 13:23 12:13 WBC (4.8-10.8) K/uL RBC (4.2-5.4) M/uL Hgb (12.0-16.0) g/dL POC Hgb 10.9 L (12.0-16.0) g/dl Hct (37-47) % POC Hct 32 L (37-47) % MCV (80-100) fL MCH (25-34) pg MCHC (32-36) g/dL Plt Count (130-400) K/uL Immature Gran % (Auto) % Neut % (Auto) % Lymph % (Auto) % [place] % (Auto) % Eos % (Auto) % Baso % (Auto) % Immature Gran # (Auto) (0.00-0.02) K/uL Neut # (Auto) (1.4-6.5) K/uL Lymph # (Auto) (1.2-3.4) K/uL [place] # (Auto) (0.11-0.59) K/uL Eos # (Auto) (0-0.5) K/uL Baso # (Auto) (0-0.2) K/uL PT (9.0-12.0) Seconds INR (0.9-1.1) Sample Site Art Line POC pH 7.32 L (7.35-7.45) POC pCO2 51 H (35-46) mmHg POC pO2 89 (80-95) mmHg POC HCO3 26 H (19-24) cristy/L POC Total CO2 27 (24-31) mmol/L POC Base Excess 0.0 (-9-1.8) cristy/L ABG pH (Temp Correct) 7.309 L (7.35-7.45) ABG pCO2 (Temp Corrct 52 H (35-46) mmHg POC ABG pO2 at Pt Temp 91 Brad Test NA O2 Delivery Device Ventilator POC O2 Rate 22 Minute Ventilation 7.3 Tidal Volume 370 PEEP 18 POC Sodium 138 (135-144) mmol/L Sodium (136-145) mmol/L POC Potassium 4.2 (3.3-5.0) mmol/L Potassium (3.5-5.1) mmol/L Chloride (98-107) mmol/L Carbon Dioxide (21-32) mmol/L Anion Gap (3-11) BUN (7-18) mg/dl Creatinine (0.6-1.2) mg/dl Est Cr Clr Drug Dosing ml/min Est GFR ( Amer) Est GFR (Non-Af Amer) BUN/Creatinine Ratio (10-20) Glucose (70-99) mg/dl POC Glucose 90 88 (70-99) mg/dl Calcium (8.5-10.1) mg/dl Phosphorus (2.5-4.9) mg/dl Magnesium (1.8-2.4) mg/dl Total Bilirubin (0.2-1) mg/dl Direct Bilirubin (0-0.2) mg/dl AST (15-37) U/L ALT (12-78) U/L Alkaline Phosphatase (45-117) U/L Total Protein (6.4-8.2) gm/dl Albumin (3.4-5.0) gm/dl 08/16/19 08/16/19 Range/Units 07:42 04:03 WBC (4.8-10.8) K/uL RBC (4.2-5.4) M/uL Hgb (12.0-16.0) g/dL POC Hgb 12.2 11.2 L (12.0-16.0) g/dl Hct (37-47) % POC Hct 36 L 33 L (37-47) % MCV (80-100) fL MCH (25-34) pg MCHC (32-36) g/dL Plt Count (130-400) K/uL Immature Gran % (Auto) % Neut % (Auto) % Lymph % (Auto) % [place] % (Auto) % Eos % (Auto) % Baso % (Auto) % Immature Gran # (Auto) (0.00-0.02) K/uL Neut # (Auto) (1.4-6.5) K/uL Lymph # (Auto) (1.2-3.4) K/uL [place] # (Auto) (0.11-0.59) K/uL Eos # (Auto) (0-0.5) K/uL Baso # (Auto) (0-0.2) K/uL PT (9.0-12.0) Seconds INR (0.9-1.1) Sample Site Art Line Art Line POC pH 7.29 L 7.34 L (7.35-7.45) POC pCO2 54 H 46 (35-46) mmHg POC pO2 90 60 L (80-95) mmHg POC HCO3 26 H 25 H (19-24) cristy/L POC Total CO2 28 26 (24-31) mmol/L POC Base Excess 0.0 -1.0 (-9-1.8) cristy/L ABG pH (Temp Correct) 7.293 L 7.336 L (7.35-7.45) ABG pCO2 (Temp Corrct 54 H 46 (35-46) mmHg POC ABG pO2 at Pt Temp 90 60 Brad Test NA NA O2 Delivery Device Ventilator Ventilator POC O2 Rate 22 22 Minute Ventilation 7.5 7.6 Tidal Volume 370 370 PEEP 18 18 POC Sodium 138 138 (135-144) mmol/L Sodium (136-145) mmol/L POC Potassium 4.1 4.1 (3.3-5.0) mmol/L Potassium (3.5-5.1) mmol/L Chloride (98-107) mmol/L Carbon Dioxide (21-32) mmol/L Anion Gap (3-11) BUN (7-18) mg/dl Creatinine (0.6-1.2) mg/dl Est Cr Clr Drug Dosing ml/min Est GFR ( Amer) Est GFR (Non-Af Amer) BUN/Creatinine Ratio (10-20) Glucose (70-99) mg/dl POC Glucose (70-99) mg/dl Calcium (8.5-10.1) mg/dl Phosphorus (2.5-4.9) mg/dl Magnesium (1.8-2.4) mg/dl Total Bilirubin (0.2-1) mg/dl Direct Bilirubin (0-0.2) mg/dl AST (15-37) U/L ALT (12-78) U/L Alkaline Phosphatase (45-117) U/L Total Protein (6.4-8.2) gm/dl Albumin (3.4-5.0) gm/dl Medications Administered Current Inpatient Medications Acetaminophen (Tylenol) 325 mg ND Q4H PRN PRN Reason: PAIN OR FEVER Stop: 09/15/19 10:45 Al Hydrox/Mg Hydrox/Simethicone (Maalox) 15 ml PO Q6H PRN PRN Reason: Dyspepsia Stop: 09/12/19 10:25 Last Admin: 08/13/19 17:22 Dose: 15 ml Documented by: Allopurinol (Zyloprim) 300 mg PO DAILY REPLACED BY [facility] Stop: 09/11/19 08:59 Last Admin: 08/14/19 11:00 Dose: Not Given Documented by: Colestipol HCl (Colestid) 1 gm PO BID@1000,2200 REPLACED BY [facility] Stop: 09/11/19 09:59 Last Admin: 08/14/19 11:01 Dose: Not Given Documented by: Dextrose (Dextrose 50%) 25 - 50 ml IV UD PRN; Protocol PRN Reason: Hypoglycemia Protocol Stop: 09/13/19 11:29 Enoxaparin Sodium (Lovenox) 60 mg SQ QAM REPLACED BY [facility] Stop: 09/16/19 08:59 Fentanyl Citrate (Fentanyl Bolus From Bag) 50 mcg IV Q60M PRN PRN Reason: Pain or Agitation Stop: 08/28/19 15:29 Last Admin: 08/15/19 04:05 Dose: 50 mcg Documented by: Gabapentin (Neurontin) 600 mg PO TID REPLACED BY [facility] Stop: 09/11/19 08:59 Last Admin: 08/14/19 16:00 Dose: Not Given Documented by: Gemfibrozil (Lopid) 600 mg PO BID REPLACED BY [facility] Stop: 09/11/19 08:59 Last Admin: 08/14/19 11:00 Dose: Not Given Documented by: Glucagon (Glucagen) 1 mg IM UD PRN; Protocol PRN Reason: Hypoglycemia Protocol Stop: 09/13/19 11:29 Glucose (Glucose 40%) 15 - 30 gm PO UD PRN; Protocol PRN Reason: Hypoglycemia Protocol Stop: 09/13/19 11:29 Glucose (Dex4 Glucose) 4 - 8 tabs PO UD PRN; Protocol PRN Reason: Hypoglycemia Protocol Stop: 09/13/19 11:29 Heparin Sodium (Beef Lung) (Heparin Sod 10 Unit/Ml Flush) 5 ml FLUSH PRN PRN PRN Reason: Flush Stop: 09/13/19 23:34 Promethazine HCl 12.5 mg/ (Sodium Chloride) 50.5 mls @ 202 mls/hr IV Q6H PRN PRN Reason: Nausea And Vomiting Stop: 09/11/19 02:52 Fentanyl Citrate (Fentanyl Drip) 1,250 mcg in 250 mls @ 35 mls/hr IV .Q7H9M REPLACED BY [facility] ; Protocol Stop: 08/28/19 15:29 Last Admin: 08/17/19 06:23 Dose: 175 mcg/hr, 35 mls/hr Documented by: Cisatracurium Besylate 40 mg/ (Sodium Chloride) 100 mls @ 27 mls/hr IV .Q3H43M REPLACED BY [facility]; Protocol Stop: 08/17/19 16:00 Last Admin: 08/17/19 06:12 Dose: 1.5 mcg/kg/min, 27 mls/hr Documented by: Midazolam HCl (Versed) 125 mg in 250 mls @ 20 mls/hr IV .[id number] REPLACED BY [facility]; Protocol Stop: 09/13/19 16:29 Last Admin: 08/16/19 20:04 Dose: 10 mg/hr, 20 mls/hr Documented by: Levothyroxine Sodium 50 mcg/ (Syringe) 2.5 mls @ 2 mls/min IV DAILY@0900 REPLACED BY [facility] Stop: 09/14/19 08:59 Last Admin: 08/16/19 08:46 Dose: 2 mls/min Documented by: Pantoprazole Sodium 40 mg/ (Syringe) 10 mls @ 5 mls/min IV BID REPLACED BY [facility] Stop: 09/14/19 10:59 Last Admin: 08/16/19 20:03 Dose: 5 mls/min Documented by: Parenteral Electrolytes (Normosol-R) 1,000 mls @ 80 mls/hr IV .[id number] REPLACED BY [facility] Stop: 09/14/19 13:44 Last Admin: 08/17/19 05:03 Dose: 80 mls/hr Documented by: Potassium Phosphate 15 mmol/ (Sodium Chloride) 255 mls @ 88 mls/hr IV ONE ONE Stop: 08/17/19 08:53 Last Admin: 08/17/19 06:11 Dose: 88 mls/hr Documented by: Insulin Aspart (Novolog Flexpen) 0 units SC Q6 REPLACED BY [facility] Stop: 09/13/19 11:59 Last Admin: 08/17/19 05:23 Dose: Not Given Documented by: Ipratropium [place] (Atrovent 0.02% 0.5mg/2.5ml) 0.5 mg INH Q4R REPLACED BY [facility] Stop: 09/13/19 02:59 Last Admin: 08/17/19 03:57 Dose: 0.5 mg Documented by: Levalbuterol HCl (Xopenex 1.25mg/0.5ml Neb) 1.25 mg INH Q4R REPLACED BY [facility] Stop: 09/13/19 02:59 Last Admin: 08/17/19 03:57 Dose: 1.25 mg Documented by: Levothyroxine Sodium (Synthroid) 75 mcg PO DAILYBB REPLACED BY [facility] Stop: 09/11/19 06:29 Last Admin: 08/14/19 10:59 Dose: Not Given Documented by: Loratadine (Claritin) 10 mg PO DAILY REPLACED BY [facility] Stop: 09/11/19 08:59 Last Admin: 08/14/19 10:59 Dose: Not Given Documented by: Losartan Potassium (Cozaar) 50 mg PO DAILY REPLACED BY [facility] Stop: 09/11/19 08:59 Last Admin: 08/12/19 08:46 Dose: 50 mg Documented by: Metoprolol Tartrate (Lopressor) 2.5 mg IV Q6 REPLACED BY [facility] Stop: 09/14/19 00:00 Last Admin: 08/17/19 05:08 Dose: 2.5 mg Documented by: Miconazole Nitrate (Desenex) 1 appln EXT PRN PRN PRN Reason: Affected Skin Folds Stop: 09/12/19 01:09 Last Admin: 08/16/19 08:18 Dose: 1 appln Documented by: Miscellaneous (Carbohydrates For Hypoglycemia) 15 - 30 gm PO UD PRN PRN Reason: Hypoglycemia Treatment Stop: 09/13/19 11:29 Multi-Ingredient Cream (Lacri-Lube) 1 appln OP Q2H PRN PRN Reason: Undecided Stop: 09/13/19 17:04 Last Admin: 08/16/19 08:18 Dose: 1 appln Documented by: Oseltamivir Phosphate (Tamiflu) 75 mg PO BID REPLACED BY [facility]; Protocol Stop: 08/21/19 21:01 Last Admin: 08/16/19 20:03 Dose: 75 mg Documented by: Tramadol HCl (Ultram) 25 - 50 mg PO Q6H PRN PRN Reason: Pain Stop: 09/11/19 02:52 Last Admin: 08/13/19 19:56 Dose: 50 mg Documented by: Critical Care Time Critical Care Time: Yes Total Critical Care Time: 60 I have personally spent 60 minutes of critical care time in the direct management of this patient. This is a life/limb threatening event. This includes time spent evaluating patient, direct bedside care, chart review, pl acing orders, interpretation of diagnostic studies, discussion with consultants, patient, and/or family members regarding treatment decisions, as well as other required patient management activities. This time is exclusive of all separately billable procedures, and teaching time and separate from and in addition to any other critical care service time. Resident Activity Tracking Resident Involvement: Resident Care Provided Care Provided: Adult [facility] Medicine
--- NOTE | 2019-08-17 07:29 | XRay Report ---
XR chest 1V portable HISTORY: Intubation. Shortness of breath. COMPARISON: Chest 08/16/2019. FINDINGS: Endotracheal tube terminates 3.5 cm from the jacey. The heart remains stable in size. No p neumothorax. No pleural effusions. Bilateral airspace opacities have improved. Left subclavian centra l venous catheter terminates at the SVC. Nasogastric tube terminates below the diaphragm. The tip is not included on this study. IMPRESSION: 1. Satisfactory support line placement. 2. Bilateral airspace opacities have slightly improved. ACT 112: Negative or not required by law. Electronically signed by: Bola Aguillon M.D. 08/17/2019 7:28 AM
[2019-08-17] MEDS: PANTOprazole 40 MG in SYRINGE 0 ML IV SCH ×2 (08:13→20:16)
[2019-08-17] MEDS: ENOXAPARIN INJ 60 MG/0.6 ML SYR SQ SCH ×2 (08:13→08:40)
[2019-08-17] MEDS: OSELTAMIVIR PHOSPHATE SUSP 75 MG/12.5 ML UDP PO SCH ×2 (08:13→20:15)
[2019-08-17] MEDS: PEPTAMEN INTENSE VHP 1.0 CAL 1,000 ML BAG OG SCH (08:13)
[2019-08-17] MEDS: MIDAZOLAM HCL 125 MG/250 ML BAG IV SCH ×2 (08:14→20:24)
[2019-08-17 08:27] LABS: iSTAT Allen Test Pass; iSTAT Art Bld Gas pCO2 Correct 46 mmHg (35-46); iSTAT Art Bld Gas pH Corrected 7.339 (7.35-7.45); iSTAT Arterial Blood Gas HCO3 25 meg/L (19-24); iSTAT Arterial Blood Gas pCO2 46 mmHg (35-46); iSTAT Arterial Blood Gas pH 7.34 (7.35-7.45); iSTAT Arterial Blood Gas pO2 61 mmHg (80-95); iSTAT Arterial Blood Gas pO2 C 61; iSTAT Carbon Dioxide 26 mmol/L (24-31); iSTAT Hematocrit 32 % (37-47); iSTAT Hemoglobin 10.9 g/dl (12.0-16.0); iSTAT Potassium 4.1 mmol/L (3.3-5.0); iSTAT Site Art Line; iSTAT Sodium 138 mmol/L (135-144)
[2019-08-17] MEDS: LEVOTHYROXINE SODIUM 50 MCG in SYRINGE 0 ML IV SCH (08:38)
--- NOTE | 2019-08-17 10:56 | Ultrasound Report ---
ABDOMINAL ULTRASOUND, RIGHT UPPER QUADRANT HISTORY: elevating INR. COMPARISON: Abdomen and pelvis CT 08/11/2019. FINDINGS: Pancreas: The pancreas demonstrates a normal echotexture. Liver: No hepatic masses. Normal echotexture. Minimal perihepatic fluid. Gallbladder: The gallbladder is surgically absent. CBD: 1.3 cm in diameter. Right kidney: No hydronephrosis. IMPRESSION: 1. Prior cholecystectomy. 2. Dilated common bile duct measuring 1.3 cm. This remains unchanged and is likely due to the patient 's postcholecystectomy state. 3. Trace perihepatic fluid. The liver is within normal limits. ACT 112: Negative or not required by law. Electronically signed by: Bola Aguillon M.D. 08/17/2019 10:55 AM
[2019-08-17] MEDS: MICONAZOLE NITRATE POWDER 43 GM EXT PRN (11:43)
[2019-08-17] MEDS: ARTIFICIAL TEARS OP OINT 3.5 GM TUBE OP PRN (11:43)
[2019-08-17 12:01] LABS: iSTAT Art Bld Gas pCO2 Correct 52 mmHg (35-46); iSTAT Art Bld Gas pH Corrected 7.304 (7.35-7.45); iSTAT Arterial Blood Gas HCO3 26 meg/L (19-24); iSTAT Arterial Blood Gas pCO2 52 mmHg (35-46); iSTAT Arterial Blood Gas pO2 207 mmHg (80-95); iSTAT Arterial Blood Gas pO2 C 207; iSTAT Carbon Dioxide 27 mmol/L (24-31); iSTAT Hematocrit 33 % (37-47); iSTAT Hemoglobin 11.2 g/dl (12.0-16.0); iSTAT Potassium 3.9 mmol/L (3.3-5.0); iSTAT Site Art Line; iSTAT Sodium 138 mmol/L (135-144)
--- NOTE | 2019-08-17 12:16 | Hospitalist Progress Note ---
Date of Service August 17, 2019 Assessment & Plan (1) ARDS (adult respiratory distress syndrome): The patient was transferred to ICU and is now intubated and sedated ARDS is secondary to influenza No definite signs of bacterial pneumonia and has not been getting any antibiotic Appreciate cytometry technologist input and recommendation Condition deteriorated with worsening chest x-ray findings Stable and seems to be a little better Family members are updated accordingly by the cytometry technologist Nutrition Started with peripheral parenteral nutrition Electrolytes will be adjusted (2) Acute hypoxemic respiratory failure: Admitted with acute hypoxic respiratory failure secondary to influenza A and pneumonia likely viral Has been getting intravenous antibiotics with them ceftriaxone and azithromycin for now Received Zosyn and ceftaroline before Appreciate pulmonary input and recommendation Steroids have been discontinued Clinically worse with increasing desaturation, increasing shortness of breath and worsening chest x-ray findings ABG did show low oxygen at 62 Ceftriaxone has been changed to intravenous Zosyn She will be moved to ICU for continued care and may need intubation to maintain saturation Antibiotics have been stopped Ventilation management as per cytometry technologist Likely to be extubated tomorrow (3) Influenza A: Has been on Tamiflu (4) Pneumonia: Likely viral pneumonia Has been on antibiotic to cover the possibilities of bacterial pneumonia Blood cultures have been negative Sputum culture is pending-light normal trisha but final report is pending No need to have any antibiotic White count remains normal and no fever no chills (5) GERD (gastroesophageal reflux disease): Has been on PPI twice daily We will add Maalox as needed for dyspepsia And GI prophylaxis (6) CKD (chronic kidney disease), stage III: History of chronic kidney disease presented with [facility] Kidney function has been improving and is normalized (7) Hypothyroidism: Continue replacement DVT prophylaxis Subcu Lovenox CODE STATUS Changed to DNR/DNI Admission and Anticipated Discharge Date Admission Date: August 12, 2019 Anticipated date of discharge: 08/15/19 Subjective The patient was seen and examined in medical telemetry unit She was admitted with influenza and and pneumonia with acute respiratory failure Required BiPAP and likely to require BiPAP at times Feels a lot better today and has been communicating normally without any shortness of breath Saturating well with nasal cannula oxygen 08/14/2019 Patient was seen and examined in medical telemetry unit Her condition got worse last night with increasing desaturation and worsening x- ray findings This morning she was evaluated by salesman/owner and was transferred to ICU for continued care 08/15/2019 Patient was seen and examined in ICU She is intubated and now remains in prone position Sedated on mechanical ventilator 08/16/2019 The patient is seen and examined in ICU She remains intubated and the condition seems to be deteriorated She has been made DNR/DNI 08/17/2019 Patient is seen and examined in ICU She remains intubated and sedated Condition is elderly but better today Review of Systems Review of Systems: Unobtainable due to endotracheal tube Physical Exam Physical Exam: Sedated on mechanical ventilator Constitutional: well developed, well nourished and + obese; not ill appearing Eyes: PERRL, conjunctivae normal, anicteric sclerae ENMT: external ear and nose normal, oropharynx normal Neck: trachea midline, no thyromegaly Respiratory: Auscultation: + diminished lung sounds (Right right lung ferguson) Cardiovascular: Rate/Rhythm: regular rate and regular rhythm Heart Sounds: no murmur Extremities: + edema (1+ edema bilaterally) Gastrointestinal (Abdomen): Inspection/Auscultation: abdomen normal to inspection, + abdomen distended and normal bowel sounds Percussion/Palpation: abdomen soft; abdomen nontender Neurologic: Sedated on mechanical ventilator Lymphatic: no cervical or axillary lymphadenopathy Results & Data ([facility]) Vital Signs (Past 12 Hours) Vital Signs Pulse Pulse Resp BP Pulse Ox 08/17/19 11:35 83 125/59 L 08/17/19 11:00 84 96 08/17/19 10:30 84 96 08/17/19 10:00 83 96 08/17/19 09:31 89 131/72 92 08/17/19 08:20 22 08/17/19 08:00 76 22 95 08/17/19 07:40 76 22 94 08/17/19 07:00 80 100 08/17/19 06:00 79 98 08/17/19 05:00 90 130/82 98 08/17/19 04:00 84 96 08/17/19 03:57 84 84 22 96 08/17/19 03:00 86 124/64 96 08/17/19 02:00 85 97 08/17/19 01:00 85 96 Laboratory Results Short CBC 08/17/19 Range/Units 04:02 WBC 11.31 H (4.8-10.8) K/uL Hgb 10.9 L (12.0-16.0) g/dL Hct 34.9 L (37-47) % Plt Count 546 H (130-400) K/uL BMP 08/17/19 04:02 Sodium 141 Potassium 3.9 Chloride 110 H Carbon Dioxide 27 BUN 18 Creatinine 0.63 Glucose 91 Calcium 6.5 L Liver Function 08/17/19 Range/Units 04:02 Total Bilirubin 0.3 (0.2-1) mg/dl Direct Bilirubin < 0.1 (0-0.2) mg/dl AST 24 (15-37) U/L ALT 18 (12-78) U/L Alkaline Phosphatase 117 (45-117) U/L Albumin 1.5 L (3.4-5.0) gm/dl Medications Administered Current Inpatient Medications Acetaminophen (Tylenol) 325 mg [place] Q4H PRN PRN Reason: PAIN OR FEVER Stop: 09/15/19 10:45 Al Hydrox/Mg Hydrox/Simethicone (Maalox) 15 ml PO Q6H PRN PRN Reason: Dyspepsia Stop: 09/12/19 10:25 Last Admin: 08/13/19 17:22 Dose: 15 ml Documented by: Allopurinol (Zyloprim) 300 mg PO DAILY [facility] Stop: 09/11/19 08:59 Last Admin: 08/14/19 11:00 Dose: Not Given Documented by: Colestipol HCl (Colestid) 1 gm PO BID@1000,2200 [facility] Stop: 09/11/19 09:59 Last Admin: 08/14/19 11:01 Dose: Not Given Documented by: Dextrose (Dextrose 50%) 25 - 50 ml IV UD PRN; Protocol PRN Reason: Hypoglycemia Protocol Stop: 09/13/19 11:29 Enoxaparin Sodium (Lovenox) 60 mg SQ QAM [facility] Stop: 09/16/19 08:59 Last Admin: 08/17/19 08:40 Dose: Not Given Documented by: Fentanyl Citrate (Fentanyl Bolus From Bag) 50 mcg IV Q60M PRN PRN Reason: Pain or Agitation Stop: 08/28/19 15:29 Last Admin: 08/15/19 04:05 Dose: 50 mcg Documented by: Gabapentin (Neurontin) 600 mg PO TID [facility] Stop: 09/11/19 08:59 Last Admin: 08/14/19 16:00 Dose: Not Given Documented by: Gemfibrozil (Lopid) 600 mg PO BID [facility] Stop: 09/11/19 08:59 Last Admin: 08/14/19 11:00 Dose: Not Given Documented by: Glucagon (Glucagen) 1 mg IM UD PRN; Protocol PRN Reason: Hypoglycemia Protocol Stop: 09/13/19 11:29 Glucose (Glucose 40%) 15 - 30 gm PO UD PRN; Protocol PRN Reason: Hypoglycemia Protocol Stop: 09/13/19 11:29 Glucose (Dex4 Glucose) 4 - 8 tabs PO UD PRN; Protocol PRN Reason: Hypoglycemia Protocol Stop: 09/13/19 11:29 Heparin Sodium (Beef Lung) (Heparin Sod 10 Unit/Ml Flush) 5 ml FLUSH PRN PRN PRN Reason: Flush Stop: 09/13/19 23:34 Promethazine HCl 12.5 mg/ (Sodium Chloride) 50.5 mls @ 202 mls/hr IV Q6H PRN PRN Reason: Nausea And Vomiting Stop: 09/11/19 02:52 Fentanyl Citrate (Fentanyl Drip) 1,250 mcg in 250 mls @ 20 mls/hr IV .[id number] [facility]; Protocol Stop: 08/28/19 15:29 Last Titration: 08/17/19 11:50 Dose: 100 mcg/hr, 20 mls/hr Documented by: Cisatracurium Besylate 40 mg/ (Sodium Chloride) 100 mls @ 18 mls/hr IV .Q5H34M [facility]; Protocol Stop: 08/17/19 16:00 Last Admin: 08/17/19 10:56 Dose: 1 mcg/kg/min, 18 mls/hr Documented by: Midazolam HCl (Versed) 125 mg in 250 mls @ 20 mls/hr IV .[id number] [facility]; Protocol Stop: 09/13/19 16:29 Last Admin: 08/17/19 08:14 Dose: 10 mg/hr, 20 mls/hr Documented by: Levothyroxine Sodium 50 mcg/ (Syringe) 2.5 mls @ 2 mls/min IV DAILY@0900 [facility] Stop: 09/14/19 08:59 Last Admin: 08/17/19 08:38 Dose: 2 mls/min Documented by: Pantoprazole Sodium 40 mg/ (Syringe) 10 mls @ 5 mls/min IV BID [facility] Stop: 09/14/19 10:59 Last Admin: 08/17/19 08:13 Dose: 5 mls/min Documented by: Parenteral Electrolytes (Normosol-R) 1,000 mls @ 80 mls/hr IV .[id number] [facility] Stop: 09/14/19 13:44 Last Infusion: 08/17/19 07:15 Dose: 80 mls/hr Documented by: Insulin Aspart (Novolog Flexpen) 0 units SC Q6 [facility] Stop: 09/13/19 11:59 Last Admin: 08/17/19 11:42 Dose: Not Given Documented by: Ipratropium [place] (Atrovent 0.02% 0.5mg/2.5ml) 0.5 mg INH Q4R [facility] Stop: 09/13/19 02:59 Last Admin: 08/17/19 07:53 Dose: 0.5 mg Documented by: Levalbuterol HCl (Xopenex 1.25mg/0.5ml Neb) 1.25 mg INH Q4R [facility] Stop: 09/13/19 02:59 Last Admin: 08/17/19 07:53 Dose: 1.25 mg Documented by: Levothyroxine Sodium (Synthroid) 75 mcg PO DAILYBB [facility] Stop: 09/11/19 06:29 Last Admin: 08/14/19 10:59 Dose: Not Given Documented by: Loratadine (Claritin) 10 mg PO DAILY [facility] Stop: 09/11/19 08:59 Last Admin: 08/14/19 10:59 Dose: Not Given Documented by: Losartan Potassium (Cozaar) 50 mg PO DAILY [facility] Stop: 09/11/19 08:59 Last Admin: 08/12/19 08:46 Dose: 50 mg Documented by: Metoprolol Tartrate (Lopressor) 2.5 mg IV Q6 [facility] Stop: 09/14/19 00:00 Last Admin: 08/17/19 11:35 Dose: 2.5 mg Documented by: Miconazole Nitrate (Desenex) 1 appln EXT PRN PRN PRN Reason: Affected Skin Folds Stop: 09/12/19 01:09 Last Admin: 08/17/19 11:43 Dose: 1 appln Documented by: Miscellaneous (Carbohydrates For Hypoglycemia) 15 - 30 gm PO UD PRN PRN Reason: Hypoglycemia Treatment Stop: 09/13/19 11:29 Multi-Ingredient Cream (Lacri-Lube) 1 appln OP Q2H PRN PRN Reason: Undecided Stop: 09/13/19 17:04 Last Admin: 08/17/19 11:43 Dose: 1 appln Documented by: Nutritional Formula (Peptamen Intense Vhp 1.0 Moshe) 1,000 ml OG DAILY [facility]; Protocol Stop: 09/16/19 08:59 Last Admin: 08/17/19 08:13 Dose: 1,000 ml Documented by: Oseltamivir Phosphate (Tamiflu) 75 mg PO BID [facility]; Protocol Stop: 08/21/19 21:01 Last Admin: 08/17/19 08:13 Dose: 75 mg Documented by: Tramadol HCl (Ultram) 25 - 50 mg PO Q6H PRN PRN Reason: Pain Stop: 09/11/19 02:52 Last Admin: 08/13/19 19:56 Dose: 50 mg Documented by: (1) Pneumonia Laterality: bilateral Lung location: lower lobe of lung Pneumonia type: due to influenza A virus Qualified Code(s): J11.00 - Influenza due to unidentified influenza virus with unspecified type of pneumonia (2) GERD (gastroesophageal reflux disease) Esophagitis presence: esophagitis presence not specified Qualified Code(s): K21.9 - Gastro-esophageal reflux disease without esophagitis (3) Hypothyroidism Hypothyroidism type: unspecified Qualified Code(s): E03.9 - Hypothyroidism, unspecified
[2019-08-17 14:09] LABS: iSTAT Art Bld Gas pCO2 Correct 50 mmHg (35-46); iSTAT Art Bld Gas pH Corrected 7.324 (7.35-7.45); iSTAT Arterial Blood Gas HCO3 26 meg/L (19-24); iSTAT Arterial Blood Gas pCO2 50 mmHg (35-46); iSTAT Arterial Blood Gas pH 7.32 (7.35-7.45); iSTAT Arterial Blood Gas pO2 71 mmHg (80-95); iSTAT Arterial Blood Gas pO2 C 71; iSTAT Carbon Dioxide 27 mmol/L (24-31); iSTAT Hematocrit 32 % (37-47); iSTAT Hemoglobin 10.9 g/dl (12.0-16.0); iSTAT Potassium 3.9 mmol/L (3.3-5.0); iSTAT Site Art Line; iSTAT Sodium 137 mmol/L (135-144)
[2019-08-17 18:21] LABS: iSTAT Art Bld Gas pCO2 Correct 48 mmHg (35-46); iSTAT Art Bld Gas pH Corrected 7.332 (7.35-7.45); iSTAT Arterial Blood Gas HCO3 26 meg/L (19-24); iSTAT Arterial Blood Gas pCO2 48 mmHg (35-46); iSTAT Arterial Blood Gas pH 7.33 (7.35-7.45); iSTAT Arterial Blood Gas pO2 63 mmHg (80-95); iSTAT Arterial Blood Gas pO2 C 63; iSTAT Carbon Dioxide 27 mmol/L (24-31); iSTAT Hematocrit 32 % (37-47); iSTAT Hemoglobin 10.9 g/dl (12.0-16.0); iSTAT Site Art Line; iSTAT Sodium 138 mmol/L (135-144)
[2019-08-17 22:17] LABS: iSTAT Art Bld Gas pCO2 Correct 49 mmHg (35-46); iSTAT Arterial Blood Gas HCO3 26 meg/L (19-24); iSTAT Arterial Blood Gas pCO2 47 mmHg (35-46); iSTAT Arterial Blood Gas pH 7.35 (7.35-7.45); iSTAT Arterial Blood Gas pO2 55 mmHg (80-95); iSTAT Arterial Blood Gas pO2 C 59; iSTAT Carbon Dioxide 28 mmol/L (24-31); iSTAT Hematocrit 31 % (37-47); iSTAT Hemoglobin 10.5 g/dl (12.0-16.0); iSTAT Potassium 4.1 mmol/L (3.3-5.0); iSTAT Site Art Line; iSTAT Sodium 137 mmol/L (135-144)
[2019-08-18] MEDS: LEVALBUTEROL 1.25MG/0.5ML NEB INH SCH ×4 (02:47→16:04)
[2019-08-18] MEDS: IPRATROPIUM BROMIDE NEB SOLN 0.02% 2.5 ML VIAL INH SCH ×4 (02:47→16:04)
[2019-08-18 03:17] LABS: iSTAT Art Bld Gas pCO2 Correct 53 mmHg (35-46); iSTAT Art Bld Gas pH Corrected 7.314 (7.35-7.45); iSTAT Arterial Blood Gas HCO3 27 meg/L (19-24); iSTAT Arterial Blood Gas pCO2 52 mmHg (35-46); iSTAT Arterial Blood Gas pH 7.32 (7.35-7.45); iSTAT Arterial Blood Gas pO2 57 mmHg (80-95); iSTAT Arterial Blood Gas pO2 C 59; iSTAT Carbon Dioxide 29 mmol/L (24-31); iSTAT Hematocrit 31 % (37-47); iSTAT Hemoglobin 10.5 g/dl (12.0-16.0); iSTAT Potassium 4.1 mmol/L (3.3-5.0); iSTAT Site Art Line; iSTAT Sodium 139 mmol/L (135-144)
[2019-08-18] MEDS: NORMOSOL-R 1,000 ML IV SCH (04:02)
[2019-08-18 04:33] LABS: Hematocrit (blood only) 35.4 % (37-47); Hemoglobin 10.9 g/dL (12.0-16.0); Mean Corpuscular Hemoglobin 29.8 pg (25-34); Mean Corpuscular Hgb Conc 30.8 g/dL (32-36); Mean Corpuscular Volume 96.7 fL (80-100); Nucleated RBC # (auto) 0.02 K/uL (0-0); Nucleated RBC % (auto) 0.2 %; Platelet Count 576 K/uL (130-400); RDW Standard Deviation 56.7 fL (36.4-46.3); Red Blood Count 3.66 M/uL (4.2-5.4); White Blood Count 11.32 K/uL (4.8-10.8)
[2019-08-18 04:41] LABS: INR 2.4 (0.9-1.1); Prothrombin Time 23.8 Seconds (9.0-12.0)
[2019-08-18 04:52] LABS: Alanine Aminotransferase 18 U/L (12-78); Albumin Level 1.6 gm/dl (3.4-5.0); Aspartate Aminotransferase 24 U/L (15-37); Blood Urea Nitrogen 23 mg/dl (7-18); Calcium 6.8 mg/dl (8.5-10.1); Carbon Dioxide 26 mmol/L (21-32); Chloride 108 mmol/L (98-107); Creatinine Clr Calc Pharmacy 83.1 ml/min; Est GFR (African American) 95.4; Est GFR (Non-African American) 82.3; Glucose 138 mg/dl (70-99); Lipase 90 U/L (73-393); Magnesium 2.4 mg/dl (1.8-2.4); Sodium 139 mmol/L (136-145)
[2019-08-18 05:09] LABS: ALC (manual) 0.68 K/uL (1.2-3.4); ANC (manual) 9.28 K/uL (1.4-6.5); Eosinophils # (manual) 0.23 K/uL (0-0.5); Lymphocytes # (manual) 0.68 K/uL (1.2-3.4); Metamyelocytes # (manual) 0.23 K/uL (0-0); Monocytes # (manual) 0.34 K/uL (0.11-0.59); Myelocytes # (manual) 0.57 K/uL (0-0); Neutrophils # (manual) 9.28 K/uL (1.4-6.5)
[2019-08-18 05:11] LABS: Alkaline Phosphatase 144 U/L (45-117); Bilirubin Direct < 0.1 mg/dl (0-0.2); Bilirubin,Total 0.3 mg/dl (0.2-1); Phosphorus 1.2 mg/dl (2.5-4.9); Total Protein 5.9 gm/dl (6.4-8.2); Triglycerides 238 mg/dl (0-150)
[2019-08-18] MEDS: METOPROLOL TARTRATE 1 MG/ML VIAL IV SCH ×2 (06:05→12:12)
[2019-08-18] MEDS: INSULIN ASPART 100 UNITS/ML 3 ML PEN SC SCH ×3 (06:15→15:42)
[2019-08-18] MEDS ORDERED: POTASSIUM PHOS 3 MMOL/1 ML INFUSION IV STA (06:27)
[2019-08-18] MEDS ORDERED: POTASSIUM PHOSPHATE 21 MMOL in SODIUM CHLORIDE 0.9% 500 ML IV ONE (06:30)
[2019-08-18] MEDS: OSELTAMIVIR PHOSPHATE SUSP 75 MG/12.5 ML UDP PO SCH (07:52)
[2019-08-18] MEDS: ENOXAPARIN INJ 60 MG/0.6 ML SYR SQ SCH (07:52)
[2019-08-18] MEDS: PANTOprazole 40 MG in SYRINGE 0 ML IV SCH (07:52)
[2019-08-18] MEDS: fentaNYL DRIP 1,250 MCG/250 ML BAG IV SCH ×2 (07:57→12:41)
[2019-08-18] MEDS: ARTIFICIAL TEARS OP OINT 3.5 GM TUBE OP PRN (07:57)
[2019-08-18] MEDS: MIDAZOLAM HCL 125 MG/250 ML BAG IV SCH ×3 (07:57→17:17)
[2019-08-18] MEDS: MICONAZOLE NITRATE POWDER 43 GM EXT PRN (07:58)
[2019-08-18 08:07] LABS: iSTAT Art Bld Gas pCO2 Correct 49 mmHg (35-46); iSTAT Art Bld Gas pH Corrected 7.327 (7.35-7.45); iSTAT Arterial Blood Gas HCO3 26 meg/L (19-24); iSTAT Arterial Blood Gas pCO2 49 mmHg (35-46); iSTAT Arterial Blood Gas pH 7.33 (7.35-7.45); iSTAT Arterial Blood Gas pO2 61 mmHg (80-95); iSTAT Arterial Blood Gas pO2 C 61; iSTAT Carbon Dioxide 27 mmol/L (24-31); iSTAT Hematocrit 32 % (37-47); iSTAT Hemoglobin 10.9 g/dl (12.0-16.0); iSTAT Potassium 4.2 mmol/L (3.3-5.0); iSTAT Site Art Line; iSTAT Sodium 137 mmol/L (135-144)
--- NOTE | 2019-08-18 08:13 | XRay Report ---
XR chest 1V portable HISTORY: 74 years-old Female f/u follow-up study in a patient with respiratory failure COMPARISON: Chest radiograph 08/17/2019 TECHNIQUE: Portable AP view of the chest FINDINGS: Cardiac silhouette is enlarged, unchanged. Calcified plaque of the thoracic aorta. Left subclavian ce ntral venous catheter is noted with distal tip terminating in the expected location of the mid SVC. E ndotracheal tube overlies the midline, 3.1 cm superior to the jacey. Possible catheter overlies the left IJ distribution terminating at the level of the left first rib. Enteric tube courses below the d iaphragm, distal tip outside the [id number]. Pulmonary vascular congestion with bilateral mixed in terstitial and alveolar opacities, right greater than left redemonstrated with progression within the right lung base. Small right pleural effusion. Bones appear grossly intact. IMPRESSION: 1. Lines and tubes as above. 2. Cardiomegaly with persistent right greater than left interstitial and alveolar opacities, progress ively worsened within the right lung base. 3. Small right pleural effusion. ACT 112: Negative or not required by law. The above report was generated using voice recognition software. It may contain grammatical, syntax o r spelling errors. Electronically signed by: Evens Jansen M.D. 08/18/2019 8:11 AM
[2019-08-18] MEDS: PEPTAMEN INTENSE VHP 1.0 CAL 1,000 ML BAG OG SCH (09:12)
[2019-08-18] MEDS: LEVOTHYROXINE SODIUM 50 MCG in SYRINGE 0 ML IV SCH (09:12)
--- NOTE | 2019-08-18 11:17 | Hospitalist Progress Note ---
Date of Service August 18, 2019 Assessment & Plan (1) ARDS (adult respiratory distress syndrome): The patient was transferred to ICU and is now intubated and sedated ARDS is secondary to influenza No definite signs of bacterial pneumonia and has not been getting any antibiotic Appreciate yoghurt maker input and recommendation Condition deteriorated with worsening chest x-ray findings Stable and seems to be a little better Family members are updated accordingly by the yoghurt maker Condition stable with slightly worse as of today and not yet ready to be extubated Nutrition Started with peripheral parenteral nutrition Electrolytes will be adjusted (2) Acute hypoxemic respiratory failure: Admitted with acute hypoxic respiratory failure secondary to influenza A and pneumonia likely viral Has been getting intravenous antibiotics with them ceftriaxone and azithromycin for now Received Zosyn and ceftaroline before Appreciate pulmonary input and recommendation Steroids have been discontinued Clinically worse with increasing desaturation, increasing shortness of breath and worsening chest x-ray findings ABG did show low oxygen at 62 Ceftriaxone has been changed to intravenous Zosyn She will be moved to ICU for continued care and may need intubation to maintain saturation Antibiotics have been stopped Ventilation management as per yoghurt maker (3) Influenza A: Has been on Tamiflu (4) Pneumonia: Likely viral pneumonia Has been on antibiotic to cover the possibilities of bacterial pneumonia Blood cultures have been negative Sputum culture is pending-light normal trisha but final report is pending No need to have any antibiotic White count remains normal and no fever no chills No antibiotics have been administered due to suspected viral pneumonia White count remains normal and afebrile (5) GERD (gastroesophageal reflux disease): Has been on PPI twice daily We will add Maalox as needed for dyspepsia And GI prophylaxis (6) CKD (chronic kidney disease), stage III: History of chronic kidney disease presented with [facility] Kidney function has been improving and is normalized (7) Hypothyroidism: Continue replacement DVT prophylaxis Subcu Lovenox CODE STATUS Changed to DNR/DNI Prognosis poor Admission and Anticipated Discharge Date Admission Date: August 12, 2019 Anticipated date of discharge: 08/15/19 Subjective The patient was seen and examined in medical telemetry unit She was admitted with influenza and and pneumonia with acute respiratory failure Required BiPAP and likely to require BiPAP at times Feels a lot better today and has been communicating normally without any shortness of breath Saturating well with nasal cannula oxygen 08/14/2019 Patient was seen and examined in medical telemetry unit Her condition got worse last night with increasing desaturation and worsening x- ray findings This morning she was evaluated by teacher assistant and was transferred to ICU for continued care 08/15/2019 Patient was seen and examined in ICU She is intubated and now remains in prone position Sedated on mechanical ventilator 08/16/2019 The patient is seen and examined in ICU She remains intubated and the condition seems to be deteriorated She has been made DNR/DNI 08/17/2019 Patient is seen and examined in ICU She remains intubated and sedated Condition is elderly but better today 08/18/2019 The patient was seen and examined in ICU Her condition seems to be little worse today Remains ventilated Review of Systems Review of Systems: Unobtainable due to endotracheal tube Physical Exam Physical Exam: Sedated on mechanical ventilator Constitutional: well developed, well nourished and + obese; not ill appearing Eyes: PERRL, conjunctivae normal, anicteric sclerae ENMT: external ear and nose normal, oropharynx normal Neck: trachea midline, no thyromegaly Respiratory: Auscultation: + diminished lung sounds (Bilaterally ) and + crackles (Minimal bibasilar crackles) Cardiovascular: Rate/Rhythm: regular rate and regular rhythm Heart Sounds: no murmur Extremities: + edema (1+ edema bilaterally) Gastrointestinal (Abdomen): Inspection/Auscultation: abdomen normal to inspection, + abdomen distended and normal bowel sounds Percussion/Palpation: abdomen soft; abdomen nontender Neurologic: Sedated on ventilator Lymphatic: no cervical or axillary lymphadenopathy Results & Data ([facility]) Vital Signs (Past 12 Hours) Vital Signs Pulse Resp BP Pulse Ox 08/18/19 10:00 94 H 90 08/18/19 08:15 105 H 90 08/18/19 08:14 106 H 106/62 90 08/18/19 08:00 99 H 88 L 08/18/19 07:59 98 H 23 88 L 08/18/19 07:00 93 H 89 L 08/18/19 06:00 95 H 89 L 08/18/19 05:35 94 H 24 90 08/18/19 05:00 95 H 90 08/18/19 04:00 96 H 91 08/18/19 03:00 101 H 89 L 08/18/19 02:47 101 H 24 87 L 08/18/19 02:00 98 H 88 L 08/18/19 01:00 100 H 88 L 08/18/19 00:00 104 H 88 L 08/17/19 23:52 98 H 99/47 L 08/17/19 23:45 98 H 23 88 L Laboratory Results Short CBC 08/18/19 Range/Units 04:14 WBC 11.32 H (4.8-10.8) K/uL Hgb 10.9 L (12.0-16.0) g/dL Hct 35.4 L (37-47) % Plt Count 576 H (130-400) K/uL BMP 08/18/19 04:14 Sodium 139 Potassium 4.0 Chloride 108 H Carbon Dioxide 26 BUN 23 H Creatinine 0.73 Glucose 138 H Calcium 6.8 L Liver Function 08/18/19 Range/Units 04:14 Total Bilirubin 0.3 (0.2-1) mg/dl Direct Bilirubin < 0.1 (0-0.2) mg/dl AST 24 (15-37) U/L ALT 18 (12-78) U/L Alkaline Phosphatase 144 H (45-117) U/L Albumin 1.6 L (3.4-5.0) gm/dl Medications Administered Current Inpatient Medications Acetaminophen (Tylenol) 325 mg [place] Q4H PRN PRN Reason: PAIN OR FEVER Stop: 09/15/19 10:45 Last Admin: 08/17/19 22:36 Dose: 325 mg Documented by: Al Hydrox/Mg Hydrox/Simethicone (Maalox) 15 ml PO Q6H PRN PRN Reason: Dyspepsia Stop: 09/12/19 10:25 Last Admin: 08/13/19 17:22 Dose: 15 ml Documented by: Allopurinol (Zyloprim) 300 mg PO DAILY [facility] Stop: 09/11/19 08:59 Last Admin: 08/14/19 11:00 Dose: Not Given Documented by: Colestipol HCl (Colestid) 1 gm PO BID@1000,2200 [facility] Stop: 09/11/19 09:59 Last Admin: 08/14/19 11:01 Dose: Not Given Documented by: Dextrose (Dextrose 50%) 25 - 50 ml IV UD PRN; Protocol PRN Reason: Hypoglycemia Protocol Stop: 09/13/19 11:29 Enoxaparin Sodium (Lovenox) 60 mg SQ QAM [facility] Stop: 09/16/19 08:59 Last Admin: 08/18/19 07:52 Dose: Not Given Documented by: Fentanyl Citrate (Fentanyl Bolus From Bag) 50 mcg IV Q60M PRN PRN Reason: Pain or Agitation Stop: 08/28/19 15:29 Last Admin: 08/15/19 04:05 Dose: 50 mcg Documented by: Gabapentin (Neurontin) 600 mg PO TID [facility] Stop: 09/11/19 08:59 Last Admin: 08/14/19 16:00 Dose: Not Given Documented by: Gemfibrozil (Lopid) 600 mg PO BID [facility] Stop: 09/11/19 08:59 Last Admin: 08/14/19 11:00 Dose: Not Given Documented by: Glucagon (Glucagen) 1 mg IM UD PRN; Protocol PRN Reason: Hypoglycemia Protocol Stop: 09/13/19 11:29 Glucose (Glucose 40%) 15 - 30 gm PO UD PRN; Protocol PRN Reason: Hypoglycemia Protocol Stop: 09/13/19 11:29 Glucose (Dex4 Glucose) 4 - 8 tabs PO UD PRN; Protocol PRN Reason: Hypoglycemia Protocol Stop: 09/13/19 11:29 Heparin Sodium (Beef Lung) (Heparin Sod 10 Unit/Ml Flush) 5 ml FLUSH PRN PRN PRN Reason: Flush Stop: 09/13/19 23:34 Promethazine HCl 12.5 mg/ (Sodium Chloride) 50.5 mls @ 202 mls/hr IV Q6H PRN PRN Reason: Nausea And Vomiting Stop: 09/11/19 02:52 Fentanyl Citrate (Fentanyl Drip) 1,250 mcg in 250 mls @ 30 mls/hr IV .Q8H20M [facility]; Protocol Stop: 08/28/19 15:29 Last Admin: 08/18/19 07:57 Dose: 150 mcg/hr, 30 mls/hr Documented by: Midazolam HCl (Versed) 125 mg in 250 mls @ 20 mls/hr IV .[id number] [facility]; Protocol Stop: 09/13/19 16:29 Last Admin: 08/18/19 07:57 Dose: 10 mg/hr, 20 mls/hr Documented by: Levothyroxine Sodium 50 mcg/ (Syringe) 2.5 mls @ 2 mls/min IV DAILY@0900 [facility] Stop: 09/14/19 08:59 Last Admin: 08/18/19 09:12 Dose: 2 mls/min Documented by: Pantoprazole Sodium 40 mg/ (Syringe) 10 mls @ 5 mls/min IV BID [facility] Stop: 09/14/19 10:59 Last Admin: 08/18/19 07:52 Dose: 5 mls/min Documented by: Parenteral Electrolytes (Normosol-R) 1,000 mls @ 80 mls/hr IV .[id number] [facility] Stop: 09/14/19 13:44 Last Admin: 08/18/19 04:02 Dose: 80 mls/hr Documented by: Potassium Phosphate 21 mmol/ (Sodium Chloride) 507 mls @ 88 mls/hr IV ONE ONE Stop: 08/18/19 12:15 Last Admin: 08/18/19 06:43 Dose: 88 mls/hr Documented by: Insulin Aspart (Novolog Flexpen) 0 units SC Q6 [facility] Stop: 09/13/19 11:59 Last Admin: 08/18/19 06:15 Dose: Not Given Documented by: Ipratropium [place] (Atrovent 0.02% 0.5mg/2.5ml) 0.5 mg INH Q4R [facility] Stop: 09/13/19 02:59 Last Admin: 08/18/19 07:52 Dose: 0.5 mg Documented by: Levalbuterol HCl (Xopenex 1.25mg/0.5ml Neb) 1.25 mg INH Q4R [facility] Stop: 09/13/19 02:59 Last Admin: 08/18/19 07:52 Dose: 1.25 mg Documented by: Levothyroxine Sodium (Synthroid) 75 mcg PO DAILYBB [facility] Stop: 09/11/19 06:29 Last Admin: 08/14/19 10:59 Dose: Not Given Documented by: Loratadine (Claritin) 10 mg PO DAILY [facility] Stop: 09/11/19 08:59 Last Admin: 08/14/19 10:59 Dose: Not Given Documented by: Losartan Potassium (Cozaar) 50 mg PO DAILY [facility] Stop: 09/11/19 08:59 Last Admin: 08/12/19 08:46 Dose: 50 mg Documented by: Metoprolol Tartrate (Lopressor) 2.5 mg IV Q6 [facility] Stop: 09/14/19 00:00 Last Admin: 08/18/19 06:05 Dose: Not Given Documented by: Miconazole Nitrate (Desenex) 1 appln EXT PRN PRN PRN Reason: Affected Skin Folds Stop: 09/12/19 01:09 Last Admin: 08/18/19 07:58 Dose: 1 appln Documented by: Miscellaneous (Carbohydrates For Hypoglycemia) 15 - 30 gm PO UD PRN PRN Reason: Hypoglycemia Treatment Stop: 09/13/19 11:29 Multi-Ingredient Cream (Lacri-Lube) 1 appln OP Q2H PRN PRN Reason: Undecided Stop: 09/13/19 17:04 Last Admin: 08/18/19 07:57 Dose: 1 appln Documented by: Nutritional Formula (Peptamen Intense Vhp 1.0 Moshe) 1,000 ml OG DAILY [facility]; Protocol Stop: 09/16/19 08:59 Last Admin: 08/18/19 09:12 Dose: 1,000 ml Documented by: Oseltamivir Phosphate (Tamiflu) 75 mg PO BID [facility]; Protocol Stop: 08/21/19 21:01 Last Admin: 08/18/19 07:52 Dose: 75 mg Documented by: Tramadol HCl (Ultram) 25 - 50 mg PO Q6H PRN PRN Reason: Pain Stop: 09/11/19 02:52 Last Admin: 08/13/19 19:56 Dose: 50 mg Documented by: (1) Pneumonia Laterality: bilateral Lung location: lower lobe of lung Pneumonia type: due to influenza A virus Qualified Code(s): J11.00 - Influenza due to unidentified influenza virus with unspecified type of pneumonia (2) GERD (gastroesophageal reflux disease) Esophagitis presence: esophagitis presence not specified Qualified Code(s): K21.9 - Gastro-esophageal reflux disease without esophagitis (3) Hypothyroidism Hypothyroidism type: unspecified Qualified Code(s): E03.9 - Hypothyroidism, unspecified
[2019-08-18 11:58] LABS: iSTAT Art Bld Gas pCO2 Correct 50 mmHg (35-46); iSTAT Art Bld Gas pH Corrected 7.345 (7.35-7.45); iSTAT Arterial Blood Gas HCO3 27 meg/L (19-24); iSTAT Arterial Blood Gas pCO2 50 mmHg (35-46); iSTAT Arterial Blood Gas pH 7.35 (7.35-7.45); iSTAT Arterial Blood Gas pO2 67 mmHg (80-95); iSTAT Arterial Blood Gas pO2 C 67; iSTAT Carbon Dioxide 29 mmol/L (24-31); iSTAT Hematocrit 29 % (37-47); iSTAT Hemoglobin 9.9 g/dl (12.0-16.0); iSTAT Potassium 4.5 mmol/L (3.3-5.0); iSTAT Site Art Line; iSTAT Sodium 138 mmol/L (135-144)
--- NOTE | 2019-08-18 12:21 | Critical Care Progress Note ---
Date of Service August 18, 2019 Assessment & Plan (1) ARDS (adult respiratory distress syndrome): Reason Critically Ill: Acute respiratory distress syndrome secondary to influenza A PLAN: Neuro: Neuromuscular blockade: Completed -Completed 72 hours of neuromuscular blockade Resp: Acute hypoxic respiratory failure: Severe ARDS PF ratio less than 100 -Pronating protocol for 16 hours x2 completed -On second pronation patient was less responsive to therapy -Strict ARDSnet protocol: High PEEP low FiO2 table -Goal oxygen saturation 92 to 98% -Trend plateaus and peak pressures -Permissive hypercapnia acceptable: 7.2 or greater CV: Tachycardia: Improved History hypertension -Reviewed echo: Grade 1 diastolic dysfunction -Low-dose beta-feliberto for hypertension and tachycardia - 12.5 mg p.o. twice daily Fluids/Renal: Acute kidney injury: Resolved prior to transfer to ICU -Optimize euvolemia given PEEP requirements Holding allopurinol given recent LUZ MARIA -Holding gabapentin while prone ID: Influenza A -Initially started on Tamiflu 30 mg twice daily for renal impairment increasing to 75 given progression of disease and improvement in renal function Given doxycycline x3 doses: Discontinued Given 2 g ceftriaxone x1: Discontinued Given 250 mg Zithromax x1 discontinued Zosyn started yesterday evening: No purulence in x-ray, procalcitonin not indicative of sepsis -Discontinuing antibiotics GI/Nutrition: Enteral feedings -Peptamen VHP goal of 60 continuous Hyperlipidemia: Slowly uptrending -Resuming colestipol -Converting from propofol to Versed -Resuming Lopid -Lipase and triglycerides every 3 days GI prophylaxis: Protonix twice daily as home medication Hypoalbuminemia: Chronic -While this is chronic I also consider this to be a poor prognostic sign Heme: Leukocytosis -Recent steroid use Thrombocytosis -Acute phase reactant Anemia -Likely bone marrow suppression DVT prophylaxis: 40 mg daily -Monitor if renally insufficient Type and screen ordered: Patient consented for blood product Elevated INR -5 mg vitamin K by mouth Endocrine: ICU hyperglycemia protocol Hypothyroid -Resuming home oral dose Discontinue steroids given viral pathology and neuromuscular blockade Vascular access: Right radial art line placed August 13; left subclavian central venous line placed August 13 Code Status: DNR in event of cardiac arrest Disposition: ICU I had discussion with the patient's daughter previously, she would not want tracheostomy in event of inability to liberate from ventilator. She is not showing significant improvement over the past couple of days and I am concerned for a poor outcome. Supervising Physician Co-Signing Physician Notes Update: [id number]. Discussed current state and prognosis with the patient's daughter, pulmonary: Dr. Ibrahim, primary team Dr. Martel. Per the patient's daughter she would not want long-term mechanical ventilation nor tracheostomy both Dr. Ibrahim and I believe that in the best case scenario she would certainly be mikie for long-term mechanical weaning. She since she has not had significant improvement over the past 4 days the family feels it is most in line with her wishes to proceed with extubation terminally and comfort measures only. All providers are in agreement that patient is in end-stage terminal condition without meaningful chance of recovery. Working with administration to facilitate visitation during COVID-19 pandemic. No escalation of care at this time, comfort measures only, will proceed with terminal extubation when family arrives and is comfortable proceeding. Subjective No significant overnight events, patient has marginally had increasing ventilator requirements Review of Systems Review of Systems: Unobtainable due to endotracheal tube Physical Exam Physical Exam: General: Obese female appears her stated age I have reviewed the recorded vital signs Neurological: RASS score: 0, Moves all 4 extremities, Psychological: Unable to obtain due to heavy sedation, patient does move all 4 extremities to painful stimuli Eyes: Symmetrical lids. HENT: Oropharynx is obscured by endotracheal tube Neck: Supple. Symmetric. trachea midline. No thyromegaly. Large neck Cardiovascular: Normal peripheral perfusion. Distal pulses and capillary refill intact. No JVD. Respiratory: Breath sounds are distant and coarse bilaterally Gastrointestinal: Soft. Non-distended, protuberant Lymphatic: No cervical lymphadenopathy. Musculoskeletal: No deformity. No clubbing nor cyanosis. Results & Data ([facility]) Vital Signs (Past 12 Hours) Vital Signs Pulse Resp BP Pulse Ox 08/18/19 10:00 94 H 90 08/18/19 08:15 105 H 90 08/18/19 08:14 106 H 106/62 90 08/18/19 08:00 99 H 88 L 08/18/19 07:59 98 H 23 88 L 08/18/19 07:00 93 H 89 L 08/18/19 06:00 95 H 89 L 08/18/19 05:35 94 H 24 90 08/18/19 05:00 95 H 90 08/18/19 04:00 96 H 91 03/22/20 03:00 101 H 89 L 08/18/19 02:47 101 H 24 87 L 08/18/19 02:00 98 H 88 L 08/18/19 01:00 100 H 88 L Laboratory Results 08/18/19 08/18/19 08/18/19 Range/Units 11:59 11:45 07:51 WBC (4.8-10.8) K/uL RBC (4.2-5.4) M/uL Hgb (12.0-16.0) g/dL POC Hgb 9.9 L 10.9 L (12.0-16.0) g/dl Hct (37-47) % POC Hct 29 L 32 L (37-47) % MCV (80-100) fL MCH (25-34) pg MCHC (32-36) g/dL RDW Std Deviation (36.4-46.3) fL RDW Coeff of David (11.5-14.5) % Plt Count (130-400) K/uL MPV (7.4-10.4) fL Absolute Nucleated RBC (0-0) K/uL Nucleated RBC % (auto) % Neutrophils % (Manual) % Lymphocytes % (Manual) % Monocytes % (Manual) % Eosinophils % (Manual) % Metamyelocytes % (Man) % Myelocytes % (Man) % Neutrophils # (Manual) (1.4-6.5) K/uL Total Absolute Neuts (1.4-6.5) K/uL Lymphocytes # (Manual) (1.2-3.4) K/uL Total Abs Lymphocytes (1.2-3.4) K/uL Monocytes # (Manual) (0.11-0.59) K/uL Eosinophils # (Manual) (0-0.5) K/uL Metamyelocytes # (Man) (0-0) K/uL Myelocytes # (Manual) (0-0) K/uL Microcytosis PT (9.0-12.0) Seconds INR (0.9-1.1) Sample Site Art Line Art Line POC pH 7.35 7.33 L (7.35-7.45) POC pCO2 50 H 49 H (35-46) mmHg POC pO2 67 L 61 L (80-95) mmHg POC HCO3 27 H 26 H (19-24) cristy/L POC Total CO2 29 27 (24-31) mmol/L POC Base Excess 1.0 0.0 (-9-1.8) cristy/L ABG pH (Temp Correct) 7.345 L 7.327 L (7.35-7.45) ABG pCO2 (Temp Corrct 50 H 49 H (35-46) mmHg POC ABG pO2 at Pt Temp 67 61 Brad Test NA NA O2 Delivery Device Ventilator Ventilator POC O2 Rate 22 22 Minute Ventilation 7.2 9 Tidal Volume 360 360 PEEP 20 18 POC Sodium 138 137 (135-144) mmol/L Sodium (136-145) mmol/L POC Potassium 4.5 4.2 (3.3-5.0) mmol/L Potassium (3.5-5.1) mmol/L Chloride (98-107) mmol/L Carbon Dioxide (21-32) mmol/L Anion Gap (3-11) BUN (7-18) mg/dl Creatinine (0.6-1.2) mg/dl Est Cr Clr Drug Dosing ml/min Est GFR ( Amer) Est GFR (Non-Af Amer) BUN/Creatinine Ratio (10-20) Glucose (70-99) mg/dl POC Glucose 112 H (70-99) mg/dl Calcium (8.5-10.1) mg/dl Phosphorus (2.5-4.9) mg/dl Magnesium (1.8-2.4) mg/dl Total Bilirubin (0.2-1) mg/dl Direct Bilirubin (0-0.2) mg/dl AST (15-37) U/L ALT (12-78) U/L Alkaline Phosphatase (45-117) U/L Total Protein (6.4-8.2) gm/dl Albumin (3.4-5.0) gm/dl Triglycerides (0-150) mg/dl Lipase (73-393) U/L 08/18/19 08/18/19 08/18/19 Range/Units 06:09 04:14 04:14 WBC (4.8-10.8) K/uL RBC (4.2-5.4) M/uL Hgb (12.0-16.0) g/dL POC Hgb (12.0-16.0) g/dl Hct (37-47) % POC Hct (37-47) % MCV (80-100) fL MCH (25-34) pg MCHC (32-36) g/dL RDW Std Deviation (36.4-46.3) fL RDW Coeff of David (11.5-14.5) % Plt Count (130-400) K/uL MPV (7.4-10.4) fL Absolute Nucleated RBC (0-0) K/uL Nucleated RBC % (auto) % Neutrophils % (Manual) % Lymphocytes % (Manual) % Monocytes % (Manual) % Eosinophils % (Manual) % Metamyelocytes % (Man) % Myelocytes % (Man) % Neutrophils # (Manual) (1.4-6.5) K/uL Total Absolute Neuts (1.4-6.5) K/uL Lymphocytes # (Manual) (1.2-3.4) K/uL Total Abs Lymphocytes (1.2-3.4) K/uL Monocytes # (Manual) (0.11-0.59) K/uL Eosinophils # (Manual) (0-0.5) K/uL Metamyelocytes # (Man) (0-0) K/uL Myelocytes # (Manual) (0-0) K/uL Microcytosis PT 23.8 H (9.0-12.0) Seconds INR 2.4 H (0.9-1.1) Sample Site POC pH (7.35-7.45) POC pCO2 (35-46) mmHg POC pO2 (80-95) mmHg POC HCO3 (19-24) cristy/L POC Total CO2 (24-31) mmol/L POC Base Excess (-9-1.8) cristy/L ABG pH (Temp Correct) (7.35-7.45) ABG pCO2 (Temp Corrct (35-46) mmHg POC ABG pO2 at Pt Temp Brad Test O2 Delivery Device POC O2 Rate Minute Ventilation Tidal Volume PEEP POC Sodium (135-144) mmol/L Sodium 139 (136-145) mmol/L POC Potassium (3.3-5.0) mmol/L Potassium 4.0 (3.5-5.1) mmol/L Chloride 108 H (98-107) mmol/L Carbon Dioxide 26 (21-32) mmol/L Anion Gap 5.0 (3-11) BUN 23 H (7-18) mg/dl Creatinine 0.73 (0.6-1.2) mg/dl Est Cr Clr Drug Dosing 83.1 ml/min Est GFR ( Amer) 95.4 Est GFR (Non-Af Amer) 82.3 BUN/Creatinine Ratio 32.0 H (10-20) Glucose 138 H (70-99) mg/dl POC Glucose 125 H (70-99) mg/dl Calcium 6.8 L (8.5-10.1) mg/dl Phosphorus 1.2 L* (2.5-4.9) mg/dl Magnesium 2.4 (1.8-2.4) mg/dl Total Bilirubin 0.3 (0.2-1) mg/dl Direct Bilirubin < 0.1 (0-0.2) mg/dl AST 24 (15-37) U/L ALT 18 (12-78) U/L Alkaline Phosphatase 144 H (45-117) U/L Total Protein 5.9 L (6.4-8.2) gm/dl Albumin 1.6 L (3.4-5.0) gm/dl Triglycerides 238 H (0-150) mg/dl Lipase 90 (73-393) U/L 08/18/19 08/18/19 08/17/19 Range/Units 04:14 02:59 23:37 WBC 11.32 H (4.8-10.8) K/uL RBC 3.66 L (4.2-5.4) M/uL Hgb 10.9 L (12.0-16.0) g/dL POC Hgb 10.5 L (12.0-16.0) g/dl Hct 35.4 L (37-47) % POC Hct 31 L (37-47) % MCV 96.7 (80-100) fL MCH 29.8 (25-34) pg MCHC 30.8 L (32-36) g/dL RDW Std Deviation 56.7 H (36.4-46.3) fL RDW Coeff of David 16.0 H (11.5-14.5) % Plt Count 576 H (130-400) K/uL MPV 10.0 (7.4-10.4) fL Absolute Nucleated RBC 0.02 H (0-0) K/uL Nucleated RBC % (auto) 0.2 % Neutrophils % (Manual) 82.0 % Lymphocytes % (Manual) 6.0 % Monocytes % (Manual) 3.0 % Eosinophils % (Manual) 2.0 % Metamyelocytes % (Man) 2.0 % Myelocytes % (Man) 5.0 % Neutrophils # (Manual) 9.28 H (1.4-6.5) K/uL Total Absolute Neuts 9.28 H (1.4-6.5) K/uL Lymphocytes # (Manual) 0.68 L (1.2-3.4) K/uL Total Abs Lymphocytes 0.68 L (1.2-3.4) K/uL Monocytes # (Manual) 0.34 (0.11-0.59) K/uL Eosinophils # (Manual) 0.23 (0-0.5) K/uL Metamyelocytes # (Man) 0.23 H (0-0) K/uL Myelocytes # (Manual) 0.57 H (0-0) K/uL Microcytosis PT (9.0-12.0) Seconds INR (0.9-1.1) Sample Site Art Line POC pH 7.32 L (7.35-7.45) POC pCO2 52 H (35-46) mmHg POC pO2 57 L (80-95) mmHg POC HCO3 27 H (19-24) cristy/L POC Total CO2 29 (24-31) mmol/L POC Base Excess 1.0 (-9-1.8) cristy/L ABG pH (Temp Correct) 7.314 L (7.35-7.45) ABG pCO2 (Temp Corrct 53 H (35-46) mmHg POC ABG pO2 at Pt Temp 59 Brad Test NA O2 Delivery Device Ventilator POC O2 Rate 22 Minute Ventilation 8.6 Tidal Volume 360 PEEP 18 POC Sodium 139 (135-144) mmol/L Sodium (136-145) mmol/L POC Potassium 4.1 (3.3-5.0) mmol/L Potassium (3.5-5.1) mmol/L Chloride (98-107) mmol/L Carbon Dioxide (21-32) mmol/L Anion Gap (3-11) BUN (7-18) mg/dl Creatinine (0.6-1.2) mg/dl Est Cr Clr Drug Dosing ml/min Est GFR ( Amer) Est GFR (Non-Af Amer) BUN/Creatinine Ratio (10-20) Glucose (70-99) mg/dl POC Glucose 108 H (70-99) mg/dl Calcium (8.5-10.1) mg/dl Phosphorus (2.5-4.9) mg/dl Magnesium (1.8-2.4) mg/dl Total Bilirubin (0.2-1) mg/dl Direct Bilirubin (0-0.2) mg/dl AST (15-37) U/L ALT (12-78) U/L Alkaline Phosphatase (45-117) U/L Total Protein (6.4-8.2) gm/dl Albumin (3.4-5.0) gm/dl Triglycerides (0-150) mg/dl Lipase (73-393) U/L 08/17/19 08/17/19 08/17/19 Range/Units 22:03 17:57 15:47 WBC (4.8-10.8) K/uL RBC (4.2-5.4) M/uL Hgb (12.0-16.0) g/dL POC Hgb 10.5 L 10.9 L (12.0-16.0) g/dl Hct (37-47) % POC Hct 31 L 32 L (37-47) % MCV (80-100) fL MCH (25-34) pg MCHC (32-36) g/dL RDW Std Deviation (36.4-46.3) fL RDW Coeff of David (11.5-14.5) % Plt Count (130-400) K/uL MPV (7.4-10.4) fL Absolute Nucleated RBC (0-0) K/uL Nucleated RBC % (auto) % Neutrophils % (Manual) % Lymphocytes % (Manual) % Monocytes % (Manual) % Eosinophils % (Manual) % Metamyelocytes % (Man) % Myelocytes % (Man) % Neutrophils # (Manual) (1.4-6.5) K/uL Total Absolute Neuts (1.4-6.5) K/uL Lymphocytes # (Manual) (1.2-3.4) K/uL Total Abs Lymphocytes (1.2-3.4) K/uL Monocytes # (Manual) (0.11-0.59) K/uL Eosinophils # (Manual) (0-0.5) K/uL Metamyelocytes # (Man) (0-0) K/uL Myelocytes # (Manual) (0-0) K/uL Microcytosis PT (9.0-12.0) Seconds INR (0.9-1.1) Sample Site Art Line Art Line POC pH 7.35 7.33 L (7.35-7.45) POC pCO2 47 H 48 H (35-46) mmHg POC pO2 55 L 63 L (80-95) mmHg POC HCO3 26 H 26 H (19-24) cristy/L POC Total CO2 28 27 (24-31) mmol/L POC Base Excess 1.0 0.0 (-9-1.8) cristy/L ABG pH (Temp Correct) 7.340 L 7.332 L (7.35-7.45) ABG pCO2 (Temp Corrct 49 H 48 H (35-46) mmHg POC ABG pO2 at Pt Temp 59 63 Brad Test NA NA O2 Delivery Device Ventilator Ventilator POC O2 Rate 22 Minute Ventilation 8.5 8 Tidal Volume 360 360 PEEP 18 18 POC Sodium 137 138 (135-144) mmol/L Sodium (136-145) mmol/L POC Potassium 4.1 4.0 (3.3-5.0) mmol/L Potassium (3.5-5.1) mmol/L Chloride (98-107) mmol/L Carbon Dioxide (21-32) mmol/L Anion Gap (3-11) BUN (7-18) mg/dl Creatinine (0.6-1.2) mg/dl Est Cr Clr Drug Dosing ml/min Est GFR ( Amer) Est GFR (Non-Af Amer) BUN/Creatinine Ratio (10-20) Glucose (70-99) mg/dl POC Glucose 91 (70-99) mg/dl Calcium (8.5-10.1) mg/dl Phosphorus (2.5-4.9) mg/dl Magnesium (1.8-2.4) mg/dl Total Bilirubin (0.2-1) mg/dl Direct Bilirubin (0-0.2) mg/dl AST (15-37) U/L ALT (12-78) U/L Alkaline Phosphatase (45-117) U/L Total Protein (6.4-8.2) gm/dl Albumin (3.4-5.0) gm/dl Triglycerides (0-150) mg/dl Lipase (73-393) U/L 08/17/19 Range/Units 13:52 WBC (4.8-10.8) K/uL RBC (4.2-5.4) M/uL Hgb (12.0-16.0) g/dL POC Hgb 10.9 L (12.0-16.0) g/dl Hct (37-47) % POC Hct 32 L (37-47) % MCV (80-100) fL MCH (25-34) pg MCHC (32-36) g/dL RDW Std Deviation (36.4-46.3) fL RDW Coeff of David (11.5-14.5) % Plt Count (130-400) K/uL MPV (7.4-10.4) fL Absolute Nucleated RBC (0-0) K/uL Nucleated RBC % (auto) % Neutrophils % (Manual) % Lymphocytes % (Manual) % Monocytes % (Manual) % Eosinophils % (Manual) % Metamyelocytes % (Man) % Myelocytes % (Man) % Neutrophils # (Manual) (1.4-6.5) K/uL Total Absolute Neuts (1.4-6.5) K/uL Lymphocytes # (Manual) (1.2-3.4) K/uL Total Abs Lymphocytes (1.2-3.4) K/uL Monocytes # (Manual) (0.11-0.59) K/uL Eosinophils # (Manual) (0-0.5) K/uL Metamyelocytes # (Man) (0-0) K/uL Myelocytes # (Manual) (0-0) K/uL Microcytosis PT (9.0-12.0) Seconds INR (0.9-1.1) Sample Site Art Line POC pH 7.32 L (7.35-7.45) POC pCO2 50 H (35-46) mmHg POC pO2 71 L (80-95) mmHg POC HCO3 26 H (19-24) cristy/L POC Total CO2 27 (24-31) mmol/L POC Base Excess 0.0 (-9-1.8) cristy/L ABG pH (Temp Correct) 7.324 L (7.35-7.45) ABG pCO2 (Temp Corrct 50 H (35-46) mmHg POC ABG pO2 at Pt Temp 71 Brad Test NA O2 Delivery Device Ventilator POC O2 Rate 22 Minute Ventilation 7.4 Tidal Volume 7.43 PEEP 18 POC Sodium 137 (135-144) mmol/L Sodium (136-145) mmol/L POC Potassium 3.9 (3.3-5.0) mmol/L Potassium (3.5-5.1) mmol/L Chloride (98-107) mmol/L Carbon Dioxide (21-32) mmol/L Anion Gap (3-11) BUN (7-18) mg/dl Creatinine (0.6-1.2) mg/dl Est Cr Clr Drug Dosing ml/min Est GFR ( Amer) Est GFR (Non-Af Amer) BUN/Creatinine Ratio (10-20) Glucose (70-99) mg/dl POC Glucose (70-99) mg/dl Calcium (8.5-10.1) mg/dl Phosphorus (2.5-4.9) mg/dl Magnesium (1.8-2.4) mg/dl Total Bilirubin (0.2-1) mg/dl Direct Bilirubin (0-0.2) mg/dl AST (15-37) U/L ALT (12-78) U/L Alkaline Phosphatase (45-117) U/L Total Protein (6.4-8.2) gm/dl Albumin (3.4-5.0) gm/dl Triglycerides (0-150) mg/dl Lipase (73-393) U/L Coding Level of Care Code Critical Care 1st 30-74 mins Diagnoses ARDS (adult respiratory distress syndrome) J80 Time Spent (min) 60 Comment I have personally spent 60 minutes of critical care time in the direct management of this patient. This is a life/limb threatening event. This includes time spent evaluating patient, direct bedside care, chart review, pl acing orders, interpretation of diagnostic studies, discussion with consultants, patient, and/or family members regarding treatment decisions, as well as other required patient management activities. This time is exclusive of all separately billable procedures, and teaching time and separate from and in addition to any other critical care service time.
[2019-08-18] MEDS ORDERED: PHYTONADIONE 5 MG TAB PO STA (12:22)
[2019-08-18] MEDS ORDERED: PEPTAMEN INTENSE VHP 1.0 CAL 1,000 ML BAG OG SCH (12:25)
[2019-08-18] MEDS ORDERED: METOPROLOL TARTRATE 25 MG TAB PO SCH (12:30)
[2019-08-18] MEDS ORDERED: LORazepam 0.5 MG/1 ML VIAL IV PRN (13:59)
[2019-08-18] MEDS ORDERED: ONDANSETRON INJ 2 MG/ML 2 ML VIAL IV PRN (13:59)
[2019-08-18] MEDS ORDERED: ONDANSETRON 4 MG OD TAB SL PRN (13:59)
[2019-08-18] MEDS ORDERED: ATROPINE SULFATE 1% OP SOLN 2 ML BTL SL PRN (13:59)
[2019-08-18] MEDS ORDERED: LORazepam 0.5 MG TAB PO PRN (13:59)
[2019-08-18] MEDS ORDERED: STAT IV Infusion **Titration per Protocol STA (14:01)
[2019-08-18] MEDS ORDERED: MoRPHine SULF/NSS 250 MG/250 ML BTL IV SCH (14:15)
[2019-08-18] MEDS ORDERED: ALBUT/IPRATROP 3MG/0.5MG NEB 3 ML VIAL NEB PRN (16:05)
--- NOTE | 2019-08-18 19:04 | Death Pronouncement Note ---
Date of Service August 18, 2019 Date: 08/18/2019 Time: 1853 I was contacted by nursing staff regarding the patients declining status and concerns for imminent demise. In short, patient presented with acute respiratory distress syndrome in the setting of influenza A. Patient has undergone significant measures in an effort to liberate from the ventilator including strict ARDS net protocol with intermittent protein. Despite this, the patient has not shown significant improvement over the last several days. Per records, conversation held with family and in line with the patient's wishes, the patient would not wish to continue with ongoing ventilator management and eventual tracheostomy tube placement. Decision was made by family to make the patient comfortable. Patient ceased to breathe and with asystole noted at 185. Assessment: I presented to the patients room for evaluation. Upon assessment, the patient was found to be in a terminal state. Pupils were fixed and dilated without response. No palpable pulses appreciated. No spontaneous breaths noted. Heart sounds were absent. No response to painful stimuli. Time of : 1853 as pronounced by myself. Family notified per nursing staff. Patients primary service was contacted and made aware of patient demise. Pronouncement section of the Certificate was filled out and signed by myself. Cause of : Primary - ARDS Secondary - Influenza A Please feel free to contact me with any questions regarding the above-mentioned course. Pronouncement Note Admission Date Admission Date: August 12, 2019 Contributing Factors (1) ARDS (adult respiratory distress syndrome): Additional Data Attending physician: Joshua Martel MD Supervising Physician Co-Signing Physician Notes Patient was terminally extubated when life-sustaining measures were inconsistent with life goals. I was advised via telephone of the patient expiring. Coding Level of Care Code None Diagnoses ARDS (adult respiratory distress syndrome) J80
--- NOTE | 2019-08-19 08:52 | Discharge Summary ---
Date of Service August 19, 2019 Admission HPI Per Admitting Provider History obtained from patient and records. Medical history significant for hypertension, hyperlipidemia, mood disorder, prediabetes, chronic migraine as per records. Recent confinement January 2017 for acute renal failure. 9 days history of sinusitis symptoms followed by sore throat, junky productive cough symptoms. Coughing noted with water/food intake from time to time. Patient denies fluid retention. Patient seen at PCPs office 5 days ago. Z-Miki and prednisone course initiated for bronchitis/sinusitis, gout symptoms. IM ceftriaxone 1 dose given at the clinic. Patient brought to the ER for evaluation because of worsening symptoms. At the ER, patient received Decadron, neb treatment, Zosyn, and Tamiflu for pneumonia and influenza. BiPAP initiated at the ER for worsening respiratory distress. 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 Admission Exam Per Admitting Provider Physical Exam: GENERAL: uncomfortable, anxious, minimal respiratory distress, morbidly obese SKIN: Normal color, warm HEENT: [place] palpebral conjunctivae, no ptosis, dry buccal mucosa, BiPAP in place NECK : Supple, short neck, no tenderness CHEST : Decreased breath sounds, occasional expiratory wheezes, no tenderness HEART : RRR, no obvious murmurs ABDOMEN: Some distention, nontender EXTREMITIES : Bilateral LE swelling, no LE tenderness, no other conspicuous deformities noted NEUROLOGIC : Coherent, no facial asymmetry, no other gross focality Principal Diagnosis Discharge Exam Constitutional well developed, well nourished and + obese; not ill appearing Eyes PERRL, conjunctivae normal, anicteric sclerae ENMT external ear and nose normal, oropharynx normal Neck trachea midline, no thyromegaly Respiratory + respiratory distress (Moderate) Auscultation: + diminished lung sounds (Bilaterally ) and + crackles (Minimal bibasilar crackles) Cardiovascular Rate/Rhythm: regular rate and regular rhythm Heart Sounds: no murmur Extremities: + edema (1+ edema bilaterally) Gastrointestinal (Abdomen) Inspection/Auscultation: abdomen normal to inspection, + abdomen distended and normal bowel sounds Percussion/Palpation: abdomen soft; abdomen nontender Lymphatic no cervical or axillary lymphadenopathy Discharge Data Allergies Allergy/AdvReac Type Severity Reaction Status Date / Time Penicillins AdvReac Mild YEAST Verified 08/11/19 21:43 INFECTION tetanus and diphtheria AdvReac Gastrointestinal Verified 08/11/19 22:15 toxoids Upset Consultations 08/11/19 22:55 ED Decision to Admit Stat 08/12/19 02:53 Consult Case Management - Discharge Planning Routine 08/13/19 03:08 Consult Pulmonology Routine 08/16/19 10:09 Consult Palliative Care Routine Ordered Studies 08/11/19 21:30 CT abd pelvis IV con only Urgent 08/17/19 08:40 US liver Urgent Hospital Course (1) ARDS (adult respiratory distress syndrome): The patient was transferred to ICU and is now intubated and sedated ARDS is secondary to influenza No definite signs of bacterial pneumonia and has not been getting any antibiotic Appreciate cable repairer input and recommendation Condition deteriorated with worsening chest x-ray findings Stable and seems to be a little better Family members are updated accordingly by the cable repairer Condition stable with slightly worse as of today and not yet ready to be extubated Nutrition Started with peripheral parenteral nutrition Electrolytes will be adjusted (2) Acute hypoxemic respiratory failure: Admitted with acute hypoxic respiratory failure secondary to influenza A and pneumonia likely viral Has been getting intravenous antibiotics with them ceftriaxone and azithromycin for now Received Zosyn and ceftaroline before Appreciate pulmonary input and recommendation Steroids have been discontinued Clinically worse with increasing desaturation, increasing shortness of breath and worsening chest x-ray findings ABG did show low oxygen at 62 Ceftriaxone has been changed to intravenous Zosyn She will be moved to ICU for continued care and may need intubation to maintain saturation Antibiotics have been stopped Ventilation management as per cable repairer (3) Influenza A: Has been on Tamiflu (4) Pneumonia: Likely viral pneumonia Has been on antibiotic to cover the possibilities of bacterial pneumonia Blood cultures have been negative Sputum culture is pending-light normal trisha but final report is pending No need to have any antibiotic White count remains normal and no fever no chills No antibiotics have been administered due to suspected viral pneumonia White count remains normal and afebrile (5) GERD (gastroesophageal reflux disease): Has been on PPI twice daily We will add Maalox as needed for dyspepsia And GI prophylaxis (6) CKD (chronic kidney disease), stage III: History of chronic kidney disease presented with [facility] Kidney function has been improving and is normalized (7) Hypothyroidism: Continue replacement DVT prophylaxis Subcu Lovenox CODE STATUS Changed to DNR/DNI Prognosis poor Total Time Total Time Spent Total Time Spent (In Minutes): 20 minutes Discharge Plan Discharge Items Patient Disposition: Reason For Visit: RESP FAILURE Discharge Diagnosis: ARDS Influenza A Follow-up/Referrals: Paulina Perez DO [Primary Care Provider] - Addtl Attending Provider Instructions: Note From ICU: August 18, 2019 Date: 08/18/2019 Time: 1853 I was contacted by nursing staff regarding the patients declining status and concerns for imminent demise. In short, patient presented with acute respiratory distress syndrome in the setting of influenza A. Patient has undergone significant measures in an effort to liberate from the ventilator including strict ARDS net protocol with intermittent protein. Despite this, the patient has not shown significant improvement over the last several days. Per records, conversation held with family and in line with the patient's wishes, the patient would not wish to continue with ongoing ventilator management and eventual tracheostomy tube placement. Decision was made by family to make the patient comfortable. Patient ceased to breathe and with asystole noted at 1853. Assessment: I presented to the patients room for evaluation. Upon assessment, the patient was found to be in a terminal state. Pupils were fixed and dilated without response. No palpable pulses appreciated. No spontaneous breaths noted. Heart sounds were absent. No response to painful stimuli. Time of : 1853 as pronounced by myself. Family notified per nursing staff. Patients primary service was contacted and made aware of patient demise. Pronouncement section of the Certificate was filled out and signed by myself. Cause of : Primary - ARDS Secondary - Influenza A Stand-Alone Forms: My [facility] Medications and DC Order Krames/Other Patient Handouts: A1C Admission Data Admit Date/Time: 08/12/19 00:46 Other DC Date/Time DO NOT enter until pt leaves facility: 08/18/19 18:54
== END 2019-08-18 18:54 | disposition expired | DRG 208 ==
LOC: ED 20:41 → 2W 08-12 00:46 → SUATTDRO 08-12 00:46 → 2W 08-12 02:19 → 1E 08-14 13:21